=== PATIENT | female | born 1985 | race Caucasian/White ===

== ENCOUNTER 2022-09-10 18:33 | Inpatient (IN) | payer BC ==
--- OUTSIDE RECORDS SUMMARY | 2022-09-10 18:47 | XMS REPORT | Continuity of Care Document ---
:1985 Author Organization [facility] t Address [address] [place] [address] Care Team Providers Name Role Phone Art LERMA, Wayne Hartman Primary Care Physician Carmelo Velasco Attending Clinician Unavailable Vannessa LERMA, Kina Attending Clinician Marco A LERMA, Abel Gurrola Attending Clinician ABEL STRICKLAND Attending Clinician Unavailable Maximilian OWENS, Oliva Knapp Attending Clinician Unavailable Jem OWENS, Meg Attending Clinician Unavailable Ileana Armando NP, Peggy Langford Attending Clinician [phone] Marky LERMA, Yoana Hurtado Attending Clinician Deepak LERMA, Surya Richardson Attending Clinician Checo LERMA, Dov Durand Attending Clinician Abi LERMA, Delano Gibbs Attending Clinician Nicolasa LERMA, Jeffrey Cantu Attending Clinician Kristal LERMA, Nilton Montes Attending Clinician [phone] Beau LERMA, Ann Rosado Attending Clinician ANN YANEZ Attending Clinician Unavailable Zuleika LERMA, Jazzmine Attending Clinician Khanna CRNApriyanka Charley Attending Clinician Celia Hamilton MD Attending Clinician [phone] Angelina Reich CRNA Attending Clinician YOANA NEGRO Attending Clinician Unavailable Luisito LERMA, Henry Galindo Attending Clinician HENRY JORGE Attending Clinician Unavailable Guicho LERMA, Bryant Arrieta Attending Clinician [phone] Asked, No Pcp Attending Clinician Unavailable DR CARMELLA BELCHER Attending Clinician Unavailable Tae LERMA, Carmella Whitten Attending Clinician Venkat Wood MD Attending Clinician [phone] João LERMA, Leana Attending Clinician Chiqui Durbin MD Attending Clinician Kizzy Riojas MD Attending Clinician Taylor OWENS, Mark Attending Clinician Unavailable MD CHIQUI DURBIN Attending Clinician Unavailable Fidencio Abbasi MD Attending Clinician MD BRYANT GROVE Attending Clinician Unavailable Rahel Khan MA Attending Clinician Unavailable JEFFREY FRANKLIN Attending Clinician Unavailable NAVYA PIZARRO Attending Clinician Unavailable RO LUX Attending Clinician Unavailable CHIQUI CASTANEDA Attending Clinician Unavailable ABEL STRICKLAND Admitting Clinician Unavailable ANN YANEZ Admitting Clinician Unavailable DR CARMELLA BELCHER Admitting Clinician Unavailable CARMELLA BELCHER Admitting Clinician Unavailable CHIQUI DURBIN Admitting Clinician Unavailable MD LEANA MOYER Admitting Clinician Unavailable BRYANT GROVE Admitting Clinician Unavailable MD BRYANT GROVE Admitting Clinician Unavailable JEFFREY FRANKLIN Admitting Clinician Unavailable NAVYA PIZARRO Admitting Clinician Unavailable RO LUX Admitting Clinician Unavailable CHIQUI CASTANEDA Admitting Clinician Unavailable Payers Payer Name Policy Type Policy Number Effective Date Expiration Date Staci hernandez [id number] 1961 00:00:00 Problems Condition Condition Condition Status Onset Resolution Last Treating Co mments Source Name Details Category Date Date Treatment Clinician Date Delayed Delayed Disease Active [facility] postoperat postoperat 9-18 [facility] brittany wound brittany wound 00:00: Medi yoli closure closure 00 Center S/P S/P Disease Active [facility] colostomy colostomy 9-13 [facility] takedown takedown 00:00: Medica l 00 Center Abdominal Abdominal Disease Active [facility] pain pain [facility]13 [facility] 00:[facility] Medical 00 Center Obesity Obesity Disease Active [facility] (BMI (BMI 9-13 [facility] 30.0-34.9) 30.0-34.9) 00:00: Me dical 00 Center Colostomy Colostomy Disease Active [facility] status status 9-12 [facility] 00:[facility]: Medical 00 Center Abdominal Abdominal Disease Active [facility] wall wall 5-02 [facility] seroma, seroma, 00:00: Medical sequela sequela 00 Center Lactic Lactic Disease Active [facility] acidosis acidosis 4-23 [facility] 00:00: Medical 00 Center UTI UTI Disease Active [facility] (urinary (urinary 4-23 [facility] tract tract 00:00: Medical infection) infection) 00 Ce nter Septic Septic Disease Active [facility] shock shock 4-23 [facility] 00:00: Medical 00 Center Pneumatosi Pneumatosi Disease Active [facility] s 4-23 [facility] intestinal intestinal 00:00: Me dical is is 00 Center Neuropathy Neuropathy Disease Active M ethodi 9-10 st 00:00: Hospita 00 l Syncope Syncope Disease Active Methodi and and 8-29 st collapse collapse 00:00: Hospit a 00 l Paroxysmal Paroxysmal Disease Active M ethodi SVT SVT 4-21 st (supravent (supravent 00:00: Ho spita ricular ricular 00 l tachycardi tachycardi a) a) ST segment ST segment Disease Active M ethodi depression depression 4-21 st 00:00: Hospita 00 l Syncope Syncope Disease Active [facility]i 4-[facility] st 00:00: Hospita 00 l Labile Labile Disease Active Methodi blood blood 21 st pressure pressure 00:00: Hospit a 00 l Hypertensi Hypertensi Problem Active [facility] ve ve -06 [facility] disorder disorder 00:00: Memori a 00 l (LUF/LI V/SA) Paresthesi Paresthesi Problem Active 2018-[address] a a -16 [facility] 00:00: Memoria 00 l (LUF/LI V/SA) Muscle Muscle Problem Active 2018-[address] weakness weakness 11-19 [facility] 00:00: Memoria 00 l (LUF/LI V/SA) Backache Backache Problem Active 2018-11 [facility] 00:00: Memoria 00 l (LUF/LI V/SA) Benign Benign Disease Active Methodi fasciculat fasciculat st ion-cramp ion-cramp Hosp tamela syndrome syndrome l Plexopathy Plexopathy Disease Active M ethodi st Hospita l Cervical Cervical Disease Active Metho di radiculiti radiculiti [facility] Hospita l Lumbar Lumbar Disease Active Methodi radiculiti radiculiti [facility] s s Hospita l Allergies, Adverse Reactions, Alerts Allergy Allergy Status Severity Reaction(s) Onset Inactive Treating Comm ents Source Name Type Date Date Clinician NO KNOWN Allergy Active [facility] No Known DA Active [facility] l (LUF/LI V/SA) No Known DA Active [facility] Allergie [facility] Mem[facility] l (LUF/LI V/SA) Family History Family Member Diagnosis Comments Start Date Stop Date Source Natural mother Diabetes [facility] Natural mother Hyperlipidemia [facility] Natural mother Hypertension [facility] Natural father Heart disease [facility] Natural father Heart failure Method[facility] Natural father Hyperlipidemia [facility] Social History Social Habit Start Date Stop Date Quantity Comments Source History of tobacco Current smoker Me thodist use Hospital [facility] SDOH [facility] Alcohol Std Drinks Medica l Center History SDOH [facility] Alcohol Binge Medical Omar ter History SDOH [facility] Transport Non-Med Medical Center History SDOH [facility] Housing Places Medical Ce nter Lived Alcohol intake 2022-07-21 2022-07-21 Current drinker of [facility] 00:00[facility]00 00:00:00 alcohol (finding) Medical Center History [facility] 2022-07-17 2022-07-[address] [facility] Transport Med 00:00:00 00:00:[address] [facility] [address] History [facility] 2022-07-17 2022-07-[address] [facility] Housing Unable to 00:00:00 00:00:00 Medical Center Pay History [facility] 2022-07-17 2022-07-[address] [facility] Housing Homeless 00:00:00 00:00:00 Medical Center Last Year History [facility] 2022-06-18 2022-06-[address] [facility] Alcohol Comment 00:00:00 00:00:00 Medical C enter Tobacco Comment 2022-06-18 2022-06-18 1 pack per week [facility] 00:00:00 00:00:00 [facility] Cigarettes smoked 2022-02-23 2022-02-[address] [facility] current (pack per 00:00:00 00:00:00 Medical Center day) - Reported Cigarette 2022-02-23 2022-02-[address] [facility] pack-years 00:00:00 00:00:00 Medical Center Tobacco use and 2022-02-23 2022-02-[address] [facility] [facility] exposure 00:00:00 00:00:00 Medical Center History [facility] 2022-02-23 2022-02-[address] [facility] Alcohol Frequency 00:00:00 00:00:00 [facility] Sex Assigned At [address] [facility] kes 00:00:00 00:00:00 Medical Center Smoking Status Start Date Stop Date Source Current every day 2022-02-23 00:00:[address] [facility] Medical smoker Center Ex-smoker 2021-02-21 00:00:00 2021-02-21 00:00:00 [facility] Medications Ordered Filled Start Stop Current Ordering Indication Dosage Frequency Signature Comments Components Source Medication Medication Date Date Medication? Clinician (SIG) Name Name docusate 2021- No 200mg QD Take 2 [facility] sodium 07-24-30 capsules [facility] (COLACE) 00:00: 23:59 (200 mg Medic al 100 MG 00 :00 total) by Center capsule mouth daily for 10 days. pregabalin 0 Yes 300mg Q.5D Take [address] (LYRICA) 9-19 mg by [facility] 300 MG 16:37: mouth 2 Medical capsule 41 (two) Center times daily. ALPRAZolam 0 Yes 1mg Q.5D Take [address] (XANAX) 1 -19 by mouth 2 Luke s MG tablet 16:37: (two) Medical 41 times Center daily. DULoxetine 0 Yes 60mg QD Take [address] (CYMBALTA) -19 by mouth [facility] 60 MG 16:37: daily. Medical capsule 41 Center carvediloL Yes 3.125mg Take 3.[address] (COREG) 9-19 mg by [facility] 3.125 MG 16:37: mouth 2 Medica l tablet 41 (two) Center times daily with breakfast and dinner. glipiZIDE Yes 5mg Take [address] (GLUCOTROL) 07-23 by mouth 2 [facility] kes 5 MG tablet 16:37: (two) Medic al 41 times Center daily before meals. HYDROcodone 2021- No 1{tbl} Take [address] -acetaminop 07-23 tablet by Flakito nash (NORCO 00:00: 23:59 mouth Medic al 10-325) 00 :00 every 8 Center 10-325 mg (eight) per tablet hours as needed for Pain for up to 7 days. Max Daily Amount: 3 tablets DAPTOmycin 2021- No 500mg Q24H Inject [address] (CUBICIN) 03-08- mg [facility] IV 00:00: 00:00 intravenou Medica l 00 :00 sly daily. Center cefTRIAXone 2021- No 2g Q24H Inject [address] (ROCEPHIN) 03-08-08 intravenou [facility]es MBP 2 g in 00:00: 00:00 sly daily. Medical 100 mL NS 00 :00 Center TiZANidine 2021- No 8mg Q.[id number] Take [address] (ZANAFLEX) 03-07 [id number] by mouth 3 [facility] 6 MG 13:04: 00:00 3D (three) Medical capsule 05 :00 times Center daily. TiZANidine Yes 8mg Take 2 [facility] t (ZANAFLEX) 03-07 capsules [facility] 4 MG 00:00: (8 mg Medical capsule 00 total) by Center mouth 3 (three) times daily as needed for Muscle spasms. carvediloL 2021- No 3.125mg Q.5D Take [address] (COREG) 03-07 tablet [facility] 3.125 MG 00:00: 23:59 (3.125 mg Med ical tablet 00 :00 total) by Center mouth 2 (two) times daily for 30 days. glipiZIDE 2021- No 5mg Take 0.[address] (GLUCOTROL) 03-07 tablets (5 L ukes 10 MG 00:00: 23:59 mg total) Medica l tablet 00 :00 by mouth 2 Center (two) times daily before meals for 30 days. HYDROcodone 2021- No 1{tbl} Take [address] -acetaminop 03-07 tablet by Flakito yane hen (NORCO 00:00: 23:59 mouth Medic al 10-325) 00 :00 every 6 Center 10-325 mg (six) per tablet hours as needed for up to 5 days. Max Daily Amount: 4 tablets metroNIDAZO 2021- No 500mg [id number] Take [address] LE (FLAGYL) 03-07 [id number] tablet [facility] 500 MG 00:00: 23:59 3D (500 mg Medical tablet 00 :00 total) by Center mouth 3 (three) times daily for 5 days. zolpidem 2021- No 10mg Take [address] (AMBIEN) 10 -25 02-24 by mouth [facility]erto es mg tablet 17:11: 00:00 every Medica l 12 :00 night as Center needed for Insomnia. ergocalcife 2020- No [id number] Q7D Take 1 M ethodi rol 07-27-[address] (VITAMIN 00:00: 04:59 (50,000 Hospi ta D2) 50,000 00 :00 Units l unit total) by capsule mouth once a week for 30 days. vitamin A 2020- No 01215V QD Take 2 Met hodi [id number] UNIT 07-22- capsules st capsule 00:00: 04:59 (20,000 Hospit a 00 :00 Units l total) by mouth daily for 30 days. pyridoxine, 2020- No 25mg QD Take 1 Met hodi vitamin B6, 07-22 tablet (25 s t (B-6) 25 MG 00:00: 04:59 mg total) Hospita tablet 00 :00 by mouth l daily for 30 days. tiZANidine 2020- No 4mg Q.5D Take 4-8 Me thodi (Zanaflex) - 09-[address] 4 MG tablet 13:28: 00:00 mouth 2 Ho spita 15 :00 (two) l times a day as needed for muscle spasms. pregabalin 2020- No 300mg QD Take 300 M ethodi (LYRICA) 07-21 09-[address] 100 MG 13:28: 00:00 mouth Hospita capsule 15 :00 [facility]. l [facility]/20, quantity: 270, day supply: 90) aspirin Yes 81mg QD Take 81 mg Meth juan (ECOTRIN) [address] 81 MG 13:28: daily. Hospita enteric 14 l coated tablet aspirin Yes 81mg QD Take 81 mg Meth juan (ECOTRIN) [address] 81 MG 13:28: daily. Hospita enteric 14 l coated tablet folic acid 2020- No 5mg QD Take 5 Meth juan (FOLVITE) 1 07-21 10-18 tablets (5 s t MG tablet 00:00: 04:59 mg total) Ho spita 00 :00 by mouth l daily for 30 days. 2020- No 1{tbl} QD Take 1 Meth juan vit,calc76/ 07-21-[address] iron/folic 00:00: 04:59 mouth Hospi ta ( 00 :00 daily for l multivitami 30 days. n) 29 mg iron- 1 mg tablet per tablet metFORMIN 2020- No 1000mg Q.5D Take 1 Met hodi (GLUCOPHAGE 9-16 10-[address] ) 1,000 mg 00:00: 04:59 (1,000 mg H ospita tablet 00 :00 total) by l mouth 2 (two) times a day with meals for 30 days. betamethaso 2020- No Metho di ne 6-14 08-29 st dipropionat 00:00: 00:00 Hospi ta e 00 :00 l (DIPROLENE) 0.05 % cream metoprolol 2020- No 25mg Q.5D Take 25 mg Methodi tartrate 4-20 04-[address] (LOPRESSOR) 11:28: 00:00 (two) Hosp tamela 25 mg 05 :00 times a l tablet day. hydrochloro 2020- No hydrochlor Methodi thiazide 4-20 04-[address] (MICROZIDE 11:22: 00:00 Hospit a ORAL) 50 :00 l FLUoxetine Yes 40mg QD Take 40 mg M ethodi (PROzac) 40 3-[address] MG capsule 00:00: daily. Hospi ta 00 l FLUoxetine Yes 40mg QD Take 40 mg M ethodi (PROzac) 40 3-[address] MG capsule 00:00: daily. Hospi ta 00 l ALPRAZolam Yes 1mg QD Take 1 mg Me thodi (XANAX) 1 3-[address] MG tablet 00:00: nightly as Ho spita 00 needed for l anxiety or sleep. ([facility] last [facility] 05/10/21, quantity: 90, day supply: 90) ALPRAZolam Yes 1mg QD Take 1 mg Me thodi (XANAX) 1 3-[address] MG tablet 00:00: nightly as Ho spita 00 needed for l anxiety or sleep. ([facility] last [facility] 05/10/21, quantity: 90, day supply: 90) meloxicam Yes 15mg QD Take 15 mg Me thodi (MOBIC) 15 3-[address] mg tablet 00:00: daily. Hospit a 00 l meloxicam Yes 15mg QD Take 15 mg Me thodi (MOBIC) 15 3-[address] mg tablet 00:00: daily. Hospit a 00 l aspirin 81 aspirin 81 2019-[address] MG Chewable MG Chewable 2-24 L ukes Tablet Tablet 00:00: Memoria 00 l (LUF/LI V/SA) pregabalin pregabalin 2019-11 [address] 25 MG Oral 25 MG Oral 2-24 [facility] Capsule Capsule 00:00: Memoria 00 l (LUF/LI V/SA) tizanidine tizanidine 2019-[address] 2 MG Oral 2 MG Oral 2-24 [facility] Tablet Tablet 00:00: Memoria 00 l (LUF/LI V/SA) aspirin 81 aspirin 81 2019-11 Yes [address] [facility] MG Chewable MG Chewable 2-24 ONCE A DAY [facility]ukes Tablet Tablet 00:00: Memoria 00 l (LUF/LI V/SA) pregabalin pregabalin 2019-11 Yes 75 Q8.00W [address] [facility] 25 MG Oral 25 MG Oral 2-24 THREE (3) [facility]ukes Capsule Capsule 00:00: TIMES A Humberto joy DAY l (ACUDOSE (LUF/LI MED) V/SA) tizanidine tizanidine 2019-11 Yes [address] [facility] 2 MG Oral 2 MG Oral 2-24 THREE Luke s Tablet Tablet 00:00: TIMES Memoria 00 DAILY l NEEDED as (LUF/LI needed. V/SA) metoprolol metoprolol Yes [address] tartrate 25 tartrate 25 L ukes mg tablet mg tablet Memor ia l (LUF/LI V/SA) metoprolol metoprolol Yes 25 3xD BY MOUTH [facility] tartrate 25 tartrate 25 TWICE A [facility] mg tablet mg tablet DAY Memor ia l (LUF/LI V/SA) Vital Signs Vital Name Observation Time Observation Value Comments Source HEIGHT 2022-07-16 12:14:00 167.6 cm WEIGHT 2022-07-16 12:14:00 87.544 kg HEIGHT 2022-07-16 12:14:00 167.6 cm WEIGHT 2022-07-16 12:14:00 87.544 kg HEIGHT 2022-07-16 12:14:00 167.6 cm WEIGHT 2022-07-16 12:14:00 87.544 kg HEIGHT 2022-07-12 15:04:00 167.6 cm WEIGHT 2022-07-12 15:04:00 87.544 kg HEIGHT 2022-07-12 15:04:00 167.6 cm WEIGHT 2022-07-12 15:04:00 87.544 kg HEIGHT 2022-07-12 15:04:00 167.6 cm WEIGHT 2022-07-12 15:04:00 87.544 kg HEIGHT 2022-06-18 14:37:00 167.6 cm WEIGHT 2022-06-18 14:37:00 86.41 kg HEIGHT 2022-06-18 14:37:00 167.6 cm WEIGHT 2022-06-18 14:37:00 86.41 kg HEIGHT 2022-06-18 14:37:00 167.6 cm WEIGHT 2022-06-18 14:37:00 86.41 kg WEIGHT 2022-03-07 04:47:00 95.981 kg WEIGHT 2022-03-06 04:18:09 99.791 kg HEIGHT 2022-03-05 14:16:00 167.6 cm WEIGHT 2022-03-05 14:16:00 95.709 kg WEIGHT 2022-03-05 05:00:00 95.8 kg WEIGHT 2022-03-04 06:56:00 96.435 kg WEIGHT 2022-03-03 05:00:00 94.439 kg WEIGHT 2022-03-02 04:55:00 93.486 kg WEIGHT 2022-03-01 05:00:00 95.709 kg HEIGHT 2022-02-26 15:13:00 167.6 cm WEIGHT 2022-02-26 15:13:00 90.719 kg HEIGHT 2022-02-24 02:45:00 167.6 cm WEIGHT 2022-02-24 02:45:00 90.855 kg WEIGHT 2022-03-07 04:47:00 95.981 kg WEIGHT 2022-03-06 04:18:09 99.791 kg HEIGHT 2022-03-05 14:16:00 167.6 cm WEIGHT 2022-03-05 14:16:00 95.709 kg WEIGHT 2022-03-05 05:00:00 95.8 kg WEIGHT 2022-03-04 06:56:00 96.435 kg WEIGHT 2022-03-03 05:00:00 94.439 kg WEIGHT 2022-03-02 04:55:00 93.486 kg WEIGHT 2022-03-01 05:00:00 95.709 kg HEIGHT 2022-02-26 15:13:00 167.6 cm WEIGHT 2022-02-26 15:13:00 90.719 kg HEIGHT 2022-02-24 02:45:00 167.6 cm WEIGHT 2022-02-24 02:45:00 90.855 kg WEIGHT 2022-03-07 04:47:00 95.981 kg WEIGHT 2022-03-06 04:18:09 99.791 kg HEIGHT 2022-03-05 14:16:00 167.6 cm WEIGHT 2022-03-05 14:16:00 95.709 kg WEIGHT 2022-03-05 05:00:00 95.8 kg WEIGHT 2022-03-04 06:56:00 96.435 kg WEIGHT 2022-03-03 05:00:00 94.439 kg WEIGHT 2022-03-02 04:55:00 93.486 kg WEIGHT 2022-03-01 05:00:00 95.709 kg HEIGHT 2022-02-26 15:13:00 167.6 cm WEIGHT 2022-02-26 15:13:00 90.719 kg HEIGHT 2022-02-24 02:45:00 167.6 cm WEIGHT 2022-02-24 02:45:00 90.855 kg HEIGHT 2022-02-23 22:07:00 167.6 cm WEIGHT 2022-02-23 22:07:00 83.915 kg HEIGHT 2022-02-23 22:07:00 167.6 cm WEIGHT 2022-02-23 22:07:00 83.915 kg HEIGHT 2022-02-23 22:07:00 167.6 cm WEIGHT 2022-02-23 22:07:00 83.915 kg Height 2020-10-26 20:23:00 167.64 CM Weight 2020-10-26 20:23:00 86.9 KG Weight 2019-11-11 04:19:00 92.8 KG Weight 2019-11-10 09:58:00 89.7 KG Weight 2019-11-09 13:19:00 84.9 KG Systolic blood 2022-07-23 15:11:16 144 mm[Hg] [facility] Diastolic blood 2022-07-23 15:11:16 94 mm[Hg] [facility] Oxygen saturation in 2022-07-23 15:11:16 96 /min [facility] Arterial blood by Medical Ce nter Pulse oximetry Respiratory rate 2022-07-23 15:10:40 18 /min [facility] Body temperature 2022-07-23 15:10:02 36.94 Ashli [facility] Heart rate 2022-07-23 11:11:43 76 /min [facility] Body height 2022-07-16 12:14:00 167.6 cm [facility] Body weight 2022-07-16 12:14:00 87.544 kg [facility] BMI 2022-07-16 12:14:00 31.15 kg/m2 [facility] Systolic blood 2021-07-21 17:59:41 92 mm[Hg] [facility] pressure Diastolic blood 2021-07-21 17:59:41 50 mm[Hg] [facility] pressure Heart rate 2021-07-21 17:59:41 87 /min [facility] Body temperature 2021-07-21 16:06:48 35.94 Ashli [facility] Respiratory rate 2021-07-21 16:06:48 18 /min [facility] Oxygen saturation in 2021-07-21 16:06:48 97 /min [facility] Arterial blood by Pulse oximetry Body height 2021-07-15 02:25:14 167.6 cm [facility] Body weight 2021-07-15 02:25:14 96.344 kg [facility] BMI 2021-07-15 02:25:14 34.28 kg/m2 [facility] BP Systolic 2020-10-27 20:05:00 99 mm[facility] Diastolic 2020-10-27 20:05:00 67 mm[Hg] [facility] (LUF/HEIKE/SA) Heart Rate 2020-10-27 20:03:00 94 /min [facility] (LUF/HEIKE/SA) Pulse Rate 2020-10-27 20:03:00 91 /min [facility] (LUF/HEIKE/SA) Respiratory Rate 2020-10-27 20:03:00 15 /min [facility] (LUF/HEIKE/SA) O2% BldC Oximetry 2020-10-27 20:03:00 91 % [facility] (F/HEIKE/SA) Body Temperature 2020-10-27 17:01:00 98 [degF] [facility] (LUF/HEIKE/SA) Height 2020-10-26 20:23:00 66 [in_i] [facility] (F/HEIKE/SA) Weight 2020-10-26 20:23:00 86.9 kg [facility] (LUF/HEIKE/SA) BMI (Body Mass 2020-10-26 20:23:00 31.1 kg/m2 [facility]) [facility] (F/HEIKE/SA) Procedures Procedure Date / Time Performing Clinician Source Performed CT ABDOMEN/PELVIS WITH IV 2022-08-14 Kina Hurd [facility] CONTRAST 05:30:00 [facility] POCT-GLUCOSE METER 2022-07-23 Abel Strickland [facility] 15:12:00 [facility] POCT-GLUCOSE METER 2022-07-23 Abel Strickland [facility] St [facility] 11:13:00 [facility] POCT-GLUCOSE METER 2022-07-23 Abel Strickland [facility] St [facility] 06:22:00 [facility] CBC W/PLT COUNT & AUTO 2022-07-23 Nghia Baltazar [facility] L ukes DIFFERENTIAL 04:08:00 [facility] BASIC METABOLIC PANEL 2022-07-23 Nghia Baltazar [facility] Flakito kes 04:08:00 [facility] CBC W/PLT COUNT & AUTO 2022-07-23 Nghia Baltazar [facility] L ukes DIFFERENTIAL 04:08:00 [facility] POCT-GLUCOSE METER 2022-07-22 Marco A Abel Galileo [facility] 23:32:00 [facility] POCT-GLUCOSE METER 2022-07-[address] [facility] 20:22:00 [facility] POCT-GLUCOSE METER 2022-07-22 Marco A Abel Galileo [facility] 16:39:00 [facility] POCT-GLUCOSE METER 2022-07-[address] [facility] 11:32:00 [facility] POCT-GLUCOSE METER 2022-07-22 Marco A Abel Galileo [facility] 06:13:00 [facility] POCT-GLUCOSE METER 2022-07-[address] 20:03:00 [facility] POCT-GLUCOSE METER 2022-07-[address] [facility] 16:57:00 [facility] POCT-GLUCOSE METER 2022-07-[address] [facility] 15:29:00 [facility] POCT-GLUCOSE METER 2022-07-21 Marco A Abel Galileo [facility] 10:46:00 [facility] CLOSURE, WOUND 2022-07-[address] [facility] 07:53:00 [facility] POCT-GLUCOSE METER 2022-07-[address] [facility] 06:21:00 [facility] CBC W/PLT COUNT & AUTO 2022-07-[address] [facility] DIFFERENTIAL 04:06:00 [facility] BASIC METABOLIC PANEL 2022-07-[address] [facility] 04:06:00 [facility] CBC W/PLT COUNT & AUTO 2022-07-[address] [facility] DIFFERENTIAL 04:06:00 [facility] SCREEN, URINE 2022-07-21 Carroll, Mical [facility] 01:06:00 [facility] POCT-GLUCOSE METER 2022-07-[address] [facility] 20:46:00 [facility] POCT-GLUCOSE METER 2022-07-[address] [facility] 15:28:00 [facility] POCT-GLUCOSE METER 2022-07-20 Marco A Abel Galileo [facility] 11:17:00 [facility] POCT-GLUCOSE METER 2022-07-20 Marco A Abel Galileo [facility] 05:55:00 [facility] POCT-GLUCOSE METER 2022-07-19 Marco A Abel Galileo [facility] 20:22:00 [facility] POCT-GLUCOSE METER 2022-07-19 Marco A Abel Galileo [facility] 15:26:00 [facility] POCT-GLUCOSE METER 2022-07-19 Marco A Abel Galileo [facility] 11:29:00 [facility] POCT-GLUCOSE METER 2022-07-19 Macro A Abel Galileo [facility] es 05:47:00 [facility] CBC W/PLT COUNT & AUTO 2022-07-[address] [facility] DIFFERENTIAL 05:31:00 [facility] BASIC METABOLIC PANEL 2022-07-[address] Fl[facility] kes 05:31:00 [facility] CBC W/PLT COUNT & AUTO 2022-07-[address] L [facility] DIFFERENTIAL 05:31:00 [facility] POCT-GLUCOSE METER 2022-07-[address] [facility] 20:11:00 [facility] POCT-GLUCOSE METER 2022-07-18 Marco A Abel Galileo [facility] 15:51:00 [facility] US RENAL COMPLETE 2022-07-[address] [facility] 13:41:00 [facility] URINALYSIS W/ MICROSCOPIC 2022-07-18 Ngh[facility]tazar [facility] 12:29:00 [facility] POCT-GLUCOSE METER 2022-07-[address] [facility] 11:01:00 [facility] POCT-GLUCOSE METER 2022-07-[address] [facility] 06:11:00 [facility] CBC W/PLT COUNT & AUTO 2022-07-[address] [facility] DIFFERENTIAL 03:35:00 [facility] BASIC METABOLIC PANEL 2022-07-[address] [facility] 03:35:00 [facility] CBC W/PLT COUNT & AUTO 2022-07-18 Estheryanntuan Enzo Vasquezwalter [facility] DIFFERENTIAL 03:35:00 [facility] POCT-GLUCOSE METER 2022-07-[address] [facility] 20:14:00 [facility] POCT-GLUCOSE METER 2022-07-[address] [facility] 16:03:00 [facility] POCT-GLUCOSE METER 2022-07-[address] [facility] 11:15:00 [facility] POCT-GLUCOSE METER 2022-07-[address] [facility] 07:57:00 [facility] CBC W/PLT COUNT & AUTO 2022-07-[address] [facility] DIFFERENTIAL 04:47:00 [facility] BASIC METABOLIC PANEL 2022-07-[address] [facility] 04:47:00 [facility] CBC W/PLT COUNT & AUTO 2022-07-[address] [facility] DIFFERENTIAL 04:47:00 [facility] TISSUE EXAM 2022-07-[address] [facility] 14:50:00 [facility] CLOSURE, COLOSTOMY 2022-07-[address] [facility] 13:03:00 [facility] POTASSIUM 2022-07-[address] [facility] 12:01:00 [facility] GLUCOSE 2022-07-[address] [facility] 12:01:00 [facility] POCT , URINE 2022-07-[address] [facility] 12:00:00 [facility] COVID ANTIGEN 2022-07-[address] [facility] 15:49:00 [facility] BASIC METABOLIC PANEL 2022-07-[address] [facility] 15:04:00 [facility] CBC W/PLT COUNT & AUTO 2022-07-[address] [facility] DIFFERENTIAL 15:04:00 [facility] CBC W/PLT COUNT & AUTO 2022-07-[address] [facility] DIFFERENTIAL 15:04:00 [facility] COVID ANTIGEN 2022-06-18 Marco A Abel Mccaben [facility] 17:43:00 [facility] CBC W/PLT COUNT & AUTO 2022-06-18 Marco A Abel Galileo [facility] DIFFERENTIAL 14:35:00 [facility] BASIC METABOLIC PANEL 2022-06-18 Marco A Abel Mccaben [facility] 14:35:00 [facility] TYPE AND SCREEN, AUTOMATED 2022-06-[address] [facility] 14:35:00 [facility] CBC W/PLT COUNT & AUTO 2022-06-18 Marco A Abel Mccaben [facility] DIFFERENTIAL 14:35:00 [facility] POCT-GLUCOSE METER 2022-03-[address] [facility] 11:53:00 [facility] CBC W/PLT COUNT & AUTO 2022-03-07 Beau, Feroze Abid [facility] DIFFERENTIAL 11:31:00 [facility] BASIC METABOLIC PANEL 2022-03-07 Beau, Feroze Abid [facility] 11:31:00 [facility] CBC W/PLT COUNT & AUTO 2022-03-07 Beau, Feroze Abid [facility] DIFFERENTIAL 11:31:00 [facility] VANCOMYCIN LEVEL, TROUGH 2022-03-07 Marco A Abel Mccaben [facility] 08:19:00 [facility] POCT-GLUCOSE METER 2022-03-07 Beau, Feroze Abid [facility] 05:40:00 [facility] POCT-GLUCOSE METER 2022-03-06 Beau, Feroze Abid [facility] 20:36:00 [facility] POCT-GLUCOSE METER 2022-03-06 Beau, Feroze Abid [facility] 16:35:00 [facility] POCT-GLUCOSE METER 2022-03-06 Beau, Feroze Abid [facility] 11:25:00 [facility] POCT-GLUCOSE METER 2022-03-06 Baldwin, Jeffrey Alondra [facility] 05:43:00 [facility] CBC W/PLT COUNT & AUTO 2022-03-06 Baldwin, Jeffrey Alondra [facility] DIFFERENTIAL 04:56:00 [facility] BASIC METABOLIC PANEL 2022-03-06 Baldwin, Jeffrey Alondra [facility] 04:56:00 [facility] CBC W/PLT COUNT & AUTO 2022-03-06 Baldwin, Jeffrey Alondra [facility] DIFFERENTIAL 04:56:00 [facility] POCT-GLUCOSE METER 2022-03-05 Baldwin, Jeffrey Alondra [facility] 20:42:00 [facility] EVACUATION, SEROMA 2022-03-[address] [facility] 16:05:00 [facility] POCT-GLUCOSE METER 2022-03-05 Baldwin, Jeffrey Alondra [facility] 15:08:00 [facility] POCT-GLUCOSE METER 2022-03-05 Baldwin, Jeffrey Alondra [facility] 10:53:00 [facility] SCREEN, URINE 2022-03-[address] [facility] 10:21:00 [facility] SARS-COV2/RT-PCR ([facility] & REF 2022-03-[address] [facility] LABS) 09:26:00 [facility] POCT-GLUCOSE METER 2022-03-05 Baldwin, Jeffrey Alondra [facility] 07:53:00 [facility] CBC W/PLT COUNT & AUTO 2022-03-[address] [facility] DIFFERENTIAL 04:47:00 [facility] MAGNESIUM 2022-03-[address] [facility] 04:47:00 [facility] POTASSIUM 2022-03-[address] [facility] 04:47:00 [facility] CBC W/PLT COUNT & AUTO 2022-03-[address] [facility] DIFFERENTIAL 04:47:00 [facility] POCT-GLUCOSE METER 2022-03-[address] [facility] 20:50:00 [facility] POCT-GLUCOSE METER 2022-03-[address] [facility] 16:19:00 [facility] POCT-GLUCOSE METER 2022-03-[address] [facility] 11:45:00 [facility] POCT-GLUCOSE METER 2022-03-[address] [facility] 06:30:00 [facility] CBC W/PLT COUNT & AUTO 2022-03-[address] [facility] DIFFERENTIAL 03:47:00 [facility] BASIC METABOLIC PANEL 2022-03-[address] [facility] 03:47:00 [facility] CBC W/PLT COUNT & AUTO 2022-03-[address] [facility] DIFFERENTIAL 03:47:00 [facility] (MANUAL DIFFERENTIAL) 2022-03-[address] [facility] 03:47:00 [facility] POCT-GLUCOSE METER 2022-03-[address] [facility] 20:36:00 [facility] POCT-GLUCOSE METER 2022-03-[address] [facility] 16:36:00 [facility] POCT-GLUCOSE METER 2022-03-[address] [facility] 11:31:00 [facility] CBC W/PLT COUNT & AUTO 2022-03-[address] [facility] DIFFERENTIAL 09:03:00 [facility] CBC W/PLT COUNT & AUTO 2022-03-[address] [facility] DIFFERENTIAL 09:03:00 [facility] (MANUAL DIFFERENTIAL) 2022-03-[address] 09:03:00 [facility] BASIC METABOLIC PANEL 2022-03-[address] 09:02:00 [facility] POCT-GLUCOSE METER 2022-03-[address] [facility] 05:15:00 [facility] POCT-GLUCOSE METER 2022-03-[address] [facility] 21:01:00 [facility] POCT-GLUCOSE METER 2022-03-[address] [facility] 16:35:00 [facility] POCT-GLUCOSE METER 2022-03-[address] [facility] 12:10:00 [facility] POCT-GLUCOSE METER 2022-03-02 Baldwin, Jeffrey Alondra [facility] 05:56:00 [facility] CBC W/PLT COUNT & AUTO 2022-03-[address] [facility] DIFFERENTIAL 05:12:00 [facility] COMPREHENSIVE METABOLIC PANEL 2022-03-[address] [facility] 05:12:00 [facility] CBC W/PLT COUNT & AUTO 2022-03-[address] [facility] DIFFERENTIAL 05:12:00 [facility] (MANUAL DIFFERENTIAL) 2022-03-02 MendezLisandro zepeda [facility] 05:12:00 [facility] POCT-GLUCOSE METER 2022-03-01 Baldwin, Jeffrey Alondra [facility] 20:42:00 [facility] POCT-GLUCOSE METER 2022-03-01 Baldwin, Jeffrey Alondra [facility] 16:21:00 [facility] POCT-GLUCOSE METER 2022-03-01 Baldwin, Jeffrey Alondra [facility] 11:01:00 [facility] XR ABDOMEN/KUB 1 VIEW 2022-03-01 Baldwin, Jeffrey Alondra [facility] PORTABLE 08:20:00 [facility] POCT-GLUCOSE METER 2022-03-01 Baldwin, Jeffrey Alondra [facility] 06:05:00 [facility] CBC W/PLT COUNT & AUTO 2022-03-[address] [facility] DIFFERENTIAL 04:58:00 [facility] COMPREHENSIVE METABOLIC PANEL 2022-03-[address] [facility] 04:58:00 [facility] MAGNESIUM 2022-03-[address] [facility] 04:58:00 [facility] PHOSPHORUS 2022-03-[address] [facility] 04:58:00 [facility] TRIGLYCERIDES 2022-03-[address] [facility] 04:58:00 [facility] CBC W/PLT COUNT & AUTO 2022-03-[address] [facility] DIFFERENTIAL 04:58:00 [facility] (MANUAL DIFFERENTIAL) 2022-03-01 Lisandro Mendez [facility] 04:58:00 [facility] POCT-GLUCOSE METER 2022-02-28 Baldwin, Jeffrey Alondra [facility] 20:58:00 [facility] POCT-GLUCOSE METER 2022-02-28 Baldwin, Jeffrey Alondra [facility] 16:15:00 [facility] PROTEIN C ANTIGEN, TOTAL 2022-02-[address] [facility] 12:00:00 [facility] POCT-GLUCOSE METER 2022-02-28 Baldwin, Jeffrey Alondra [facility] 11:19:00 [facility] POCT-GLUCOSE METER 2022-02-28 Baldwin, Jeffrey Alondra [facility] 08:03:00 [facility] CBC W/PLT COUNT & AUTO 2022-02-[address] [facility] DIFFERENTIAL 03:27:00 [facility] COMPREHENSIVE METABOLIC PANEL 2022-02-[address] [facility] 03:27:00 [facility] MAGNESIUM 2022-02-28 Albion, Paulette [facility] 03:27:00 [facility] PHOSPHORUS 2022-02-28 Jarrod, Paulette [facility] 03:27:00 [facility] BILIRUBIN, DIRECT 2022-02-[address] [facility] 03:27:00 [facility] CBC W/PLT COUNT & AUTO 2022-02-[address] [facility] DIFFERENTIAL 03:27:00 [facility] POCT-GLUCOSE METER 2022-02-28 Checo, Dov Ladarius [facility] 00:07:00 [facility] POTASSIUM 2022-02-27 Thangudu, Yoana [facility] 21:19:00 [facility] MAGNESIUM 2022-02-27 Thangudu, Yoana [facility] 21:19:00 [facility] PHOSPHORUS 2022-02-27 Thangudu, Yoana [facility] 21:19:00 [facility] POCT-GLUCOSE METER 2022-02-27 Checo, Dov Ladarius [facility] 17:48:00 [facility] POCT-GLUCOSE METER 2022-02-27 Checo, Dov Ladarius [facility] 13:38:00 [facility] LACTIC ACID, VENOUS 2022-02-[address] [facility] 12:46:00 [facility] MAGNESIUM 2022-02-[address] [facility] 12:46:00 [facility] POTASSIUM 2022-02-[address] [facility] 12:46:00 [facility] POCT-GLUCOSE METER 2022-02-[address] [facility] 10:06:00 [facility] ANTI-NUCLEAR ANTIBODY (LUPE) 2022-02-[address] [facility] 09:24:00 [facility] CARDIOLIPIN ANTIBODIES, IGG 2022-02-[address] [facility] AND IGM 09:24:00 [facility] ANTI-NEUTROPHIL CYTOPLASMIC 2022-02-[address] [facility] AB (ANCA) 09:24:00 [facility] PROTEIN S ACTIVITY 2022-02-27 Lisandro Mendez Mckenzie [facility] 09:24:00 [facility] PROTEIN C ACTIVITY 2022-02-27 Lisandro Mendez Mckenzie [facility] 09:24:00 [facility] CBC W/PLT COUNT & AUTO 2022-02-[address] [facility] DIFFERENTIAL 04:05:00 [facility] COMPREHENSIVE METABOLIC PANEL 2022-02-[address] [facility] 04:05:00 [facility] LACTIC ACID, VENOUS 2022-02-[address] [facility] 04:05:00 [facility] CBC W/PLT COUNT & AUTO 2022-02-[address] [facility] DIFFERENTIAL 04:05:00 [facility] LACTIC ACID, VENOUS 2022-02-27 Abel Strickland Galileo [facility] 00:33:00 [facility] POTASSIUM 2022-02-[address] [facility] 00:33:00 [facility] POCT-GLUCOSE METER 2022-02-26 Checo, Dov Ladarius [facility] 23:33:00 [facility] CBC W/PLT COUNT & AUTO 2022-02-[address] [facility] DIFFERENTIAL 20:16:00 [facility] PROTHROMBIN TIME/INR 2022-02-[address] [facility] 20:16:00 [facility] FIBRINOGEN 2022-02-[address] [facility] 20:16:00 [facility] LACTIC ACID, VENOUS 2022-02-[address] [facility] 20:16:00 [facility] BASIC METABOLIC PANEL 2022-02-[address] [facility] 20:16:00 [facility] MAGNESIUM 2022-02-[address] [facility] 20:16:00 [facility] CBC W/PLT COUNT & AUTO 2022-02-[address] [facility] DIFFERENTIAL 20:16:00 [facility] (MANUAL DIFFERENTIAL) 2022-02-[address] [facility] 20:16:00 [facility] PREPARE LEUKO-REDUCED RBC 2022-02-[address] [facility] 19:05:00 [facility] HEMOGLOBIN AND HEMATOCRIT 2022-02-[address] [facility] 18:07:00 [facility] ABORH, MANUAL 2022-02-[address] [facility] 18:00:00 [facility] BLOOD GAS, ARTERIAL 2022-02-[address] [facility] 17:52:08 [facility] TISSUE EXAM 2022-02-[address] [facility] 17:40:00 [facility] COMPREHENSIVE METABOLIC PANEL 2022-02-[address] [facility] 17:12:54 [facility] MAGNESIUM 2022-02-[address] [facility] 17:12:00 [facility] TYPE AND SCREEN, AUTOMATED 2022-02-[address] [facility] 17:04:00 [facility] PROTHROMBIN TIME/INR 2022-02-[address] [facility] 16:28:12 [facility] CBC W/PLT COUNT & AUTO 2022-02-[address] [facility] DIFFERENTIAL 16:28:12 [facility] CBC W/PLT COUNT & AUTO 2022-02-[address] [facility] DIFFERENTIAL 16:28:12 [facility] COLECTOMY, RIGHT 2022-02-[address] [facility] 15:39:00 [facility] PROTEIN, 24 HOUR URINE 2022-02-26 Dov Kessler [facility] 10:29:00 [facility] CBC W/PLT COUNT & AUTO 2022-02-[address] [facility] DIFFERENTIAL 09:08:00 [facility] PERIPHERAL BLOOD SMEAR - PATH 2022-02-[address] [facility] REVIEW 09:08:00 [facility] CBC W/PLT COUNT & AUTO 2022-02-[address] [facility] DIFFERENTIAL 09:08:00 [facility] (MANUAL DIFFERENTIAL) 2022-02-[address] [facility] 09:08:00 [facility] POCT-GLUCOSE METER 2022-02-26 Heva-Paththinislime [facility] 06:00:00 [facility] [place] r BLOOD CULTURE 2022-02-25 Rufinaa-Madeleine [facility] 17:13:00 [facility] CALCIUM, IONIZED 2022-02-[address] [facility] 15:52:00 [facility] HEMOGLOBIN AND HEMATOCRIT 2022-02-25 Rufinaa-Paththinige [facility] 15:50:00 [facility] [place] r BASIC METABOLIC PANEL 2022-02-[address] [facility] 15:49:00 [facility] MAGNESIUM 2022-02-[address] [facility] 15:49:00 [facility] LACTIC ACID, VENOUS 2022-02-25 Jodi Calixto [facility] 09:51:00 [facility] HEMOGLOBIN AND HEMATOCRIT 2022-02-[address] [facility] 09:51:00 [facility] CALCIUM, IONIZED 2022-02-[address] [facility] 09:51:00 [facility] BASIC METABOLIC PANEL 2022-02-25 Dov Kessler [facility] 09:51:00 [facility] PHOSPHORUS 2022-02-[address] [facility] 09:51:[address] [facility] [address] ABDOMEN/PELVIS WITHOUT IV 2022-02-[address] [facility] CONTRAST 05:20:00 [facility] COMPREHENSIVE METABOLIC PANEL 2022-02-[address] [facility] 04:12:00 [facility] LACTIC ACID, VENOUS 2022-02-[address] [facility] 04:12:00 [facility] HEMOGLOBIN AND HEMATOCRIT 2022-02-[address] [facility] 04:12:00 [facility] CREATINE KINASE (CK) 2022-02-[address] [facility] 04:12:00 [facility] MAGNESIUM 2022-02-25 JosephChelsie parham [facility] 04:12:00 [facility] CREATINE KINASE (CK) 2022-02-25 DurgaJodi prasad [facility] 00:16:00 [facility] LACTIC ACID, VENOUS 2022-02-[address] [facility] 00:16:00 [facility] HEMOGLOBIN AND HEMATOCRIT 2022-02-[address] [facility] 00:16:00 [facility] TSH/FREE T4 IF INDICATED 2022-02-25 DurgaJodi greene [facility] 00:16:00 [facility] LACTIC ACID, VENOUS 2022-02-24 DurgaJodi prasad [facility] 20:07:00 [facility] CALCIUM, IONIZED 2022-02-24 Durga, Jodi [facility] 20:07:00 [facility] HEMOGLOBIN AND HEMATOCRIT 2022-02-[address] [facility] 20:07:00 [facility] BASIC METABOLIC PANEL 2022-02-24 Durga Jodi [facility] 20:07:00 [facility] BLOOD GAS, ARTERIAL 2022-02-24 JosephChelsie parham [facility] 19:08:00 [facility] AMMONIA 2022-02-24 JosephChelsie parham [facility] 19:06:00 [facility] CREATINE KINASE (CK) 2022-02-24 Durga, Jodi [facility] 16:58:00 [facility] LACTIC ACID, VENOUS 2022-02-24 Durga, Jodi [facility] 16:58:00 [facility] HEMOGLOBIN AND HEMATOCRIT 2022-02-24 Durga, Jodi [facility] 16:58:00 [facility] BASIC METABOLIC PANEL 2022-02-[address] [facility] 16:58:00 [facility] MAGNESIUM 2022-02-[address] [facility] 16:58:00 [facility] POCT-GLUCOSE METER 2022-02-[address] [facility] 16:40:00 [facility] RAPID DRUG SCREEN, URINE 2022-02-24 JosephChelsie parham [facility] 11:07:00 [facility] LACTIC ACID, VENOUS 2022-02-24 Durga, Jodi [facility] 11:04:00 [facility] HEMOGLOBIN AND HEMATOCRIT 2022-02-24 Durga, Jodi [facility] 11:04:00 [facility] CREATINE KINASE (CK) 2022-02-[address] [facility] 11:04:00 [facility] TSH/FREE T4 IF INDICATED 2022-02-[address] [facility] 11:04:00 [facility] VITAMIN B12 AND FOLATE 2022-02-24 Meena Anderson [facility] 11:04:00 [facility] RHEUMATOID FACTOR AB, REFLEX 2022-02-[address] [facility] TO TITER 11:04:00 [facility] VITAMIN D, 25-HYDROXY 2022-02-[address] [facility] 11:04:00 [facility] BASIC METABOLIC PANEL 2022-02-[address] [facility] 07:48:00 [facility] CREATINE KINASE (CK) 2022-02-24 Durga, Jodi [facility] 07:48:00 [facility] LACTIC ACID, VENOUS 2022-02-24 Durga, Jodi [facility] 07:48:00 [facility] HEMOGLOBIN AND HEMATOCRIT 2022-02-24 Durga, Jodi [facility] 07:48:00 [facility] MAGNESIUM 2022-02-[address] [facility] 07:48:00 [facility] LEGIONELLA ANTIGEN, URINE 2022-02-24 Durga, Jodi [facility] 05:20:00 [facility] MRSA SCREEN 2022-02-24 Durga, Jodi [facility] 05:18:00 [facility] CALCIUM, IONIZED 2022-02-24 Durga, Jodi [facility] 04:33:00 [facility] US ABDOMEN LIMITED 2022-02-24 Durga, Jodi [facility] 04:03:00 [facility] CT ABDOMEN/PELVIS WITHOUT IV 2022-02-24 Durga J[address] C [facility] CONTR[facility] 03:40:00 [facility] CBC W/PLT COUNT & AUTO 2022-02-[address] [facility] DIFFERENTIAL 03:02:00 [facility] COMPREHENSIVE METABOLIC PANEL 2022-02-24 Durga, Jodi [facility] 03:02:00 [facility] PROTHROMBIN TIME/INR 2022-02-24 Durga, Jodi [facility] 03:02:00 [facility] BLOOD GAS, VENOUS 2022-02-24 Durga, Jodi [facility] 03:02:00 [facility] FIBRINOGEN 2022-02-24 Durga, Jodi [facility] 03:02:00 [facility] CREATINE KINASE (CK) 2022-02-24 Durga, Jodi [facility] 03:02:00 [facility] LACTIC ACID, VENOUS 2022-02-24 Durga, Jodi [facility] 03:02:00 [facility] HEPATIC FUNCTION PANEL 2022-02-24 Durga, Jodi [facility] 03:02:00 [facility] MAGNESIUM 2022-02-24 Durga, Jodi [facility] 03:02:00 [facility] PHOSPHORUS 2022-02-24 Durga, Jodi [facility] 03:02:00 [facility] HEMOGLOBIN A1C 2022-02-24 Durga, Jodi [facility] 03:02:00 [facility] CBC W/PLT COUNT & AUTO 2022-02-24 Durga, Jodi [facility] DIFFER[facility] 03:02:00 [facility] POCT-GLUCOSE METER 2022-02-[address] [facility] 02:51:00 [facility] ED ECG INTERPRETATION 2022-02-[address] [facility] 23:37:14 [facility] SCREEN, URINE 2022-02-[address] [facility] 23:29:00 [facility] URINALYSIS W/ REFLEX URINE 2022-02-23 Henry [facility] CULTURE 23:29:00 [facility] URINE CULTURE 2022-02-23 Luisito, Henry Galindo [facility] 23:29:00 [facility] XR CHEST PA OR AP 1 VIEW IN 2022-02-23 Luisito Henry Galindo [facility] DEPT 23:11:00 [facility] BLOOD CULTURE 2022-02-23 Luiisto, Henry Galindo [facility] 22:59:00 [facility] ECG 12-LEAD 2022-02-[address] [facility] 22:31:31 [facility] ECG 12-LEAD 2022-02-23 Unknown, [facility] Doctor [facility] 22:31:31 [facility] LACTIC ACID, VENOUS 2022-02-23 Luisito, Henry Galindo [facility] 22:21:00 [facility] CBC W/PLT COUNT & AUTO 2022-02-23 Luisito, Henry [facility] DIFFERENTIAL 22:19:00 [facility] CREATINE KINASE (CK) 2022-02-[address] [facility] 22[facility]19:00 [facility] CBC W/PLT COUNT & AUTO 2022-02-[address] [facility] DIFFERENTIAL 22:19:00 [facility] (MANUAL DIFFERENTIAL) 2022-02-[address] [facility] 22:19:00 [facility] COMPREHENSIVE METABOLIC PANEL 2022-02-[address] [facility] 22:19:00 [facility] SARS-COV2/RT-PCR ([facility] & REF 2022-02-23 Luisito Henry Galindo [facility] LABS) 22:15:00 [facility] EKG-SCANNED 2022-02-[address] 00:00:00 Scanning [facility] POC GLUCOSE 2021-07-21 [facility] 16:07:00 POC GLUCOSE 2021-07-21 Belcher, [facility] 11:51:00 POC GLUCOSE 2021-07-21 Belcher, Carmella [facility] 01:32:00 POC GLUCOSE 2021-07-20 Belcher, Carmella [facility] 21:22:00 POC GLUCOSE 2021-07-20 Belcher, Carmella [facility] 16:13:00 POC GLUCOSE 2021-07-20 Belcher, Carmella [facility] 11:33:00 HC COMPLETE BLD COUNT W/AUTO 2021-07-20 [facility] DIFF 11:29:00 [place] BASIC METABOLIC PANEL 2021-07-20 [facility] 11:29:00 Yao ESTIMATED GFR 2021-07-20 [facility], [facility] 11:29:00 Yao POC GLUCOSE 2021-07-20 Belcher, Carmella [facility] 01:42:00 POC GLUCOSE 2021-07-19 Belcher, Carmella [facility] 21:56:00 POC GLUCOSE 2021-07-19 Belcher, Carmella [facility] 17:12:00 POC GLUCOSE 2021-07-19 Belcher, Carmella [facility] 11:30:00 POC GLUCOSE 2021-07-19 Belcher, Carmella [facility] 01:31:00 POC GLUCOSE 2021-07-18 Belcher, Carmella [facility] 21:42:00 US DUPLEX VENOUS LOWER 2021-07-18 Belcher, [facility] EXTREMITY BILATERAL 21:36:00 POC GLUCOSE 2021-07-18 Belcher, [facility] 15:59:00 POC GLUCOSE 2021-07-18 Belcher, [facility]ella [facility] 11:24:00 POC GLUCOSE 2021-07-18 Belcher, [facility] 01:30:00 POC GLUCOSE 2021-07-17 Belcher, [facility]ella [facility] 21:40:00 POC GLUCOSE 2021-07-17 Belcher, [facility]ella [facility] 15:55:00 HC COMPLETE BLD COUNT W/AUTO 2021-07-17 [facility], [facility] DIFF 15:05:00 BASIC METABOLIC PANEL 2021-07-17 [facility], [facility] 15:05:00 ESTIMATED GFR 2021-07-17 Belcher, Carmella [facility] 15:05:00 POC GLUCOSE 2021-07-17 Belcher, Carmella [facility] 11:29:00 POC GLUCOSE 2021-07-17 Belcher, Carmella [facility] 01:57:00 POC GLUCOSE 2021-07-16 Belcher, Carmella [facility] 21:53:00 POC GLUCOSE 2021-07-16 Belcher, Carmella [facility] 17:36:00 POC GLUCOSE 2021-07-16 Belcher, Carmella [facility] 11:58:00 POC GLUCOSE 2021-07-16 Belcher, Carmella [facility] 02:08:00 POC GLUCOSE 2021-07-15 Belcher, Carmella [facility] 22:04:00 POC GLUCOSE 2021-07-15 Belcher, Carmella [facility] 14:34:00 POC GLUCOSE 2021-07-15 Belcher, Carmella [facility] 11:43:00 URINE CULTURE 2021-07-15 Belcher, Carmella [facility] 05:48:00 URINALYSIS SCREEN AND 2021-07-15 [facility], [facility] MICROSCOPY, WITH REFLEX TO 05:48:00 CULTURE POC GLUCOSE 2021-07-15 [facility], Carmella [facility] 02:26:00 POC GLUCOSE 2021-07-15 [facility] 01:24:00 POC GLUCOSE 2021-07-14 [facility] 22:16:00 POC GLUCOSE 2021-07-14 [facility] 18:00:00 POC GLUCOSE 2021-07-14 [facility] 13:10:00 HC COMPLETE BLD COUNT W/AUTO 2021-07-14 Chiqui Durbin [facility] DIFF 09:23:00 BASIC METABOLIC PANEL 2021-07-14 GiftyChiqui [facility] 09:23:00 ESTIMATED GFR 2021-07-14 [facility] 09:23:00 POC GLUCOSE 2021-07-14 [facility] 06:24:00 POC GLUCOSE 2021-07-13 [facility] 22:34:00 POC GLUCOSE 2021-07-13 [facility] 17:22:00 POC GLUCOSE 2021-07-13 [facility] 13:48:00 HC COMPLETE BLD COUNT W/AUTO 2021-07-13 [facility] DIFF 07:53:00 RETICULOCYTE COUNT 2021-07-13 [facility] 07:53:00 POC GLUCOSE 2021-07-13 Gifty [facility] 02:14:00 POC GLUCOSE 2021-07-12 Gifty [facility] 22:01:00 EMG 2021-07-12 Karim, Sanaa [facility] 21:16:20 POC GLUCOSE 2021-07-12 Gifty [facility] 16:53:00 POC GLUCOSE 2021-07-12 Gifty Chiqui [facility] 12:51:00 POC GLUCOSE 2021-07-12 Gifty [facility]iqui [facility] 01:49:00 CV INSERTION SUBCUTANEOUS 2021-07-12 Provider, [facility] CARDIAC RHYTHM MONITOR INCL 00:00:00 PROGRAM (NON INVASIVE) HCG QUALITATIVE, URINE SCREEN 2021-07-11 Wilmer Mccormick [facility] 23:22:00 POC GLUCOSE 2021-07-11 Gifty [facility] 22:51:00 POC GLUCOSE 2021-07-11 Gifty [facility] 17:22:00 POC GLUCOSE 2021-07-11 Gifty [facility] 13:26:00 MAGNESIUM LEVEL 2021-07-11 Karim, Sanaa [facility] 10:16:00 AMMONIA LEVEL 2021-07-11 Mirza Rivera [facility] 10:16:00 PYRUVIC ACID LEVEL 2021-07-11 Diamond Mccormick [facility] 10:16:00 T4, FREE 2021-07-[address] [facility] ospital 10:16:00 THYROID STIMULATING HORMONE 2021-07-11 [facility] 02:53:00 [place]uy[place] POC GLUCOSE 2021-07-[address] [facility] ospital 02:08:00 POC GLUCOSE 2021-07-[address] [facility] ospital 20:39:00 POC GLUCOSE 2021-07-10 Chiqui Durbin [facility] ospital 17:25:00 METANEPHRINES, PLASMA (FREE) 2021-07-10 [facility] 17:00:00 CATECHOLAMINES FRACTIONATED, 2021-07-10 [facility], [facility] PLASMA 17:00:00 RENIN ACTIVITY 2021-07-10 [facility], [facility] ospital 17:00:00 ALDOSTERONE, SERUM 2021-07-10 [facility], [facility] 17:00:00 POC GLUCOSE 2021-07-[address] [facility] ospital 13:07:00 SALIVARY CORTISOL 2021-07-10 [facility], [facility] 12:49:00 POC GLUCOSE 2021-07-10 Chiqui Durbin [facility]ital 02:38:00 POC GLUCOSE 2021-07-09 Chiqui Durbin [facility]ital 22:17:00 LACTIC ACID LEVEL 2021-07-09 [facility] 22:01:00 CORTISOL LEVEL, RANDOM 2021-07-09 [facility], [facility] 17:56:00 MISCELLANEOUS REFERRAL TEST 2021-07-09 [facility], [facility] 17:56:00 ADRENOCORTICOTROPIC HORMONE 2021-07-09 [facility] 17:55:00 POC GLUCOSE 2021-07-09 Chiqui [facility]urbin [facility] 17:35:00 SALIVARY CORTISOL 2021-07-09 Chris Trevino [facility] 17:18:00 POC GLUCOSE 2021-07-09 [facility]iqui [facility] 12:54:00 POC GLUCOSE 2021-07-09 Chiqui Durbin [facility] 11:41:00 LACTIC ACID LEVEL 2021-07-09 [facility] spital 09:40:00 HEPATITIS B CORE ANTIBODY IGM 2021-07-09 [facility] 09:40:00 HEPATITIS B SURFACE ANTIBODY 2021-07-09 [facility] 09:40:00 HEPATITIS C ANTIBODY 2021-07-09 [facility] 09:40:00 HEPATITIS B SURFACE ANTIGEN 2021-07-09 [facility] 09:40:00 ETHYLENE GLYCOL LEVEL 2021-07-09 [facility] 09:40:00 METHANOL LEVEL 2021-07-09 [facility] ital 09:40:00 ACETAMINOPHEN LEVEL 2021-07-09 [facility] 09:40:00 SALICYLATE LEVEL 2021-07-09 [facility] pital 09:40:00 VASCULAR ENDOTHELIAL GROWTH 2021-07-09 [facility] FACTOR (VEGF) 09:40:00 KAPPA LAMBDA FREE LIGHT CHAIN 2021-07-09 [facility] WITH RATIO 09:40:00 SERUM ELECTROPHORESIS 2021-07-09 [facility] 09:40:00 POC GLUCOSE 2021-07-09 Chiqui Durb[facility] 01:58:00 POC GLUCOSE 2021-07-08 [facility]iqui Durbin [facility] 21:15:00 POC GLUCOSE 2021-07-08 [facility]iqu[facility] Durbin [facility] 16:51:00 POC GLUCOSE 2021-07-08 [facility]iqui Durbin [facility] 12:47:00 ANTI-NEUTROPHILIC CYTOPLASMIC 2021-07-08 Wilmer Mccormick [facility] ABS PANEL 09:00:00 DOUBLE-STRANDED DNA (DSDNA) 2021-07-08 [facility] ANTIBODIES, CRITHIDIA 09:00:00 SS-B ANTIBODY 2021-07-08 [facility] spital 09:00:00 C4 COMPLEMENT COMPONENT 2021-07-08 [facility] 09:00:00 RHEUMATOID FACTOR 2021-07-08 [facility] 09:00:00 CYCLIC CITRULLINATED PEPTIDE 2021-07-08 [facility] AB, IGG 09:00:00 ANGIOTENSIN CONVERTING ENZYME 2021-07-08 [facility] 09:00:00 COMPREHENSIVE METABOLIC PANEL 2021-07-08 [facility] 09:00:00 PROTHROMBIN TIME WITH INR 2021-07-[address] [facility] 09:00:00 PARTIAL THROMBOPLASTIN TIME 2021-07-08 [facility] (PTT) 09:00:00 BILIRUBIN DIRECT 2021-07-08 [facility] ospital 09:00:00 HC COMPLETE BLD COUNT W/AUTO 2021-07-08 [facility] DIFF 09:00:00 RETICULOCYTE COUNT 2021-07-08 Keenan [facility] 09:00:00 LDH 2021-07-08 Escuditina [facility] pital 09:00:00 HAPTOGLOBIN 2021-07-08 Escuditina [facility] pital 09:00:00 CELIAC DISEASE REFLEXIVE 2021-07-08 Escelonor [facility] CASCADE 09:00:00 COPPER LEVEL, SERUM 2021-07-08 [facility] 09:00:00 ZINC LEVEL, SERUM 2021-07-08 Keenan Yaz [facility] ospital 09:00:00 ESTIMATED GFR 2021-07-[address] [facility] ospital 09:00:00 SMEAR REVIEW 2021-07-[address] [facility] ospital 09:00:00 TISSUE TRANSGLUTAMINASE AB, 2021-07-08 GiftyChiqui [facility] IGA 09:00:00 URINE CULTURE 2021-07-[address] [facility] ospital 04:28:00 URINALYSIS SCREEN AND 2021-07-08 [facility] MICROSCOPY, WITH REFLEX TO 04:02:00 CULTURE URINE DRUGS OF ABUSE SCREEN 2021-07-08 [facility] 04:02:00 CT ABDOMEN PELVIS W CONTRAST 2021-07-08 [facility] 02:01:46 TYPE AND SCREEN 2021-07-07 Keenan [facility] pital 23:31:00 DIRECT ROBERTO' (JOSE) 2021-07-07 [facility] 23:31:00 XR CHEST 2 VW 2021-07-07 Diamond [facility]ick[facility] spital 21:08:39 POC GLUCOSE 2021-07-07 GiftyChiqui pompa [facility] ospital 18:11:00 IR LUMBAR PUNCTURE 2021-07-07 [facility] 13:45:00 CSF CULTURE 2021-07-07 Diamond Mccormick Ho spital 13:41:00 FUNGUS CULTURE 2021-07-07 Diamond Mccormick Ho spital 13:41:00 AFB CULTURE 2021-07-07 Diamond Mccormick Ho spital 13:41:00 GRAM STAIN 2021-07-07 RockportChiqui pompa [facility] ospital 13:41:00 MISCELLANEOUS REFERRAL TEST 2021-07-07 [facility] 13:41:00 CSF CELL COUNT WITH 2021-07-07 [facility] DIFFERENTIAL 13:41:00 GLUCOSE LEVEL, CSF 2021-07-07 [facility] 13:41:00 VDRL, CSF 2021-07-07 [facility] spital 13:41:00 LYME DISEASE REFLEXIVE PANEL, 2021-07-07 [facility] CSF 13:41:00 CYTOMEGALOVIRUS BY PCR 2021-07-07 [facility] 13:41:00 VARICELLA ZOSTER BY PCR 2021-07-07 [facility] 13:41:00 ENTEROVIRUS BY PCR 2021-07-07 [facility] 13:41:00 HERPES SIMPLEX VIRUS BY PCR 2021-07-07 [facility] 13:41:00 [place] VIRUS ANTIBODY 2021-07-07 [facility] PANEL, CSF 13:41:00 FLOW CYTOMETRY EVALUATION 2021-07-[address] [facility] 13:41:00 ANGIOTENSIN CONVERTING 2021-07-07 [facility] ENZYME, CSF 13:41:00 OLIGOCLONAL BANDING, CSF 2021-07-07 [facility] 13:41:00 CRYPTOCOCCAL ANTIGEN SCREEN 2021-07-07 Gifty [facility] 12:57:00 COPPER LEVEL, SERUM 2021-07-07 [facility] 10:17:00 ADRENOCORTICOTROPIC HORMONE 2021-07-07 [facility] 10:17:00 TOTAL IRON BINDING CAPACITY 2021-07-07 [facility] 10:17:00 MTHFR MUTATION 2021-07-07 [facility] spital 10:17:00 VITAMIN A LEVEL, PLASMA OR 2021-07-07 [facility] SERUM 10:17:00 VITAMIN K LEVEL, SERUM 2021-07-07 [facility] 10:17:00 MISCELLANEOUS REFERRAL TEST 2021-07-07 [facility] 10:17:00 SYPHILIS TREPONEMA SCREEN 2021-07-07 [facility] WITH RPR CONFIRMATION 10:17:00 (REVERSE ALGORITHM) CYTOLOGY (NON-GYNECOLOGICAL) 2021-07-06 Chiqui Durbin [facility] REQUEST 23:05:00 MRI LUMBAR SPINE W WO 2021-07-06 [facility] CONTRAST 14:20:00 MRI CERVICAL SPINE W WO 2021-07-06 [facility] CONTRAST 13:50:00 MRI THORACIC SPINE W WO 2021-07-06 [facility] CONTRAST 13:00:00 CORTISOL LEVEL, AM 2021-07-06 [facility] 09:41:00 CREATINE KINASE, TOTAL (CPK) 2021-07-06 [facility] 09:41:00 ALDOLASE, SERUM 2021-07-06 [facility]Wilmer [facility] 09:41:00 HEMOGLOBIN A1C 2021-07-06 [facility] 09:41:00 HIV AG/AB COMBINATION 2021-07-06 [facility] 09:41:00 SERUM ELECTROPHORESIS 2021-07-06 [facility] 09:41:00 HOMOCYSTINE, PLASMA 2021-07-06 [facility] 09:41:00 VITAMIN B6 LEVEL, PLASMA 2021-07-06 [facility]Texas [facility] 09:41:00 VITAMIN B12 LEVEL 2021-07-06 [facility] 09:41:00 VITAMIN D 25 HYDROXY LEVEL 2021-07-06 [facility] 09:41:00 KAPPA LAMBDA FREE LIGHT CHAIN 2021-07-06 [facility] WITH RATIO 09:41:00 VITAMIN E 2021-07-06 [facility]atanCaren carbajalThe [facility] spital 09:41:00 FOLATE LEVEL 2021-07-[address] [facility] [place] [facility] spital 09:41:00 B. BURGDORFERI ABS TOTAL, 2021-07-[address] [facility] SERUM 09:41:00 LUPE 2021-07-[address] [facility] [place] [place] [facility] 09:41:00 METHYLMALONIC ACID, SERUM 2021-07-[address] [facility] 09:41:00 GLUTAMIC ACID DECARBOXYLASE 2021-07-06 [facility] AB 09:41:00 IGG SYNTHESIS RATE STUDY 2021-07-06 [facility] 09:22:00 FERRITIN LEVEL 2021-07-05 [facility] al 20:41:00 HC COMPLETE BLD COUNT W/AUTO 2021-07-05 [facility] DIFF 08:52:00 BASIC METABOLIC PANEL 2021-07-05 [facility] 08:52:00 ESTIMATED GFR 2021-07-05 [facility] al 08:52:00 EMG 2021-07-04 [facility] 19:48:57 MRI BRAIN WO CONTRAST 2021-07-04 [facility] 16:58:00 CBC WITH PLATELET AND 2021-07-04 [facility] DIFFERENTIAL 08:37:00 BASIC METABOLIC PANEL 2021-07-04 [facility] 08:37:00 ESTIMATED GFR 2021-07-04 [facility] 08:37:00 MANUAL DIFFERENTIAL 2021-07-04 [facility] spital 08:37:00 EEG EXTENDED 41 - 60 MINS 2021-07-04 [facility] 04:18:53 CLOSTRIDIUM DIFFICILE TOXIN 2021-07-03 [facility] 20:32:00 Anita CBC WITH PLATELET AND 2021-07-03 [facility] DIFFERENTIAL 10:40:00 BASIC METABOLIC PANEL 2021-07-03 [facility] 10:40:00 ESTIMATED GFR 2021-07-[address] [facility] Hospit al 10:40:00 MANUAL DIFFERENTIAL 2021-07-03 João, [facility] Ho spital 10:40:00 US CAROTID DUPLEX BILATERAL 2021-07-02 [facility], [facility] 22:10:52 TTE COMPLETE, WO CONTRAST, W 2021-07-02 [facility], [facility] DOPPLER ([id number]) 19:53:00 CT HEAD WO CONTRAST 2021-07-02 João, [facility] spital 18:03:00 XR CERVICAL SPINE 2 OR 3 VW 2021-07-02 [facility] 17:21:09 César XR LUMBAR SPINE 2 OR 3 VW 2021-07-02 [facility] 17:20:55 César ECG ED PRELIMINARY 2021-07-02 [facility] INTERPRETATION 16:58:30 César COVID-19 QUALITATIVE RT-PCR 2021-07-02 PetershamVenkat [facility] 16:58:00 Wally COMPREHENSIVE METABOLIC PANEL 2021-07-02 VisaliaSilvio [facility] 16:58:00 César CBC WITH PLATELET AND 2021-07-02 [facility] DIFFERENTIAL 16:58:00 César ESTIMATED GFR 2021-07-02 [place] Venkat [facility] raheem 16:58:00 Wally MANUAL DIFFERENTIAL 2021-07-02 WoodVenkat [facility] 16:58:00 Wally ECG 12-LEAD 2021-07-[address] [facility] 16:54:05 César AMB REFERRAL TO SLEEP 2021-06-25 [facility] MEDICINE 22:20:00 Berny ECG 12-LEAD 2021-05-23 [facility] 15:19:10 Berny CV PACEMAKER DEFIB ILR 2021-05-23 [facility] INTERROGATION 00:00:00 Berny EP SUBCUTANEOUS CARDAIC 2021-04-26 [facility] RHYTHM MONITOR INSERT W PROG 14:13:00 Berny COVID-19 QUALITATIVE RT-PCR 2021-04-25 [facility] 14:09:00 Berny ECG 12-LEAD 2021-04-25 [place] [facility] 13:22:24 Berny TTE COMPLETE, W CONTRAST, W 2021-03-07 [facility] DOPPLER ([id number]) 16:45:45 CV TREADMILL STRESS TEST 2021-03-07 [facility] 16:03:19 ECG 12-LEAD 2021-02-21 Fidencio Abbasi [facility] 16:24:14 ISOLATION 2020-10-[address] [facility] 00:00:00 [facility] (LUF/HEIKE/SA) Plan of Care Planned Activity Planned Date Details Comments Source Future Scheduled 2022-09-04 HEPATITIS B VACCINES [facility] Test 13:28:01 (1 of 3 - 3-dose series) [code = HEPATITIS B VACCINES (1 of 3 - 3-dose series)] Future Scheduled 2022-09-04 COVID-19 VACCINE (#1) [facility] Test 13:28:01 [code = COVID-19 VACCINE (#1)] Future Scheduled 2022-09-04 Screening for [facility] Test 13:28:01 malignant neoplasm of cervix (procedure) [code = 107259567] Future Scheduled 2022-09-04 INFLUENZA VACCINE Method [facility] Test 13:28:01 [code = INFLUENZA VACCINE] Future Scheduled 2022-07-05 INFLUENZA VACCINE (#1) [facility] 00:00:00 [code = INFLUENZA Medical Ce nter VACCINE (#1)] Future Scheduled 2021-12-06 COVID-19 VACCINE (1) [facility] Test 00:53:00 [code = COVID-19 VACCINE (1)] Future Scheduled 2021-12-06 INFLUENZA VACCINE [facility] Test 00:53:00 [code = INFLUENZA VACCINE] Future Scheduled 2021-12-06 Screening for [facility] Test 00:53:00 malignant neoplasm of cervix (procedure) [code = 291651942] Future Scheduled 2021-11-[address] [facility] Test 00:00:00 (12+) [code = Medical Center DEPRESSION SCREENING (12+)] Future Scheduled 2004-02-[address] [facility] Test 00:00:00 malignant neoplasm of Medica l Center cervix (procedure) [code = 138599137] Future Scheduled [address] [facility] Test 00:[facility]:00 (procedure) [code = Medical Center 86351274] Future Scheduled 2002 DTAP/TDAP/TD VACCINES [facility] 00:00:00 (1 - Tdap) [code = Medical C enter DTAP/TDAP/TD VACCINES (1 - Tdap)] Future Scheduled 2001 HEPATITIS C [facility]CRE[facility]ING [facility] Test 00:00:00 [code = HEPATITIS C Medical Center SCREENING] Future Scheduled [address] [facility] Test 00:00:00 0-64 YRS (1 - PCV) Medical C enter [code = PNEUMOCOCCAL VACCINE 0-64 YRS (1 - PCV)] Future Scheduled 1983 COVID-19 VACCINE (#1) [facility] 00:00:00 [code = COVID-[address] VACCINE (#1)] Encounters Start End Encounter Admission Attending Care Care Encounter Source Date/Time Date/Time Type Type Clinicians Facility Department ID 2021-11-29 [facility] 13:54[facility]57 Carmelo 0929 [facility] 2021-11-29 [facility]patient [facility] Common 11:31:06 0713 [facility] 2022-08-23 2022-08-23 [facility] [id number] 00:00:00 00:00:00 Only Kina [facility] 2022-08-14 2022-08-14 Emergency [facility] [id number] 02:24:00 08:45:00 7 [facility] 2022-08-14 2022-08-14 Emergency ER [facility] Emergency [id number] [facility] 02:24:00 08:45:00 7 2022-07-16 2022-07-23 [facility] Marco [facility] [id number] 11:25:00 16:37:00 Encounter Abel Gurrola [facility] 2022-07-16 2022-07-23 Inpatient MARCO A [facility] Surgery [id number] [facility] 11:25:00 16:37:00 ABEL 2022-07-21 2022-07-21 Surgery Marco A [facility] [id number] 08:00:00 09:30:00 [facility] 2022-07-16 2022-07-16 Surgery Marco A [facility] [id number] 13:30:00 18:00:00 [facility] 2022-07-16 2022-07-16 [id number] 00:[facility] 00:00:00 [facility] 2022-07-12 2022-07-12 Outpatient ROGER MARCO A [facility] [id number] [facility] 14:54:23 23:59:00 ABEL 2022-07-12 2022-07-12 [facility] Marco [facility] [id number] 14:30:00 23:59:00 Encounter Abel [facility] 2022-07-12 2022-07-12 [facility] [id number] [facility] 00:[facility] 00:00:00 [facility] 2022-06-22 2022-06-22 Geeta Yao [facility] [id number] 00:00:00 00:00:00 Only Oliva Kn[facility] 2022-06-18 2022-06-18 Outpatient ROGER STRICKLAND [facility] [id number] [facility] 14:17:59 23:59:00 ABEL 2022-06-18 2022-06-18 [facility] Marco [facility] [id number] 14:00:00 23:59:00 Encounter Abel [facility] 2022-06-18 2022-06-18 [facility] [id number] [facility] 14:17:52 14:17:52 2022-06-18 2022-06-18 [facility] [id number] [facility] 00:[facility] 00:00:00 [facility] 2022-06-07 2022-06-07 Geeta Parish [facility] [id number] 00:00:00 00:00:00 Only [facility] 2022-05-11 2022-05-11 Documentat Ileana [id number] Methodi 00:00:00 00:00:00 desean Armando, [id number] [facility] [id number] [facility] .[id number] l .8 2022-02-24 2022-03-07 [facility] Yoana Negro Bryant [facility] [id number] [facility] 02:37:00 15:45:00 [facility] Reyes Feroze Abid 2022-02-24 2022-03-07 Inpatient BEAU, [facility] N/A [id number] [facility] 02:37:00 15:45:00 ANN 2022-03-05 2022-03-05 Surgery Marco A [facility] [id number] 16:30:00 17:50:00 [facility] 2022-03-05 2022-03-05 Anesthesia Jazzmine To [facility] [id number] [facility] 16:15:00 16:42:00 Event Sergey Siddiqui [facility] 2022-02-26 2022-02-26 Anesthesia Celia Hamilton [facility] [id number] [facility] 15:54:00 19:08:00 Event Angelina Reich [place] [facility] 2022-02-26 2022-02-26 Surgery Marco A [facility] [id number] 16:00:00 18:30:00 [facility] 2022-02-23 2022-02-24 Emergency Henry Jorge [facility] [id number] 22:15:00 02:22:00 Josie [facility] 2022-02-23 2022-02-24 Emergency ER HENRY JORGE [facility] Emergency [id number] [id number] [facility] 22:15:00 02:22:00 2022-02-23 2022-02-23 Orders [facility] [id number] 00:00:00 00:00:00 Only [facility] 2022-02-23 2022-02-23 Travel [facility] [id number] [facility] 00:[facility]00 00:00:00 [facility] 2022-02-15 2022-02-15 Travel 1.2.840.1 1.2.236.140 [id number] [id number] Methodi 00:00:00 00:00:[address] 3.430.2.7 0.2.7.3.698 Ho spita .3.327396 084.8 l .8 2022-02-05 2022-02-05 Documentat Del 1.2.840.1 [id number] Methodi 00:00:00 00:00:00 [place] Tr, 46827.1.[address] Peggy F. 3.430.2.7 Hosp tamela .3.857366 l .8 2022-02-05 2022-02-05 Telephone Guicho, 1.2.840.1 [id number] 2 [id number] Methodi 00:00:00 00:00:[address] Berny 3.430.2.7 Hospit a .3.708330 l .8 2021-11-17 2021-11-17 Telephone Asked, No 1.2.840.1 [id number] 21 [id number] Methodi 00:00:00 00:00:[address] 3.430.2.7 Hospit a .3.651807 l .8 2021-11-17 2021-11-17 Telephone Asked, No 1.2.840.1 [id number] 21 [id number] Methodi 00:00:00 00:00:[address] 3.430.2.7 Hospit a .3.627781 l .8 2021-10-04 2021-10-04 Outpatient 3 [facility] [id number] 14:07:00 14:07:00 [facility] 2021-09-05 2021-10-03 POLYNEUROP [facility] [place] [address] [id number] [facility] St 06:38:00 23:59:00 [facility] Memor ia D [address] (LUF/LI AVE, V/SA) [place] [address] 2021-09-05 2021-09-05 Inpatient [facility] 04e2 [id number] [facility] 00:[facility]:00 00:00:00 BLANCHARD [id number] [facility], [id number] Memor ia [address] [id number] l [address] (LUF/LI AVE, V/SA) [place] [address] 2021-09-05 2021-09-05 Inpatient [facility] [id number] ffc4-[id number] [facility] 00:00:00 00:00:00 BLANCHARD [id number] [facility], [id number] Memor ia [address] [id number] l [address] (LUF/LI AVE, V/SA) [place], [place] [address] 2021-08-07 2021-09-03 POLYNEUROP [facility] [id number] 13:25:00 23:59:00 [facility], Memor ia D [address] (LUF/LI AVE, V/SA) [place] [address] 2021-08-07 2021-08-07 Inpatient [facility] abc6 [id number] [facility] 00:[facility]:00 00:00:00 BLANCHARD [id number] [facility], [id number] Memor ia [address] [id number] l [address] (LUF/LI AVE, V/SA) [place] [address] 2021-08-072021-08-07 Telephone Asked, No 1.2.840.1 [id number] 21 [id number] Methodi 00:00:00 00:00:[address] 3.430.2.7 Hospit a .3.993521 l .8 2021-07-24 2021-08-03 POLYNEUROP [facility] [id number] 16:45:00 23:59:00 ATHY BLANCHARD [facility] [place], Memor ia D [address] (LUF/LI AVE, V/SA) [place] [address] 2021-08-01 2021-08-01 Documentat Delos 1.2.840.1 [id number] [id number] Methodi 00:00:00 00:00:00 desean Armando, 63713.1.[address] Peggy F. 3.430.2.7 Hosp tamela .3.642449 l .8 2021-07-24 2021-07-24 Inpatient [facility] 8df9 [id number]-[address] 00:00:00 00:00:00 BLANCHARD [id number] [facility], [phone] Memor ia [address] [id number] l [address] (LUF/LI AVE, V/SA) [place] [address] 2021-07-14 2021-07-21 [facility] Carmella Belcher 1.2.840.1 [id number] 21 [id number] Methodi 21:20:00 13:27:00 Encounter Sun-Deondre 46165.1.[address] 3.430.2.7 Hospit a .3.692715 l .8 2021-07-20 2021-07-20 Telephone Asked, No 1.2.840.1 [id number] 21 [id number] Methodi 00:00:00 00:00:[address] 3.430.2.7 Hospit a .3.959021 l .8 2021-07-17 2021-07-17 Plan of 1.2.840.1 [id number] 2826 Methodi 00:00:00 00:00:[address] Documentat 3.430.2.7 Hos guillaume ion .3.611069 l .8 2021-07-02 2021-07-14 [facility] 1.2.840.1 [id number] Methodi 11:13:00 21:12:00 Encounter Leana Moyer 63388.1.[address] [place] 3.430.2.7 Hospita .3.855212 l .8 2021-07-12 2021-07-12 Orders Provider, 1.2.840.1 [id number] [id number] Methodi 00:00:00 00:00:00 Only Historical 60683.1.1 970 s t 3.430.2.7 Hospit a .3.086444 l .8 2021-07-07 2021-07-07 Orders Taylor, 1.2.840.1 [id number] 21001 82792 Methodi 00:00:00 00:00:00 Only Mark 46351.1.[address] 3.430.2.7 Hospit a .3.267263 l .8 2021-06-19 2021-06-19 Hospital [facility], 1.2.840.1 [id number] Methodi 19:28:02 23:59:00 Encounter Bryant 89185.1.[address] Berny 3.430.2.7 Hospit a .3.772800 l .8 2021-06-19 2021-06-19 Travel 1.2.840.1 1.2.406.800 4564 [id number] Methodi 00:00:00 00:00:[address] 3.430.2.7 0.2.7.3.698 Ho spita .3.073553 084.8 l .8 2021-05-25 2021-05-25 Travel 1.2.840.1 1.2.423.664 6917 [id number] Methodi 00:00:00 00:00:[address] 3.430.2.7 0.2.7.3.698 Ho spita .3.044514 084.8 l .8 2021-05-23 2021-05-23 Office [facility], 1.2.840.1 [id number] 573 [id number] Methodi 09:27:50 09:42:50 Visit Bryant 34371.1.[address] Berny 3.430.2.7 Hospit a .3.126350 l .8 2021-05-23 2021-05-23 Travel 1.2.840.1 1.2.709.799 5573 [id number] Methodi 00:00:00 00:00:[address] 3.430.2.7 0.2.7.3.698 Ho spita .3.191387 084.8 l .8 2021-05-17 2021-05-17 Documentat Delos 1.2.840.1 [id number] Methodi 00:00:00 00:00:00 [place] Tr, 38460.1.[address] Peggy F. 3.430.2.7 Hosp tamela .3.094201 l .8 2021-05-02 2021-05-02 Office [place]roy, 1.2.840.1 [id number] 1391 Methodi 09:29:09 10:15:09 Visit Fidencio 18197.1.[address] 3.430.2.7 Hospit a .3.903637 l .8 2021-05-02 2021-05-02 Travel 1.2.840.1 1.2.915.035 8351 [id number] Methodi 00:00:00 00:00:[address] 3.430.2.7 0.2.7.3.698 Ho spita .3.635643 084.8 l .8 2021-04-26 2021-04-26 [facility], 1.2.840.1 [id number] 21 [id number] Methodi 05:16:00 09:59:00 Encounter Bryant 11822.1.[address] Berny 3.430.2.7 Hospit a .3.012983 l .8 2021-04-26 2021-04-26 [facility], 1.2.840.1 [id number] 144 [id number] Methodi 07:30:00 08:30:[address] Berny 3.430.2.7 Hospit a .3.779514 l .8 2021-04-25 2021-04-25 [facility], 1.2.840.1 [id number] 118 [id number] Methodi 09:02:37 09:07:[address] Berny 3.430.2.7 Hospit a .3.332016 l .8 2021-04-25 2021-04-25 [facility], 1.2.840.1 [id number] 553 [id number] Methodi 08:11:15 08:41:15 Visit Bryant 10268.1.[address] Berny 3.430.2.7 Hospit a .3.640296 l .8 2021-04-25 2021-04-25 Travel 1.2.840.1 1.2.273.213 5208 [id number] Methodi 00:00:00 00:00:[address] 3.430.2.7 0.2.7.3.698 spita .3.321367 084.8 l .8 2021-04-10 2021-04-10 Telephone Erin, 1.2.840.1 [id number] 2099 [id number] Methodi 00:00:00 00:00:[address] 3.430.2.7 Hospit a .3.545222 l .8 2021-03-14 2021-03-14 Office [place], 1.2.840.1 [id number] 7602 Methodi 08:57:19 09:44:52 Visit Fidencio 96839.1.[address] 3.430.2.7 Hospit a .3.043034 l .8 2021-03-14 2021-03-14 Travel 1.2.840.1 1.2.368.897 9356 980746 Methodi 00:00:00 00:00:[address] 3.430.2.7 0.2.7.3.698 Ho spita .3.646092 084.8 l .8 2021-03-07 2021-03-07 Travel 1.2.840.1 1.2.782.091 5678 845109 Methodi 00:00:00 00:00:[address] 3.430.2.7 0.2.7.3.698 Ho spita .3.388894 084.8 l .8 2021-03-07 2021-03-07 Outpatient [facility] [id number] [address] [place] [address] 00:00:00 00:00:[address] 2021-03-07 2021-03-07 Outpatient [facility] [id number] [address] [place] [address] 00:00:00 00:00:[address] 2021-02-21 2021-02-21 Office [place], 1.2.840.1 [id number] 6905 Methodi 10:48:13 12:00:38 Visit Fidencio 80125.1.[address] 3.430.2.7 Hospit a .3.471809 l .8 2021-02-21 2021-02-21 Travel 1.2.840.1 1.2.117.415 9511 363251 Methodi 00:00:00 00:00:[address] 3.430.2.7 0.2.7.3.698 Ho spita .3.603752 084.8 l .8 2021-02-08 2021-02-08 Travel 1.2.840.1 1.2.504.418 1983 703061 Methodi 00:00:00 00:00:[address] 3.430.2.7 0.2.7.3.698 Ho spita .3.810432 084.8 l .8 2021-01-20 2021-01-20 Travel 1.2.840.1 1.2.042.852 8883 247565 Methodi 00:00:00 00:00:[address] 3.430.2.7 0.2.7.3.698 Ho spita .3.481930 084.8 l .8 2020-10-27 2020-10-27 OTHER 1 [facility] [place] [address] [id number] 6[address] [facility] St 07:18:00 20:15:00 SPECIFIED [facility] ARRHYTHMIA [address] (LUF/LI AVE, V/[place]) [place] [address] 2020-10-27 2020-10-27 Inpatient [facility] 223d aebf-[address] 00:00:00 00:00:00 BLANCHARD [id number] [facility], [id number] Memor ia [address] [id number] l [address] (LUF/LI AVE, V/SA) [place] [address] 2020-10-21 2020-10-21 COVID-19 O RIGOBERTO, [facility] [address] [facility] St 15:03:00 23:59:00 JEFFREY [facility] [address] (LUF/LI AVE, V/[place]) [place] [address] 2020-10-21 2020-10-21 Inpatient [facility] 976f 4830-0 [facility] St 00:00:00 00:00:00 BLANCHARD [id number] [facility], [id number] Memor ia [address] 337df9 l [place] (LUF/LI AVE, V/[place]) [place] [address] 2020-10-21 2020-10-21 Inpatient [facility] 4028 [id number] 00:00:00 00:00:00 BLANCHARD [id number] [facility], [id number] Memor ia [address] 879cd5 l [place] (LUF/LI AVE, V/SA) [facility] [address] 2020-04-07 2020-04-07 HYPOKALEMI Irina PIZARRO, [place] [address] [id number] [facility] 07:49:00 23:59:00 A NAVYA [facility] [address] jhony GANN (LUF/LI AVE, V/SA) [facility] [address] 2020-03-21 2020-03-21 Inpatient [place] [address] [id number] [facility] 11:09:00 23:59:00 [facility] [address] jhony GANN (LUF/LI AVE, V/SA) [place] [address] 2020-03-04 2020-03-04 Inpatient [place] [address] [id number] [facility] 11:31:00 23:59:00 [facility] [address] jhony [address] (LUF/LI AVE, V/SA) [place] [address] Results Test Description Test Time Test Comments Results Result [facility] e Comments CT, ABDOMEN 2022-08-14 07:17:00 [facility] CENTERName: YAIR MORA : 1985 Sex: F FINAL REPORT EXAM: CT abdomen and pelvis COMPARISON: February 25, 2022 CLINICAL HISTORY: Vomiting TECHNIQUE: Helical images of the abdomen and pelvis were obtained after IV contrast administration DOSE REDUCTION: The exams was performed according to the departmental dose-optimization program which includes automated exposure control, adjustment of the mA and/or kV according to patient size and/or use of iterative reconstruction technique. FINDINGS: The lung bases are clear. There is no evidence of pleural effusion. The cardiac size is within normal limits. Hypoattenuation of the liver is again noted. There is cholelithiasis without evidence of acute cholecystitis. The spleen, pancreas, adrenal glands, and kidneys are unremarkable. The patient is status post right hemicolectomy with postoperative changes. Otherwise, the small and large bowels are unremarkable without evidence of obstruction. The bladder, uterus, and ovaries are unremarkable. There is no evidence of lymphadenopathy or free fluid. The aorta and IVC are normal in caliber. IMPRESSION: 1. Status post right hemicolectomy with postoperative changes. 2. Fatty infiltration of the liver. 3. Cholelithiasis without evidence of acute cholecystitis. Signed: [place] MDReport Verified Date/Time: 08/14/2022 07:17:30 -Glucose meter 2022-07-23 15:23:35 Test Item Value Reference Range Interpretation Comme [facility] POC-Glucose Meter (test code = 103 mg/dL 70-110 : TESTED AT [facility] [address] [facility] 153) [facility] [address]: Stitcher Hand/Techni tomas ID = [id number] for Kira Quiroz Lab Interpretation (test code = Normal 94152-8) [facility] [id number] 15:23:35 Test Item Value Reference Range Interpretation Comments POC-GLUCOSE METER 103 mg/dL 70-110 : TESTED A T [facility] [address] (BEAKER) (test code [facility], = 1538) [place] [address] 384: Stitcher Hand/Techni tomas ID = [id number] for Carmelita Benson la POCT-GLUCOSE [id number] 11:24:54 Test Item Value Reference Range Interpretation Comments POC-GLUCOSE METER 112 mg/dL 70-110 H : TESTED A T [facility] [address] (BEAKER) (test code [facility], = 1538) [place] [address] 384: Stitcher Hand/Techni tomas ID = [id number] for Carmelita Benson la POCT-GLUCOSE [id number] 06:34:07 Test Item Value Reference Range Interpretation Comments POC-GLUCOSE METER 110 mg/dL 70-110 : TESTED A T [facility] [address] (BEAKER) (test code [facility], = 1538) [facility] 77 384: Stitcher Hand/Techni tomas ID = [id number] for Charley Nichole BASIC METABOLIC [id number] 04:42:11 Test Item Value Reference Range Interpretation Comments SODIUM (BEAKER) 139 meq/L 135-148 (test code = 381) POTASSIUM 3.7 meq/L 3.5-5.5 (BEAKER) (test code = 379) CHLORIDE (BEAKER) 105 meq/L 98-106 (test code = 382) CO2 (BEAKER) 24 meq/L 20-31 (test code = 355) BLOOD UREA 5 mg/dL 10-26 L NITROGEN (BEAKER) (test code = 354) CREATININE 0.62 mg/dL 0.50-1.20 (BEAKER) (test code = 358) GLUCOSE RANDOM 100 mg/dL 70-110 (BEAKER) (test code = 652) CALCIUM (BEAKER) 8.6 mg/dL 8.5-10.5 (test code = 697) EGFR (BEAKER) 116 Interpretatio n of eGFR (test code = mL/min/1.73 values Stage De scription 1092) sq m Result G1 Norm al or high >=90 G2 Mildly decreased 60-89 G3a Mildl y to moderately 45-5 9 G3b Moderately to s everely 30-44 G4 Severl y decreased 15-29 G5 Kidney failure <15Reported eGF R is based on the CKD-EPI 1 equation that d oes not use a race coefficientEsti mated GFR is not as accur ate as Creatinine Suzette nieto in predicting glom erular filtration rate . Estimated GFR is not appl icable for dialysis patien ts Stitcher Hand ID - [id number] W/PLT COUNT & AUTO [id number] 04:20:09 Test Item Value Reference Range Interpretation Comments WHITE BLOOD CELL COUNT (BEAKER) 6.6 K/ L 4.0-10.0 (test code = 775) RED BLOOD CELL COUNT (BEAKER) 3.17 M/ L 4.00-5.00 L (test code = 761) HEMOGLOBIN (BEAKER) (test code = 8.6 GM/DL 12.0-15.5 L 410) HEMATOCRIT (BEAKER) (test code = 29.1 % 36.0-46.0 L 411) MEAN CORPUSCULAR VOLUME (BEAKER) 91.8 fL 82.0-99.0 (test code = 753) MEAN CORPUSCULAR HEMOGLOBIN 27.1 pg 27.0-33.0 (BEAKER) (test code = 751) MEAN CORPUSCULAR HEMOGLOBIN CONC 29.6 GM/DL 32.0-36.0 L (BEAKER) (test code = 752) RED CELL DISTRIBUTION WIDTH 19.1 % 12.0-15.0 H (BEAKER) (test code = 412) PLATELET COUNT (BEAKER) (test 290 K/CU MM 150-430 code = 756) MEAN PLATELET VOLUME (BEAKER) 9.8 fL 6.0-11.5 (test code = 754) NUCLEATED RED BLOOD CELLS 0 /100 WBC 0-0 (BEAKER) (test code = 413) NEUTROPHILS RELATIVE PERCENT 66 % (BEAKER) (test code = 429) LYMPHOCYTES RELATIVE PERCENT 21 % (BEAKER) (test code = 430) MONOCYTES RELATIVE PERCENT 7 % (BEAKER) (test code = 431) EOSINOPHILS RELATIVE PERCENT 4 % (BEAKER) (test code = 432) BASOPHILS RELATIVE PERCENT 1 % (BEAKER) (test code = 437) NEUTROPHILS ABSOLUTE COUNT 4.39 K/ L 1.80-8.00 (BEAKER) (test code = 670) LYMPHOCYTES ABSOLUTE COUNT 1.39 K/ L 1.48-4.50 L (BEAKER) (test code = 414) MONOCYTES ABSOLUTE COUNT (BEAKER) 0.48 K/ L 0.00-1.30 (test code = 415) EOSINOPHILS ABSOLUTE COUNT 0.23 K/ L 0.00-0.50 (BEAKER) (test code = 416) BASOPHILS ABSOLUTE COUNT (BEAKER) 0.03 K/ L 0.00-0.20 (test code = 417) IMMATURE GRANULOCYTES-RELATIVE 2 % 0-0 H PERCENT (BEAKER) (test code = 2801) POCT-GLUCOSE [id number] 23:43:16 Test Item Value Reference Range Interpretation Comments POC-GLUCOSE METER 94 mg/dL 70-110 : TESTED A [facility] [address] (BEAKER) (test code = [facility], 1538) [place] [address] 384: Stitcher Hand/Techni tomas ID = [id number] for L Charley kaiser Mindy POCT-GLUCOSE [id number] 20:34:03 Test Item Value Reference Range Interpretation Comments POC-GLUCOSE METER 89 mg/dL 70-110 : TESTED A T [facility] [address] (BEAKER) (test code = [facility], 1538) [place] [address] 384: Stitcher Hand/Techni tomas ID = [id number] for L Charley kaiser [place] POCT-GLUCOSE [id number] 16:51:00 Test Item Value Reference Range Interpretation Comments POC-GLUCOSE METER 98 mg/dL 70-110 : TESTED A T [facility] [address] (BEAKER) (test code = [facility], 1538) [place] [address] 384: Stitcher Hand/Techni tomas ID = [id number] for W Jacquelyn headleyicia POCT-GLUCOSE [id number] 11:43:37 Test Item Value Reference Range Interpretation Comments POC-GLUCOSE METER 150 mg/dL 70-110 H : TESTED A T [facility] [address] (BEAKER) (test code [facility], = 1538) [place] [address] 384: Stitcher Hand/Techni tomas ID = [id number] for W fang, Delmy POCT-GLUCOSE [id number] 06:24:45 Test Item Value Reference Range Interpretation Comments POC-GLUCOSE METER 149 mg/dL 70-110 H : TESTED A T [facility] [address] (BEAKER) (test code [facility], = 1538) [place] [address] 384: Stitcher Hand/Techni tomas ID = [id number] for Ermelinda Melendez POCT-GLUCOSE [id number] 20:15:08 Test Item Value Reference Range Interpretation Comments POC-GLUCOSE METER 151 mg/dL 70-110 H : TESTED A T [facility] [address] (BEAKER) (test code [facility], = 1538) [place] [address] 384: Stitcher Hand/Techni tomas ID = [id number] for Ermelinda Melendez POCT-GLUCOSE [id number] 17:08:38 Test Item Value Reference Range Interpretation Comments POC-GLUCOSE METER 199 mg/dL 70-110 H : TESTED A T [facility] [address] (BEAKER) (test code [facility], = 1538) [place] [address] 384: Stitcher Hand/Techni tomas ID = [id number] for A Trina landon POCT-GLUCOSE [id number] 15:40:33 Test Item Value Reference Range Interpretation Comments POC-GLUCOSE METER 230 mg/dL 70-110 H : TESTED A T [facility] [address] (BEAKER) (test code [facility], = 1538) [place] [address] 384: Stitcher Hand/Techni tomas ID = [id number] for A Trina landon POCT-GLUCOSE [id number] 10:57:35 Test Item Value Reference Range Interpretation Comments POC-GLUCOSE METER 124 mg/dL 70-110 H : TESTED A T [facility] [address] (BEAKER) (test code [facility], = 1538) [place] [address] 384: Stitcher Hand/Techni tomas ID = [id number] for A Trina landon POCT-GLUCOSE [id number] 06:33:18 Test Item Value Reference Range Interpretation Comments POC-GLUCOSE METER 115 mg/dL 70-110 H : TESTED A T [facility] [address] (BEAKER) (test code [facility] [address], = 1538) [place] [address] 384: Stitcher Hand/Techni tomas ID = [id number] for Ermelinda Melendez BASIC METABOLIC [id number] 05:01:01 Test Item Value Reference Range Interpretation Comments SODIUM (BEAKER) 140 meq/L 135-148 (test code = 381) POTASSIUM 3.8 meq/L 3.5-5.5 (BEAKER) (test code = 379) CHLORIDE (BEAKER) 107 meq/L 98-106 H (test code = 382) CO2 (BEAKER) 23 meq/L 20-31 (test code = 355) BLOOD UREA 2 mg/dL 10-26 L NITROGEN (BEAKER) (test code = 354) CREATININE 0.56 mg/dL 0.50-1.20 (BEAKER) (test code = 358) GLUCOSE RANDOM 82 mg/dL 70-110 (BEAKER) (test code = 652) CALCIUM (BEAKER) 8.4 mg/dL 8.5-10.5 L (test code = 697) EGFR (BEAKER) 119 Interpretatio n of eGFR (test code = mL/min/1.73 values Stage De scription 1092) sq m Result G1 Verenice l or high >=90 G2 Mildly decreased 60-89 G3a Mildl y to moderately 45-5 9 G3b Moderately to s everely 30-44 G4 Severl y decreased 15-29 G5 Kidney failure <15Reported eGF R is based on the CKD-EPI 2020 equation that d oes not use a race coefficientEsti mated GFR is not as accur ate as Creatinine Suzette emilia in predicting glom erular filtration rate . Estimated GFR is not appl icable for dialysis patien ts [employer] ID - [id number] W/PLT COUNT & AUTO [id number] 04:30:50 Test Item Value Reference Range Interpretation Comments WHITE BLOOD CELL COUNT (BEAKER) 5.2 K/ L 4.0-10.0 (test code = 775) RED BLOOD CELL COUNT (BEAKER) 2.90 M/ L 4.00-5.00 L (test code = 761) HEMOGLOBIN (BEAKER) (test code = 8.0 GM/DL 12.0-15.5 L 410) HEMATOCRIT (BEAKER) (test code = 26.6 % 36.0-46.0 L 411) MEAN CORPUSCULAR VOLUME (BEAKER) 91.7 fL 82.0-99.0 (test code = 753) MEAN CORPUSCULAR HEMOGLOBIN 27.6 pg 27.0-33.0 (BEAKER) (test code = 751) MEAN CORPUSCULAR HEMOGLOBIN CONC 30.1 GM/DL 32.0-36.0 L (BEAKER) (test code = 752) RED CELL DISTRIBUTION WIDTH 19.4 % 12.0-15.0 H (BEAKER) (test code = 412) PLATELET COUNT (BEAKER) (test 235 K/CU MM 150-430 code = 756) MEAN PLATELET VOLUME (BEAKER) 10.4 fL 6.0-11.5 (test code = 754) NUCLEATED RED BLOOD CELLS 0 /100 WBC 0-0 (BEAKER) (test code = 413) NEUTROPHILS RELATIVE PERCENT 68 % (BEAKER) (test code = 429) LYMPHOCYTES RELATIVE PERCENT 20 % (BEAKER) (test code = 430) MONOCYTES RELATIVE PERCENT 8 % (BEAKER) (test code = 431) EOSINOPHILS RELATIVE PERCENT 3 % (BEAKER) (test code = 432) BASOPHILS RELATIVE PERCENT 0 % (BEAKER) (test code = 437) NEUTROPHILS ABSOLUTE COUNT 3.54 K/ L 1.80-8.00 (BEAKER) (test code = 670) LYMPHOCYTES ABSOLUTE COUNT 1.02 K/ L 1.48-4.50 L (BEAKER) (test code = 414) MONOCYTES ABSOLUTE COUNT (BEAKER) 0.41 K/ L 0.00-1.30 (test code = 415) EOSINOPHILS ABSOLUTE COUNT 0.15 K/ L 0.00-0.50 (BEAKER) (test code = 416) BASOPHILS ABSOLUTE COUNT (BEAKER) 0.02 K/ L 0.00-0.20 (test code = 417) IMMATURE GRANULOCYTES-RELATIVE 1 % 0-0 H PERCENT (BEAKER) (test code = 2801) Screen, [id number] 01:37:11 Test Item Value Reference Range Interpretation Comments Preg Test, Ur (test code = 2112-1) Negative Negative Lab Interpretation (test code = Normal 06404-3) [facility] [id number] 01:37:11 Test Item Value Reference Range Interpretation Comments TEST URINE (BEAKER) (test Negative Negative code = 583) POCT-GLUCOSE [id number] 20:57:48 Test Item Value Reference Range Interpretation Comments POC-GLUCOSE METER 130 mg/dL 70-110 H : TESTED A T [facility] 17459 (BEAKER) (test code [facility], = 1538) [place] [address] 384: [employer]cher Hand/Techni tomas ID = [id number] for Ermelinda Melendez POCT-GLUCOSE [id number] 15:39:55 Test Item Value Reference Range Interpretation Comments POC-GLUCOSE METER 123 mg/dL 70-110 H : TESTED A T [facility] 34421 (BEAKER) (test code [facility], = 1538) [place] [address] 384: [employer]cher Hand/Techni tomas ID = [id number] for Trina Ortiz Tissue [id number] 13:43:27 Test Item Value Reference Range Interpretation Comments Case Report (test code Surgical Pathology = 104) Report Case: [id number] Authorizing Provider: Abel Strickland MD Collected: 07/16/2022 02:50 PM Ordering Location: [facility] - Perioperative Received: 07/18/2022 08:21 AM Services Pathologist: Izzy Moffett MD Specimens: A) - Colostomy, COLOSTOMY B) - colon, COLON DIAGNOSIS (test code = [id number] 3220) uZzEwMzNcZnRuYmpcdWMxIH tccnRmMVxlcGljOTYwMlxhb mGaDWRruCOzS4SguzcnVUkn HW2hZT1vmVimzCXxdXBmJGO wOaEfu7ziu593gRRgk5chSN BNucjfmPg7nNafX92vu4Z6F hkxC88xbCEvZWV5GDPdACAa qEPcPBFcQVR9BBVanOZoX8w xPSSuDK9ygtojCRckNHoyRD JneUU8UJVtbZZrX2XwVJTnR JxpZKPccre1MrWkGi3jgKUe eTcyMFxwYXJkXHBsYWluXGJ vQcVjIRSWQnZOKQXNV9DDPS wxKTNBSN4QNXg7KVVduri5J QRuERGLCK2TZ72iXMcEH8WQ B45WTVdQANfdZHaYXZ1NH0j LU1HAWYadWqzMClpVRFHSBP jOTOKWS1SIUNIMKOsyIVRml JHgUAKaXGTCVYRWEDNtZ0vT NzbxQWAksPKuFWFhYJWBG67 RLeDjI7OqP20FR99tJIXKN8 VDVElPTjpccGFyXHRhYiAtI UmQK5WOXK1SOBGPILeBAVIL QUJMRSwgQkVOSUdOIExBUkd RKQOCM8PXPFiWLHbpXTmUJC DJBXLOS5TPXARixxi3HWXjI MXKWJPFU2WDBKQDXFEKZD9Z X2btQVCdlOBaFZ1oEz6wLRQ ZJRcVBL8YDPRNBRAMRRXvnb xuZWU1t6euqRNdSCQxeVNiD DAwMFxhbnNpXGRlZmxhbmcx DLFlLBW0tqWrOCAoOVrrGXA uBQxhTp2qlWEkmHpgItOzSU Zua1cgqvTNwferuLj3g9wuI DEbNgD0iYNaNPehZ3xaczXg nKMrDIBtCLb2mM46WEWxzT4 wdAVvJGfzplKqAnF5SHilWE GsCgK4RVIotWMxMOXiK2wlI WQwXGdyZWVuMFxibHVlMCA7 iMzum7Q5eXVrhLXcdTbvVjY sFaLsFiFXn5WhGFq0oXylQ7 DuNSNkGtV6xTWiMNOfOGfuL YStFZWlppV3dJ76PTwhsrC4 tVBxt8Ywo59fa538cU0boXA xQHY5OEKzCZDjtHZkJLEnKS C1LZKgsKZvU8gyBBGkGI8uw olrCTkySTyuFSPlrAZ6CPWh zTQnB7VtLENsBWqkCHTfamp 3XkZjTh9rlHIerLluHMlah9 kye2ztoKJwFip6LMDgCwNeE mjvNQuct1Gez0sjSJXjem3h VSU2bMZzgOuer3Z8kLOvWYT ifSUrBDHjXB4zxMAcMTPxoN 5ucmxjXHBnYnJkcmhlYWRcc OlccoAdVh1atQriCCH1BTzg M0uprE4mNnC7QZxgS1ojkH6 bVMj9RFyiBAIatKX2ueE1MQ WkbZXnO7IkhF1cDXUbAA6sn qe5h9avCTF6KRjeNLDpMdG7 lxB4UMSgyAWqHPWobFzfQCr mh671EOD5JdEgEBEji0GjF7 PobDshB12drEqbZ13eKXHmv CiihP1ijEfcjM8cJmTlKnKq VMxlmCmhTN1fQLHyR2fcnEE vAKRcWGDbV9ttVwAdjB2ahK fxAKijqdXeVRWkBbw9TKEsh JNzOMXeYtu0FKOwAHJmF25f ncnsIEY8rR8ff6gse0LmSHe kIZN9DJCtc59nQCfcisD0MR mfLw8mCiPaByJ7FNltVIS3g Q== CPT Code(s) (test code m9hpyPQtKJVtyFN7HpOrZUJ = 3357) ww5mqz3TzzONkjLYzKDozhZ VrarWizd21aRR4lD61NZ6uM OCfKhL2ILZwenE2Rvd8UIFr JBQgcZWgW761p0ztn8xgbaO ncLW3nVlyKTDkosyvSsX2YF xxTMPbbazpAGu4QQqgFVJvv LU4EGVcdGPeY4CpGMWiNX7r zwo2TRZ7KJzhZXCeWcG7NQK ctZOyXDTywRvmVDxps600JC S0YaWbACBwixArxTgpyN0iN xKePTD5CJRxZWasHVifPBcw cGFyfQ== CLINICAL HISTORY (test k6ynaZNlAUTxwZJ6UwJjRTC code = 3356) lu1fyx1QywMJjtPDiTNgasN CbneUjcz47rUG4iT74TH4jN YYtCpX4YGGuauF7Ahd7ZGQx EUTjrGUgX285d0swa5huavJ wbQL1cZnnNJZryryvLyR5SY moBOQoqpvmLKb9YRcsKMGyw EY4YFAppHLfP3UmPHRxTE5n qgl9JHM2KXqhJRAbEnV0URE gxHUwEBIjfSeiLElcf665IY B9BtXkDCGjxuYhvHenaR6mV mCaZISGNSPbv0KpvUmeu6Qq yFPgWZsbEAXcLrm8WCgbp3V fvywxy8AvlBXjuNDfqXGiyI 4ytqyvnFFzZ55ey35nncNhm LvswR5gDERjB7n2NEIzlO1q OITpu5QvzZkbkrSuevRzaAo hc7J0g383BpK6MWmtEAOdb6 7jv8UvePywz4Y7s775IYSdX GTxVWEjHMY8y91de9tcEB6e YAlsQJZoSCGeZWFhHC4exmW yy2HiX79jh42dhTLdoO== GROSS DESCRIPTION h6iwpONsSKSjeCW0RkNrEPA (test code = el7zcb5NbuQMmaNMzBVeykR [id number]) UuvnRncz00lQO6nL64NW2gF HYsIsU6EFCujkC1Hao9QEJz DKSarWKcY114q6ajx7ehqjZ jcKP7OLDvIVTwT8TqEO3yNK UadUHwP92qvPPrPZT5NUHbC HNiiCDrZYTnGRR4SLItaPJw Q0jpCHWjLH6kqmmmKNpvVTj mFSOjfHQ8NGYeqLKlN3ZaMX VkANdqJNErgqf1ZkRoFr0hl JXfdAbaAKngPCMwm3adKJGw gIEaVMT2BUbdjAJwZZGkZBA qKCq6XQUzDTdkgSEsDO4emN gxDdjexIqnz7OurVOkVIkdV FBzSVGkCNpgPKSzU6BPAVOd Wez7LKaaPXXxPDt7DKxsK2G PIVOxURRzDRs4KsKwXeV1KQ x6NNFIMa1mApFvWmt4BLT5H QK5VDT9ARpohFQxTIqtBvpm NQutZFQgxBWvFLdddoD2AIX tKXtqSCQkEfQeBS0vJ57rw1 V1i847RgcoSDBqXcCmUWNQP DHdhOJnKEWbnnQpt6BtLAen biBsYWJlbGVkIHdpdGggdGh wCJLzpYqceqDuviBhRA4iTN QuLNPgS6DwKLJdI09jSIGss F8mWHEeYD8eWHXge9bxb4Yn cAvjAUWnw1QfwYF2jA7zPeU ni6gbt9EuhNhzPGHvnlWog6 LxPH5uVEOgz3LyvDCgcFSjF vTqh9qarFNiJEUakT3gFWFy IHRvIHdoYXQgYXBwZWFycyB 8zoKtZQFvLQBcnJ4jh2MqOh CcGKT1eMHiAASiDfKgP3daK kOdaBHib5DiYOH5jjHlM0Jz PUXvAQChLBkyYG01RY2rFUW uv0JgBG4oHVL3hcWwVNKfPM NtIGFuZCBoYXMgYSAyLjggY 20gYXZlcmFnZSBkaWFtZXRl mc0cGOsmZM9gxjlpbfGzftW zdGFwbGVkLiBPdmVyYWxsIH DaLKDtvOVixI1eceRpPSQvl CMtcsMnAAC0NSXkVCK5UNAd I33uZOUcCMXbd5gzwMLzyoC bjATtVVTueE8dg3ijooZ8fG Bmvh1dxPHpUEM5N5AaNBGbm EJrHrVmNn0cI9Kwh7MwfXKv cyBpcyBzZWVuLlxwYXJccGF pQYJxGVMts0PfeAHoWKOxzS 1gMWIsj8NmjDioFzQqXGWdJ C7jNNElXYDuv4mclLR1ohIc n0gyQAP3xqQaR8C8BHO5ZSQ nWXzyZP74AY2bXCQio9PnOe unIVX9ZZLibUEaLMN7QM8uC NJxcbsdGZClVFXjFSL5UFpq wO63qLRzMPFzZMFqrTUesQf mGbwguTcpb2JsnGDjJKnbDL DxFQXlXMdqEOLcW2KLBUGuA fb3TJqdIZZeHTx6KVrbR6TY AUPwSQQbFHj4Gdx7LmS5BPh 1TGMAVt7lKfXwJft9RPhkKU Y6BQO6SNhouZEqGIwhVocaI ImpPZTjwGApUEojkjY0WBGh EeRxQo7uB30ap14vVPOramv mczIwXGNmMSBSZWNlaXZlZC PokiFef0LbWOprcxJnYVYeu GVkIHdpdGggdGhlIHBhdGll gkPszwXkWS3tSZOsNFGxE1B iMTUgG69iSJZmnM3eVZNgWO 7rSNPcx3hrtyhpMJGaO6Akr JXno363UCIfwB8nQsDwy95f cJN7hmQoSpBwukS9bv2hdVR gqWUbVVMyG99ssiKiz1AkMk 47PAgunVTzy2NoaS1aZBMnF 79dqA5zpHAwD8UwMPpaoJjg SPVaLsQcD83wLMnwzTR8UFN qOJYzvKoav4KpE2biNHtsyB OqG5xzqlTlclSbh5WwiUhzT T8sBEkmyoVgpHFgQVtsgyYq b52rAJYudSRvJZ96HECecmd qg7sobzppBPUpdKRpn7KuoG egw5AzBF9fEKC2gecjZbE2H BlvJv91WTxxQb82LIYeMhNV dQKdwX8hJZJtIFFac5qtsNV fGWAxBGwpGSUoZJPtjJ6gye T5yaKzLXEbyUnsRLTqa7q7o JIllu10td34CJ2yuWI9PKGt NHlhyHZnz1MbfL4yXBIiBLF 1HOByUTU7RGHpKTGltX9lH4 WruAryqwXxSPHtIEJ9Dw5kh LRvXCQmnrNgr6xlr3cnRpUC NYhzu21rOFK1dfqaO4SgGL0 jyvkpgbbqSvYvEO3uyG8szB MaANI9imraO8HbFT9gyffwh hpdEgYpYTWoB0Jtx00xo6Nv Hq72XJe2ABW9OUQrmQ5axcO lMCFbyoUzkbJbYdDCQv7gy4 jmQFDlS6BrL8UhjhG1x1lje Eugm7MsbUJjHW6ypBDaiO== MICROSCOPIC j1lavXYcMCDffXK7ViSiHFQ DESCRIPTION (test code ma2whh4TvzGAozHKnUGvstD = 3371) LxpcWjwr47lWN2dU91BE6iZ MQtChA7TZQsicW9Mtz2TKLl JGEhsVCpB412r7fzj9fynwY otNP9ALWxKQUaV9QbDE7oBY MskEGaZ91fmJSjVOA3FJNxE ONhzSSxDEXkXHQ9JJQjsAIc I2kkTNDbWN4lwywnFEwmUGv oFQImbLX9TAQdeDKcL0KaBW EiCSpgRRTnhzl6ZrFeLw4sz GVyeTcyMFxwYXJkXHBsYWlu FWHsWxIeT9YwGP9gD9Oqc9G lqBosLLE0PP7ddrP1nM7pSJ S4dWSunqKoTZNoIMYpuXHwp b0sdMKuGNMoyyklJIWqYADh MFxwYXJ9 Gross assessment was [facility] performed at ([facility], code = 2777) Department of Pathology, [address] [place] [address], Technical component [facility] was performed at ([facility], code = 2778) Department of Pathology, [address] [place] [address] [place] [address], [address] [facility] was performed at ([facility], code = 2779) Department of Pathology, [address] [facility] [place] [address], [facility] Hospital[facility] [id number] 13:43:27Surgical Pathology Report Case: [id number] Authorizing Provider: Abel Strickland MD Collected: 07/16/2022 02:50 PM Ordering Location: [facility] - Perioperative Received: 07/18/2022 08:21 AM Services Pathologist: Izzy Moffett MD Specimens: A) - Colostomy, COLOSTOMY B) - colon, COLON A. ILEOSTOMY, REMOVAL: - BENIGN ILEOSTOMY WITH HISTOLOGICALLY VIABLE SMALL BOWEL AND ATTACHED SKINB. 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 Colostomy.Received in formalin labeled with the patient's name, medical record number and "colostomy, description: colostomy" consists of a segment of bowel leading up towhat appears to be a skin surface with a bulging mucosal surface. The segment of bowel measures 10 cm and has a 2.8 cm average diameter. The margin is stapled. Overall the specimen measures 11 x 5.5 x 4 cm. The bowel is opened to show the normal rugal folds. No gross mass is seen.A1 distal margin at staple; A2 and A3, bowel to skin surface; A4, segment of bowel.B. colon.Received in formalin labeled with the patient's name, medical record number and "colon, description: colon" consists of an unoriented segment of bowel measuring 6 cm in length with a 3.5 cm diameter. Both surgical margins are stapled. There is also some adherent pericolonic adipose tissue measuring 6 x 3.5 x 2.5 cm. Opening the bowel reveals the lumen to be filled with brown-watson material measuring 2.5 x 1.8 x 1.5 cm. Sections are submitted as follows: B1, one surgical margin; B2, opposite surgical margin; B3, section of bowel; B4, luminal contents. ES/ewMicroscopic examination supports the diagnosis.[facility], Department of Pathology, [address] [place] [address], [facility], [facility] of [facility], [address] [place] [address], [facility], [facility] of Pathology, [address] [place] [address], VKTO-GLUCOSE [id number] 11:29:13 Test Item Value Reference Range Interpretation Comments POC-GLUCOSE METER 101 mg/dL 70-110 : TESTED A T [facility] 73974 (BEAKER) (test code [facility], = 1538) [place] [address] 384: Stitcher Hand/Techni tomas ID = [id number] for A Trina landon POCT-GLUCOSE [id number] 06:07:10 Test Item Value Reference Range Interpretation Comments POC-GLUCOSE METER 110 mg/dL 70-110 : TESTED A T [facility] 55028 (BEAKER) (test code [facility], = 1538) [place] [address] 384: Stitcher Hand/Techni tomas ID = [id number] for L alosis, Charley Preston POCT-GLUCOSE [id number] 20:34:01 Test Item Value Reference Range Interpretation Comments POC-GLUCOSE METER 118 mg/dL 70-110 H : TESTED A T [facility] [address]98 (BEAKER) (test code [facility], = 1538) [place] [address] 384: Stitcher Hand/Techni tomas ID = [id number] for L alosis, Charley Preston POCT-GLUCOSE [id number] 15:37:49 Test Item Value Reference Range Interpretation Comments POC-GLUCOSE METER 92 mg/dL 70-110 : TESTED A T [facility] [address]40 (BEAKER) (test code = [facility], 153) [place] [address] 384: Stitcher Hand/Techni tomas ID = [id number] for M Mello raymonda POCT-GLUCOSE [id number] 11:40:27 Test Item Value Reference Range Interpretation Comments POC-GLUCOSE METER 128 mg/dL 70-110 H : TESTED A T [facility] [address]22 (BEAKER) (test code [facility], = 1538) [place] [address] 384: Stitcher Hand/Techni tomas ID = [id number] for Ava Reyes BASIC METABOLIC [id number] 06:12:03 Test Item Value Reference Range Interpretation Comments SODIUM (BEAKER) 135 meq/L 135-148 (test code = 381) POTASSIUM 4.7 meq/L 3.5-5.5 Specimen modera tely (BEAKER) (test hemolyzed code = 379) CHLORIDE (BEAKER) 104 meq/L 98-106 (test code = 382) CO2 (BEAKER) 20 meq/L 20-31 (test code = 355) BLOOD UREA 5 mg/dL 10-26 L NITROGEN (BEAKER) (test code = 354) CREATININE 0.59 mg/dL 0.50-1.20 Specimen modera tely (BEAKER) (test hemolyzed code = 358) GLUCOSE RANDOM 105 mg/dL 70-110 (BEAKER) (test code = 652) CALCIUM (BEAKER) 7.8 mg/dL 8.5-10.5 L (test code = 697) EGFR (BEAKER) 117 Interpretatio n of eGFR (test code = mL/min/1.73 values Stage De scription 1092) sq m Result G1 Verenice l or high >=90 G2 Mildly decreased 60-89 G3a Mild ly to moderately 45-5 9 G3b Moderately to s everely 30-44 G4 Severl y decreased 15-29 G5 Kidney failure <15Reported eGF R is based on the CKD-EPI 2020 equation that d oes not use a race coefficientEsti mated GFR is not as accur ate as Creatinine Suzette emilia in predicting glom erular filtration rate . Estimated GFR is not appl icable for dialysis patien ts Stitcher Hand ID - [id number] 05:58:48 Test Item Value Reference Range Interpretation Comments POC-GLUCOSE METER 97 mg/dL 70-110 : TESTED A T [facility] 92584 (BEAKER) (test code = [facility], 1538) [place] [address] 384: Stitcher Hand/Techni tomas ID = [id number] for Sunitha Waters CBC W/PLT COUNT & AUTO [id number] 05:44:48 Test Item Value Reference Range Interpretation Comments WHITE BLOOD CELL COUNT (BEAKER) 7.7 K/ L 4.0-10.0 (test code = 775) RED BLOOD CELL COUNT (BEAKER) 3.10 M/ L 4.00-5.00 L (test code = 761) HEMOGLOBIN (BEAKER) (test code = 8.4 GM/DL 12.0-15.5 L 410) HEMATOCRIT (BEAKER) (test code = 28.0 % 36.0-46.0 L 411) MEAN CORPUSCULAR VOLUME (BEAKER) 90.3 fL 82.0-99.0 (test code = 753) MEAN CORPUSCULAR HEMOGLOBIN 27.1 pg 27.0-33.0 (BEAKER) (test code = 751) MEAN CORPUSCULAR HEMOGLOBIN CONC 30.0 GM/DL 32.0-36.0 L (BEAKER) (test code = 752) RED CELL DISTRIBUTION WIDTH 19.1 % 12.0-15.0 H (BEAKER) (test code = 412) PLATELET COUNT (BEAKER) (test 159 K/CU MM 150-430 code = 756) MEAN PLATELET VOLUME (BEAKER) 10.8 fL 6.0-11.5 (test code = 754) NUCLEATED RED BLOOD CELLS 0 /100 WBC 0-0 (BEAKER) (test code = 413) NEUTROPHILS RELATIVE PERCENT 79 % (BEAKER) (test code = 429) LYMPHOCYTES RELATIVE PERCENT 14 % (BEAKER) (test code = 430) MONOCYTES RELATIVE PERCENT 5 % (BEAKER) (test code = 431) EOSINOPHILS RELATIVE PERCENT 2 % (BEAKER) (test code = 432) BASOPHILS RELATIVE PERCENT 0 % (BEAKER) (test code = 437) NEUTROPHILS ABSOLUTE COUNT 6.02 K/ L 1.80-8.00 (BEAKER) (test code = 670) LYMPHOCYTES ABSOLUTE COUNT 1.05 K/ L 1.48-4.50 L (BEAKER) (test code = 414) MONOCYTES ABSOLUTE COUNT (BEAKER) 0.40 K/ L 0.00-1.30 (test code = 415) EOSINOPHILS ABSOLUTE COUNT 0.14 K/ L 0.00-0.50 (BEAKER) (test code = 416) BASOPHILS ABSOLUTE COUNT (BEAKER) 0.01 K/ L 0.00-0.20 (test code = 417) IMMATURE GRANULOCYTES-RELATIVE 1 % 0-0 H PERCENT (BEAKER) (test code = 2801) POCT-GLUCOSE [id number] 20:23:16 Test Item Value Reference Range Interpretation Comments POC-GLUCOSE METER 85 mg/dL 70-110 : TESTED A T [facility] 52743 (BEAKER) (test code = [facility], 1538) [place] [address] 384: Stitcher Hand/Techni tomas ID = [id number] for T kary, Sunitha POCT-GLUCOSE [id number] 16:06:11 Test Item Value Reference Range Interpretation Comments POC-GLUCOSE METER 103 mg/dL 70-110 : TESTED A T [facility] 59782 (BEAKER) (test code [facility], = 1538) [place] [address] 384: Stitcher Hand/Techni tomas ID = [id number] for A Trina landon U/S, RENAL, [id number] 14:08:00Reason for exam:->oliguria [facility] CENTER[facility]: YAIR MORA : 1985 Sex: FFINAL REPORT Renal ultrasound Clinical History: Oliguria Discussion: Sonographicevaluation of the kidneys is performed. The kidneys have normal size and cortical echogenicity. The right kidney measures 10.7 cm in length. The left kidney measures 10.8 cm in length. There is no focal renal mass, hydronephrosis, or shadowing renal calculus. No perinephric fluid collection is seen. The bladder is contracted and not well seen. Impression: Normal sonographic evaluation of the kidneys.Signed: [place] MDReport Verified Date/Time: 07/18/2022 14:08:28 Reading Location: [facility] Radiology Reading Room Urinalysis w/Microscopic 2022-07-18 12:57:54 Test Item Value Reference Range Interpretation Comments Color, UA (test code Yellow = 5778-6) Clarity, UA (test Slightly Cloudy code = 5767-9) Specific [place], UA 1.013 1.001-1.035 (test code = 5811-5) pH, UA (test code = 6.0 5.0-8.0 5803-2) Protein, UA (test 100 mg/dL Negative A code = 18289-0) Glucose, UA (test Negative Negative code = 365) Ketones, UA (test Negative Negative code = 2514-8) Bilirubin, UA (test Negative Negative code = 86373-0) Blood, UA (test code Moderate Negative A = 71072-6) Nitrite, UA (test Negative Negative code = 5802-4) Leukocytes, UA (test Moderate Negative A code = 5799-2) Urobilinogen, UA <1.0 0.2-1.0 (test code = 19167-2) RBC, UA (test code = 17 See_Comment [Autom ated 72703-9) message] The system which generated this result transmit thais reference range : /HPF. The reference range was not used to interpret this result as normal/abnormal . WBC, UA (test code = 34 See_Comment [Autom ated 5821-4) message] The system which generated this result transmit thais reference range : /HPF. The reference range was not used to interpret this result as normal/abnormal . Bacteria, UA (test Rare code = 86749-9) Mucus (test code = Many 8247-9) Squam Epithel, UA 1 See_Comment [Automate d (test code = 32721-8) messag e] The system which generated this result transmit thais reference range : /HPF. The reference range was not used to interpret this result as normal/abnormal . Specimen Source (test code = 2795) DEJA (test code = DEJA) Stitcher Hand ID - [auto]Stitcher Hand ID - tech Lab Interpretation Abnormal (test code = 25510-7) [facility] [id number] 12:57:54 Test Item Value Reference Range Interpretation Comments COLOR (BEAKER) (test code = Yellow 470) CLARITY (BEAKER) (test code = Slightly Cloudy 469) SPECIFIC GRAVITY UA (BEAKER) 1.013 1.001-1.035 (test code = 468) PH UA (BEAKER) (test code = 6.0 5.0-8.0 467) PROTEIN UA (BEAKER) (test 100 mg/dL Negative A code = 464) GLUCOSE UA (BEAKER) (test Negative Negative code = 365) KETONES UA (BEAKER) (test Negative Negative code = 371) BILIRUBIN UA (BEAKER) (test Negative Negative code = 462) BLOOD UA (BEAKER) (test code Moderate Negative A = 461) NITRITE UA (BEAKER) (test Negative Negative code = 465) LEUKOCYTE ESTERASE UA Moderate Negative A (BEAKER) (test code = 466) UROBILINOGEN UA (BEAKER) < mg/dL 0.2-1.0 (test code = 463) RBC UA (BEAKER) (test code = 17 /HPF 519) WBC UA (BEAKER) (test code = 34 /HPF 520) BACTERIA (BEAKER) (test code Rare = 517) MUCUS (BEAKER) (test code = Many 1574) SQUAMOUS EPITHELIAL (BEAKER) 1 /HPF (test code = 516) SOURCE(BEAKER) (test code = 2795) Stitcher Hand ID - [auto]Stitcher Hand ID - techPOCT-GLUCOSE [id number] 11:12:20 Test Item Value Reference Range Interpretation Comments POC-GLUCOSE METER 119 mg/dL 70-110 H : TESTED A T [facility] 61057 (BEAKER) (test code [facility], = 1538) [place] [address] 384: Stitcher Hand/Techni tomas ID = [id number] for A Trina landon POCT-GLUCOSE [id number] 06:23:12 Test Item Value Reference Range Interpretation Comments POC-GLUCOSE METER 133 mg/dL 70-110 H : TESTED A T [facility] 929[address] (BEAKER) (test code [facility], = 1538) [place] [address] 384: Stitcher Hand/Techni tomas ID = [id number] for Ankita Ibrahim BASIC METABOLIC [id number] 04:22:16 Test Item Value Reference Range Interpretation Comments SODIUM (BEAKER) 132 meq/L 135-148 L (test code = 381) POTASSIUM 4.0 meq/L 3.5-5.5 (BEAKER) (test code = 379) CHLORIDE (BEAKER) 101 meq/L 98-106 (test code = 382) CO2 (BEAKER) 20 meq/L 20-31 (test code = 355) BLOOD UREA 9 mg/dL 10-26 L NITROGEN (BEAKER) (test code = 354) CREATININE 0.69 mg/dL 0.50-1.20 (BEAKER) (test code = 358) GLUCOSE RANDOM 143 mg/dL 70-110 H (BEAKER) (test code = 652) CALCIUM (BEAKER) 8.1 mg/dL 8.5-10.5 L (test code = 697) EGFR (BEAKER) 113 Interpretatio n of eGFR (test code = mL/min/1.73 values Stage De scription 1092) sq m Result G1 Verenice l or high >=90 G2 Mildly decreased 60-89 G3a Mildl y to moderately 45-5 9 G3b Moderately to s everely 30-44 G4 Severl y decreased 15-29 G5 Kidney failure <15Reported eGF R is based on the CKD-EPI 2020 equation that d oes not use a race coefficientEsti mated GFR is not as accur ate as Creatinine Suzette emilia in predicting glom erular filtration rate . Estimated GFR is not appl icable for dialysis patien ts Stitcher Hand ID - [id number] W/PLT COUNT & AUTO [id number] 03:51:14 Test Item Value Reference Range Interpretation Comments WHITE BLOOD CELL COUNT (BEAKER) 9.7 K/ L 4.0-10.0 (test code = 775) RED BLOOD CELL COUNT (BEAKER) 3.14 M/ L 4.00-5.00 L (test code = 761) HEMOGLOBIN (BEAKER) (test code = 8.6 GM/DL 12.0-15.5 L 410) HEMATOCRIT (BEAKER) (test code = 28.6 % 36.0-46.0 L 411) MEAN CORPUSCULAR VOLUME (BEAKER) 91.1 fL 82.0-99.0 (test code = 753) MEAN CORPUSCULAR HEMOGLOBIN 27.4 pg 27.0-33.0 (BEAKER) (test code = 751) MEAN CORPUSCULAR HEMOGLOBIN CONC 30.1 GM/DL 32.0-36.0 L (BEAKER) (test code = 752) RED CELL DISTRIBUTION WIDTH 19.1 % 12.0-15.0 H (BEAKER) (test code = 412) PLATELET COUNT (BEAKER) (test 156 K/CU MM 150-430 code = 756) MEAN PLATELET VOLUME (BEAKER) 10.5 fL 6.0-11.5 (test code = 754) NUCLEATED RED BLOOD CELLS 0 /100 WBC 0-0 (BEAKER) (test code = 413) NEUTROPHILS RELATIVE PERCENT 82 % (BEAKER) (test code = 429) LYMPHOCYTES RELATIVE PERCENT 12 % (BEAKER) (test code = 430) MONOCYTES RELATIVE PERCENT 4 % (BEAKER) (test code = 431) EOSINOPHILS RELATIVE PERCENT 1 % (BEAKER) (test code = 432) BASOPHILS RELATIVE PERCENT 0 % (BEAKER) (test code = 437) NEUTROPHILS ABSOLUTE COUNT 7.92 K/ L 1.80-8.00 (BEAKER) (test code = 670) LYMPHOCYTES ABSOLUTE COUNT 1.15 K/ L 1.48-4.50 L (BEAKER) (test code = 414) MONOCYTES ABSOLUTE COUNT (BEAKER) 0.42 K/ L 0.00-1.30 (test code = 415) EOSINOPHILS ABSOLUTE COUNT 0.09 K/ L 0.00-0.50 (BEAKER) (test code = 416) BASOPHILS ABSOLUTE COUNT (BEAKER) 0.04 K/ L 0.00-0.20 (test code = 417) IMMATURE GRANULOCYTES-RELATIVE 0 % 0-0 PERCENT (BEAKER) (test code = 2801) POCT-GLUCOSE [id number] 20:25:39 Test Item Value Reference Range Interpretation Comments POC-GLUCOSE METER 115 mg/dL 70-110 H : TESTED A T [facility] [address] (BEAKER) (test code [facility], = 1538) [place] [address] 384: Stitcher Hand/Techni tomas ID = [id number] for Ankita Ibrahim POCT-GLUCOSE [id number] 16:15:44 Test Item Value Reference Range Interpretation Comments POC-GLUCOSE METER 137 mg/dL 70-110 H : TESTED A T [facility] [id number] (BEAKER) (test code [facility], = 1538) [place] [address] 384: Stitcher Hand/Techni tomas ID = [id number] for A Trina landon POCT-GLUCOSE [id number] 11:26:39 Test Item Value Reference Range Interpretation Comments POC-GLUCOSE METER 145 mg/dL 70-110 H : TESTED A T [facility] [address] (BEAKER) (test code [facility], = 1538) [place] [address] 384: Stitcher Hand/Techni tomas ID = [id number] for A Trina landon POCT-GLUCOSE [id number] 08:08:57 Test Item Value Reference Range Interpretation Comments POC-GLUCOSE METER 167 mg/dL 70-110 H : TESTED A T [facility] [address] (BEAKER) (test code [facility], = 1538) [place] [address] 384: Stitcher Hand/Techni tomas ID = [id number] for W Mc carranza BASIC METABOLIC [id number] 05:25:15 Test Item Value Reference Range Interpretation Comments SODIUM (BEAKER) 137 meq/L 135-148 (test code = 381) POTASSIUM 4.4 meq/L 3.5-5.5 (BEAKER) (test code = 379) CHLORIDE (BEAKER) 104 meq/L 98-106 (test code = 382) CO2 (BEAKER) 22 meq/L 20-31 (test code = 355) BLOOD UREA 8 mg/dL 10-26 L NITROGEN (BEAKER) (test code = 354) CREATININE 0.75 mg/dL 0.50-1.20 (BEAKER) (test code = 358) GLUCOSE RANDOM 152 mg/dL 70-110 H (BEAKER) (test code = 652) CALCIUM (BEAKER) 8.2 mg/dL 8.5-10.5 L (test code = 697) EGFR (BEAKER) 104 Interpretatio n of eGFR (test code = mL/min/1.73 values Stage De scription 1092) sq m Result G1 Verenice l or high >=90 G2 Mildly decreased 60-89 G3a Mildl y to moderately 45-5 9 G3b Moderately to s everely 30-44 G4 Severl y decreased 15-29 G5 Kidney failure <15Reported eGF R is based on the CKD-EPI 202 equation that d oes not use a race coefficientEsti mated GFR is not as accur ate as Creatinine Suzette nieto in predicting glom erular filtration rate . Estimated GFR is not appl icable for dialysis patien ts Stitcher Hand ID - [id number] W/PLT COUNT & AUTO [id number] 05:08:57 Test Item Value Reference Range Interpretation Comments WHITE BLOOD CELL COUNT (BEAKER) 10.3 K/ L 4.0-10.0 H (test code = 775) RED BLOOD CELL COUNT (BEAKER) 3.65 M/ L 4.00-5.00 L (test code = 761) HEMOGLOBIN (BEAKER) (test code = 9.9 GM/DL 12.0-15.5 L 410) HEMATOCRIT (BEAKER) (test code = 33.4 % 36.0-46.0 L 411) MEAN CORPUSCULAR VOLUME (BEAKER) 91.5 fL 82.0-99.0 (test code = 753) MEAN CORPUSCULAR HEMOGLOBIN 27.1 pg 27.0-33.0 (BEAKER) (test code = 751) MEAN CORPUSCULAR HEMOGLOBIN CONC 29.6 GM/DL 32.0-36.0 L (BEAKER) (test code = 752) RED CELL DISTRIBUTION WIDTH 19.6 % 12.0-15.0 H (BEAKER) (test code = 412) PLATELET COUNT (BEAKER) (test 184 K/CU MM 150-430 code = 756) MEAN PLATELET VOLUME (BEAKER) 10.3 fL 6.0-11.5 (test code = 754) NUCLEATED RED BLOOD CELLS 0 /100 WBC 0-0 (BEAKER) (test code = 413) NEUTROPHILS RELATIVE PERCENT 83 % (BEAKER) (test code = 429) LYMPHOCYTES RELATIVE PERCENT 12 % (BEAKER) (test code = 430) MONOCYTES RELATIVE PERCENT 4 % (BEAKER) (test code = 431) EOSINOPHILS RELATIVE PERCENT 1 % (BEAKER) (test code = 432) BASOPHILS RELATIVE PERCENT 0 % (BEAKER) (test code = 437) NEUTROPHILS ABSOLUTE COUNT 8.56 K/ L 1.80-8.00 H (BEAKER) (test code = 670) LYMPHOCYTES ABSOLUTE COUNT 1.18 K/ L 1.48-4.50 L (BEAKER) (test code = 414) MONOCYTES ABSOLUTE COUNT (BEAKER) 0.39 K/ L 0.00-1.30 (test code = 415) EOSINOPHILS ABSOLUTE COUNT 0.07 K/ L 0.00-0.50 (BEAKER) (test code = 416) BASOPHILS ABSOLUTE COUNT (BEAKER) 0.03 K/ L 0.00-0.20 (test code = 417) IMMATURE GRANULOCYTES-RELATIVE 1 % 0-0 H PERCENT (BEAKER) (test code = 2801) [id number] 12:23:44 Test Item Value Reference Range Interpretation Comments GLUCOSE RANDOM (BEAKER) (test code 149 mg/dL 70-110 H = 652) Stitcher Hand ID - [id number] 12:23:43 Test Item Value Reference Range Interpretation Comments POTASSIUM (BEAKER) (test code = 4.0 meq/L 3.5-5.5 379) Stitcher Hand ID - [id number] , [id number] 12:05:00 Test Item Value Reference Range Interpretation Comments Test Urine, POC (test Negative code = 1731761) Control line present?, POC (test Yes code = 4970091) Background clear?, POC (test code Yes = 6719226) UPT Cassette Lot #, POC (test code 565361 = [id number]) UPT Cassette Expiration Date, POC 09/04/2022 (test code = 4635293) Lab Interpretation (test code = Normal 29289-5) [facility] [id number] 16:32:04 Test Item Value Reference Range Interpretation Comments SODIUM (BEAKER) 138 meq/L 135-148 (test code = 381) POTASSIUM 3.3 meq/L 3.5-5.5 L (BEAKER) (test code = 379) CHLORIDE (BEAKER) 102 meq/L 98-106 (test code = 382) CO2 (BEAKER) 19 meq/L 20-31 L (test code = 355) BLOOD UREA 6 mg/dL 10-26 L NITROGEN (BEAKER) (test code = 354) CREATININE 0.86 mg/dL 0.50-1.20 (BEAKER) (test code = 358) GLUCOSE RANDOM 174 mg/dL 70-110 H (BEAKER) (test code = 652) CALCIUM (BEAKER) 9.3 mg/dL 8.5-10.5 (test code = 697) EGFR (BEAKER) 88 Interpretatio n of eGFR (test code = mL/min/1.73 values Stage De scription 1092) sq m Result G1 Verenice l or high >=90 G2 Mildly decreased 60-89 G3a Mildl y to moderately 45-5 9 G3b Moderately to s everely 30-44 G4 Severl y decreased 15-29 G5 Kidney failure <15Reported eGF R is based on the CKD-EPI 2020 equation that d oes not use a race coefficientEsti mated GFR is not as accur ate as Creatinine Suzette emilia in predicting glom erular filtration rate . Estimated GFR is not appl icable for dialysis patien ts Stitcher Hand ID - ZMINECOVID [id number] 16:24:33 Test Item Value Reference Range Interpretation Comments SARS COVID ANTIGEN Negative Negative (test code = 24004-7) DEJA (test code = DEJA) The QuickVue SARS Antigen test does not differentiate between SARS-CoV and SARS-CoV-2. The test has been authorized by the FDA under an EUA for use by authorized laboratories. Lab Interpretation Normal (test code = 62811-6) [facility] [id number] 16:24:33 Test Item Value Reference Range Interpretation Comments SARS COVID ANTIGEN (test code = Negative Negative 36587441) The QuickVue SARS Antigen test does not differentiate between SARS-CoV and SARS-CoV-2.The test has been authorized by the FDA under an EUA for use by authorized laboratories.CBC W/PLT COUNT & AUTO [id number] 16:03:43 Test Item Value Reference Range Interpretation Comments WHITE BLOOD CELL COUNT (BEAKER) 9.4 K/ L 4.0-10.0 (test code = 775) RED BLOOD CELL COUNT (BEAKER) 4.05 M/ L 4.00-5.00 (test code = 761) HEMOGLOBIN (BEAKER) (test code = 11.0 GM/DL 12.0-15.5 L 410) HEMATOCRIT (BEAKER) (test code = 36.0 % 36.0-46.0 411) MEAN CORPUSCULAR VOLUME (BEAKER) 88.9 fL 82.0-99.0 (test code = 753) MEAN CORPUSCULAR HEMOGLOBIN 27.2 pg 27.0-33.0 (BEAKER) (test code = 751) MEAN CORPUSCULAR HEMOGLOBIN CONC 30.6 GM/DL 32.0-36.0 L (BEAKER) (test code = 752) RED CELL DISTRIBUTION WIDTH 20.1 % 12.0-15.0 H (BEAKER) (test code = 412) PLATELET COUNT (BEAKER) (test 237 K/CU MM 150-430 code = 756) MEAN PLATELET VOLUME (BEAKER) 9.9 fL 6.0-11.5 (test code = 754) NUCLEATED RED BLOOD CELLS 0 /100 WBC 0-0 (BEAKER) (test code = 413) NEUTROPHILS RELATIVE PERCENT 70 % (BEAKER) (test code = 429) LYMPHOCYTES RELATIVE PERCENT 23 % (BEAKER) (test code = 430) MONOCYTES RELATIVE PERCENT 6 % (BEAKER) (test code = 431) EOSINOPHILS RELATIVE PERCENT 1 % (BEAKER) (test code = 432) BASOPHILS RELATIVE PERCENT 1 % (BEAKER) (test code = 437) NEUTROPHILS ABSOLUTE COUNT 6.51 K/ L 1.80-8.00 (BEAKER) (test code = 670) LYMPHOCYTES ABSOLUTE COUNT 2.11 K/ L 1.48-4.50 (BEAKER) (test code = 414) MONOCYTES ABSOLUTE COUNT (BEAKER) 0.51 K/ L 0.00-1.30 (test code = 415) EOSINOPHILS ABSOLUTE COUNT 0.12 K/ L 0.00-0.50 (BEAKER) (test code = 416) BASOPHILS ABSOLUTE COUNT (BEAKER) 0.05 K/ L 0.00-0.20 (test code = 417) IMMATURE GRANULOCYTES-RELATIVE 1 % 0-0 H PERCENT (BEAKER) (test code = 2801) COVID [id number] 18:22:50 Test Item Value Reference Range Interpretation Comments SARS COVID ANTIGEN (test code = Negative Negative 68702031) The QuickVue SARS Antigen test does not differentiate between SARS-CoV and SARS-CoV-2.The test has been authorized by the FDA under an EUA for use by authorized laboratories.BASIC METABOLIC [id number] 15:31:53 Test Item Value Reference Range Interpretation Comments SODIUM (BEAKER) 134 meq/L 135-148 L (test code = 381) POTASSIUM 2.7 meq/L 3.5-5.5 LL (BEAKER) (test code = 379) CHLORIDE (BEAKER) 92 meq/L 98-106 L (test code = 382) CO2 (BEAKER) 23 meq/L 20-31 (test code = 355) BLOOD UREA 10 mg/dL 10-26 NITROGEN (BEAKER) (test code = 354) CREATININE 0.79 mg/dL 0.50-1.20 (BEAKER) (test code = 358) GLUCOSE RANDOM 216 mg/dL 70-110 H (BEAKER) (test code = 652) CALCIUM (BEAKER) 9.6 mg/dL 8.5-10.5 (test code = 697) EGFR (BEAKER) 98 Interpretatio n of eGFR (test code = mL/min/1.73 values Stage De scription 1092) sq m Result G1 Verenice l or high >=90 G2 Mildly decreased 60-89 G3a Mildl y to moderately 45-5 9 G3b Moderately to s everely 30-44 G4 Severl y decreased 15-29 G5 Kidney failure <15Reported eGF R is based on the CKD-EPI 2020 equation that d oes not use a race coefficientEsti mated GFR is not as accur ate as Creatinine Suzette nieto in predicting glom erular filtration rate . Estimated GFR is not appl icable for dialysis patien ts Stitcher Hand ID - [id number] W/PLT COUNT & AUTO [id number] 14:58:59 Test Item Value Reference Range Interpretation Comments WHITE BLOOD CELL COUNT (BEAKER) 11.8 K/ L 4.0-10.0 H (test code = 775) RED BLOOD CELL COUNT (BEAKER) 4.40 M/ L 4.00-5.00 (test code = 761) HEMOGLOBIN (BEAKER) (test code = 11.9 GM/DL 12.0-15.5 L 410) HEMATOCRIT (BEAKER) (test code = 37.9 % 36.0-46.0 411) MEAN CORPUSCULAR VOLUME (BEAKER) 86.1 fL 82.0-99.0 (test code = 753) MEAN CORPUSCULAR HEMOGLOBIN 27.0 pg 27.0-33.0 (BEAKER) (test code = 751) MEAN CORPUSCULAR HEMOGLOBIN CONC 31.4 GM/DL 32.0-36.0 L (BEAKER) (test code = 752) RED CELL DISTRIBUTION WIDTH 18.1 % 12.0-15.0 H (BEAKER) (test code = 412) PLATELET COUNT (BEAKER) (test 283 K/CU MM 150-430 code = 756) MEAN PLATELET VOLUME (BEAKER) 9.8 fL 6.0-11.5 (test code = 754) NUCLEATED RED BLOOD CELLS 0 /100 WBC 0-0 (BEAKER) (test code = 413) NEUTROPHILS RELATIVE PERCENT 81 % (BEAKER) (test code = 429) LYMPHOCYTES RELATIVE PERCENT 13 % (BEAKER) (test code = 430) MONOCYTES RELATIVE PERCENT 5 % (BEAKER) (test code = 431) EOSINOPHILS RELATIVE PERCENT 1 % (BEAKER) (test code = 432) BASOPHILS RELATIVE PERCENT 1 % (BEAKER) (test code = 437) NEUTROPHILS ABSOLUTE COUNT 9.49 K/ L 1.80-8.00 H (BEAKER) (test code = 670) LYMPHOCYTES ABSOLUTE COUNT 1.58 K/ L 1.48-4.50 (BEAKER) (test code = 414) MONOCYTES ABSOLUTE COUNT (BEAKER) 0.53 K/ L 0.00-1.30 (test code = 415) EOSINOPHILS ABSOLUTE COUNT 0.09 K/ L 0.00-0.50 (BEAKER) (test code = 416) BASOPHILS ABSOLUTE COUNT (BEAKER) 0.06 K/ L 0.00-0.20 (test code = 417) IMMATURE GRANULOCYTES-RELATIVE 0 % 0-0 PERCENT (BEAKER) (test code = 2801) POCT-GLUCOSE [id number] 12:05:35 Test Item Value Reference Range Interpretation Comments POC-GLUCOSE METER 197 mg/dL 70-110 H : TESTED A T [facility] [address] (BEAKER) (test code [facility], = 1538) [place] [address] 384: Stitcher Hand/Techni tomas ID = [id number] for Pari Cervantesyungjessee BASIC METABOLIC [id number] 12:04:04 Test Item Value Reference Range Interpretation Comments SODIUM (BEAKER) 138 meq/L 135-148 (test code = 381) POTASSIUM (BEAKER) 4.4 meq/L 3.5-5.5 (test code = 379) CHLORIDE (BEAKER) 97 meq/L 98-106 L (test code = 382) CO2 (BEAKER) (test 28 meq/L 20-31 code = 355) BLOOD UREA NITROGEN 6 mg/dL 10-26 L (BEAKER) (test code = 354) CREATININE (BEAKER) 0.80 mg/dL 0.50-1.20 (test code = 358) GLUCOSE RANDOM 205 mg/dL 70-110 H (BEAKER) (test code = 652) CALCIUM (BEAKER) 8.1 mg/dL 8.5-10.5 L (test code = 697) EGFR (BEAKER) (test 80 mL/min/1.73 ESTIMA THAIS GFR IS code = 1092) sq m NOT ACCURATE CREATININE CLEARANCE IN PREDICTING GLOMERULAR FILTRATION RATE . ESTIMATED GFR I S NOT APPLICABLE FOR DIALYSIS PATIEN TS. Stitcher Hand ID - [id number] W/PLT COUNT & AUTO [id number] 11:54:32 Test Item Value Reference Range Interpretation Comments WHITE BLOOD CELL COUNT (BEAKER) 8.1 K/ L 4.0-10.0 (test code = 775) RED BLOOD CELL COUNT (BEAKER) 2.82 M/ L 4.00-5.00 L (test code = 761) HEMOGLOBIN (BEAKER) (test code = 7.8 GM/DL 12.0-15.5 L 410) HEMATOCRIT (BEAKER) (test code = 26.5 % 36.0-46.0 L 411) MEAN CORPUSCULAR VOLUME (BEAKER) 94.0 fL 82.0-99.0 (test code = 753) MEAN CORPUSCULAR HEMOGLOBIN 27.7 pg 27.0-33.0 (BEAKER) (test code = 751) MEAN CORPUSCULAR HEMOGLOBIN CONC 29.4 GM/DL 32.0-36.0 L (BEAKER) (test code = 752) RED CELL DISTRIBUTION WIDTH 20.9 % 12.0-15.0 H (BEAKER) (test code = 412) PLATELET COUNT (BEAKER) (test 126 K/CU MM 150-430 L code = 756) MEAN PLATELET VOLUME (BEAKER) 11.5 fL 6.0-11.5 (test code = 754) NUCLEATED RED BLOOD CELLS 1 /100 WBC 0-0 H (BEAKER) (test code = 413) NEUTROPHILS RELATIVE PERCENT 71 % (BEAKER) (test code = 429) LYMPHOCYTES RELATIVE PERCENT 19 % (BEAKER) (test code = 430) MONOCYTES RELATIVE PERCENT 6 % (BEAKER) (test code = 431) EOSINOPHILS RELATIVE PERCENT 0 % (BEAKER) (test code = 432) BASOPHILS RELATIVE PERCENT 1 % (BEAKER) (test code = 437) NEUTROPHILS ABSOLUTE COUNT 5.78 K/ L 1.80-8.00 (BEAKER) (test code = 670) LYMPHOCYTES ABSOLUTE COUNT 1.51 K/ L 1.48-4.50 (BEAKER) (test code = 414) MONOCYTES ABSOLUTE COUNT (BEAKER) 0.46 K/ L 0.00-1.30 (test code = 415) EOSINOPHILS ABSOLUTE COUNT 0.00 K/ L 0.00-0.50 (BEAKER) (test code = 416) BASOPHILS ABSOLUTE COUNT (BEAKER) 0.04 K/ L 0.00-0.20 (test code = 417) IMMATURE GRANULOCYTES-RELATIVE 4 % 0-0 H PERCENT (BEAKER) (test code = 2801) VANCOMYCIN LEVEL, [id number] 09:36:56 Test Item Value Reference Range Interpretation Comments VANCOMYCIN TROUGH (BEAKER) (test 24.6 ug/mL 10.0-20.0 H code = 522) Stitcher Hand ID - JBALLOALLOPOCT-GLUCOSE [id number] 05:53:06 Test Item Value Reference Range Interpretation Comments POC-GLUCOSE METER 180 mg/dL 70-110 H : TESTED A T [facility] [address] (BEAKER) (test code [facility], = 1538) [place] [address] 384: Stitcher Hand/Techni tomas ID = [id number] for F uentes, Martine POCT-GLUCOSE [id number] 20:47:50 Test Item Value Reference Range Interpretation Comments POC-GLUCOSE METER 176 mg/dL 70-110 H : TESTED A T [facility] [address] (BEAKER) (test code [facility], = 1538) [place] [address] 384: Stitcher Hand/Techni tomas ID = [id number] for F uentes, Martine POCT-GLUCOSE [id number] 16:46:35 Test Item Value Reference Range Interpretation Comments POC-GLUCOSE METER 139 mg/dL 70-110 H : TESTED A T [facility] [address] (BEAKER) (test code [facility], = 1538) [place] [address] 384: Stitcher Hand/Techni tomas ID = [id number] for Elvie Duffy POCT-GLUCOSE [id number] 11:36:33 Test Item Value Reference Range Interpretation Comments POC-GLUCOSE METER 232 mg/dL 70-110 H : TESTED A T [facility] [address] (BEAKER) (test code [facility], = 1538) [place] [address] 384: Stitcher Hand/Techni tomas ID = [id number] for Elvie Duffy POCT-GLUCOSE [id number] 05:56:06 Test Item Value Reference Range Interpretation Comments POC-GLUCOSE METER 152 mg/dL 70-110 H : TESTED A T [facility] [address] (BEAKER) (test code [facility], = 1538) [place] [address] 384: Stitcher Hand/Techni tomas ID = [id number] for Martine Wills BASIC METABOLIC [id number] 05:44:54 Test Item Value Reference Range Interpretation Comments SODIUM (BEAKER) 143 meq/L 135-148 (test code = 381) POTASSIUM (BEAKER) 4.2 meq/L 3.5-5.5 (test code = 379) CHLORIDE (BEAKER) 101 meq/L 98-106 (test code = 382) CO2 (BEAKER) (test 30 meq/L 20-31 code = 355) BLOOD UREA NITROGEN 4 mg/dL 10-26 L (BEAKER) (test code = 354) CREATININE (BEAKER) 0.72 mg/dL 0.50-1.20 (test code = 358) GLUCOSE RANDOM 169 mg/dL 70-110 H (BEAKER) (test code = 652) CALCIUM (BEAKER) 7.7 mg/dL 8.5-10.5 L (test code = 697) EGFR (BEAKER) (test 90 mL/min/1.73 ESTIMA THAIS GFR IS code = 1092) sq m NOT ACCURATE CREATININE CLEARANCE IN PREDICTING GLOMERULAR FILTRATION RATE . ESTIMATED GFR I S NOT APPLICABLE FOR DIALYSIS PATIEN TS. Stitcher Hand ID - ADMINCBC W/PLT COUNT & AUTO [id number] 05:30:33 Test Item Value Reference Range Interpretation Comments WHITE BLOOD CELL COUNT (BEAKER) 8.7 K/ L 4.0-10.0 (test code = 775) RED BLOOD CELL COUNT (BEAKER) 2.68 M/ L 4.00-5.00 L (test code = 761) HEMOGLOBIN (BEAKER) (test code = 7.3 GM/DL 12.0-15.5 L 410) HEMATOCRIT (BEAKER) (test code = 25.2 % 36.0-46.0 L 411) MEAN CORPUSCULAR VOLUME (BEAKER) 94.0 fL 82.0-99.0 (test code = 753) MEAN CORPUSCULAR HEMOGLOBIN 27.2 pg 27.0-33.0 (BEAKER) (test code = 751) MEAN CORPUSCULAR HEMOGLOBIN CONC 29.0 GM/DL 32.0-36.0 L (BEAKER) (test code = 752) RED CELL DISTRIBUTION WIDTH 21.6 % 12.0-15.0 H (BEAKER) (test code = 412) PLATELET COUNT (BEAKER) (test 147 K/CU MM 150-430 L code = 756) MEAN PLATELET VOLUME (BEAKER) 11.3 fL 6.0-11.5 (test code = 754) NUCLEATED RED BLOOD CELLS 1 /100 WBC 0-0 H (BEAKER) (test code = 413) NEUTROPHILS RELATIVE PERCENT 69 % (BEAKER) (test code = 429) LYMPHOCYTES RELATIVE PERCENT 14 % (BEAKER) (test code = 430) MONOCYTES RELATIVE PERCENT 7 % (BEAKER) (test code = 431) EOSINOPHILS RELATIVE PERCENT 0 % (BEAKER) (test code = 432) BASOPHILS RELATIVE PERCENT 0 % (BEAKER) (test code = 437) NEUTROPHILS ABSOLUTE COUNT 5.99 K/ L 1.80-8.00 (BEAKER) (test code = 670) LYMPHOCYTES ABSOLUTE COUNT 1.23 K/ L 1.48-4.50 L (BEAKER) (test code = 414) MONOCYTES ABSOLUTE COUNT (BEAKER) 0.60 K/ L 0.00-1.30 (test code = 415) EOSINOPHILS ABSOLUTE COUNT 0.00 K/ L 0.00-0.50 (BEAKER) (test code = 416) BASOPHILS ABSOLUTE COUNT (BEAKER) 0.03 K/ L 0.00-0.20 (test code = 417) IMMATURE GRANULOCYTES-RELATIVE 10 % 0-0 H PERCENT (BEAKER) (test code = 2801) POCT-GLUCOSE [id number] 20:54:20 Test Item Value Reference Range Interpretation Comments POC-GLUCOSE METER 207 mg/dL 70-110 H : TESTED A T [facility] [address] (BEAKER) (test code [facility], = 1538) [place] [address] 384: Stitcher Hand/Techni otmas ID = [id number] for Martine Wills POCT-GLUCOSE [id number] 15:19:46 Test Item Value Reference Range Interpretation Comments POC-GLUCOSE METER 137 mg/dL 70-110 H : Notified RN/MD: TESTED (BEBARBARA) ([place] [address] [facility] = 1538) [facility] [address]: Stitcher Hand/Techni tomas ID = [id number] for S Abhi vera POCT-GLUCOSE [id number] 11:05:49 Test Item Value Reference Range Interpretation Comments POC-GLUCOSE METER 150 mg/dL 70-110 H : [place] [address] [facility] (test code [facility], = 1538) [place] [address] 384: Stitcher Hand/Techni tomas ID = [id number] for T Justin Fonseca SCREEN, [id number] 10:35:58 Test Item Value Reference Range Interpretation Comments TEST URINE (BARBARA) (test Negative code = 583) SARS-CoV2/RT-PCR (Asymptomatic ONLY)2022-03-05 10:35:23 Test Item Value Reference Interpretation Comments Range SARS-COV2/RT-PCR Negative Negative The SARS-Co V-2 (test code = target nucleic 68669-4) acids are not detected in thi s specimen. Negat brittany results do not preclude SARS-C oV-2 infection and should not be u sed as the sole bas is for patient management decisions. Nega tive results must be combined with clinical observations, patient history , and epidemiolog ical information. A false negative result may occu r if a specimen is improperly collected, transported or handled. This S ARS CoV-2 test is a rapid, real-ashu e RT-PCR test intended for e qualitative detection of nucleic acid fr om SARS-CoV-2 in a nasopharyngeal swab specimen colle thais from individual s suspected of COVID-19 by the ir healthcare provider. DEJA (test code = This test has been DEJA) authorized by FDA under an EUA for use by authorized laboratories. This test is only authorized for the duration of the declaration that circumstances exist justifying the authorization of emergency use of in vitro diagnostic tests for detection and/or diagnosis of COVID-19 under Section 564(b)(1) of the Federal Food, Drug and Cosmetic Act, 21 U.S.C. 360bbb-3(b)(1), unless the authorization is terminated or revoked sooner. Fact Sheet for Healthcare Providers: https://www.[employer]/Documents/Xp ert%20Xpress%20SAR S%20CoV-2/Fact%20S heets/302-3802%20S ARS-COV-2%20HEALTH CARE%20PROVIDERS%2 0FACT%20SHEET.pdf Fact Sheet for Healthcare Patients: https://www.[employer]/Documents/Xp ert%20Xpress%20SAR S%20CoV-2/Fact%20S heets/302-3801%20S ARS-COV-2%20PATIEN T%20FACT%20SHEET.p df Lab Interpretation Normal (test code = 46658-4) [facility])2022-03-05 10:35:23 Test Item Value Reference Range Interpretation Comments SARS-COV2/RT-PCR Negative Negative The SARS-Co V-2 target (test code = nucleic acids a re not 5614206) detected in thi s specimen. Negative result s do not preclude SARS-C oV-2 infection and s hould not be used as the amaya e basis for patient managem ent decisions. Nega tive results must be combine d with clinical observ ations, patient history , and epidemiological information. A false negativ e result may occur if a spec imen is improperly claudio ected, transported or handled. This SARS CoV-2 test is a rapid, real-time RT-PC R test intended for th e qualitative detection of nu cleic acid from SARS-CoV-2 in a nasopharyngeal swab specimen collected from individuals suspected of CO VID-19 by their healthcar e provider. This test has been authorized by FDA under an EUA for use by authorized laboratories. This test is only authorized for the duration of the declaration that circumstances exist justifying the authorization of emergency use of in vitro diagnostic tests for detection and/or diagnosis of COVID-19 under Section 564(b)(1) of the Federal Food, Drug and Cosmetic Act, 21 U.S.C. 360bbb-3(b)(1), unless the authorization is terminated or revoked sooner. Fact Sheet for Healthcare Providers: https://www.[employer]/Documents/Xpert%20Xpress%20SARS%20CoV-2/Fact%20Sheets/302-3802%62IZMH-JYN-4%20 HEALTHCARE%20PROVIDERS%20FACT%20SHEET.pdf Fact Sheet for Healthcare Patients: https://www.[employer]/Documents/Xpert%20Xp ress%20SARS%20CoV-2/Fact%20Sheets/302-3801%52XUQD-GFO-8%20PATIENT%20FACT%20SHEET .pdfPOCT-GLUCOSE [id number] 08:05:06 Test Item Value Reference Range Interpretation Comments POC-GLUCOSE METER 151 mg/dL 70-110 H : TESTED A Richa [facility] [address] (BEAKER) (test code [facility], = 1538) [facility] 77 384: Stitcher Hand/Techni tomas ID = [id number] for Cathy Varela [id number] 05:30:10 Test Item Value Reference Range Interpretation Comments MAGNESIUM (BEAKER) (test code = 1.3 mg/dL 1.5-3.0 L 627) Stitcher Hand ID - [id number] 05:30:10 Test Item Value Reference Range Interpretation Comments POTASSIUM (BEAKER) (test code = 4.2 meq/L 3.5-5.5 379) Stitcher Hand ID - [id number] W/PLT COUNT & AUTO [id number] 05:16:23 Test Item Value Reference Range Interpretation Comments WHITE BLOOD CELL COUNT (BEAKER) 9.0 K/ L 4.0-10.0 (test code = 775) RED BLOOD CELL COUNT (BEAKER) 2.84 M/ L 4.00-5.00 L (test code = 761) HEMOGLOBIN (BEAKER) (test code = 7.9 GM/DL 12.0-15.5 L 410) HEMATOCRIT (BEAKER) (test code = 26.4 % 36.0-46.0 L 411) MEAN CORPUSCULAR VOLUME (BEAKER) 93.0 fL 82.0-99.0 (test code = 753) MEAN CORPUSCULAR HEMOGLOBIN 27.8 pg 27.0-33.0 (BEAKER) (test code = 751) MEAN CORPUSCULAR HEMOGLOBIN CONC 29.9 GM/DL 32.0-36.0 L (BEAKER) (test code = 752) RED CELL DISTRIBUTION WIDTH 20.3 % 12.0-15.0 H (BEAKER) (test code = 412) PLATELET COUNT (BEAKER) (test 186 K/CU MM 150-430 code = 756) MEAN PLATELET VOLUME (BEAKER) 10.7 fL 6.0-11.5 (test code = 754) NUCLEATED RED BLOOD CELLS 2 /100 WBC 0-0 H (BEAKER) (test code = 413) POCT-GLUCOSE [id number] 21:02:16 Test Item Value Reference Range Interpretation Comments POC-GLUCOSE METER 218 mg/dL 70-110 H : TESTED A T [facility] [address] (BEAKER) (test code [facility] [address] [facility], = 1538) [place] [address] 384: Stitcher Hand/Techni tomas ID = [id number] for Makeda Murray POCT-GLUCOSE [id number] 16:31:05 Test Item Value Reference Range Interpretation Comments POC-GLUCOSE METER 194 mg/dL 70-110 H : TESTED A T [facility] [address] (BEAKER) (test code [facility], = 1538) [place] [address] 384: Stitcher Hand/Techni tomas ID = [id number] for K alu, Lisette POCT-GLUCOSE [id number] 11:57:32 Test Item Value Reference Range Interpretation Comments POC-GLUCOSE METER 192 mg/dL 70-110 H : TESTED A T [facility] [address] (BEAKER) (test code [facility], = 1538) [place] [address] 384: Stitcher Hand/Techni tomas ID = [id number] for K alu, Lisette POCT-GLUCOSE [id number] 06:41:35 Test Item Value Reference Range Interpretation Comments POC-GLUCOSE METER 224 mg/dL 70-110 H : TESTED A T [facility] [address] (BEAKER) (test code [facility], = 1538) [facility] 77 384: Stitcher Hand/Techni tomas ID = [id number] for Carlos Avenadno BASIC METABOLIC [id number] 04:38:29 Test Item Value Reference Range Interpretation Comments SODIUM (BEAKER) 138 meq/L 135-148 (test code = 381) POTASSIUM (BEAKER) 3.4 meq/L 3.5-5.5 L (test code = 379) CHLORIDE (BEAKER) 97 meq/L 98-106 L (test code = 382) CO2 (BEAKER) (test 30 meq/L 20-31 code = 355) BLOOD UREA NITROGEN 5 mg/dL 10-26 L (BEAKER) (test code = 354) CREATININE (BEAKER) 0.70 mg/dL 0.50-1.20 (test code = 358) GLUCOSE RANDOM 182 mg/dL 70-110 H (BEAKER) (test code = 652) CALCIUM (BEAKER) 7.9 mg/dL 8.5-10.5 L (test code = 697) EGFR (BEAKER) (test 93 mL/min/1.73 ESTIMA THAIS GFR IS code = 1092) sq m NOT ACCURATE CREATININE CLEARANCE IN PREDICTING GLOMERULAR FILTRATION RATE . ESTIMATED GFR I S NOT APPLICABLE FOR DIALYSIS PATIEN TS. [employer] ID - [id number](MANUAL DIFFERENTIAL)2022-03-04 04:33:39 Test Item Value Reference Range Interpretation Comments NEUTROPHILS - REL (DIFF) (BEAKER) 77 % (test code = 1359) LYMPHOCYTES - REL (DIFF) (BEAKER) 7 % (test code = 1360) MONOCYTES - REL (DIFF) (BEAKER) 3 % (test code = 1361) METAMYELOCYTES-REL (DIFF) (BEAKER) 4 % 0-0 H (test code = 258) MYELOCYTES-REL (DIFF) (BEAKER) 3 % 0-0 H (test code = 1594) PROMYELOCYTES-REL (DIFF) (BEAKER) 1 % 0-0 H (test code = 259) BANDS - REL (DIFF) (BEAKER) (test 5 % 0-10 code = 1348) NEUTROPHILS - ABS (DIFF) (BEAKER) 7.47 K/ L 1.80-8.00 (test code = 1365) LYMPHOCYTES - ABS (DIFF) (BEAKER) 0.68 K/ L 1.48-4.50 L (test code = 1366) MONOCYTES - ABS (DIFF) (BEAKER) 0.29 K/ L 0.00-1.30 (test code = 1367) METAMYELOCTYES - ABS (DIFF) 0.39 K/ L 0.00-0.00 H (BEAKER) (test code = 261) PROMYELOCYTES - ABS (DIFF) 0.10 K/ L 0.00-0.00 H (BEAKER) (test code = 262) BANDS-ABS (DIFF) (BEAKER) (test 0.5 K/ L 0.0-0.8 code = 1349) MYELOCYTES-ABS (DIFF) (BEAKER) 0.29 K/ L 0.00-0.00 H (test code = 1593) TOTAL COUNTED (BEAKER) (test code 100 = 1351) BANDS + SEGMENTED NEUTROPHILS 7.95 (BEAKER) (test code = 1352) MANUAL NRBC PER 100 CELLS (BEAKER) 1 /100 WBC 0-0 H (test code = 1353) WBC MORPHOLOGY (BEAKER) (test code Normal = 487) PLT MORPHOLOGY (BEAKER) (test code Normal = 486) RBC MORPHOLOGY (BEAKER) (test code Normal = 762) CBC W/PLT COUNT & AUTO [id number] 04:33:38 Test Item Value Reference Range Interpretation Comments WHITE BLOOD CELL COUNT (BEAKER) 9.7 K/ L 4.0-10.0 (test code = 775) RED BLOOD CELL COUNT (BEAKER) 2.83 M/ L 4.00-5.00 L (test code = 761) HEMOGLOBIN (BEAKER) (test code = 7.9 GM/DL 12.0-15.5 L 410) HEMATOCRIT (BEAKER) (test code = 26.4 % 36.0-46.0 L 411) MEAN CORPUSCULAR VOLUME (BEAKER) 93.3 fL 82.0-99.0 (test code = 753) MEAN CORPUSCULAR HEMOGLOBIN 27.9 pg 27.0-33.0 (BEAKER) (test code = 751) MEAN CORPUSCULAR HEMOGLOBIN CONC 29.9 GM/DL 32.0-36.0 L (BEAKER) (test code = 752) RED CELL DISTRIBUTION WIDTH 19.8 % 12.0-15.0 H (BEAKER) (test code = 412) PLATELET COUNT (BEAKER) (test 215 K/CU MM 150-430 code = 756) MEAN PLATELET VOLUME (BEAKER) 10.2 fL 6.0-11.5 (test code = 754) NUCLEATED RED BLOOD CELLS 1 /100 WBC 0-0 H (BEAKER) (test code = 413) POCT-GLUCOSE [id number] 20:47:36 Test Item Value Reference Range Interpretation Comments POC-GLUCOSE METER 219 mg/dL 70-110 H : TESTED A T [facility] [address]14[address] (BEAKER) (test code [facility] [address] THE, = 1538) [place] [address] 384: Stitcher Hand/Techni tomas ID = [id number] for Carlos Avendano POCT-GLUCOSE [id number] 16:47:49 Test Item Value Reference Range Interpretation Comments POC-GLUCOSE METER 185 mg/dL 70-110 H : TESTED A T [facility] [address]858 (BEAKER) (test code [facility], = 1538) [place] [address] 384: Stitcher Hand/Techni tomas ID = [id number] for Charley Keyes POCT-GLUCOSE [id number] 11:43:05 Test Item Value Reference Range Interpretation Comments POC-GLUCOSE METER 171 mg/dL 70-110 H : TESTED A T [facility] [address] (BEAKER) (test code [facility], = 1538) [place] [address] 384: Stitcher Hand/Techni tomas ID = [id number] for Charley Keyes BASIC METABOLIC [id number] 09:35:27 Test Item Value Reference Range Interpretation Comments SODIUM (BEAKER) 139 meq/L 135-148 (test code = 381) POTASSIUM (BEAKER) 3.3 meq/L 3.5-5.5 L (test code = 379) CHLORIDE (BEAKER) 97 meq/L 98-106 L (test code = 382) CO2 (BEAKER) (test 31 meq/L 20-31 code = 355) BLOOD UREA NITROGEN 5 mg/dL 10-26 L (BEAKER) (test code = 354) CREATININE (BEAKER) 0.64 mg/dL 0.50-1.20 (test code = 358) GLUCOSE RANDOM 188 mg/dL 70-110 H (BEAKER) (test code = 652) CALCIUM (BEAKER) 7.7 mg/dL 8.5-10.5 L (test code = 697) EGFR (BEAKER) (test 103 mL/min/1.73 ESTIM ATED GFR IS code = 1092) sq m NOT ACCURATE CREATININE CLEARANCE IN PREDICTING GLOMERULAR FILTRATION RATE . ESTIMATED GFR I S NOT APPLICABLE FOR DIALYSIS PATIEN TS. Stitcher Hand ID - [id number](MANUAL DIFFERENTIAL)2022-03-03 09:25:38 Test Item Value Reference Range Interpretation Comments NEUTROPHILS - REL (DIFF) (BEAKER) 71 % (test code = 1359) LYMPHOCYTES - REL (DIFF) (BEAKER) 17 % (test code = 1360) MONOCYTES - REL (DIFF) (BEAKER) 6 % (test code = 1361) METAMYELOCYTES-REL (DIFF) (BEAKER) 2 % 0-0 H (test code = 258) MYELOCYTES-REL (DIFF) (BEAKER) 1 % 0-0 H (test code = 1594) BANDS - REL (DIFF) (BEAKER) (test 3 % 0-10 code = 1348) NEUTROPHILS - ABS (DIFF) (BEAKER) 4.97 K/ L 1.80-8.00 (test code = 1365) LYMPHOCYTES - ABS (DIFF) (BEAKER) 1.19 K/ L 1.48-4.50 L (test code = 1366) MONOCYTES - ABS (DIFF) (BEAKER) 0.42 K/ L 0.00-1.30 (test code = 1367) METAMYELOCTYES - ABS (DIFF) 0.14 K/ L 0.00-0.00 H (BEAKER) (test code = 261) BANDS-ABS (DIFF) (BEAKER) (test 0.2 K/ L 0.0-0.8 code = 1349) MYELOCYTES-ABS (DIFF) (BEAKER) 0.07 K/ L 0.00-0.00 H (test code = 1593) TOTAL COUNTED (BEAKER) (test code = 100 1351) BANDS + SEGMENTED NEUTROPHILS 5.18 (BEAKER) (test code = 1352) WBC MORPHOLOGY (BEAKER) (test code Normal = 487) PLT MORPHOLOGY (BEAKER) (test code Normal = 486) RBC MORPHOLOGY (BEAKER) (test code Normal = 762) CBC W/PLT COUNT & AUTO [id number] 09:12:52 Test Item Value Reference Range Interpretation Comments WHITE BLOOD CELL COUNT (BEAKER) 7.0 K/ L 4.0-10.0 (test code = 775) RED BLOOD CELL COUNT (BEAKER) 2.66 M/ L 4.00-5.00 L (test code = 761) HEMOGLOBIN (BEAKER) (test code = 7.4 GM/DL 12.0-15.5 L 410) HEMATOCRIT (BEAKER) (test code = 24.6 % 36.0-46.0 L 411) MEAN CORPUSCULAR VOLUME (BEAKER) 92.5 fL 82.0-99.0 (test code = 753) MEAN CORPUSCULAR HEMOGLOBIN 27.8 pg 27.0-33.0 (BEAKER) (test code = 751) MEAN CORPUSCULAR HEMOGLOBIN CONC 30.1 GM/DL 32.0-36.0 L (BEAKER) (test code = 752) RED CELL DISTRIBUTION WIDTH 19.6 % 12.0-15.0 H (BEAKER) (test code = 412) PLATELET COUNT (BEAKER) (test 170 K/CU MM 150-430 code = 756) MEAN PLATELET VOLUME (BEAKER) 10.7 fL 6.0-11.5 (test code = 754) NUCLEATED RED BLOOD CELLS 1 /100 WBC 0-0 H (BEAKER) (test code = 413) POCT-GLUCOSE [id number] 05:27:57 Test Item Value Reference Range Interpretation Comments POC-GLUCOSE METER 190 mg/dL 70-110 H : [place] [address] (BEAKER) (test code [facility], = 1538) [place] [address] 384: Stitcher Hand/Techni tomas ID = [id number] for Daily Blackwell BLOOD [id number] 22:01:02 Test Item Value Reference Range Interpretation Comments CULTURE (BEAKER) (test No growth in 5 days code = 1095) POCT-GLUCOSE [id number] 21:18:28 Test Item Value Reference Range Interpretation Comments POC-GLUCOSE METER 237 mg/dL 70-110 H : TESTED A T [facility] [address]42 (BEAKER) (test code [facility] [address], = 1538) [place] [address] 384: Stitcher Hand/Techni tomas ID = [id number] for Thalia Modi POCT-GLUCOSE [id number] 16:46:10 Test Item Value Reference Range Interpretation Comments POC-GLUCOSE METER 247 mg/dL 70-110 H : TESTED A T [facility] 14747 (BEAKER) (test code [facility] [address] [address] [facility], = 1538) [place] [address] 384: Stitcher Hand/Techni tomas ID = [id number] for Charley Hoover POCT-GLUCOSE [id number] 12:22:02 Test Item Value Reference Range Interpretation Comments POC-GLUCOSE METER 168 mg/dL 70-110 H : TESTED A T [facility] [address] (BEAKER) (test code [facility] [address] [address] [facility], = 1538) [place] [address] 384: Stitcher Hand/Techni tomas ID = [id number] for Charley Hoover TISSUE [id number] 07:50:48Surgical Pathology Report Case: [id number] Authorizing Provider: Abel Strickland MD Collected: 02/26/2022 05:40 PM Ordering Location: [facility] - Perioperative Received: 02/27/2022 02:15 PM Services Pathologist: Elzbieta Torres MD Specimen: Large Intestine, Colon - Right/Ascending, Right colon A. RIGHT COLON, RIGHT HEMICOLECTOMY:- SUB SEROSAL FIBROSIS AND CHRONIC INFLAMMATION- FOCAL MELANOSIS,SEE COMMENT- APPENDIX WITH FIBROUS OBLITERATION OF THE DISTAL TIP- NEGATIVE FOR ACTIVE INFLAMMATION, ISCHEMIC CHANGES, DYSPLASIA OR MALIGNANCY- ONE BENIGN REACTIVE LYMPH NODE- MARGINS HISTOLOGICALLY VIABLE Signing Pathologist Direct Phone Line: [phone] signed by Elzbieta Torres MD on 03/02/2022 at 7:50 AMFocal aggregates of pigmented histiocytes is noted in the mucosa, which may be related to a prior procedure. Clinical correlation is recommended. [id number] colectomy right.A. Large Intestine, Colon - Right/Ascending.Received in formalin labeled as "right colon" is a segmentof cecum and ascending colon, which measures 18 cm in length with a circumferences ranging from 7.0 cm up to 12.0 cm. There is an attached segment of terminal ileum measuring 3.5 cm in length with a circumference of 3.5 cm. Also present is an adherent appendix, which measures 6.5 x 0.7 x 0.7 cm. The serosal surfaces are purple-jeong. There are a few adhesions noted. No discrete purulent exudate is noted. No dimpling or induration is noted. The mucosal surface is grossly unremarkable. No masses, polyps or ulcers are noted. The wall of the bowel measures approximately 0.3 cm in thickness. The bowel appears viable grossly. Sectioning the appendix reveals no discrete mass or fecalith. Sectioning reveals no discrete mass.Code of sections: A1, proximal margin; A2, distal margin; A3, mesenteric margin; A4, appendix; A5, A6, adhesions on pericolic fat and serosa; A7, ileocecal valve; A8, mucosa from small bowel; A9, A10, random sections of large bowel.The instrument, paperwork, container, and cassettes all read [id number].Received in formalin labeled with the patient's name (Fran) and medical record number. JF/ew(MANUAL DIFFERENTIAL)2022-03-02 06:19:49 Test Item Value Reference Range Interpretation Comments NEUTROPHILS - REL (DIFF) (BEAKER) 70 % (test code = 1359) LYMPHOCYTES - REL (DIFF) (BEAKER) 17 % (test code = 1360) MONOCYTES - REL (DIFF) (BEAKER) 6 % (test code = 1361) METAMYELOCYTES-REL (DIFF) (BEAKER) 5 % 0-0 H (test code = 258) PROMYELOCYTES-REL (DIFF) (BEAKER) 2 % 0-0 H (test code = 259) NEUTROPHILS - ABS (DIFF) (BEAKER) 6.23 K/ L 1.80-8.00 (test code = 1365) LYMPHOCYTES - ABS (DIFF) (BEAKER) 1.51 K/ L 1.48-4.50 (test code = 1366) MONOCYTES - ABS (DIFF) (BEAKER) 0.53 K/ L 0.00-1.30 (test code = 1367) METAMYELOCTYES - ABS (DIFF) 0.45 K/ L 0.00-0.00 H (BEAKER) (test code = 261) PROMYELOCYTES - ABS (DIFF) (BEAKER) 0.18 K/ L 0.00-0.00 H (test code = 262) TOTAL COUNTED (BEAKER) (test code = 100 1351) WBC MORPHOLOGY (BEAKER) (test code Normal = 487) PLT MORPHOLOGY (BEAKER) (test code Normal = 486) ANISOCYTOSIS (BEAKER) (test code = 1+ few 961) POIKILOCYTES (BEAKER) (test code = 1+ few 966) CBC W/PLT COUNT & AUTO [id number] 06:15:38 Test Item Value Reference Range Interpretation Comments WHITE BLOOD CELL COUNT (BEAKER) 8.9 K/ L 4.0-10.0 (test code = 775) RED BLOOD CELL COUNT (BEAKER) 2.85 M/ L 4.00-5.00 L (test code = 761) HEMOGLOBIN (BEAKER) (test code = 7.8 GM/DL 12.0-15.5 L 410) HEMATOCRIT (BEAKER) (test code = 26.6 % 36.0-46.0 L 411) MEAN CORPUSCULAR VOLUME (BEAKER) 93.3 fL 82.0-99.0 (test code = 753) MEAN CORPUSCULAR HEMOGLOBIN 27.4 pg 27.0-33.0 (BEAKER) (test code = 751) MEAN CORPUSCULAR HEMOGLOBIN CONC 29.3 GM/DL 32.0-36.0 L (BEAKER) (test code = 752) RED CELL DISTRIBUTION WIDTH 19.9 % 12.0-15.0 H (BEAKER) (test code = 412) PLATELET COUNT (BEAKER) (test 210 K/CU MM 150-430 code = 756) MEAN PLATELET VOLUME (BEAKER) 10.2 fL 6.0-11.5 (test code = 754) NUCLEATED RED BLOOD CELLS 0 /100 WBC 0-0 (BEAKER) (test code = 413) POCT-GLUCOSE [id number] 06:08:50 Test Item Value Reference Range Interpretation Comments POC-GLUCOSE METER 146 mg/dL 70-110 H : TESTED A T [facility] [address] (BEAKER) (test code [facility], = 1538) [place] [address] 384: Stitcher Hand/Techni tomas ID = [id number] for Thalia Modi COMPREHENSIVE METABOLIC [id number] 05:58:00 Test Item Value Reference Range Interpretation Comments TOTAL PROTEIN 5.8 gm/dL 6.0-8.5 L (BEAKER) (test code = 770) ALBUMIN (BEAKER) 2.8 g/dL 3.5-5.0 L (test code = 1145) ALKALINE PHOSPHATASE 120 U/L 30-115 H (BEAKER) (test code = 346) BILIRUBIN TOTAL 1.3 mg/dL 0.1-1.3 (BEAKER) (test code = 377) SODIUM (BEAKER) (test 136 meq/L 135-148 code = 381) POTASSIUM (BEAKER) 3.0 meq/L 3.5-5.5 LL (test code = 379) CHLORIDE (BEAKER) 95 meq/L 98-106 L (test code = 382) CO2 (BEAKER) (test 29 meq/L 20-31 code = 355) BLOOD UREA NITROGEN 5 mg/dL 10-26 L (BEAKER) (test code = 354) CREATININE (BEAKER) 0.71 mg/dL 0.50-1.20 (test code = 358) GLUCOSE RANDOM 146 mg/dL 70-110 H (BEAKER) (test code = 652) CALCIUM (BEAKER) 7.7 mg/dL 8.5-10.5 L (test code = 697) AST (SGOT) (BEAKER) 56 U/L 5-40 H (test code = 353) ALT (SGPT) (BEAKER) 27 U/L 6-50 (test code = 347) EGFR (BEAKER) (test 92 mL/min/1.73 ESTIMA THAIS GFR IS code = 1092) sq m NOT ACCURATE CREATININE CLEARANCE IN PREDICTING GLOMERULAR FILTRATION RATE . ESTIMATED GFR I S NOT APPLICABLE FOR DIALYSIS PATIEN TS. Stitcher Hand ID - [id number] 20:56:31 Test Item Value Reference Range Interpretation Comments POC-GLUCOSE METER 151 mg/dL 70-110 H : TESTED A T [facility] 36413 (BEAKER) (test code [facility], = 1538) [facility] 77 384: Stitcher Hand/Techni tomas ID = [id number] for Thalia Modi POCT-GLUCOSE [id number] 16:33:57 Test Item Value Reference Range Interpretation Comments POC-GLUCOSE METER 152 mg/dL 70-110 H : TESTED A T [facility] [address] (BEAKER) (test code [facility], = 1538) [place] [address] 384: Stitcher Hand/Techni tomas ID = [id number] for Melissa Mackey [id number] 14:23:16 Test Item Value Reference Range Interpretation Comments PHOSPHORUS (BEAKER) (test code = 2.1 mg/dL 2.5-4.5 L 604) Stitcher Hand ID - [id number] 14:23:16 Test Item Value Reference Range Interpretation Comments TRIGLYCERIDES (BEAKER) (test code = 414 mg/dL 540) TRIGLYCERIDE REFERENCE RANGELow Risk <150Borderline Risk 150-199High Risk 200-499Very High Risk >=500Operator ID - [id number] 14:23:15 Test Item Value Reference Range Interpretation Comments MAGNESIUM (BEAKER) (test code = 1.7 mg/dL 1.5-3.0 627) Stitcher Hand ID - [id number] 11:12:30 Test Item Value Reference Range Interpretation Comments POC-GLUCOSE METER 150 mg/dL 70-110 H : TESTED A T [facility] [address] (BEAKER) (test code [facility], = 1538) [place] [address] 384: Stitcher Hand/Techni tomas ID = [id number] for Melissa Mackey RAD, ABDOMEN/KUB, 1 VIEW [id number] 09:37:00Reason for exam:->ileus [facility] CENTERName: YAIR MORA : 1985 Sex: FFINAL REPORT KUB History provided: Ileus Paramidline skin clips in the abdomen and pelvis from recent laparotomy. NG tip in the stomach. No dilated small or large bowel loops are evident. No obstructive signs or localizing abnormalities. Signed: Robinson Rodriguez MDReport Verified Date/Time: 03/01/2022 09:37:07 Reading Location: [facility] [address] Radiology Reading Room POCT-GLUCOSE [id number] 06:16:53 Test Item Value Reference Range Interpretation Comments POC-GLUCOSE METER 157 mg/dL 70-110 H : TESTED A T [facility] [address] (BEAKER) (test code [facility], = 1538) [place] [address] 384: Stitcher Hand/Techni tomas ID = [id number] for Elizabeth Gold (MANUAL DIFFERENTIAL)2022-03-01 05:59:31 Test Item Value Reference Range Interpretation Comments NEUTROPHILS - REL (DIFF) (BEAKER) 68 % (test code = 1359) LYMPHOCYTES - REL (DIFF) (BEAKER) 21 % (test code = 1360) MONOCYTES - REL (DIFF) (BEAKER) 6 % (test code = 1361) MYELOCYTES-REL (DIFF) (BEAKER) 1 % 0-0 H (test code = 1594) PROMYELOCYTES-REL (DIFF) (BEAKER) 2 % 0-0 H (test code = 259) BANDS - REL (DIFF) (BEAKER) (test 2 % 0-10 code = 1348) NEUTROPHILS - ABS (DIFF) (BEAKER) 6.12 K/ L 1.80-8.00 (test code = 1365) LYMPHOCYTES - ABS (DIFF) (BEAKER) 1.89 K/ L 1.48-4.50 (test code = 1366) MONOCYTES - ABS (DIFF) (BEAKER) 0.54 K/ L 0.00-1.30 (test code = 1367) PROMYELOCYTES - ABS (DIFF) (BEAKER) 0.18 K/ L 0.00-0.00 H (test code = 262) BANDS-ABS (DIFF) (BEAKER) (test 0.2 K/ L 0.0-0.8 code = 1349) MYELOCYTES-ABS (DIFF) (BEAKER) 0.09 K/ L 0.00-0.00 H (test code = 1593) TOTAL COUNTED (BEAKER) (test code = 100 1351) BANDS + SEGMENTED NEUTROPHILS 6.30 (BEAKER) (test code = 1352) WBC MORPHOLOGY (BEAKER) (test code Normal = 487) PLT MORPHOLOGY (BEAKER) (test code Normal = 486) RBC MORPHOLOGY (BEAKER) (test code Normal = 762) CBC W/PLT COUNT & AUTO [id number] 05:58:52 Test Item Value Reference Range Interpretation Comments WHITE BLOOD CELL COUNT 9.0 K/ L 4.0-10.0 (BEAKER) (test code = 775) RED BLOOD CELL COUNT 3.17 M/ L 4.00-5.00 L (BEAKER) (test code = 761) HEMOGLOBIN (BEAKER) 8.7 GM/DL 12.0-15.5 L (test code = 410) HEMATOCRIT (BEAKER) 29.1 % 36.0-46.0 L (test code = 411) MEAN CORPUSCULAR 91.8 fL 82.0-99.0 VOLUME (BEAKER) (test code = 753) MEAN CORPUSCULAR 27.4 pg 27.0-33.0 HEMOGLOBIN (BEAKER) (test code = 751) MEAN CORPUSCULAR 29.9 GM/DL 32.0-36.0 L HEMOGLOBIN CONC (BEAKER) (test code = 752) RED CELL DISTRIBUTION 20.2 % 12.0-15.0 H WIDTH (BEAKER) (test code = 412) PLATELET COUNT 222 K/CU MM 150-430 Discordant re sult (BEAKER) (test code = compar ed to previous 756) result. Clinica l correlation required. MEAN PLATELET VOLUME 10.5 fL 6.0-11.5 (BEAKER) (test code = 754) NUCLEATED RED BLOOD 0 /100 WBC 0-0 CELLS (BEAKER) (test code = 413) COMPREHENSIVE METABOLIC [id number] 05:57:53 Test Item Value Reference Range Interpretation Comments TOTAL PROTEIN 6.0 gm/dL 6.0-8.5 (BEAKER) (test code = 770) ALBUMIN (BEAKER) 3.0 g/dL 3.5-5.0 L (test code = 1145) ALKALINE PHOSPHATASE 137 U/L 30-115 H (BEAKER) (test code = 346) BILIRUBIN TOTAL 1.6 mg/dL 0.1-1.3 H (BEAKER) (test code = 377) SODIUM (BEAKER) (test 140 meq/L 135-148 code = 381) POTASSIUM (BEAKER) 3.3 meq/L 3.5-5.5 L (test code = 379) CHLORIDE (BEAKER) 96 meq/L 98-106 L (test code = 382) CO2 (BEAKER) (test 28 meq/L 20-31 code = 355) BLOOD UREA NITROGEN 6 mg/dL 10-26 L (BEAKER) (test code = 354) CREATININE (BEAKER) 0.73 mg/dL 0.50-1.20 (test code = 358) GLUCOSE RANDOM 141 mg/dL 70-110 H (BEAKER) (test code = 652) CALCIUM (BEAKER) 8.2 mg/dL 8.5-10.5 L (test code = 697) AST (SGOT) (BEAKER) 73 U/L 5-40 H (test code = 353) ALT (SGPT) (BEAKER) 33 U/L 6-50 (test code = 347) EGFR (BEAKER) (test 89 mL/min/1.73 ESTIMA THAIS GFR IS code = 1092) sq m NOT ACCURATE CREATININE CLEARANCE IN PREDICTING GLOMERULAR FILTRATION RATE . ESTIMATED GFR I S NOT APPLICABLE FOR DIALYSIS PATIEN TS. Stitcher Hand ID - ZCHRISPOCT-GLUCOSE [id number] 22:05:01 Test Item Value Reference Range Interpretation Comments POC-GLUCOSE METER 117 mg/dL 70-110 H : TESTED A T [facility] 14144 (BEAKER) (test code [facility] [address] [facility], = 1538) [place] [address] 384: Stitcher Hand/Techni tomas ID = [id number] for Elizabeth Gold POCT-GLUCOSE [id number] 16:28:52 Test Item Value Reference Range Interpretation Comments POC-GLUCOSE METER 161 mg/dL 70-110 H : TESTED A T [facility] [address]109 (BEAKER) (test code [facility] [address] [facility], = 1538) [place] [address] 384: Stitcher Hand/Techni tomas ID = [id number] for A Trina landon BILIRUBIN, [id number] 13:26:42 Test Item Value Reference Range Interpretation Comments BILIRUBIN DIRECT (BEAKER) (test 1.3 mg/dL 0.0-0.5 H code = 706) Stitcher Hand ID - [id number] ANTIBODY (LUPE)2022-02-28 12:42:57 Test Item Value Reference Range Interpretation Comments ANTI-NUCLEAR ANTIBODY (LUPE) (BEAKER) Negative Negative (test code = 418) Test performed by IFA method.Test performed by IFA method.CARDIOLIPIN ANTIBODIES, IGG AND [id number] 12:28:23 Test Item Value Reference Range Interpretation Comments ANTICARDIOLIPIN IGG ANTIBODY (BEAKER) < GPL <20.0 (test code = 712) ANTICARDIOLIPIN IGM ANTIBODY (BEAKER) 1.5 MPL <20.0 (test code = 713) Anticardiolipin IgG Result Interpretation: <20.0 GPL Normal>/= 20.0 GPL PositiveAnticardiolipin IgM Result Interpretation: <20.0 MPL Normal>/= 20.0 MPL PositivePOCT-GLUCOSE [id number] 11:31:22 Test Item Value Reference Range Interpretation Comments POC-GLUCOSE METER 147 mg/dL 70-110 H : TESTED A T [facility] 39762 (BEAKER) (test code [facility], = 1538) [place] [address] 384: Stitcher Hand/Techni tomas ID = [id number] for A Trina landon PROTEIN C [id number] 10:21:12 Test Item Value Reference Range Interpretation Comments PROTEIN C ACTIVITY (BEAKER) (test code 68.0 % 70.0-130.0 L = 582) See Protein C Antigen.POCT-GLUCOSE [id number] 08:14:26 Test Item Value Reference Range Interpretation Comments POC-GLUCOSE METER 141 mg/dL 70-110 H : TESTED A T [facility] 14316 (BEAKER) (test code [facility], = 1538) [place] [address] 384: Stitcher Hand/Techni tomas ID = [id number] for C ampa, Emily [id number] 04:17:49 Test Item Value Reference Range Interpretation Comments PHOSPHORUS (BEAKER) (test code = 2.5 mg/dL 2.5-4.5 604) Stitcher Hand ID - [id number] METABOLIC [id number] 04:17:48 Test Item Value Reference Range Interpretation Comments TOTAL PROTEIN 6.0 gm/dL 6.0-8.5 (BEAKER) (test code = 770) ALBUMIN (BEAKER) 3.0 g/dL 3.5-5.0 L (test code = 1145) ALKALINE PHOSPHATASE 118 U/L 30-115 H (BEAKER) (test code = 346) BILIRUBIN TOTAL 1.8 mg/dL 0.1-1.3 H (BEAKER) (test code = 377) SODIUM (BEAKER) (test 140 meq/L 135-148 code = 381) POTASSIUM (BEAKER) 3.5 meq/L 3.5-5.5 (test code = 379) CHLORIDE (BEAKER) 98 meq/L 98-106 (test code = 382) CO2 (BEAKER) (test 27 meq/L 20-31 code = 355) BLOOD UREA NITROGEN 10 mg/dL 10-26 (BEAKER) (test code = 354) CREATININE (BEAKER) 0.76 mg/dL 0.50-1.20 (test code = 358) GLUCOSE RANDOM 160 mg/dL 70-110 H (BEAKER) (test code = 652) CALCIUM (BEAKER) 8.1 mg/dL 8.5-10.5 L (test code = 697) AST (SGOT) (BEAKER) 56 U/L 5-40 H (test code = 353) ALT (SGPT) (BEAKER) 34 U/L 6-50 (test code = 347) EGFR (BEAKER) (test 85 mL/min/1.73 ESTIMA THAIS GFR IS code = 1092) sq m NOT ACCURATE CREATININE CLEARANCE IN PREDICTING GLOMERULAR FILTRATION RATE . ESTIMATED GFR I S NOT APPLICABLE FOR DIALYSIS PATIEN TS. Stitcher Hand ID - [id number] 04:17:48 Test Item Value Reference Range Interpretation Comments MAGNESIUM (BEAKER) (test code = 2.2 mg/dL 1.5-3.0 627) Stitcher Hand ID - [id number] W/PLT COUNT & AUTO [id number] 03:56:12 Test Item Value Reference Range Interpretation Comments WHITE BLOOD CELL COUNT (BEAKER) 6.5 K/ L 4.0-10.0 (test code = 775) RED BLOOD CELL COUNT (BEAKER) 3.13 M/ L 4.00-5.00 L (test code = 761) HEMOGLOBIN (BEAKER) (test code = 8.6 GM/DL 12.0-15.5 L 410) HEMATOCRIT (BEAKER) (test code = 28.3 % 36.0-46.0 L 411) MEAN CORPUSCULAR VOLUME (BEAKER) 90.4 fL 82.0-99.0 (test code = 753) MEAN CORPUSCULAR HEMOGLOBIN 27.5 pg 27.0-33.0 (BEAKER) (test code = 751) MEAN CORPUSCULAR HEMOGLOBIN CONC 30.4 GM/DL 32.0-36.0 L (BEAKER) (test code = 752) RED CELL DISTRIBUTION WIDTH 19.9 % 12.0-15.0 H (BEAKER) (test code = 412) PLATELET COUNT (BEAKER) (test 129 K/CU MM 150-430 L code = 756) MEAN PLATELET VOLUME (BEAKER) 11.0 fL 6.0-11.5 (test code = 754) NUCLEATED RED BLOOD CELLS 0 /100 WBC 0-0 (BEAKER) (test code = 413) NEUTROPHILS RELATIVE PERCENT 71 % (BEAKER) (test code = 429) LYMPHOCYTES RELATIVE PERCENT 12 % (BEAKER) (test code = 430) MONOCYTES RELATIVE PERCENT 10 % (BEAKER) (test code = 431) EOSINOPHILS RELATIVE PERCENT 0 % (BEAKER) (test code = 432) BASOPHILS RELATIVE PERCENT 1 % (BEAKER) (test code = 437) NEUTROPHILS ABSOLUTE COUNT 4.64 K/ L 1.80-8.00 (BEAKER) (test code = 670) LYMPHOCYTES ABSOLUTE COUNT 0.78 K/ L 1.48-4.50 L (BEAKER) (test code = 414) MONOCYTES ABSOLUTE COUNT (BEAKER) 0.67 K/ L 0.00-1.30 (test code = 415) EOSINOPHILS ABSOLUTE COUNT 0.00 K/ L 0.00-0.50 (BEAKER) (test code = 416) BASOPHILS ABSOLUTE COUNT (BEAKER) 0.04 K/ L 0.00-0.20 (test code = 417) IMMATURE GRANULOCYTES-RELATIVE 6 % 0-0 H PERCENT (BEAKER) (test code = 2801) POCT-GLUCOSE [id number] 01:26:12 Test Item Value Reference Range Interpretation Comments POC-GLUCOSE METER 164 mg/dL 70-110 H : [place] [address] (BEAKER) (test code [facility] [address] [facility], = 1538) [facility] [address]: Stitcher Hand/Techni tomas ID = [id number] for Lj Meade [id number] 22:08:19 Test Item Value Reference Range Interpretation Comments POTASSIUM (BEAKER) (test code = 3.5 meq/L 3.5-5.5 379) Stitcher Hand ID - [id number] 22:08:18 Test Item Value Reference Range Interpretation Comments MAGNESIUM (BEAKER) (test code = 2.0 mg/dL 1.5-3.0 627) Stitcher Hand ID - [id number] 22:08:18 Test Item Value Reference Range Interpretation Comments PHOSPHORUS (BEAKER) (test code = 2.1 mg/dL 2.5-4.5 L 604) Stitcher Hand ID - [id number] 18:01:43 Test Item Value Reference Range Interpretation Comments POC-GLUCOSE METER 161 mg/dL 70-110 H : Notified RN/MD: TESTED (BEAKER) (test code AT [facility] [id number] [facility] = 1538) [facility] [address]: Stitcher Hand/Techni otmas ID = [id number] for P martha, Stellamaris POCT-GLUCOSE [id number] 13:52:01 Test Item Value Reference Range Interpretation Comments POC-GLUCOSE METER 177 mg/dL 70-110 H : Notified RN/MD: TESTED (BEAKER) (test code AT [facility] [address] [facility] = 1538) [facility] [address]: Stitcher Hand/Techni tomas ID = [id number] for P martha, Stellamaris POCT-GLUCOSE [id number] 13:26:28 Test Item Value Reference Range Interpretation Comments POC-GLUCOSE METER 157 mg/dL 70-110 H : Notified RN/MD: TESTED (BEAKER) (test code AT [facility] [address] [facility] = 1538) [place] [address]: Stitcher Hand/Techni tomas ID = [id number] for Sergo Garrett [id number] 13:09:30 Test Item Value Reference Range Interpretation Comments POTASSIUM (BEAKER) (test code = 3.4 meq/L 3.5-5.5 L 379) Stitcher Hand ID - [id number] 13:08:48 Test Item Value Reference Range Interpretation Comments MAGNESIUM (BEAKER) (test code = 2.0 mg/dL 1.5-3.0 627) Stitcher Hand ID - [id number] ACID, [id number] 13:03:48 Test Item Value Reference Range Interpretation Comments LACTATE BLOOD VENOUS (2) (BEAKER) 0.65 mmol/L 0.50-2.20 (test code = 2872) Stitcher Hand ID - [id number] 09:22:52 Test Item Value Reference Range Interpretation Comments Result (test code = 6463-4) No [facility] [id number] 09:22:52 Test Item Value Reference Range Interpretation Comments CULTURE (BEAKER) (test code No MRSA isolated = 1095) LACTIC ACID, [id number] 04:46:02 Test Item Value Reference Range Interpretation Comments LACTATE BLOOD VENOUS (2) (BEAKER) 0.97 mmol/L 0.50-2.20 (test code = 2872) Stitcher Hand ID - [id number] METABOLIC [id number] 04:45:02 Test Item Value Reference Range Interpretation Comments TOTAL PROTEIN 5.7 gm/dL 6.0-8.5 L (BEAKER) (test code = 770) ALBUMIN (BEAKER) 2.9 g/dL 3.5-5.0 L (test code = 1145) ALKALINE PHOSPHATASE 100 U/L 30-115 (BEAKER) (test code = 346) BILIRUBIN TOTAL 1.8 mg/dL 0.1-1.3 H (BEAKER) (test code = 377) SODIUM (BEAKER) (test 135 meq/L 135-148 code = 381) POTASSIUM (BEAKER) 3.6 meq/L 3.5-5.5 (test code = 379) CHLORIDE (BEAKER) 99 meq/L 98-106 (test code = 382) CO2 (BEAKER) (test 20 meq/L 20-31 code = 355) BLOOD UREA NITROGEN 9 mg/dL 10-26 L (BEAKER) (test code = 354) CREATININE (BEAKER) 0.89 mg/dL 0.50-1.20 (test code = 358) GLUCOSE RANDOM 193 mg/dL 70-110 H (BEAKER) (test code = 652) CALCIUM (BEAKER) 7.9 mg/dL 8.5-10.5 L (test code = 697) AST (SGOT) (BEAKER) 41 U/L 5-40 H (test code = 353) ALT (SGPT) (BEAKER) 34 U/L 6-50 (test code = 347) EGFR (BEAKER) (test 71 mL/min/1.73 ESTIMA THAIS GFR IS code = 1092) sq m NOT ACCURATE CREATININE CLEARANCE IN PREDICTING GLOMERULAR FILTRATION RATE . ESTIMATED GFR I S NOT APPLICABLE FOR DIALYSIS PATIEN TS. Stitcher Hand ID - [id number] W/PLT COUNT & AUTO [id number] 04:20:52 Test Item Value Reference Range Interpretation Comments WHITE BLOOD CELL COUNT 4.5 K/ L 4.0-10.0 (BEAKER) (test code = 775) RED BLOOD CELL COUNT 3.02 M/ L 4.00-5.00 L (BEAKER) (test code = 761) HEMOGLOBIN (BEAKER) 8.4 GM/DL 12.0-15.5 L (test code = 410) HEMATOCRIT (BEAKER) 27.2 % 36.0-46.0 L (test code = 411) MEAN CORPUSCULAR 90.1 fL 82.0-99.0 VOLUME (BEAKER) (test code = 753) MEAN CORPUSCULAR 27.8 pg 27.0-33.0 HEMOGLOBIN (BEAKER) (test code = 751) MEAN CORPUSCULAR 30.9 GM/DL 32.0-36.0 L HEMOGLOBIN CONC (BEAKER) (test code = 752) RED CELL DISTRIBUTION 19.6 % 12.0-15.0 H WIDTH (BEAKER) (test code = 412) PLATELET COUNT 63 K/CU MM 150-430 L Discordant re sult (BEAKER) (test code = compar ed to previous 756) result; clinica l correlation req uired. MEAN PLATELET VOLUME 11.8 fL 6.0-11.5 H (BEAKER) (test code = 754) NUCLEATED RED BLOOD 0 /100 WBC 0-0 CELLS (BEAKER) (test code = 413) NEUTROPHILS RELATIVE 77 % PERCENT (BEAKER) (test code = 429) LYMPHOCYTES RELATIVE 7 % PERCENT (BEAKER) (test code = 430) MONOCYTES RELATIVE 10 % PERCENT (BEAKER) (test code = 431) EOSINOPHILS RELATIVE 0 % PERCENT (BEAKER) (test code = 432) BASOPHILS RELATIVE 0 % PERCENT (BEAKER) (test code = 437) NEUTROPHILS ABSOLUTE 3.44 K/ L 1.80-8.00 COUNT (BEAKER) (test code = 670) LYMPHOCYTES ABSOLUTE 0.31 K/ L 1.48-4.50 L COUNT (BEAKER) (test code = 414) MONOCYTES ABSOLUTE 0.46 K/ L 0.00-1.30 COUNT (BEAKER) (test code = 415) EOSINOPHILS ABSOLUTE 0.00 K/ L 0.00-0.50 COUNT (BEAKER) (test code = 416) BASOPHILS ABSOLUTE 0.01 K/ L 0.00-0.20 COUNT (BEAKER) (test code = 417) IMMATURE 6 % 0-0 H GRANULOCYTES-RELATIVE PERCENT (BEAKER) (test code = 2801) LACTIC ACID, [id number] 01:00:58 Test Item Value Reference Range Interpretation Comments LACTATE BLOOD VENOUS (2) (BEAKER) 0.79 mmol/L 0.50-2.20 (test code = 2872) Stitcher Hand ID - [id number] 00:55:54 Test Item Value Reference Range Interpretation Comments POTASSIUM (BEAKER) (test code = 3.8 meq/L 3.5-5.5 379) Stitcher Hand ID - [id number] [id number] 23:44:08 Test Item Value Reference Range Interpretation Comments POC-GLUCOSE METER 192 mg/dL 70-110 H : TESTED A T [facility] [address] (BEAKER) (test code [facility], = 1538) [facility] 77 384: Stitcher Hand/Techni tomas ID = [id number] for S angelaa, Janine (MANUAL DIFFERENTIAL)2022-02-26 21:24:01 Test Item Value Reference Range Interpretation Comments NEUTROPHILS - REL (DIFF) (BEAKER) 80 % (test code = 1359) LYMPHOCYTES - REL (DIFF) (BEAKER) 11 % (test code = 1360) MONOCYTES - REL (DIFF) (BEAKER) 9 % (test code = 1361) NEUTROPHILS - ABS (DIFF) (BEAKER) 1.92 K/ L 1.80-8.00 (test code = 1365) LYMPHOCYTES - ABS (DIFF) (BEAKER) 0.26 K/ L 1.48-4.50 L (test code = 1366) MONOCYTES - ABS (DIFF) (BEAKER) 0.22 K/ L 0.00-1.30 (test code = 1367) TOTAL COUNTED (BEAKER) (test code = 100 1351) WBC MORPHOLOGY (BEAKER) (test code Normal = 487) PLT MORPHOLOGY (BEAKER) (test code Normal = 486) ANISOCYTOSIS (BEAKER) (test code = 1+ few 961) CBC W/PLT COUNT & AUTO [id number] 21:12:32 Test Item Value Reference Range Interpretation Comments WHITE BLOOD CELL COUNT (BEAKER) 2.4 K/ L 4.0-10.0 L (test code = 775) RED BLOOD CELL COUNT (BEAKER) 2.81 M/ L 4.00-5.00 L (test code = 761) HEMOGLOBIN (BEAKER) (test code = 7.7 GM/DL 12.0-15.5 L 410) HEMATOCRIT (BEAKER) (test code = 25.3 % 36.0-46.0 L 411) MEAN CORPUSCULAR VOLUME (BEAKER) 90.0 fL 82.0-99.0 (test code = 753) MEAN CORPUSCULAR HEMOGLOBIN 27.4 pg 27.0-33.0 (BEAKER) (test code = 751) MEAN CORPUSCULAR HEMOGLOBIN CONC 30.4 GM/DL 32.0-36.0 L (BEAKER) (test code = 752) RED CELL DISTRIBUTION WIDTH 19.3 % 12.0-15.0 H (BEAKER) (test code = 412) PLATELET COUNT (BEAKER) (test code 42 K/CU MM 150-430 L = 756) MEAN PLATELET VOLUME (BEAKER) 11.7 fL 6.0-11.5 H (test code = 754) NUCLEATED RED BLOOD CELLS (BEAKER) 0 /100 WBC 0-0 (test code = 413) [id number] 21:01:21 Test Item Value Reference Range Interpretation Comments FIBRINOGEN LEVEL (BEAKER) (test 495 mg/dl 206-468 H code = 658) PROTHROMBIN [id number] 21:00:59 Test Item Value Reference Range Interpretation Comments PROTIME (BEAKER) (test code = 16.2 seconds 11.8-14.4 H 759) INR (BEAKER) (test code = 370) 1.37 1.20-1.50 RECOMMENDED COUMADIN/WARFARIN INR THERAPY RANGESSTANDARD DOSE: 2.0 - 3.0 Includes: PROPHYLAXIS for venous thrombosis, systemic embolization; TREATMENT for venous thrombosis and/or pulmonary embolus.HIGH RISK: Target INR is 2.5-3.5 for patients with mechanical heart valves.BASIC METABOLIC [id number] 20:58:56 Test Item Value Reference Range Interpretation Comments SODIUM (BEAKER) 137 meq/L 135-148 (test code = 381) POTASSIUM (BEAKER) 3.4 meq/L 3.5-5.5 L (test code = 379) CHLORIDE (BEAKER) 101 meq/L 98-106 (test code = 382) CO2 (BEAKER) (test 19 meq/L 20-31 L code = 355) BLOOD UREA NITROGEN 10 mg/dL 10-26 (BEAKER) (test code = 354) CREATININE (BEAKER) 0.90 mg/dL 0.50-1.20 (test code = 358) GLUCOSE RANDOM 178 mg/dL 70-110 H (BEAKER) (test code = 652) CALCIUM (BEAKER) 7.8 mg/dL 8.5-10.5 L (test code = 697) EGFR (BEAKER) (test 70 mL/min/1.73 ESTIMA THAIS GFR IS code = 1092) sq m NOT ACCURATE CREATININE CLEARANCE IN PREDICTING GLOMERULAR FILTRATION RATE . ESTIMATED GFR I S NOT APPLICABLE FOR DIALYSIS PATIEN TS. Stitcher Hand ID - [id number] 20:58:45 Test Item Value Reference Range Interpretation Comments MAGNESIUM (BEAKER) (test code = 1.7 mg/dL 1.5-3.0 627) Stitcher Hand ID - ZMLORRIELACTIC ACID, [id number] 20:51:42 Test Item Value Reference Range Interpretation Comments LACTATE BLOOD VENOUS (2) (BEAKER) 0.92 mmol/L 0.50-2.20 (test code = 2872) Stitcher Hand ID - [id number] 19:36:27 Test Item Value Reference Range Interpretation Comments MAGNESIUM (BEAKER) (test code = 1.7 mg/dL 1.5-3.0 627) Stitcher Hand ID - ZMLORRIEPrepare Leuko-Red [id number] 19:05:00 Test Item Value Reference Range Interpretation Comments CROSSMATCH (test code = 2264) COMPATIBLE Unit ABO (test code = A Pos 1805092) UNIT NUMBER (test code = [id number] 934-0) Status (test code = 8503041) READY Blood Bank Product (test code RED BLOOD CELLS = 2263) PRODUCT CODE (test code = P6291T93 933-2) [facility]em[facility] and [id number] 18:13:05 Test Item Value Reference Range Interpretation Comments Hemoglobin (test code = 7.3 See_Comment L [Au tomated message] 786-4) The system [employer] generated this result transmitted ref erence range: 12.0 - 1 5.5 GM/DL. The refe rence range was not u sed to interpret this result as normal/abnor mal. Hematocrit (test code = 23.5 % 36.0-46.0 L 4544-3) Lab Interpretation (test Abnormal code = 38232-9) [facility]HEMOGLOBIN AND [id number] 18:13:05 Test Item Value Reference Range Interpretation Comments HEMOGLOBIN (BEAKER) (test code = 7.3 GM/DL 12.0-15.5 L 410) HEMATOCRIT (BEAKER) (test code = 23.5 % 36.0-46.0 L 411) COMPREHENSIVE METABOLIC [id number] 18:11:36 Test Item Value Reference Range Interpretation Comments TOTAL PROTEIN 4.9 gm/dL 6.0-8.5 L (BEAKER) (test code = 770) ALBUMIN (BEAKER) 2.5 g/dL 3.5-5.0 L (test code = 1145) ALKALINE PHOSPHATASE 92 U/L 30-115 (BEAKER) (test code = 346) BILIRUBIN TOTAL 1.8 mg/dL 0.1-1.3 H (BEAKER) (test code = 377) SODIUM (BEAKER) (test 137 meq/L 135-148 code = 381) POTASSIUM (BEAKER) 2.8 meq/L 3.5-5.5 LL (test code = 379) CHLORIDE (BEAKER) 101 meq/L 98-106 (test code = 382) CO2 (BEAKER) (test 23 meq/L 20-31 code = 355) BLOOD UREA NITROGEN 10 mg/dL 10-26 (BEAKER) (test code = 354) CREATININE (BEAKER) 0.83 mg/dL 0.50-1.20 (test code = 358) GLUCOSE RANDOM 141 mg/dL 70-110 H (BEAKER) (test code = 652) CALCIUM (BEAKER) 8.0 mg/dL 8.5-10.5 L (test code = 697) AST (SGOT) (BEAKER) 45 U/L 5-40 H (test code = 353) ALT (SGPT) (BEAKER) 29 U/L 6-50 (test code = 347) EGFR (BEAKER) (test 77 mL/min/1.73 ESTIMA THAIS GFR IS code = 1092) sq m NOT ACCURATE CREATININE CLEARANCE IN PREDICTING GLOMERULAR FILTRATION RATE . ESTIMATED GFR I S NOT APPLICABLE FOR DIALYSIS PATIEN TS. Stitcher Hand ID - ZMINEBlood gas, [id number] 18:00:13 Test Item Value Reference Range Interpretation Comments pH, Arterial (test code 7.40 7.35-7.45 = 2744-1) pCO2, Arterial (test 35 See_Comment [Autom ated code = 2019-8) message] The system which generated this result transmitted reference range : 35 - 45 mm Hg. The reference range was not used to interpret this result as normal/abnormal . pO2, Arterial (test 209 See_Comment H [Automa thais code = 2703-7) message] The system which generated this result transmitted reference range : 80 - 90 mm Hg. The reference range was not used to interpret this result as normal/abnormal . O2 Sat, Arterial (test 99.4 % 96.0-97.0 H code = 2708-6) HCO3, Arterial (test 22 mmol/L 21-29 code = 1960-4) Base Excess, Arterial -2.8 mmol/L -2.0-3.0 L (test code = 1925-7) Patient Temperature 37.0 (test code = 8310-5) FIO2 (test code = 1819) 75 Lab Interpretation Abnormal (test code = 32512-3) [facility], [id number] 18:00:13 Test Item Value Reference Range Interpretation Comments PH ARTERIAL (BEAKER) (test code = 7.40 7.35-7.45 383) PCO2 ARTERIAL (BEAKER) (test code 35 mm Hg 35-45 = 384) PO2 ARTERIAL (BEAKER) (test code 209 mm Hg 80-90 H = 385) O2 SATURATION ARTERIAL (BEAKER) 99.4 % 96.0-97.0 H (test code = 386) HCO3 ARTERIAL (BEAKER) (test code 22 mmol/L 21-29 = 388) BASE EXCESS ARTERIAL (BEAKER) -2.8 mmol/L -2.0-3.0 L (test code = 387) PATIENT TEMPERATURE (BEAKER) 37.0 (test code = 1818) FIO2 (BEAKER) (test code = 1819) 75.0 CBC W/PLT COUNT & AUTO [id number] 17:39:08 Test Item Value Reference Range Interpretation Comments WHITE BLOOD CELL COUNT (BEAKER) 2.3 K/ L 4.0-10.0 L (test code = 775) RED BLOOD CELL COUNT (BEAKER) 2.73 M/ L 4.00-5.00 L (test code = 761) HEMOGLOBIN (BEAKER) (test code = 7.6 GM/DL 12.0-15.5 L 410) HEMATOCRIT (BEAKER) (test code = 24.3 % 36.0-46.0 L 411) MEAN CORPUSCULAR VOLUME (BEAKER) 89.0 fL 82.0-99.0 (test code = 753) MEAN CORPUSCULAR HEMOGLOBIN 27.8 pg 27.0-33.0 (BEAKER) (test code = 751) MEAN CORPUSCULAR HEMOGLOBIN CONC 31.3 GM/DL 32.0-36.0 L (BEAKER) (test code = 752) RED CELL DISTRIBUTION WIDTH 19.2 % 12.0-15.0 H (BEAKER) (test code = 412) PLATELET COUNT (BEAKER) (test code 43 K/CU MM 150-430 L = 756) MEAN PLATELET VOLUME (BEAKER) 12.5 fL 6.0-11.5 H (test code = 754) NUCLEATED RED BLOOD CELLS (BEAKER) 0 /100 WBC 0-0 (test code = 413) NEUTROPHILS RELATIVE PERCENT 69 % (BEAKER) (test code = 429) LYMPHOCYTES RELATIVE PERCENT 14 % (BEAKER) (test code = 430) MONOCYTES RELATIVE PERCENT 15 % (BEAKER) (test code = 431) EOSINOPHILS RELATIVE PERCENT 0 % (BEAKER) (test code = 432) BASOPHILS RELATIVE PERCENT 0 % (BEAKER) (test code = 437) NEUTROPHILS ABSOLUTE COUNT 1.57 K/ L 1.80-8.00 L (BEAKER) (test code = 670) LYMPHOCYTES ABSOLUTE COUNT 0.31 K/ L 1.48-4.50 L (BEAKER) (test code = 414) MONOCYTES ABSOLUTE COUNT (BEAKER) 0.33 K/ L 0.00-1.30 (test code = 415) EOSINOPHILS ABSOLUTE COUNT 0.01 K/ L 0.00-0.50 (BEAKER) (test code = 416) BASOPHILS ABSOLUTE COUNT (BEAKER) 0.01 K/ L 0.00-0.20 (test code = 417) IMMATURE GRANULOCYTES-RELATIVE 2 % 0-0 H PERCENT (BEAKER) (test code = 2801) Pending path review on 02/26/22.Previous manual diff within 24 hours.PROTHROMBIN TIME/[id number] 17:17:14 Test Item Value Reference Range Interpretation Comments PROTIME (BEAKER) (test code = 16.2 seconds 11.8-14.4 H 759) INR (BEAKER) (test code = 370) 1.37 1.20-1.50 RECOMMENDED COUMADIN/WARFARIN INR THERAPY RANGESSTANDARD DOSE: 2.0 - 3.0 Includes: PROPHYLAXIS for venous thrombosis, systemic embolization; TREATMENT for venous thrombosis and/or pulmonary embolus.HIGH RISK: Target INR is 2.5-3.5 for patients with mechanical heart valves.PERIPHERAL BLOOD SMEAR - PATH REVIEW LAB [id number] 15:45:12 Test Item Value Reference Range Interpretation Comments PERIPHERAL SMR REVIEW Pancytopenia confirmed (BEAKER) (test code = on smear review. WBC 2640) and platelet morphology unremarkable. No schistocytes or blast forms seen. [id number] Moshe Tomas M.D. (BEAKER) (test code = (electronic signature) 1553) (MANUAL DIFFERENTIAL)2022-02-26 15:44:31 Test Item Value Reference Range Interpretation Comments NEUTROPHILS - REL (DIFF) (BEAKER) 72 % (test code = 1359) LYMPHOCYTES - REL (DIFF) (BEAKER) 18 % (test code = 1360) MONOCYTES - REL (DIFF) (BEAKER) 6 % (test code = 1361) EOSINOPHILS - REL (DIFF) (BEAKER) 1 % (test code = 1362) BANDS - REL (DIFF) (BEAKER) (test 3 % 0-10 code = 1348) NEUTROPHILS - ABS (DIFF) (BEAKER) 1.80 K/ L 1.80-8.00 (test code = 1365) LYMPHOCYTES - ABS (DIFF) (BEAKER) 0.45 K/ L 1.48-4.50 L (test code = 1366) MONOCYTES - ABS (DIFF) (BEAKER) 0.15 K/ L 0.00-1.30 (test code = 1367) EOSINOPHILS - ABS (DIFF) (BEAKER) 0.03 K/ L 0.00-0.50 (test code = 1368) BANDS-ABS (DIFF) (BEAKER) (test 0.1 K/ L 0.0-0.8 code = 1349) TOTAL COUNTED (BEAKER) (test code = 100 1351) BANDS + SEGMENTED NEUTROPHILS 1.88 (BEAKER) (test code = 1352) WBC MORPHOLOGY (BEAKER) (test code Normal = 487) PLT MORPHOLOGY (BEAKER) (test code Normal = 486) RBC MORPHOLOGY (BEAKER) (test code Normal = 762) Platelets greatly decreased/rm.RHEUMATOID FACTOR AB, REFLEX TO [id number] 13:48:27 Test Item Value Reference Range Interpretation Comments RHEUMATOID FACTOR (BEAKER) (test Negative Negative code = 573) Protein, 24 hour [id number] 11:29:43 Test Item Value Reference Range Interpretation Comments Protein, 24hr Urine 530 See_Comment H [Automa thais (test code = 2889-4) message ] The system which generated this result transmit thais reference range : 0 - 300 mg/24hr. The reference range was not used to interpret this result as normal/abnormal . Volume, Urine (test 2525 ml code = 3167-4) Protein, Urine (test 21 mg/dL 0-14 H code = 2888-6) DEJA (test code = DEJA) Stitcher Hand ID - [id number] Lab Interpretation Abnormal (test code = 45814-6) [facility] 24 H[facility] [id number] 11:29:43 Test Item Value Reference Range Interpretation Comments PROTEIN, 24HR URINE (BEAKER) 530 mg/24hr 0-300 H (test code = 1570) VOLUME, TOTAL (BEAKER) (test code 2525 ml = 1457) PROTEIN, URINE (BEAKER) (test 21 mg/dL 0-14 H code = 1569) Stitcher Hand ID - [id number] W/PLT COUNT & AUTO [id number] 10:36:56 Test Item Value Reference Range Interpretation Comments WHITE BLOOD CELL COUNT (BEAKER) 2.5 K/ L 4.0-10.0 L (test code = 775) RED BLOOD CELL COUNT (BEAKER) 3.23 M/ L 4.00-5.00 L (test code = 761) HEMOGLOBIN (BEAKER) (test code = 9.0 GM/DL 12.0-15.5 L 410) HEMATOCRIT (BEAKER) (test code = 27.8 % 36.0-46.0 L 411) MEAN CORPUSCULAR VOLUME (BEAKER) 86.1 fL 82.0-99.0 (test code = 753) MEAN CORPUSCULAR HEMOGLOBIN 27.9 pg 27.0-33.0 (BEAKER) (test code = 751) MEAN CORPUSCULAR HEMOGLOBIN CONC 32.4 GM/DL 32.0-36.0 (BEAKER) (test code = 752) RED CELL DISTRIBUTION WIDTH 18.8 % 12.0-15.0 H (BEAKER) (test code = 412) PLATELET COUNT (BEAKER) (test code 42 K/CU MM 150-430 L = 756) MEAN PLATELET VOLUME (BEAKER) 10.9 fL 6.0-11.5 (test code = 754) NUCLEATED RED BLOOD CELLS (BEAKER) 0 /100 WBC 0-0 (test code = 413) BLOOD [id number] 09:15:28 Test Item Value Reference Range Interpretation Comments CULTURE A From Aerobic An d (BEAKER) (test Anaerobic Bot tles Same code = 1095) organism has be en isolated from cultures(s) of the same body site and collection date . Repeat identifi cation and susceptibil ity testing perform ed only after consultat ion with the [facility] microbiology laboratory.Refe r to previous cultur e ofEscherichia c vianney GRAM STAIN From anaerobic RESULT (BEAKER) bottle only: gram (test code = negative rods 1123) GRAM STAIN From aerobic RESULT (BEAKER) bottle only: gram (test code = negative rods 877140) BLOOD [id number] 09:13:51 Test Item Value Reference Range Interpretation Comments CULTURE (BEAKER) (test ESCHERICHIA COLI A F rom Aerobic And code = 1095) Anaerobic Bottles Escherichia col i Amikacin (test code = S 1) Ampicillin + Sulbactam S (test code = 6) Aztreonam (test code = S 32) Cefazolin (test code = S 9) Cefepime (test code = S 51) Cefoxitin (test code = S 68) Ceftazidime (test code S = 27) Ceftriaxone (test code S = 52) Ertapenem (test code = S 38) Gentamicin (test code S = 18) Levofloxacin (test S code = 22) Meropenem (test code = S 34) Piperacillin + S Tazobactam (test code = 29) Tobramycin (test code S = 25) Trimethoprim + S Sulfamethoxazole (test code = 47) GRAM STAIN RESULT From aerobic and (BEAKER) (test code = anaerobic 1123) bottles: gram negative rods POCT-GLUCOSE [id number] 06:11:15 Test Item Value Reference Range Interpretation Comments POC-GLUCOSE METER 115 mg/dL 70-110 H : TESTED A T [facility] [address] (BEAKER) (test code [facility], = 1538) [place] [address] 384: Stitcher Hand/Techni tomas ID = [id number] for Kimberli Huston [id number] 17:34:15 Test Item Value Reference Range Interpretation Comments MAGNESIUM (BEAKER) (test code = 2.6 mg/dL 1.5-3.0 627) Stitcher Hand ID - ZMINEBASIC METABOLIC [id number] 16:42:33 Test Item Value Reference Range Interpretation Comments SODIUM (BEAKER) 134 meq/L 135-148 L (test code = 381) POTASSIUM (BEAKER) 3.3 meq/L 3.5-5.5 L (test code = 379) CHLORIDE (BEAKER) 99 meq/L 98-106 (test code = 382) CO2 (BEAKER) (test 20 meq/L 20-31 code = 355) BLOOD UREA NITROGEN 22 mg/dL 10-26 (BEAKER) (test code = 354) CREATININE (BEAKER) 1.36 mg/dL 0.50-1.20 H (test code = 358) GLUCOSE RANDOM 140 mg/dL 70-110 H (BEAKER) (test code = 652) CALCIUM (BEAKER) 7.8 mg/dL 8.5-10.5 L (test code = 697) EGFR (BEAKER) (test 43 mL/min/1.73 ESTIMA THAIS GFR IS code = 1092) sq m NOT ACCURATE CREATININE CLEARANCE IN PREDICTING GLOMERULAR FILTRATION RATE . ESTIMATED GFR I S NOT APPLICABLE FOR DIALYSIS PATIEN TS. Stitcher Hand ID - ZMINECALCIUM, [id number] 16:10:22 Test Item Value Reference Range Interpretation Comments CALCIUM IONIZED (BEAKER) (test 1.04 mmol/L 1.12-1.27 L code = 698) PH, BLOOD (BEAKER) (test code = 7.49 1810) HEMOGLOBIN AND [id number] 15:59:46 Test Item Value Reference Range Interpretation Comments HEMOGLOBIN (BEAKER) (test code = 7.7 GM/DL 12.0-15.5 L 410) HEMATOCRIT (BEAKER) (test code = 23.5 % 36.0-46.0 L 411) LACTIC ACID, [id number] 10:25:58 Test Item Value Reference Range Interpretation Comments LACTATE BLOOD VENOUS (2) (BEAKER) 3.37 mmol/L 0.50-2.20 H (test code = 2872) Stitcher Hand ID - [id number] 10:25:42 Test Item Value Reference Range Interpretation Comments PHOSPHORUS (BEAKER) (test code = 2.2 mg/dL 2.5-4.5 L 604) Stitcher Hand ID - [id number] METABOLIC [id number] 10:25:41 Test Item Value Reference Range Interpretation Comments SODIUM (BEAKER) 133 meq/L 135-148 L (test code = 381) POTASSIUM (BEAKER) 3.5 meq/L 3.5-5.5 (test code = 379) CHLORIDE (BEAKER) 97 meq/L 98-106 L (test code = 382) CO2 (BEAKER) (test 20 meq/L 20-31 code = 355) BLOOD UREA NITROGEN 27 mg/dL 10-26 H (BEAKER) (test code = 354) CREATININE (BEAKER) 1.68 mg/dL 0.50-1.20 H (test code = 358) GLUCOSE RANDOM 169 mg/dL 70-110 H (BEAKER) (test code = 652) CALCIUM (BEAKER) 7.1 mg/dL 8.5-10.5 L (test code = 697) EGFR (BEAKER) (test 34 mL/min/1.73 ESTIMA THAIS GFR IS code = 1092) sq m NOT ACCURATE CREATININE CLEARANCE IN PREDICTING GLOMERULAR FILTRATION RATE . ESTIMATED GFR I S NOT APPLICABLE FOR DIALYSIS PATIEN TS. Stitcher Hand ID - [id number] 10:10:40 Test Item Value Reference Range Interpretation Comments HEMOGLOBIN (BEAKER) (test code = 7.6 GM/DL 12.0-15.5 L 410) HEMATOCRIT (BEAKER) (test code = 23.5 % 36.0-46.0 L 411) CALCIUM, [id number] 10:03:39 Test Item Value Reference Range Interpretation Comments CALCIUM IONIZED (BEAKER) (test 0.94 mmol/L 1.12-1.27 L code = 698) PH, BLOOD (BEAKER) (test code = 7.44 1810) CT, [id number] 08:56:00Unlisted Reason for Exam - Click Yes and Enter Reason Below->NoIs this for enterography?->NoWill this procedure require oral contrast?->Yes [facility] : 1985 Sex: FFINAL REPORT CT abdomen and pelvis without contrast History: Abdominal infectionsuspected Comparison: 02/24/2022 Technique: serial axial imaging was performed without intravenous contrast as per departmental protocol. Multiplanar images are reconstructed and reviewed when indicated. This CT examination is performed using one or more of the following dose reduction techniques: Autom ated exposure control, adjustment of the mA and /or kV according to patient size, and/or use of iterative reconstruction technique. Findings:Evaluation limited by lack of intravenous contrast. Diffuse hepatic steatosis is noted. Grossly unremarkable appearance of unenhanced gallbladder, pancreas, spleen, and adrenal glands. No urinary calculus. No hydronephrosis. Gilmore catheter is seen within the bladder. Persistent thickened appearance of the cecum. Previous pneumatosis is decreased in amount from the prior exam. No extraluminal air or organized fluid collection is seen. There is mild surrounding fat stranding extending to the level of the hepatic flexure. No findings to indicate acute appendicitis. Small amount of free fluid is seen within the pelvis. Unenhanced uterus and adnexa are otherwise grossly unremarkable. No aggressive osseous lesion. Impression: 1. Persistent thickening of the cecum, with pneumatosis which is less prominent from yesterday's examination. These findings could represent typhlitis in the appropriate clinical setting. No evidence of bowel perforation or abscess.2. Diffuse hepatic steatosis. Signed: Roscoe Valdez MDReport Verified Date/Time: 02/25/2022 08:56:27 Reading Location: [address] Consult Reading Room [id number] 07:49:15 Test Item Value Reference Range Interpretation Comments MAGNESIUM (BEAKER) (test code = 1.5 mg/dL 1.5-3.0 627) Stitcher Hand ID - [id number] METABOLIC [id number] 04:44:51 Test Item Value Reference Range Interpretation Comments TOTAL PROTEIN 5.3 gm/dL 6.0-8.5 L (BEAKER) (test code = 770) ALBUMIN (BEAKER) 2.6 g/dL 3.5-5.0 L (test code = 1145) ALKALINE PHOSPHATASE 76 U/L 30-115 (BEAKER) (test code = 346) BILIRUBIN TOTAL 1.5 mg/dL 0.1-1.3 H (BEAKER) (test code = 377) SODIUM (BEAKER) (test 131 meq/L 135-148 L code = 381) POTASSIUM (BEAKER) 3.2 meq/L 3.5-5.5 L (test code = 379) CHLORIDE (BEAKER) 95 meq/L 98-106 L (test code = 382) CO2 (BEAKER) (test 19 meq/L 20-31 L code = 355) BLOOD UREA NITROGEN 27 mg/dL 10-26 H (BEAKER) (test code = 354) CREATININE (BEAKER) 1.91 mg/dL 0.50-1.20 H (test code = 358) GLUCOSE RANDOM 175 mg/dL 70-110 H (BEAKER) (test code = 652) CALCIUM (BEAKER) 7.2 mg/dL 8.5-10.5 L (test code = 697) AST (SGOT) (BEAKER) 74 U/L 5-40 H (test code = 353) ALT (SGPT) (BEAKER) 47 U/L 6-50 (test code = 347) EGFR (BEAKER) (test 29 mL/min/1.73 ESTIMA THAIS GFR IS code = 1092) sq m NOT ACCURATE CREATININE CLEARANCE IN PREDICTING GLOMERULAR FILTRATION RATE . ESTIMATED GFR I S NOT APPLICABLE FOR DIALYSIS PATIEN TS. Stitcher Hand ID - [id number] KINASE (CK)2022-02-25 04:43:03 Test Item Value Reference Range Interpretation Comments CREATINE KINASE TOTAL (BEAKER) (test 429 U/L 29-168 H code = 380) Stitcher Hand ID - [id number] ACID, [id number] 04:41:52 Test Item Value Reference Range Interpretation Comments LACTATE BLOOD VENOUS (2) (BEAKER) 3.84 mmol/L 0.50-2.20 H (test code = 2872) Stitcher Hand ID - [id number] AND [id number] 04:30:04 Test Item Value Reference Range Interpretation Comments HEMOGLOBIN (BEAKER) (test code = 8.0 GM/DL 12.0-15.5 L 410) HEMATOCRIT (BEAKER) (test code = 24.8 % 36.0-46.0 L 411) TSH/FREE T4 IF [id number] 01:25:32 Test Item Value Reference Range Interpretation Comments THYROID STIMULATING HORMONE 1.950 uIU/mL 0.350-5.500 (BEAKER) (test code = 772) Stitcher Hand ID - [id number] ACID, [id number] 01:15:41 Test Item Value Reference Range Interpretation Comments LACTATE BLOOD VENOUS (2) (BEAKER) 5.27 mmol/L 0.50-2.20 HH (test code = 2872) Stitcher Hand ID - [id number] KINASE (CK)2022-02-25 01:14:31 Test Item Value Reference Range Interpretation Comments CREATINE KINASE TOTAL (BEAKER) (test 472 U/L 29-168 H code = 380) Stitcher Hand ID - [id number] AND [id number] 00:51:46 Test Item Value Reference Range Interpretation Comments HEMOGLOBIN (BEAKER) (test code = 8.1 GM/DL 12.0-15.5 L 410) HEMATOCRIT (BEAKER) (test code = 25.2 % 36.0-46.0 L 411) BASIC METABOLIC [id number] 22:01:57 Test Item Value Reference Range Interpretation Comments SODIUM (BEAKER) 129 meq/L 135-148 L (test code = 381) POTASSIUM (BEAKER) 3.9 meq/L 3.5-5.5 (test code = 379) CHLORIDE (BEAKER) 93 meq/L 98-106 L (test code = 382) CO2 (BEAKER) (test 17 meq/L 20-31 L code = 355) BLOOD UREA NITROGEN 29 mg/dL 10-26 H (BEAKER) (test code = 354) CREATININE (BEAKER) 2.15 mg/dL 0.50-1.20 H (test code = 358) GLUCOSE RANDOM 223 mg/dL 70-110 H (BEAKER) (test code = 652) CALCIUM (BEAKER) 7.2 mg/dL 8.5-10.5 L (test code = 697) EGFR (BEAKER) (test 26 mL/min/1.73 ESTIMA THAIS GFR IS code = 1092) sq m NOT ACCURATE CREATININE CLEARANCE IN PREDICTING GLOMERULAR FILTRATION RATE . ESTIMATED GFR I S NOT APPLICABLE FOR DIALYSIS PATIEN TS. Stitcher Hand ID - [id number] ACID, [id number] 20:42:07 Test Item Value Reference Range Interpretation Comments LACTATE BLOOD VENOUS (2) (BEAKER) 5.31 mmol/L 0.50-2.20 HH (test code = 2872) Stitcher Hand ID - ZMINEVITAMIN D, [id number] 20:37:49 Test Item Value Reference Range Interpretation Comments VITAMIN D 25-OH (BEAKER) (test code 8.6 ng/mL 6.6-49.9 = 2764) Effective 08/14/2017: Reference Range ChangeNew: 6.6-49.9 ng/mL Previous: 13.0- 47.8 ng/mLRecommendedVitamin D Target Range: 30.0-40.0 ng/mLOperator ID - DB HEMOGLOBIN AND [id number] 20:16:02 Test Item Value Reference Range Interpretation Comments HEMOGLOBIN (BEAKER) (test code = 8.8 GM/DL 12.0-15.5 L 410) HEMATOCRIT (BEAKER) (test code = 26.9 % 36.0-46.0 L 411) CALCIUM, [id number] 20:15:52 Test Item Value Reference Range Interpretation Comments CALCIUM IONIZED (BEAKER) (test 0.91 mmol/L 1.12-1.27 L code = 698) PH, BLOOD (BEAKER) (test code = 7.44 1810) [id number] 19:21:38 Test Item Value Reference Range Interpretation Comments AMMONIA (BEAKER) (test code = 348) 22 mol/L 12-72 Stitcher Hand ID - ZMINEBLOOD GAS, [id number] 19:17:04 Test Item Value Reference Range Interpretation Comments PH ARTERIAL (BEAKER) (test code = 7.50 7.35-7.45 H 383) PCO2 ARTERIAL (BEAKER) (test code 22 mm Hg 35-45 L = 384) PO2 ARTERIAL (BEAKER) (test code 84 mm Hg 80-90 = 385) O2 SATURATION ARTERIAL (BEAKER) 97.1 % 96.0-97.0 H (test code = 386) HCO3 ARTERIAL (BEAKER) (test code 17 mmol/L 21-29 L = 388) BASE EXCESS ARTERIAL (BEAKER) -4.8 mmol/L -2.0-3.0 L (test code = 387) PATIENT TEMPERATURE (BEAKER) 37.5 (test code = 1818) FIO2 (BEAKER) (test code = 1819) 21.0 [id number] 18:23:52 Test Item Value Reference Range Interpretation Comments MAGNESIUM (BEAKER) (test code = 1.8 mg/dL 1.5-3.0 627) Stitcher Hand ID - ZMINECREATINE KINASE (CK)2022-02-24 17:31:32 Test Item Value Reference Range Interpretation Comments CREATINE KINASE TOTAL (BEAKER) (test 485 U/L 29-168 H code = 380) Stitcher Hand ID - ZMINEBASIC METABOLIC [id number] 17:31:27 Test Item Value Reference Range Interpretation Comments SODIUM (BEAKER) 131 meq/L 135-148 L (test code = 381) POTASSIUM (BEAKER) 3.7 meq/L 3.5-5.5 (test code = 379) CHLORIDE (BEAKER) 94 meq/L 98-106 L (test code = 382) CO2 (BEAKER) (test 20 meq/L 20-31 code = 355) BLOOD UREA NITROGEN 27 mg/dL 10-26 H (BEAKER) (test code = 354) CREATININE (BEAKER) 2.17 mg/dL 0.50-1.20 H (test code = 358) GLUCOSE RANDOM 186 mg/dL 70-110 H (BEAKER) (test code = 652) CALCIUM (BEAKER) 6.8 mg/dL 8.5-10.5 L (test code = 697) EGFR (BEAKER) (test 25 mL/min/1.73 ESTIMA THAIS GFR IS code = 1092) sq m NOT ACCURATE CREATININE CLEARANCE IN PREDICTING GLOMERULAR FILTRATION RATE . ESTIMATED GFR I S NOT APPLICABLE FOR DIALYSIS PATIEN TS. Stitcher Hand ID - ZMINELACTIC ACID, [id number] 17:24:51 Test Item Value Reference Range Interpretation Comments LACTATE BLOOD VENOUS (2) (BEAKER) 4.38 mmol/L 0.50-2.20 HH (test code = 2872) Stitcher Hand ID - ZMINEHEMOGLOBIN AND [id number] 17:13:49 Test Item Value Reference Range Interpretation Comments HEMOGLOBIN (BEAKER) (test code = 8.5 GM/DL 12.0-15.5 L 410) HEMATOCRIT (BEAKER) (test code = 26.2 % 36.0-46.0 L 411) POCT-GLUCOSE [id number] 16:51:30 Test Item Value Reference Range Interpretation Comments POC-GLUCOSE METER 165 mg/dL 70-110 H : TESTED A T [facility] [address] (BEAKER) (test code [facility], = 1538) [place] [address] 384: Stitcher Hand/Techni tomas ID = [id number] for Emily lOson Strep pneumoniae [id number] 14:54:36 Test Item Value Reference Range Interpretation Comments Strep pneumoniae Presumptive negative Presumptive Antigen (test code = [place] [address]-8) pneumonia - see pneumococcal comment pneumonia - see comment, Presumptive negative for pneumococcal meningitis - see comment DEJA (test code = DEJA) Presumptive negative for pneumococcal pneumonia, suggesting no current or recent pneumococcal infection. Infection due to S. pneumoniae cannot be ruled out since the antigen present in the sample may be below the detection limit of the test. Lab Interpretation Normal (test code = 19496-8) [facility] [id number] 14:54:36 Test Item Value Reference Range Interpretation Comments STREP PNEUMONIAE Presumptive negative Presumptive negative ANTIGEN (BEAKER) for pneumococcal for pneumococcal (test code = 1615) pneumonia - see pneumonia - see comment commen Presumptive negative for pneumococcal pneumonia, suggesting no current or recent pneumococcal infection. Infection due to S. pneumoniae cannot be ruled out since the antigen present in the sample may be below the detection limit of the test. Legionella antigen, [id number] 14:54:13 Test Item Value Reference Range Interpretation Comments Legionella Urine Negative - see Negative for L. Antigen (test code comment pneumophi la = 53583-3) serogroup 1 ant igen, suggesting no r ecent or current infe ction with this serog roup. Legionellosis c annot be ruled out si nce other serogroup s and species may cau se disease. [facility] Center[facility]LL[facility] ANTIGEN, [id number] 14:54:13 Test Item Value Reference Range Interpretation Comments L. PNEUMOPHILA Negative - see Negative fo r L. SEROGP 1 UR AG comment pneumophila (BEAKER) (test code serogrou p 1 antigen, = 1156) suggesting no r ecent or current infe ction with this serog roup. Legionellosis c annot be ruled out si nce other serogroup s and species may cau se disease. VITAMIN B12 AND [id number] 12:43:34 Test Item Value Reference Range Interpretation Comments VITAMIN B12 (BEAKER) 385 pg/mL 211-911 (test code = 774) FOLATE (BEAKER) 5.80 ng/mL See_Comment [Automated message] (test code = 362) The system which generated this result transmitted ref erence range: >=5.40. The reference range was not used to interpr et this result as normal/abnormal . Stitcher Hand ID - [id number] ID - AJQT17MMR/FREE T4 IF [id number] 12:08:50 Test Item Value Reference Range Interpretation Comments THYROID STIMULATING HORMONE 1.060 uIU/mL 0.350-5.500 (BEAKER) (test code = 772) Stitcher Hand ID - [id number] drug screen, [id number] 11:43:08 Test Item Value Reference Range Interpretation Comments Barbiturate Screen Negative Negative (test code = 33225-6) Benzodiazepine Screen Negative Negative (test code = 70861-1) Cocaine (Metab.) Negative Negative Screen (test code = 3397-7) Methadone Screen (test Negative Negative code = 67390-2) Opiate Screen (test Negative Negative code = 64268-0) Cannabinoid Screen Negative Negative (test code = 50586-4) Amph/Methamph Screen Negative Negative (test code = 05000-4) Phencyclidine Screen Negative Negative (test code = 48593-6) pH, UA (test code = 5.0 5.0-8.0 5803-2) DEJA (test code = DEJA) DRUG CUTOFF CONC.Cocaine 300 ng/mL Cannabinoid 50 ng/mLBenzodiazepine 200 ng/mLBarbiturate 200 ng/mLPhencyclidine 25 ng/mLOpiate 300 ng/mLMethadone 300 ng/mLAmphetamine/ 1000 ng/mL Methamphetamine This assay provides an unconfirmed qualitative test result for the clinical management of patients in emergency situations. Chain of custody not maintained. Some zfqj-sze-qzirfei medications, as well as adulterants, may cause inaccurate results. Clinical correlation should be applied. A more comprehensive drug screen or confirmation of a detected drug may be performed upon request.Stitcher Hand ID - [id number] Lab Interpretation Normal (test code = 65348-0) [facility], [id number] 11:43:08 Test Item Value Reference Range Interpretation Comments BARBITURATE URINE (BEAKER) (test Negative Negative code = 725) BENZODIAZEPINE SCREEN URINE (BEAKER) Negative Negative (test code = 726) COCAINE (METAB.) SCREEN (BEAKER) Negative Negative (test code = 1164) METHADONE SCREEN (BEAKER) (test code Negative Negative = 1436) OPIATE SCREEN URINE (BEAKER) (test Negative Negative code = 734) CANNABINOID SCREEN URINE (BEAKER) Negative Negative (test code = 727) AMPH/METHAMPH SCREEN (BEAKER) (test Negative Negative code = 1438) PHENCYCLIDINE SCREEN URINE (BEAKER) Negative Negative (test code = 608) PH UA (BEAKER) (test code = 467) 5.0 5.0-8.0 DRUG CUTOFF CONC.Cocaine 300 ng/mL Cannabinoid 50 ng/mLBenzodiazepine 200 ng/mLBarbiturate 200 ng/mLPhencyclidine 25 ng/mLOpiate 300 ng/mLMethadone 300 ng/mLAmphetamine/ 1000 ng/mL MethamphetamineThisassay provides an unconfirmed qualitative test result for the clinical management of patients in emergency situations. Chain of custody not maintained. Some gziy-jex-bgsgubv medications, as well as adulterants, may cause inaccurate results. Clinical correlation should be applied. A more comprehensive drug screen or confirmation of a detected drug may be performed upon request.Stitcher Hand ID - [id number] ACID, [id number] 11:36:06 Test Item Value Reference Range Interpretation Comments LACTATE BLOOD VENOUS 4.70 mmol/L 0.50-2.20 HH Specime n slightly (2) (BEAKER) (test hemolyzed code = 2872) Stitcher Hand ID - [id number] KINASE (CK)2022-02-24 11:33:58 Test Item Value Reference Range Interpretation Comments CREATINE KINASE TOTAL (BEAKER) (test 583 U/L 29-168 H code = 380) Stitcher Hand ID - [id number] AND [id number] 11:20:57 Test Item Value Reference Range Interpretation Comments HEMOGLOBIN (BEAKER) (test code = 9.1 GM/DL 12.0-15.5 L 410) HEMATOCRIT (BEAKER) (test code = 27.7 % 36.0-46.0 L 411) [id number] 11:11:56 Test Item Value Reference Range Interpretation Comments MAGNESIUM (BEAKER) (test code = 1.2 mg/dL 1.5-3.0 L 627) Stitcher Hand ID - [id number] ACID, [id number] 08:15:59 Test Item Value Reference Range Interpretation Comments LACTATE BLOOD VENOUS (2) (BEAKER) 6.45 mmol/L 0.50-2.20 HH (test code = 2872) Stitcher Hand ID - [id number] KINASE (CK)2022-02-24 08:15:27 Test Item Value Reference Range Interpretation Comments CREATINE KINASE TOTAL (BEAKER) (test 625 U/L 29-168 H code = 380) Stitcher Hand ID - [id number] METABOLIC [id number] 08:15:21 Test Item Value Reference Range Interpretation Comments SODIUM (BEAKER) 132 meq/L 135-148 L (test code = 381) POTASSIUM (BEAKER) 3.1 meq/L 3.5-5.5 L (test code = 379) CHLORIDE (BEAKER) 92 meq/L 98-106 L (test code = 382) CO2 (BEAKER) (test 18 meq/L 20-31 L code = 355) BLOOD UREA NITROGEN 25 mg/dL 10-26 (BEAKER) (test code = 354) CREATININE (BEAKER) 2.36 mg/dL 0.50-1.20 H (test code = 358) GLUCOSE RANDOM 182 mg/dL 70-110 H (BEAKER) (test code = 652) CALCIUM (BEAKER) 6.8 mg/dL 8.5-10.5 L (test code = 697) EGFR (BEAKER) (test 23 mL/min/1.73 ESTIMA THAIS GFR IS code = 1092) sq m NOT ACCURATE CREATININE CLEARANCE IN PREDICTING GLOMERULAR FILTRATION RATE . ESTIMATED GFR I S NOT APPLICABLE FOR DIALYSIS PATIEN TS. Stitcher Hand ID - [id number] AND [id number] 08:00:55 Test Item Value Reference Range Interpretation Comments HEMOGLOBIN (BEAKER) (test code = 9.0 GM/DL 12.0-15.5 L 410) HEMATOCRIT (BEAKER) (test code = 27.2 % 36.0-46.0 L 411) CT, [id number] 06:01:00Unlisted Reason for Exam - Click Yes and Enter Reason Below->NoIs this for enterography?->NoPlease specify:->RenalWill this procedure require oral contrast?->No [facility] 1985 Sex: FFINAL REPORT EXAM/TECHNIQUE: CT of the abdomen and pelvis without contrast. Dosemodulation, iterative reconstruction, and/or weight based adjustment of the mA/kV was utilized to reduce the radiation dose to as low as reasonably achievable. INDICATION: Pyelonephritis. COMPARISON: None. FINDINGS: Lower thorax: No focal consolidation or suspicious pulmonary nodule. The visualized heart is unremarkable. Liver: Hepatic steatosis. Biliary: The gallbladder and intrahepatic and extrahepatic biliary systems are unremarkable. Spleen: Unremarkable. Pancreas: Unremarkable. Adrenals: Unremarkable. Kidneys: No hydronephrosis. No urinary calculi. Bowel: Cecal pneumatosis is present. No findings of mesenteric or portal venous gas. Appendix is normal in appearance. The small bowel and stomachare normal in appearance without findings of obstruction. Lymph nodes: No lymphadenopathy by size criteria. Mesentery: Trace ascites is present to the hepatic flexure of the colon. Pelvis: Unremarkable appearance of the pelvic organs. No abnormal adnexal masses. Gilmore catheter is present in the bladder. Small intravesicular air is present. Vessels: Unremarkable. Osseous: No acute osseous process. No suspicious osseous lesions. Impression: 1.Pneumatosis of the cecum is present with fluid adjacent to the hepatic flexure. Recommend correlation with laboratory values for bowel ischemia.2.Hepatic steatosis. Signed: Xu Hopkins MDReport Verified Date/Time: 02/24/2022 06:01:09 HEMOGLOBIN [id number] 05:31:39 Test Item Value Reference Range Interpretation Comments HEMOGLOBIN A1C (BEAKER) (test code = 7.4 % 4.3-6.1 H 368) Stitcher Hand ID - [id number] 05:02:27 Test Item Value Reference Range Interpretation Comments MAGNESIUM (BEAKER) (test code = 0.8 mg/dL 1.5-3.0 LL 627) Stitcher Hand ID - [id number], [id number] 05:01:59 Test Item Value Reference Range Interpretation Comments CALCIUM IONIZED (BEAKER) (test 0.74 mmol/L 1.12-1.27 LL code = 698) PH, BLOOD (BEAKER) (test code = 7.43 1810) [id number] 04:38:52 Test Item Value Reference Range Interpretation Comments PHOSPHORUS (BEAKER) (test code = 4.1 mg/dL 2.5-4.5 604) Stitcher Hand ID - [id number] FUNCTION [id number] 04:38:52 Test Item Value Reference Range Interpretation Comments TOTAL PROTEIN (BEAKER) (test code = 6.2 gm/dL 6.0-8.5 770) ALBUMIN (BEAKER) (test code = 1145) 3.1 g/dL 3.5-5.0 L BILIRUBIN TOTAL (BEAKER) (test code 1.2 mg/dL 0.1-1.3 = 377) BILIRUBIN DIRECT (BEAKER) (test 0.9 mg/dL 0.0-0.5 H code = 706) ALKALINE PHOSPHATASE (BEAKER) (test 97 U/L 30-115 code = 346) AST (SGOT) (BEAKER) (test code = 85 U/L 5-40 H 353) ALT (SGPT) (BEAKER) (test code = 67 U/L 6-50 H 347) Stitcher Hand ID - [id number]/S, ABDOMINAL, [id number] 04:29:00Abdomen limited area? Add comment if clarification is needed.->Right upper quadrant Reason for exam:->r/o diaz Should this be performed at the bedside?->No [facility] 1985 Sex: FFINAL REPORT TECHNIQUE: Grayscale ultrasound of the right abdomen. INDICATION: r/o diaz, RUQ pain, septic. COMPARISON: None. FINDINGS: MIDLINE VASCULATURE: The visualized inferior vena cava is patent. Portal vein is patent. The maximum visualized aortic diameter is 1.6 cm. LIVER: Smooth liver contour. Hyperechoic compatible with fatty infiltration. No focal lesions. Liver diameter is 25.0 cm The main portal vein measures 1.3 cm. BILIARY:Gallbladder: There is a shadowing gallstone within the gallbladder. Gallbladder is contracted. No abnormal gallbladder wall thickening, pericholecystic fluid, or distention. Negative sonographic Lopez sign.Common bile duct measures 0.4 cm, within normal limits. No intrahepatic biliary ductal dilatation. PANCREAS: Incompletely visualized due to overlying bowel gas. PERITONEUM: No free fluid. RIGHT KIDNEY: Normal in size. No hydronephrosis. Nosonographically evident solid mass lesion. IMPRESSION: 1. Hepatic steatosis and hepatomegaly. 2. Cholelithiasis without cholecystitis. Signed: Chiqui Bunch MDReport Verified Date/Time: 02/24/2022 04:29:26 CBC W/PLT COUNT & AUTO [id number] 03:47:10 Test Item Value Reference Range Interpretation Comments WHITE BLOOD CELL COUNT (BEAKER) 13.5 K/ L 4.0-10.0 H (test code = 775) RED BLOOD CELL COUNT (BEAKER) 3.53 M/ L 4.00-5.00 L (test code = 761) HEMOGLOBIN (BEAKER) (test code = 9.8 GM/DL 12.0-15.5 L 410) HEMATOCRIT (BEAKER) (test code = 30.4 % 36.0-46.0 L 411) MEAN CORPUSCULAR VOLUME (BEAKER) 86.1 fL 82.0-99.0 (test code = 753) MEAN CORPUSCULAR HEMOGLOBIN 27.8 pg 27.0-33.0 (BEAKER) (test code = 751) MEAN CORPUSCULAR HEMOGLOBIN CONC 32.2 GM/DL 32.0-36.0 (BEAKER) (test code = 752) RED CELL DISTRIBUTION WIDTH 17.9 % 12.0-15.0 H (BEAKER) (test code = 412) PLATELET COUNT (BEAKER) (test 126 K/CU MM 150-430 L code = 756) MEAN PLATELET VOLUME (BEAKER) 10.5 fL 6.0-11.5 (test code = 754) NUCLEATED RED BLOOD CELLS 0 /100 WBC 0-0 (BEAKER) (test code = 413) NEUTROPHILS RELATIVE PERCENT 86 % (BEAKER) (test code = 429) LYMPHOCYTES RELATIVE PERCENT 7 % (BEAKER) (test code = 430) MONOCYTES RELATIVE PERCENT 5 % (BEAKER) (test code = 431) EOSINOPHILS RELATIVE PERCENT 0 % (BEAKER) (test code = 432) BASOPHILS RELATIVE PERCENT 0 % (BEAKER) (test code = 437) NEUTROPHILS ABSOLUTE COUNT 11.53 K/ L 1.80-8.00 H (BEAKER) (test code = 670) LYMPHOCYTES ABSOLUTE COUNT 0.95 K/ L 1.48-4.50 L (BEAKER) (test code = 414) MONOCYTES ABSOLUTE COUNT (BEAKER) 0.70 K/ L 0.00-1.30 (test code = 415) EOSINOPHILS ABSOLUTE COUNT 0.01 K/ L 0.00-0.50 (BEAKER) (test code = 416) BASOPHILS ABSOLUTE COUNT (BEAKER) 0.04 K/ L 0.00-0.20 (test code = 417) IMMATURE GRANULOCYTES-RELATIVE 2 % 0-0 H PERCENT (BEAKER) (test code = 2801) CREATINE KINASE (CK)2022-02-24 03:43:19 Test Item Value Reference Range Interpretation Comments CREATINE KINASE TOTAL (BEAKER) (test 612 U/L 29-168 H code = 380) Stitcher Hand ID - [id number] METABOLIC [id number] 03:43:09 Test Item Value Reference Range Interpretation Comments TOTAL PROTEIN 6.2 gm/dL 6.0-8.5 (BEAKER) (test code = 770) ALBUMIN (BEAKER) 3.1 g/dL 3.5-5.0 L (test code = 1145) ALKALINE PHOSPHATASE 100 U/L 30-115 (BEAKER) (test code = 346) BILIRUBIN TOTAL 1.2 mg/dL 0.1-1.3 (BEAKER) (test code = 377) SODIUM (BEAKER) (test 132 meq/L 135-148 L code = 381) POTASSIUM (BEAKER) 3.0 meq/L 3.5-5.5 LL (test code = 379) CHLORIDE (BEAKER) 91 meq/L 98-106 L (test code = 382) CO2 (BEAKER) (test 16 meq/L 20-31 L code = 355) BLOOD UREA NITROGEN 22 mg/dL 10-26 (BEAKER) (test code = 354) CREATININE (BEAKER) 2.44 mg/dL 0.50-1.20 H (test code = 358) GLUCOSE RANDOM 186 mg/dL 70-110 H (BEAKER) (test code = 652) CALCIUM (BEAKER) 6.4 mg/dL 8.5-10.5 L (test code = 697) AST (SGOT) (BEAKER) 85 U/L 5-40 H (test code = 353) ALT (SGPT) (BEAKER) 67 U/L 6-50 H (test code = 347) EGFR (BEAKER) (test 22 mL/min/1.73 ESTIMA THAIS GFR IS code = 1092) sq m NOT ACCURATE CREATININE CLEARANCE IN PREDICTING GLOMERULAR FILTRATION RATE . ESTIMATED GFR I S NOT APPLICABLE FOR DIALYSIS PATIEN TS. Stitcher Hand ID - [id number] ACID, [id number] 03:42:15 Test Item Value Reference Range Interpretation Comments LACTATE BLOOD VENOUS (2) (BEAKER) 9.04 mmol/L 0.50-2.20 HH (test code = 2872) Stitcher Hand ID - [id number] 03:18:32 Test Item Value Reference Range Interpretation Comments FIBRINOGEN LEVEL (BEAKER) (test 789 mg/dl 206-468 H code = 658) PROTHROMBIN TIME/[id number] 03:18:31 Test Item Value Reference Range Interpretation Comments PROTIME (BEAKER) (test code = 17.4 seconds 11.8-14.4 H 759) INR (BEAKER) (test code = 370) 1.50 1.20-1.50 RECOMMENDED COUMADIN/WARFARIN INR THERAPY RANGESSTANDARD DOSE: 2.0 - 3.0 Includes: PROPHYLAXIS for venous thrombosis, systemic embolization; TREATMENT for venous thrombosis and/or pulmonary embolus.HIGH RISK: Target INR is 2.5-3.5 for patients with mechanical heart valves.BLOOD GAS, [id number] 03:14:14 Test Item Value Reference Range Interpretation Comments PH VENOUS (BEAKER) (test code = 7.39 7.32-7.42 701) PCO2 VENOUS (BEAKER) (test code = 34 mm Hg 41-51 L 755) PO2 VENOUS (BEAKER) (test code = 26 mm Hg 25-40 702) O2 SATURATION VENOUS (BEAKER) 47.3 % 40.0-70.0 (test code = 703) HCO3 VENOUS (BEAKER) (test code = 21 mmol/L 21-29 705) BASE EXCESS VENOUS (BEAKER) (test -3.7 mmol/L -2.0-3.0 L code = 704) PATIENT TEMPERATURE (BEAKER) 37.0 (test code = 1818) FIO2 (BEAKER) (test code = 1819) 21.0 POCT-GLUCOSE [id number] 03:02:56 Test Item Value Reference Range Interpretation Comments POC-GLUCOSE METER 197 mg/dL 70-110 H : TESTED A T [facility] [address] (BEAKER) (test code [facility], = 1538) [facility] 77 384: Stitcher Hand/Techni tomas ID = [id number] for B leonoravaldezJuana RAD, CHEST, PA OR AP, 1 [id number] 23:34:00Reason for exam:->FLANK PAIN Reason for exam:->HYPERGLYCEMIA Reason for exam:->SHORTNESS OFBREATH [facility] CENTERName: YAIR MORA : 1985 Sex: FFINAL REPORT INDICATION: FLANK PAINHYPERGLYCEMIASHORTNESS OF BREATH COMPARISON: None TECHNIQUE: Single frontal view of the chest. IMPRESSION: Lungs and pleura: Right basilar streakyopacities suggestive of subsegmental atelectasis. No focal airspace consolidation.. No effusion. Heart and mediastinum: Normal heart size. Unremarkable mediastinal contours. Osseous structures: No acute abnormality. Other: None. Signed: [facility]iqui Bunch [facility] Verified Date/Time: 02/23/2022 23:34:40 PREGNANCY SCREEN, [id number] 23:31:24 Test Item Value Reference Range Interpretation Comments TEST URINE (BEAKER) (test Negative code = 583) Urinalysis w/Microscopic + Reflex to [id number] 23:30:50 Test Item Value Reference Range Interpretation Comments Color, UA (test code = Yellow 5778-6) Clarity, UA (test code Clear = 5767-9) Specific [place], UA >=1.030 1.001-1.035 (test code = 5811-5) pH, UA (test code = 5.0 5.0-8.0 5803-2) Protein, UA (test code >=300 mg/dL Negative A = 74173-6) Glucose, UA (test code Negative Negative = 365) Ketones, UA (test code 15 mg/dL Negative A = 2514-8) Bilirubin, UA (test Positive Negative A code = 68234-8) Blood, UA (test code = Large Negative A 02719-7) Nitrite, UA (test code Negative Negative = 5802-4) Leukocytes, UA (test Moderate Negative A code = 5799-2) Urobilinogen, UA (test 2.0 mg/dL 0.2-1.0 H code = 24997-8) Bacteria, UA (test code Moderate = 08813-2) RBC, UA (test code = 10-20 See_Comment [Autom ated 799-7) message] The sy stem which generated this result transmitted reference range : /HPF. The refer ence range was not u sed to interpret th is result as normal/abnormal . WBC, UA (test code = 10-20 See_Comment [Autom ated 15155-2) message] The sy stem which generated this result transmitted reference range : /HPF. The refer ence range was not u sed to interpret th is result as normal/abnormal . SQUAMOUS EPITHELIAL 5-10 See_Comment [Automa thais (test code = 33014-5) messag e] The system which generated this result transmitted reference range : /HPF. The refer ence range was not u sed to interpret th is result as normal/abnormal . Specimen Source (test code = 2795) Lab Interpretation Abnormal (test code = 25515-4) [facility] [id number] 23:30:50 Test Item Value Reference Range Interpretation Comments COLOR (BEAKER) (test code = 470) Yellow CLARITY (BEAKER) (test code = Clear 469) SPECIFIC GRAVITY UA (BEAKER) >= 1.001-1.035 (test code = 468) PH UA (BEAKER) (test code = 467) 5.0 5.0-8.0 PROTEIN UA (BEAKER) (test code = >=300 mg/dL Negative A 464) GLUCOSE UA (BEAKER) (test code = Negative Negative 365) KETONES UA (BEAKER) (test code = 15 mg/dL Negative A 371) BILIRUBIN UA (BEAKER) (test code Positive Negative A = 462) BLOOD UA (BEAKER) (test code = Large Negative A 461) NITRITE UA (BEAKER) (test code = Negative Negative 465) LEUKOCYTE ESTERASE UA (BEAKER) Moderate Negative A (test code = 466) UROBILINOGEN UA (BEAKER) (test 2.0 mg/dL 0.2-1.0 H code = 463) BACTERIA (BEAKER) (test code = Moderate 517) RBC UA-MANUAL (BEAKER) (test code 10-20 /HPF = 1659) WBC UA-MANUAL (BEAKER) (test code 10-20 /HPF = 1661) SQUAMOUS EPITHELIAL MANUAL 5-10 /HPF (BEAKER) (test code = 1663) SOURCE(BEAKER) (test code = 4155) COMPREHENSIVE METABOLIC [id number] 23:18:36 Test Item Value Reference Range Interpretation Comments TOTAL PROTEIN 8.1 gm/dL 6.0-8.5 (BEAKER) (test code = 770) ALBUMIN (BEAKER) 3.8 g/dL 3.5-5.0 (test code = 1145) ALKALINE PHOSPHATASE 113 U/L 30-115 (BEAKER) (test code = 346) BILIRUBIN TOTAL 2.2 mg/dL 0.1-1.2 H (BEAKER) (test code = 377) SODIUM (BEAKER) 127 meq/L 135-148 L (test code = 381) POTASSIUM (BEAKER) 4.5 meq/L 3.6-5.5 (test code = 379) CHLORIDE (BEAKER) 82 meq/L 98-106 L (test code = 382) CO2 (BEAKER) (test 18 meq/L 24-32 L code = 355) BLOOD UREA NITROGEN 19 mg/dL 10-26 (BEAKER) (test code = 354) CREATININE (BEAKER) 2.09 mg/dL 0.50-1.20 H (test code = 358) GLUCOSE RANDOM 227 mg/dL 70-110 H (BEAKER) (test code = 652) CALCIUM (BEAKER) 6.7 mg/dL 8.5-10.5 L (test code = 697) AST (SGOT) (BEAKER) 132 U/L 5-40 H Specimen diluted 1:2 (test code = 353) ALT (SGPT) (BEAKER) 88 U/L 5-50 H Specimen diluted 1:4 (test code = 347) EGFR (BEAKER) (test 26 mL/min/1.73 INSUFF ICIENT code = 1092) sq m CLINICAL DATA T O CALCULATE ESTIM ATED GFR. SARS-COV2/RT-PCR ([facility])2022-02-23 23:04:03 Test Item Value Reference Range Interpretation Comments SARS-COV2/RT-PCR Negative Negative The SARS-Co V-2 target (test code = nucleic acids a re not 4938086) detected in thi s specimen. Negative result s do not preclude SARS-C oV-2 infection and s hould not be used as the amaya e basis for patient managem ent decisions. Nega tive results must be combine d with clinical observ ations, patient history , and epidemiological information. A false negativ e result may occur if a spec imen is improperly claudio ected, transported or handled. This SARS CoV-2 test is a rapid, real-time RT-PC R test intended for th e qualitative detection of nu cleic acid from SARS-CoV-2 in a nasopharyngeal swab specimen collected from individuals suspected of CO VID-19 by their healthcar e provider. This test has been authorized by FDA under an EUA for use by authorized laboratories. This test is only authorized for the duration of the declaration that circumstances exist justifying the authorization of emergency use of in vitro diagnostic tests for detection and/or diagnosis of COVID-19 under Section 564(b)(1) of the Federal Food, Drug and Cosmetic Act, 21 U.S.C. 360bbb-3(b)(1), unless the authorization is terminated or revoked sooner. Fact Sheet for Healthcare Providers: https://www.TuTanda.c om/Documents/Xpert%20Xpress%20SARS%20CoV-2/Fact%20Sheets/302-5672%32QBNM-RLZ-7%2 0HEALTHCARE%20PROVIDERS%20FACT%20SHEET.pdf Fact Sheet for Healthcare Patients: https://www.Biodel/Documents/Xpert%20X press%20SARS%20CoV-2/Fact%20Sheets/302-3801%98KOVM-OUJ-2%20PATIENT%20FACT%20SHEE T.pdfLACTIC ACID, [id number] 22:42:32 Test Item Value Reference Range Interpretation Comments LACTATE BLOOD VENOUS (2) 11.20 mmol/L 0.50-2.20 HH (BEAKER) (test code = 7312) CREATINE KINASE (CK)2022-02-23 22:40:51 Test Item Value Reference Range Interpretation Comments CREATINE KINASE TOTAL (BEAKER) (test 514 U/L 25-235 H code = 380) (MANUAL DIFFERENTIAL)2022-02-23 22:40:40 Test Item Value Reference Range Interpretation Comments NEUTROPHILS - REL (DIFF) (BEAKER) 86 % (test code = 1359) LYMPHOCYTES - REL (DIFF) (BEAKER) 5 % (test code = 1360) MONOCYTES - REL (DIFF) (BEAKER) 4 % (test code = 1361) BANDS - REL (DIFF) (BEAKER) (test 5 % 0-10 code = 1348) NEUTROPHILS - ABS (DIFF) (BEAKER) 17.11 K/ L 1.80-8.00 H (test code = 1365) LYMPHOCYTES - ABS (DIFF) (BEAKER) 1.00 K/ L 1.48-4.50 L (test code = 1366) MONOCYTES - ABS (DIFF) (BEAKER) 0.80 K/ L 0.00-1.30 (test code = 1367) BANDS-ABS (DIFF) (BEAKER) (test 1.0 K/ L 0.0-0.8 H code = 1349) TOTAL COUNTED (BEAKER) (test code 100 = 1351) BANDS + SEGMENTED NEUTROPHILS 18.11 (BEAKER) (test code = 1352) WBC MORPHOLOGY (BEAKER) (test code Normal = 487) PLT MORPHOLOGY (BEAKER) (test code Normal = 486) RBC MORPHOLOGY (BEAKER) (test code Normal = 762) CBC W/PLT COUNT & AUTO [id number] 22:40:19 Test Item Value Reference Range Interpretation Comments WHITE BLOOD CELL COUNT (BEAKER) 19.9 K/ L 4.0-10.0 H (test code = 775) RED BLOOD CELL COUNT (BEAKER) 4.00 M/ L 4.00-5.00 (test code = 761) HEMOGLOBIN (BEAKER) (test code = 11.4 GM/DL 12.0-15.5 L 410) HEMATOCRIT (BEAKER) (test code = 33.1 % 36.0-46.0 L 411) MEAN CORPUSCULAR VOLUME (BEAKER) 82.8 fL 82.0-99.0 (test code = 753) MEAN CORPUSCULAR HEMOGLOBIN 28.5 pg 27.0-33.0 (BEAKER) (test code = 751) MEAN CORPUSCULAR HEMOGLOBIN CONC 34.4 GM/DL 32.0-36.0 (BEAKER) (test code = 752) RED CELL DISTRIBUTION WIDTH 17.9 % 12.0-15.0 H (BEAKER) (test code = 412) PLATELET COUNT (BEAKER) (test 201 K/CU MM 150-430 code = 756) MEAN PLATELET VOLUME (BEAKER) 10.1 fL 6.0-11.5 (test code = 754) NUCLEATED RED BLOOD CELLS 0 /100 WBC 0-0 (BEAKER) (test code = 413) POC [id number] 16:08:58 Test Item Value Reference Range Interpretation Comments POC glucose (test code 158 mg/dL 65-99 H Opera tor Name: Linnea = [id number]) TermollyaDevice ID : [id number] able: [facility] Notified design printing machine setter Interpretation Abnormal (test code = 68971-5) [facility] [id number] 06:25:17 Test Item Value Reference Range Interpretation Comments Urine culture (test SEE COMMENT Bacteriu joy screen code = 5449799) negative. [facility]Flow cytometry [id number] 14:26:13 Test Item Value Reference Range Interpretation Comments Case number (test code = [id number]) Flow cytometry evaluation See link below for (test code = 6848021) PDF Lab Report [facility] Roberto' (JOSE)2021-07-08 08:59:00 Test Item Value Reference Range Interpretation Comments Swvv-UvW-A8m Polyspecific (test code = NEG 2585) [facility] and [id number] 02:11:00 Test Item Value Reference Range Interpretation Comments ABO grouping (test code = 883-9) A Rh type (test code = 78842-2) POS Antibody screen (gel) (test code = NEG 890-4) [facility] Hospital[facility]ytology (non-gynecological) [id number] 21:57:13 Test Item Value Reference Range Interpretation Comments Case number (test code = [id number]) Cytology See link below for (non-gynecological) PDF Lab Report report (test code = 1178) Result status (test code This is Final Report = [id number]) for [id number] [facility] HospitalECG 12 [id number] 19:54:30 Test Item Value Reference Range Interpretation Comments Ventricular rate (test code = 253) Atrial rate (test code = 255) WA interval (test code = 266) QRSD interval (test code = 260) QT interval (test code = 264) QTC interval (test code = 265) P axis 1 (test code = 267) QRS axis 1 (test code = 268) T wave axis (test code = 270) EKG impression (test Normal sinus code = 273) rhythm-Normal ECG-In automated comparison with ECG of 23-MAY-2021 10:19,-Nonspecific T wave abnormality, improved in Anterolateral leads- Rudi HopeARS-CoV-2 (COVID-19) RNA [Presence] in Respiratory specimen by JUAN with probe [id number] 16:58:05 Test Item Value Reference Range Interpretation Comments SARS-CoV-2 (COVID-19) RNA Not detected Not-Detected [Presence] in Respiratory specimen by JUAN with probe detection (test code = 19768-9) Whether patient is employed in a healthcare setting (test code = 60330-8) Whether the patient has symptoms related to condition of interest (test code = 22512-7) Patient was hospitalized because of this condition (test code = 05351-6) Whether the patient was admitted to intensive care unit (ICU) for condition of interest (test code = 43624-8) Whether patient resides in a congregate care setting (test code = 35204-7) RENATA MIRANDA-CoV-2 (COVID-19) RNA [Presence] in Respiratory specimen by JUAN with probe [id number] 17:35:11 Test Item Value Reference Range Interpretation Comments SARS-CoV-2 (COVID-19) RNA Not detected Not-Detected [Presence] in Respiratory specimen by JUAN with probe detection (test code = 99379-2) Whether patient is employed in a healthcare setting (test code = 44719-8) Whether the patient has symptoms related to condition of interest (test code = 37846-4) Patient was hospitalized because of this condition (test code = 36326-6) Whether the patient was admitted to intensive care unit (ICU) for condition of interest (test code = 61759-7) Whether patient resides in a congregate care setting (test code = 84750-7) RENATA CARL RENIN [id number] 16:06:00 Test Item Value Reference Range Interpretation Comments RENIN ACTIVITY, 0.287 ng/mL/hr 0.167-5.380 N This test was developed PLASMA (test and its perform ance code = 599202) characteristi cs determined by [facility]. It has not been cleared or approved by the Food and Drug Admini stration. determined by [facility]. It has not been cleared or approved Thi s is a corrected repor t. The previously repo rted result was: Jc in Activity, P... .491 ng/mL/hr 2019 The value 0.491 mohit ginally released by [id number] on 04/14/2020 14:5 2 was changed to 0.28 7 by IF on 01/18/2021 1 5:11 [facility]kin[facility]ULT[facility], [id number] 08:32:00Specimen: Urine SpecimensCollected: 10/26/2020 20:51 Status: Final Last Updated: 10/29/2020 08:32 CULTURE (Final) (Final) No Growth After 48 Hours[facility]-LufkinCORONAVIRUS 2019 (IN LUFKIN)(3HR)2020-10-27 19:07:00 Test Item Value Reference Range Interpretation Comments FT (test code = Negative (qualifier Negative N The r eleased value COVID) value) Negative was canceled by [id number] on 10/27/2020 19:0 7 PUI (test code = CANCELED PUI) Mejia Regalado verified this was the wrong patient swabbed, correct patient swabbed see [id number] [facility]kin[facility]OPONIN-I Quantitative 2020-10-27 12:34:00 Test Item Value Reference Range Interpretation Comments Troponin-I (test 0.016 ng/ml 0.000-0.045 The 99th Pe rcentile URL code = TROP) is 0.045 ng/mL for the Siemens Dandridge T roponin I. The Joint Europ amy Society of Cardiology/Amer ican College of Card iology (ESC/ACC) and t he [facility] of Clinical [facility] terrie Standards of La boratory Practices (NACB ) recommends that the diagnosis of AM I includes the presence of clinical history suggest brittany of Acute Coronary Syndrome (ACS) and a max imum concentration o f cardiac troponin exceed ing the 99th percentile of a normal referenc e population [upp er reference limit (URL)] on at least one oc casion during the firs t 24 hours after the clini yoli event. [facility]-[id number] 12:34:00 Test Item Value Reference Range Interpretation Comments Sodium (test code = 135 mmol/l 136-146 L NA) Potassium (test 3.0 mmol/l 3.5-5.1 L code = K) Chloride (test code 100 mmol/l 98-107 = CL) Calcium (test code 8.3 mg/dl 8.5-10.1 L = CALC) CO2 (test code = 27 mmol/l 21-32 CO2) Glucose (test code 104 mg/dl 74-106 = GLU) BUN (test code = 7.0 mg/dl 7.0-18.0 BUN) Creatinine (test 0.8 mg/dl 0.5-1.3 code = CREA) T Protein (test 8.1 gm/dl 6.4-8.2 code = TP) Albumin (test code 3.6 gm/dl 3.4-5.0 = ALB) A/G Ratio (test 0.8 % 1.1-2.2 L code = AGRAT) AST (SGOT) (test 33 U/L 15-37 code = AST) ALT (SGPT) (test 46 U/L 13-61 code = ALT) Alkaline Phos (test 181 U/L 45-117 H code = ALKP) Total Bilirubin 0.8 mg/dl 0.2-1.0 (test code = TBIL) Globulin (test code 4.5 gm/dl 2.3-3.5 H = GLOBU) Calcium, Corrected 8.6 mg/dl 8.4-10.2 Various f ormulas exist (test code = for corrected s colin CALCCORR) calcium results , each yielding differ ent values. This co rrected result was base d on the formula: Co rrected Calcium = Serum Calcium + [0.8 * ( 4 - SerumAlbumin)] EGFR if >60 Slov[place] (test code mL/min/1.73m\\ = EGFRAA) S\\2 EGFR if Non- >60 Estimate d Glomerular Slovak (test code mL/min/1.73m\\ Filtrat ion Rate (eGFR) = EGFRNA) S\\2 Reference Inter vals Decision Points for 18 years and older and average body ma ss: >= 60 Does not exc lude kidney disease. 30 - 59 Suggests mod erate chronic kidney disease and indicates t he need for further investigation including asses sment of proteinuria and cardiovascular factors. < 30 U sually indicates a nee d for referral for assessment and management of c hronic kidney failure. [facility] HospitalDmytpk-[id number] 12:34:00 Test Item Value Reference Range Interpretation Comments Magnesium (test code = MG) 1.6 mg/dl 1.6-2.6 [facility]-LufkinCORONARY [id number] 12:34:00 Test Item Value Reference Range Interpretation Comments Triglycerides (test 115 mg/dl 0-149 Trig. In terpretation code = TRIG) Guide: Normal: < 150 mg/dl Borderlin e High: 150 - 199 mg/dl High: 200 - 499 mg/dl Very High: >= 500 mg /dl Cholesterol (test code 219 mg/dl 0-200 H = CHOL) HDL (test code = HDL) 94 mg/dl 35-86 H dLDL (test code = 113 mg/dl 0-99 H Direct LDL DILDL) Intrepretations : Optimal: <100 m g/dl Suspect: 100 - 129 mg/dl Borderlin e: 130 - 159 mg/dl Hig h: 160 - 189 mg/dl Juan y High: >190 mg/dl Risk Factor (test code 2.3 0.0-4.4 Risk Factor Men Women = RFACT) Risk Factor 3.4 3.3 1/2 Average 5.0 4.4 Average 9.6 7.1 2X Average 24.0 11 .0 3X Average vLDL (test code = 23 mg/dl 20-40 VLDL) [facility]kinGLYCOSALATED [id number] 12:26:00 Test Item Value Reference Range Interpretation Comments Hemoglobin A1C (test 5.8 % 4.2-6.3 A code = GLYCO) Mean Plasma Glucose 129 mg/dl 90-180 WHEN MARIA DEL ROSARIO T RESULTS FOR (test code = MPG) A1C EXCEED 14.0, THE LINEAR LIMIT OF THE INSTRUMENT, THE CALCULATED RESU LT FOR THE MEAN GLUCOS E IS NOT RELIABLE. [facility] WITH AUTO [id number] 12:00:00 Test Item Value Reference Range Interpretation Comments WBC (test code = 10.37 4.80-10.80 WBC) 10\\S\\3/ul RBC (test code = 4.95 10\\S\\6/ul 4.20-5.40 RBC) Hemoglobin (test 13.5 gm/dl 12.0-14.0 code = HGB) Hematocrit (test 41.3 % 37.0-47.0 code = HCT) MCV (test code = 83.4 fL 81.0-99.0 MCV) MCH (test code = 27.3 pg 27.0-31.0 MCH) MCHC (test code = 32.7 gm/dl 33.0-37.0 L MCHC) RDW (test code = 16.7 % 11.5-14.5 H RDWVC) Platelet (test code 305 10\\S\\3/ul 130-400 = PLT) MPV (test code = 9.1 fL 7.4-10.4 A "NOT MEASUR ED" MPV) RESULTS ARE DIS PLAYED WHEN THE INSTRU MENT HAS A SUPPRESSE D OR UNREPORTABLE RE SULT. THIS WILL MOST OFTEN HAPPEN WITH THE MPV WHEN THERE IS A N ABNORMAL PLATEL ET DISTRIBUTION DU E TO A CRITICAL LOW VA LUE OR PLATELET CLUMPI NG. THE RDW MAY BE SUPPRESSED IF T HERE ARE MULTIPLE PE AKS PRESENT ON THE RBC HISTOGRAM. IN T HIS CASE, A MANUAL REVIEW OF THE SLIDE WI LL BE PERFORMED, AND RBC MORPHOLOGY WILL BE NOTED ON THE RE PORT. NE% (test code = 70.2 % 42.0-75.0 NE) LY% (test code = 22.8 % 13.0-42.0 LY) MO% (test code = 6.1 % 4.0-14.0 MO) EO% (test code = 0.3 % 1.0-5.0 L EO) BA% (test code = 0.3 % 0.0-3.0 BA) IG% (test code = 0.3 % 0.0-0.4 IG%) [facility]2020-10-27 04:58:00 Test Item Value Reference Range Interpretation Comments TSH (test code = TSH) 1.11 mIU/L 0.35-3.74 [facility] SummitFREE [id number] 04:51:00 Test Item Value Reference Range Interpretation Comments Free T4 (test code = FT4) 0.99 ng/dl 0.76-1.46 [facility] (IN LUFKIN)(3HR)2020-10-27 03:28:00 Test Item Value Reference Range Interpretation Comments FT (test code Positive Negative A The BioGX SARS -CoV-2 = COVID) (qualifier value) Reagents f or BD MAX System, the Bio Fire Covid-19, and t he Cepheid Covid-1 9 is for in vitro us e under FDA Emergency U se Authorization o nly. For questions regarding your test results, please contact the [facility] at [phone]. [facility] SummitDR[facility] SCREEN [id number] 03:24:00 Test Item Value Reference Range Interpretation Comments Amphetamines (test code NEG = AMPHET) BARBITUATES (test code = POS HANS) Benzodiazepines (test NEG code = BENZO) Cocaine (test code = NEG MARLIN) Methadone (test code = NEG MTD) Opiates (test code = POS OPIAT) PHENCYCLIDINE, PCP (test NEG The following table code = PCP) provides an int erpretive guide for the D rugs of Abuse ran on Siemens Dandridge analyzer listed there in: Amphe tamines < 1000 ng/ml = Ne gative Barbituates < 2 00 ng/ml = Negative Benzodiazapines < 200 ngml = Negative Cocaine < 300 ng/ml = N egative Methadone < 300 ng/ml = Negative Opiate < 300 ng/ml = Negativ e PCP < 25 ng/ml = Nega tive THC < 50 ng/ml = Ne gative Results equal t o or greater than th e above cut-off values = Presumptive Pos itive. Confirmation of Presumptive Pos itive results are janie ilable upon request. Cannabinoids, THC (test NEG code = THC) [facility]kinCT ANGIO CHEST W/ [id number] 02:15:2020 g Cathlon Above the Antecubital or higher required tachycardia sob r/o PE [facility])Name: YAIR MORA : [id number] Sex: FPROCEDURE INFORMATION:Exam: CT Angiography Chest With ContrastExam date and time: 10/27/20201:16 AMAge: 35 years oldClinical indication: Cough and dyspnea and shortness of breath and other:Tachycardia; Patient HX: Covid positive 3 days agoTECHNIQUE:Imaging protocol: Computed tomographic angiography of the chest withintravenous contrast.3D rendering (Not supervised by radiologist): MIP and/or3D reconstructedimages were created by the technologist.Radiation optimization: [facility] use at least one of thesedose optimization techniques: automated exposure control; mA and/or kVadjustment per patient size (includes targeted exams where dose is matched toclinical indication); or iterative reconstruction.Contrast material: ISOVUE 370; Contrast volume: 71 ml; Contrast route:INTRAVENOUS (IV);COMPARISON:CR XR CHEST AP/PA 1 VIEW 10/26/2020 9:49 PMFINDINGS:Pulmonary arteries: Normal. No pulmonary emboli.Aorta: Unremarkable. No aortic aneurysm. No aortic dissection.Lungs: No significant acute pulmonary infiltrate.Pleural space: Unremarkable. No pneumothorax. No pleural effusion.Heart: Unremarkable. No cardiomegaly. No pericardial effusion.Lymph nodes: Unremarkable. No enlargedlymph nodes.Liver: Hepatic steatosis.Bones/joints: Unremarkable. No acute fracture.Soft tissues: Unremarkable.IMPRESSION:No acute finding.This Final report was electronically signed by Nkechi Szymanski MD on 2:15 AM CDT.Dictated By: NKECHI SZYMANSKIDate: 10/27/2020 02:15[facility] [id number] 02:00:00 Test Item Value Reference Range Interpretation Comments B-Peptide (test code = BNP) 65 pg/ml 0-[address] [facility] LAB [id number] 01:59:00 Test Item Value Reference Range Interpretation Comments Troponin-I (test 0.01 ng/ml 0.00-0.08 The 99th Pe rcentile URL is code = TROP) 0.08 ng/mL for the [place] iStat Troponin I. The Joint Society of Cardiology/Amer ican College of Card iology (ESC/ACC) and t he National Academy of Clin ical Biochemistry [facility] of Laboratory Prac tices (NACB) recommen ds that the diagnosis of AM I includes the presence of clinical history suggest brittany of Acute Coronary Syndrome (ACS) and a max imum concentration o f cardiac troponin exceed ing the 99th percentile of a normal referenc e population [upp er reference limit (URL)] on at least one oc casion during the firs t 24 hours after the clini yoli event. [facility]ighkinURINALYSIS WITH [id number] 00:09:00 Test Item Value Reference Range Interpretation Comments Color (test code = UCOLR) Yellow Clarity (test code = Clear UCLAR) Glucose (test code = NEGATIVE NEGATIVE N UGLUC) Bilirubin (test code = NEGATIVE NEGATIVE N UBILI) Ketones (test code = NEGATIVE NEGATIVE N UKET) Specific [place] (test >=1.030 1.005-1.030 A code = USPGR) Blood (test code = UBLD) Small NEGATIVE A PH (test code = UPH) 5.5 4.5-8.0 A Protein (test code = 100 NEGATIVE A UPROT) Urobilinogen (test code = 0.2 >0.2 N U UROB) Nitrite (test code = NEGATIVE NEGATIVE N UNITR) Leukocyte Esterase (test NEGATIVE NEGATIVE N code = ULEUK) WBC (test code = WBCUR) None Seen 0-5 A RBC (test code = RBCUR) 0-1 0-5 A Epithial Cells (test code 50-60 0-10 A = U EPI) Mucous (test code = UMUC) None Seen None Seen N Bacteria (test code = 3+ None Seen,Trace A UBACT) Urine Casts (test code = Moderate Coarse None Seen A UR CAST) Granular Casts [facility]kinXR CHEST AP/PA 1 [id number] 22:07:35 [facility])Name: YAIR MORA : [id number] Sex: FPROCEDURE INFORMATION:Exam: XR Chest, 1 ViewExam date and time: 10/26/2020 8:47 PMAge: 35 years oldClinical indication: Type not specified; Patient HX: Chest pain, sobx 2 days,diagnosed with covid on 10/21/2020TECHNIQUE:Imaging protocol: XR of the chestViews: 1 view.COMPARISON:No relevant prior studies available.FINDINGS:Lungs: Unremarkable. No consolidation.Pleural space: Unremarkable. No pleural effusion. No pneumothorax.Heart/Mediastinum: Unremarkable. No cardiomegaly.Bones/joints: Unremarkable.IMPRESSION:No acute findings.This Final report was electronically signed by Nkechi Szymanski MDon 10:07 PM CDT.Dictated By: NKECHI SZYMANSKIDate: 10/26/2020 22:07[facility] TEST, Serum [id number] 21:56:00 Test Item Value Reference Range Interpretation Comments (Serum) (test code = Negative PREGS) [facility] LAB CHEM [id number] 21:45:00 Test Item Value Reference Range Interpretation Comments Sodium (test code = NA) 142 mmol/l 138-146 Potassium (test code = K) 3.7 mmol/l 3.5-4.9 Chloride (test code = CL) 104 mmol/l 98-109 IONIZED CALCIUM (test code = ICA) 1.08 1.12-1.32 A CO2 (test code = CO2) 25 mmol/l 24-29 Glucose (test code = GLU) 105 mg/dl 70-105 BUN (test code = BUN) 6 mg/dl 6-17 Creatinine (test code = CREA) 0.8 mg/dl 0.6-1.[address] [facility] LAB CBC WITH AUTO [id number] 21:43:00 Test Item Value Reference Range Interpretation Comments WBC (test code = WBC) 9.40 10\\S\\3/ul 4.80-10.80 RBC (test code = RBC) 6.08 10\\S\\6/ul 4.20-5.40 H Hemoglobin (test code = HGB) 16.3 gm/dl 12.0-14.0 H Hematocrit (test code = HCT) 51.1 % 37.0-47.0 H MCV (test code = MCV) 84.0 fL 81.0-99.0 MCH (test code = MCH) 26.8 pg 27.0-31.0 L MCHC (test code = MCHC) 31.9 gm/dl 33.0-37.0 L Platelet (test code = PLT) 328 10\\S\\3/ul 130-400 RDW (test code = RDWVC) 18.3 % 11.5-14.5 H MPV (test code = MPV) 9.6 fL 7.4-10.4 A NE% (test code = NE) 67.2 % 42.0-75.0 LY% (test code = LY) 28.9 % 13.0-42.0 MO% (test code = MO) 3.2 % 4.0-14.0 L EO% (test code = EO) 0.3 % 1.0-3.0 L BA% (test code = BA) 0.1 % 1.0-3.0 L IG% (test code = IG%) 0.3 % 0.0-0.4 [facility] ([facility])(3HR)2020-10-21 23:30:00 Test Item Value Reference Range Interpretation Comments FT (test code Positive Negative A The BioGX SARS -CoV-2 = COVID) (qualifier value) Reagents f or BD MAX System, the Bio Fire Covid-19, and t he Cepheid Covid-1 9 is for in vitro us e under FDA Emergency U se Authorization o nly. For questions regarding your test results, please contact the [facility] at [phone]. [facility] centerALDOSTERONE, LC/MS/MS, [id number] 11:46:00 Test Item Value Reference Range Interpretation Comments ALDOSTERONE (test <1.0 ng/dL 0.0-30.0 N This test was developed code = 590976) and its perfo rmance characteristics determined by Jhony Guerra. It has not been cleared or approved by the Food and Drug Administration. PERFORMED AT: [facility] [address] [id number] IT COMPLIANCE ANALYST: Deanne Izquierdo MD PHONE: [phone] [facility] In Summit METANEPHRINES, FRAC. LC/MS/MS, 24 HR [id number] 06:55:00 Test Item Value Reference Range Interpretation Comments NORMETANEPHRINE, 854 ug/L Undefined N This test w as developed UR (test code = and its perf ormance 368204) characteristics determined by Jhony Guerra. It has not been cl eared or approved by the Food and Drug Administra tion. NORMETANEPHR.,U, 598 ug/24 hr 131-612 N Please n ote reference 24H (test code = interval ch reinaldo 465223) METANEPHRINE, UR 136 ug/L Undefined N This test w as developed (test code = and its perform ance 393379) characteristics determined by Jhony Guerra. It has not been cl eared or approved by the Food and Drug Administra tion. METANEPHRINE, 95 ug/24 hr 36-209 N Please not e reference U,24HR (test interval change code = 416780) TOTAL VOLUME 0700 mL (test code = TOTVOL) PERFORMED AT: [facility] [address] [id number] IT COMPLIANCE ANALYST: Deanne Izquierdo MD PHONE: [phone] Health [facility] DEXAMETHASONE, [id number] 08:21:00 Test Item Value Reference Range Interpretation Comments DEXAMETHASONE, 405 ng/dL This test was developed and SERUM (test code its perform ance = 587116) characteristics determined by [facility]. It has not been cleared or appr stan by the Food and Drug Administration. Reference Range: Adults b aseline: <30 8:00 AM followi ng 1 mg dexamethasone p revious evenin - 295 8:00 AM following 8 mg dexamethasone ( 4 x 2 mg doses) previous day: 1600 - 2850 [facility]-LufkinVITAMIN [id number] 09:39:00 Test Item Value Reference Range Interpretation Comments Vitamin D (test code = 20.44 VITAM IN D NORMAL RANGES: TVITD) Deficient <20 I nsufficient 20-<30 Sufficie nt 30-100 Potential Toxic ity >100 [facility]-LufkinCORTISOL, [id number] 09:39:00 Test Item Value Reference Range Interpretation Comments Cortisol, Random 1.7 ug/dl No establis hed normal (test code = values for this test CORTISOL) method. [facility]-[id number] 09:29:00 Test Item Value Reference Range Interpretation Comments aPTT (test code = PTT) 26.1 seconds 23.9-30.7 [facility]-LufkinHEPATIC FUNCTION PANEL (LIVER)2020-04-07 09:16:00 Test Item Value Reference Range Interpretation Comments T Protein (test code = TP) 7.8 gm/dl 6.4-8.2 Albumin (test code = ALB) 3.3 gm/dl 3.4-5.0 L AST (SGOT) (test code = AST) 135 U/L 15-37 H ALT (SGPT) (test code = ALT) 90 U/L 13-61 H Alkaline Phos (test code = ALKP) 144 U/L 45-117 H Total Bilirubin (test code = TBIL) 0.9 mg/dl 0.2-1.0 Direct Bilirubin (test code = DBIL) 0.3 mg/dl 0.0-0.3 Indirect Bilirubin (test code = 0.6 mg/dl 0.0-1.1 IBIL) [facility]-[id number] 09:16:00 Test Item Value Reference Range Interpretation Comments Sodium (test code = 137 mmol/l 137-145 NA) Potassium (test 3.7 mmol/l 3.5-5.1 code = K) Chloride (test code 100 mmol/l 98-107 = CL) Calcium (test code 9.2 mg/dl 8.5-10.1 = CALC) CO2 (test code = 30 mmol/l 21-32 CO2) Glucose (test code 138 mg/dl 74-106 H = GLU) BUN (test code = 10.0 mg/dl 7.0-18.0 BUN) Creatinine (test 0.7 mg/dl 0.5-1.3 code = CREA) EGFR if >60 Slov[place] (test code mL/min/1.73m\\ = EGFRAA) S\\2 EGFR if Non- >60 Estimate d Glomerular Slov[place] (test code mL/min/1.73m\\ Filtrat ion Rate (eGFR) = EGFRNA) S\\2 Reference Inter vals Decision Points for 18 years and older and average body ma ss: >= 60 Does not exc lude kidney disease. 30 - 59 Suggests mod erate chronic kidney disease and indicates t he need for further investigation including asses sment of proteinuria and cardiovascular factors. < 30 U sually indicates a nee d for referral for assessment and management of c hronic kidney failure. [facility]-LufkinCBC (HEMOGRAM ONLY)2020-04-07 09:00:00 Test Item Value Reference Range Interpretation Comments WBC (test code = 6.83 10\\S\\3/ul 4.80-10.80 WBC) RBC (test code = 3.86 10\\S\\6/ul 4.20-5.40 L RBC) Hemoglobin (test 12.8 gm/dl 12.0-14.0 code = HGB) Hematocrit (test 38.0 % 37.0-47.0 code = HCT) MCV (test code = 98.4 fL 81.0-99.0 MCV) MCH (test code = 33.2 pg 27.0-31.0 H MCH) MCHC (test code = 33.7 gm/dl 33.0-37.0 MCHC) RDW (test code = 14.6 % 11.5-14.5 H RDWVC) Platelet (test code 170 10\\S\\3/ul 130-400 = PLT) MPV (test code = 9.5 fL 7.4-10.4 A "NOT MEASUR ED" MPV) RESULTS ARE DIS PLAYED WHEN THE INSTRU MENT HAS A SUPPRESSE D OR UNREPORTABLE RE SULT. THIS WILL MOST OFTEN HAPPEN WITH THE MPV WHEN THERE IS A N ABNORMAL PLATEL ET DISTRIBUTION DU E TO A CRITICAL LOW VA LUE OR PLATELET CLUMPI NG. THE RDW MAY BE SUPPRESSED IF T HERE ARE MULTIPLE PE AKS PRESENT ON THE RBC HISTOGRAM. IN T HIS CASE, A MANUAL REVIEW OF THE SLIDE WI LL BE PERFORMED, AND RBC MORPHOLOGY WILL BE NOTED ON THE RE PORT. [facility]-LufkinPLASMA RENIN [id number] 13:40:00 Test Item Value Reference Range Interpretation Comments RENIN ACTIVITY, 2.254 ng/mL/hr 0.167-5.380 N This test was developed PLASMA (test and its perform ance code = 485028) characteristi cs determined by Jhony Guerra. It has not been cleared or approved by the Food and Drug Admini stration. [facility]-LufkinCORTISOL, [id number] 06:35:00 Test Item Value Reference Range Interpretation Comments SALIVARY CORTISOL, MS 0.032 ug/dL Refere nce Range: (test code = 984414) Childre n and Adults: 8:00a.m.: 0.025 - 0.600 Noon: <0. 010 - 0.330 4:00p.m.: 0.010 - 0.200 Midnigh t: <0.010 - 0.090 [facility]-LufkinALDOSTERONE, 24 HR (U)2019-11-20 06:35:00 Test Item Value Reference Range Interpretation Comments ALDOSTERONE <2.50 ug/L Not Estab. N This test was U,RANDOM (test code develope d and its = 939931) performance characteristics determined by [facility]. It has not been cleared or appr stan by the Food and Dr ug Administration. ALDOSTERONE,U, <3.13 ug/24 0.00-19.00 N Adult Ranges Low TIMED (test code = hr Sodium In take 20.00 - 766305) 80.00 Normal S odium Intake 0.00 - 1 9.00 High Sodium Int ike 0.00 - 12.00 TOTAL VOLUME (test 1250 mL code = TOTVOL) PERFORMED AT: [address] [id number] IT COMPLIANCE ANALYST: Deanne Izquierdo MD PHONE: [phone] Medical Center In Summit METANEPHRINES, FRAC. LC/MS/MS, 24 HR [id number] 07:52:00 Test Item Value Reference Range Interpretation Comments NORMETANEPHRINE, 1594 ug/L Undefined N This test w as developed UR (test code = and its perf ormance 623628) characteristics determined by [facility]. It has not been cleared or approved by the Food and Drug Admini stration. NORMETANEPHR.,U, 1993 ug/24 hr 82-500 H (Hyperten sive) >17 24H (test code = years 11 mo [facility]: 110 - 277595) 1050 METANEPHRINE, UR 148 ug/L Undefined N This test w as developed (test code = and its perform ance 396232) characteristics determined by [facility]. It has not been cleared or approved by the Food and Drug Admini stration. METANEPHRINE, 185 ug/24 hr 45-290 N (Hypertensive ) >17 U,24HR (test years 11 months : 35 - code = 602870) 460 TOTAL VOLUME 1250 mL (test code = TOTVOL) PERFORMED AT: [address] [id number] IT COMPLIANCE ANALYST: Deanne Izquierdo MD PHONE: [phone] Medical Center In Summit CORTISOL, FREE, 24 HR [id number] 09:15:00 Test Item Value Reference Range Interpretation Comments CORTISOL,F,UG/L,U 10 ug/L Undefined N This test was developed (test code = and its perform ance 792559) characteristics determined by Jhony Guerra. It has not been cl eared or approved by the Food and Drug Administra tion. CORTISOL,F,UG/24H 13 ug/24 hr 6-42 N R,U (test code = 959163) TOTAL VOLUME 1250 mL (test code = TOTVOL) PERFORMED AT: [facility] [address] [id number] IT COMPLIANCE ANALYST: Deanne Izquierdo MD PHONE: [phone] Medical Center In [facility] MRI LSPINE WO/W [id number] 13:35:12Headaches; Lower Extremity weakness Procedure: MRI LSPINE WO/W CONTOrder Date: 11/11/2019 8:02 AMOrdering Provider: RO LYClinical Indication: [id number]: Idiopathic transverse myelitisComparison: September 19, 2019Technique: Multiplanar MRI of the lumbar spine was obtained before and afterthe administration of intravenous contrast.Findings:There is no signal abnormality to suggest a fracture or metastatic disease.Benign vertebral body hemangioma at the L2 level.There is degenerative disc disease at L2-3 level.There is multilevel facet arthropathy.No disc herniation, significant spinal stenosis, or neural foraminal narrowingin the lumbar spine.There is no abnormal contrast enhancement within the marrow spaces of the lumbaror sacral vertebral bodies or intervertebral disc spaces. There is no abnormalcontrast enhancement within the spinal canal or conus.The distal thoracic spinal cord/conus are of normal signal and contour. Theconus terminates at the L1 level. The prevertebral signal is normal.There is no paraspinal mass.Impression:1.No abnormal contrast enhancement within the lumbar spine, lumbar spinalcanal, distal thoracic spinalcord, or conus.2. No disc herniation, significant spinal stenosis, or neural foraminalnarrowing in the lumbar spine.3. Degenerative disc disease at L2-3.4. No other significant findings.This final report was electronically signed by Dr Rowdy Haskins MD :28 PMDictated By: ROWDY HASKINSDate:11/11/2019 13:28[facility] T[facility] WO/W CONT 2019-11-11 13:30:46Headaches; Lower Extremity weaknessProcedure: MRI TSPINE WO/W CONTOrder Date: 11/11/2019 8:02 AMOrdering Provider: RO LYClinical Indication: [id number]: Idiopathic transverse myelitisComparison: September 19, 2019Technique: Multiplanar MRI of the thoracic spine was obtained before and afterintravenous administration of contrast medium.Findings:There is no signal abnormality to suggest an acute fracture or metastaticdisease.There is otherwise normal signal within the marrow of the thoracic vertebralbodies.There is mild multilevel degenerative disc disease in the thoracic spine.There is a mild diffuse disc bulge at the T9-10 level.Thereis no disc herniation, significant spinal stenosis, or neural foraminalnarrowing in the thoracic spine.There is no abnormal contrast enhancement within the thoracic vertebral bodiesor intervertebral disc spaces. There is no abnormal contrast enhancement withinthe thoracic spinal canal or spinal cord.The thoracic spinal cord is of normal signal and contour. The conus is ofnormal signal and contour andterminates at the L1 level. There is no paraspinalmass. There is no prevertebral fluid collection.Impression:1. No signal abnormality in the thoracic spinal cord.2. No abnormal contrast enhancement within the thoracic spine, thoracic spinalcanal, or thoracic spinal cord.3. No disc herniation or significant spinal stenosis.4. Mild multilevel degenerative disc disease.5. No other significant findings.This final report was electronically signed by Dr Rowdy Haskins MD :24 PMDictated By: ROWDY HASKINSDate: 11/11/2019 13:24[facility] CSPINE WO/W [id number] 13:20:45Headaches; Lower Extremity weaknessProcedure: MRI CSPINE WO/W CONTOrder Date: 11/11/2019 8:01 AMOrdering Provider: RO LYClinical Indication: [id number]: Idiopathic transverse myelitisComparison: NoneTechnique: Multiplanar MRI of the cervical spine was obtained before and afterintravenous administration of contrast medium.Findings:There is normal signal within the marrow of the cervical and proximal thoracicvertebral bodies.There is no marrow signal abnormality to suggest fracture or neoplasm.The intervertebral disc spaces are of normal signal characteristics.There is no disc herniation, central canal stenosis, or neural foraminalnarrowing.There is no abnormal contrast enhancement within the cervical or proximalthoracic vertebral bodies or intervertebral disc spaces. There is no abnormalcontrast enhancement within the cervical spinal canal or spinal cord.The cervical spinal cord is of normal signal and contour. The proximal thoracicspinal cord is of normal signal and contour.There is no paraspinal mass.There is no prevertebral fluid collection.Impression:Negative MRI of the cervical spine before and after intravenous contrastadministration.This final report was electronically signed by Dr Rowdy Haskins MD 11/11/20191:14 PMDictatedBy: ROWDY HASKINS.Date: 11/11/2019 13:14[facility] BRAIN WO/W [id number] 13:15:20 Headaches; Lower Extremity weakness; GFR>60Procedure: MRI BRAIN WO/W CONTOrder Date: 11/11/2019 8:00 AMOrdering Provider: RO LYClinical Indication: [id number]: Idiopathic transverse myelitisComparison: September 19, 2019Technique: Multiplanar MRIof the brain was obtained before and after theadministration of IV contrast.Findings:Ventricular size and configuration are normal.There is no midline shift or hydrocephalus.There is normal signal within the cortical jeong matter, subcortical whitematter, and periventricular white matter.There is normal signal within the deep jeong matter nuclei. There is normalsignal within the cerebellum.There is normal signal within the brainstem.There is no evidence of an acute infarct.There is no parenchymal hemorrhage.There are no enhancing intracranial lesions.There is no abnormal intracranial enhancement.The pituitary gland is normal in size. There are no pineal masses.There are normal intracranial vascular flow voids.The foramen magnum is normal.The orbits are intact.Postoperative change consisting of leftmastoidectomy.There is normal signal within the paranasal sinuses.IMPRESSION:1. No acute intracranial infarction or hemorrhage.2. No signal abnormality in the subcortical or periventricular white matter. Nofindings typical of a central demyelinating process.3. No enhancing intracranial lesions.4. Postoperative change consisting of left mastoidectomy.5. Exam otherwise negative.This final report was vanessa ctronically signed by Dr Rowdy Haskins MD 11/11/20191:08 PMDictated By: ROWDY HASKINS.Date: 11/11/2019 13:08[facility] WITH AUTO [id number] 10:22:00 Test Item Value Reference Range Interpretation Comments WBC (test code = 5.38 10\\S\\3/ul 4.80-10.80 WBC) RBC (test code = 3.83 10\\S\\6/ul 4.20-5.40 L RBC) Hemoglobin (test 11.9 gm/dl 12.0-14.0 L code = HGB) Hematocrit (test 38.4 % 37.0-47.0 code = HCT) MCV (test code = 100.3 fL 81.0-99.0 H MCV) MCH (test code = 31.1 pg 27.0-31.0 H MCH) MCHC (test code = 31.0 gm/dl 33.0-37.0 L MCHC) RDW (test code = 13.0 % 11.5-14.5 RDWVC) Platelet (test code 191 10\\S\\3/ul 130-400 = PLT) MPV (test code = 9.8 fL 7.4-10.4 A "NOT MEASUR ED" MPV) RESULTS ARE DIS PLAYED WHEN THE INSTRU MENT HAS A SUPPRESSE D OR UNREPORTABLE RE SULT. THIS WILL MOST OFTEN HAPPEN WITH THE MPV WHEN THERE IS A N ABNORMAL PLATEL ET DISTRIBUTION DU E TO A CRITICAL LOW VA LUE OR PLATELET CLUMPI NG. THE RDW MAY BE SUPPRESSED IF T HERE ARE MULTIPLE PE AKS PRESENT ON THE RBC HISTOGRAM. IN T HIS CASE, A MANUAL REVIEW OF THE SLIDE WI LL BE PERFORMED, AND RBC MORPHOLOGY WILL BE NOTED ON THE RE PORT. NE% (test code = 71.8 % 42.0-75.0 NE) LY% (test code = 20.1 % 13.0-42.0 LY) MO% (test code = 5.2 % 4.0-14.0 MO) EO% (test code = 1.9 % 1.0-5.0 EO) BA% (test code = 0.6 % 0.0-3.0 BA) IG% (test code = 0.4 % 0.0-0.4 IG%) [facility]-[id number] 08:47:00 Test Item Value Reference Range Interpretation Comments Sodium (test code = 141 mmol/l 137-145 NA) Potassium (test 3.7 mmol/l 3.5-5.1 code = K) Chloride (test code 109 mmol/l 98-107 H = CL) Calcium (test code 8.5 mg/dl 8.5-10.1 = CALC) CO2 (test code = 24 mmol/l 21-32 CO2) Glucose (test code 117 mg/dl 74-106 H = GLU) BUN (test code = 10.0 mg/dl 7.0-18.0 BUN) Creatinine (test 0.7 mg/dl 0.5-1.3 code = CREA) EGFR if >60 [place] (test code mL/min/1.73m\\ = EGFRAA) S\\2 EGFR if Non- >60 Estimate d Glomerular [place] (test code mL/min/1.73m\\ Filtrat ion Rate (eGFR) = EGFRNA) S\\2 Reference Inter vals Decision Points for 18 years and older and average body ma ss: >= 60 Does not exc lude kidney disease. 30 - 59 Suggests mod erate chronic kidney disease and indicates t he need for further investigation including asses sment of proteinuria and cardiovascular factors. < 30 U sually indicates a nee d for referral for assessment and management of c hronic kidney failure. [facility]-Qljlzb61MH CREATININE [id number] 08:47:00 Test Item Value Reference Range Interpretation Comments Creatinine (test 0.6 mg/dl The value 9 6.6 code = CREA) originally rele ased by [id number] on 11/11/2019 00:5 8 was changed to 0.6 by [id number] on 11/11/2019 06:2 9 Total Volume (24-hr) 1250 ml 800-1900 (test code = TVOL) Creatinine, Aliquot 96.6 mg/dl (test code = QCR) Creatinine Clear, 139.809983 75.0-115.0 N The value 96.6 24hr (test code = ml/min originally released CRC24) by [id number] on 11/11/2019 06:2 9 was changed to 139.480135 by [id number] on 11/11/2019 08:4 7 [facility] HospitalWgaonk-[id number] 12:28:00 Test Item Value Reference Range Interpretation Comments CKMB (test code = CKMB) 1.50 ng/ml 0.50-3.60 [facility]-[id number] 12:23:00 Test Item Value Reference Range Interpretation Comments CPK (test code = CPK) 77 U/L 26-308 [facility]-LufkinTROPONIN-I [id number] 12:23:00 Test Item Value Reference Range Interpretation Comments Troponin-I (test <0.015 ng/ml 0.000-0.045 N The 99th Pe rcentile URL code = TROP) is 0.045 ng/mL for the Siemens Dandridge T roponin I. The Joint Europ amy Society of Cardiology/[facility] College of Card iology (ESC/ACC) and t [facility] of Clinical Bioche terrie Standards of La boratory Practices (NACB ) recommends that the diagnosis of AM I includes the presence of clinical history suggest brittany of Acute Coronary Syndrome (ACS) and a max imum concentration o f cardiac troponin exceed ing the 99th percentile of a normal referenc e population [upp er reference limit (URL)] on at least one oc casion during the firs t 24 hours after the clini yoli event. [facility]-[id number] 04:43:00 Test Item Value Reference Range Interpretation Comments Sodium (test code = 137 mmol/l 137-145 NA) Potassium (test 3.8 mmol/l 3.5-5.1 code = K) Chloride (test code 105 mmol/l 98-107 = CL) Calcium (test code 9.5 mg/dl 8.5-10.1 = CALC) CO2 (test code = 26 mmol/l 21-32 CO2) Glucose (test code 97 mg/dl 74-106 = GLU) BUN (test code = 7.0 mg/dl 7.0-18.0 BUN) Creatinine (test 0.8 mg/dl 0.5-1.3 code = CREA) EGFR if >60 [place] (test code mL/min/1.73m\\ = EGFRAA) S\\2 EGFR if Non- >60 Estimate d Glomerular [place] (test code mL/min/1.73m\\ Filtrat ion Rate (eGFR) = EGFRNA) S\\2 Reference Inter vals Decision Points for 18 years and older and average body ma ss: >= 60 Does not exc lude kidney disease. 30 - 59 Suggests mod erate chronic kidney disease and indicates the need for furthe r investigation including asses sment of proteinuria and cardiovascular factors. < 30 U sually indicates a nee d for referral for assessment and management of c hronic kidney failure. [facility] WITH AUTO [id number] 04:27:00 Test Item Value Reference Range Interpretation Comments WBC (test code = 8.64 10\\S\\3/ul 4.80-10.80 WBC) RBC (test code = 5.07 10\\S\\6/ul 4.20-5.40 RBC) Hemoglobin (test 16.1 gm/dl 12.0-14.0 H code = HGB) Hematocrit (test 50.2 % 37.0-47.0 H code = HCT) MCV (test code = 99.0 fL 81.0-99.0 MCV) MCH (test code = 31.8 pg 27.0-31.0 H MCH) MCHC (test code = 32.1 gm/dl 33.0-37.0 L MCHC) RDW (test code = 13.1 % 11.5-14.5 RDWVC) Platelet (test code 261 10\\S\\3/ul 130-400 = PLT) MPV (test code = 10.1 fL 7.4-10.4 A "NOT MEASUR ED" MPV) RESULTS ARE DIS PLAYED WHEN THE INSTRU MENT HAS A SUPPRESSE D OR UNREPORTABLE RE SULT. THIS WILL MOST OFTEN HAPPEN WITH THE MPV WHEN THERE IS A N ABNORMAL PLATEL ET DISTRIBUTION DU E TO A CRITICAL LOW VA LUE OR PLATELET CLUMPI NG. THE RDW MAY BE SUPPRESSED IF T HERE ARE MULTIPLE PE AKS PRESENT ON THE RBC HISTOGRAM. IN T HIS CASE, A MANUAL REVIEW OF THE SLIDE WI LL BE PERFORMED, AND RBC MORPHOLOGY WILL BE NOTED ON THE RE PORT. NE% (test code = 63.2 % 42.0-75.0 NE) LY% (test code = 28.1 % 13.0-42.0 LY) MO% (test code = 6.4 % 4.0-14.0 MO) EO% (test code = 1.2 % 1.0-5.0 EO) BA% (test code = 0.6 % 0.0-3.0 BA) IG% (test code = 0.5 % 0.0-0.4 H IG%) [facility] S[facility] [id number] 21:09:00 Test Item Value Reference Range Interpretation Comments Amphetamines (test code NEG = AMPHET) BARBITUATES (test code = NEG HANS) Benzodiazepines (test NEG code = BENZO) Cocaine (test code = NEG MARLIN) Methadone (test code = NEG MTD) Opiates (test code = NEG OPIAT) PHENCYCLIDINE, PCP (test NEG The following table code = PCP) provides an int erpretive guide for the D rugs of Abuse ran on Siemens Dandridge analyzer listed there in: Amphe tamines < 1000 ng/ml = Ne gative Barbituates < 2 00 ng/ml = Negative Benzodiazapines < 200 ngml = Negative Cocaine < 300 ng/ml = N egative Methadone < 300 ng/ml = Negative Opiate < 300 ng/ml = Negativ e PCP < 25 ng/ml = Nega tive THC < 50 ng/ml = Ne gative Results equal t o or greater than e above cut-off values = Presumptive Pos itive. Confirmation of Presumptive Pos itive results are janie ilable upon request. Cannabinoids, THC (test NEG code = THC) [facility] LAB , [id number] 20:27:00 Test Item Value Reference Range Interpretation Comments (Urine) (test code = Negative PREGU) [facility] URINALYSIS WITHOUT [id number] 20:26:00 Test Item Value Reference Range Interpretation Comments Color (test code = UCOLR) Light yellow Lt. Yellow A Clarity (test code = UCLAR) Clear Glucose (test code = UGLUC) Negative Negative N Bilirubin (test code = UBILI) Negative Negative N Ketones (test code = UKET) 40 Negative A Specific [place] (test code = 1.020 1.005-1.030 A USPGR) Blood (test code = UBLD) Negative Negative N PH (test code = UPH) 7.0 4.5-8.0 A Protein (test code = UPROT) Negative Negative N Urobilinogen (test code = U 0.2 >0.2 N UROB) Nitrite (test code = UNITR) Negative Negative N Leukocyte Esterase (test code = Negative Negative N ULEUK) [facility]/O [id number] 16:18:51 Procedure: TIC CT HEAD W/O CONTRASTOrder Date: 11/09/2019 3:00 PMOrdering Provider: REGAN Benjamininical Indication: [id number]: [id number]: Hypertensive disorderComparison: May 27, 2010Technique: Using a helical scanner, sequential axial imaging of the brain wasobtained without the administration of intravenous contrast. The exam wasobtained from the skull base to vertex. This exam was performed according to theour departmental dose- optimization program which includes automated exposurecontrol, adjustment of the mA and/or kV according to patient size and/or use ofiterative reconstruction te chniques.Findings:Ventricular size and configuration are normal.There is no midline shift or hydrocephalus.There is no acute intracranial hemorrhage or mass effect.There is no acute infarct.Cortical jeong matter, subcortical white matter, and periventricular white matterhave normal appearance.Postoperative change consisting of left mastoidectomy.There is no lytic or sclerotic lesion.The visualized paranasal sinuses and right mastoid air cells are clear.IMPRESSION:1. No acute intracranial hemorrhage or infarction.2. No midline shift or hydrocephalus.3. Postoperative change consisting of left mastoidectomy.4. The right mastoid air cells and visualized paranasal sinuses are clear.5. Exam otherwise negative.This final report was electronically signed by Dr Rowdy Haskins MD 11/09/20194:12 PMDictated By: ROWDY HASKINSDate: 11/09/2019 16:12 [facility] CBC WITH AUTO [id number] 16:09:00 Test Item Value Reference Range Interpretation Comments WBC (test code = 8.03 10\\S\\3/ul 4.80-10.80 WBC) RBC (test code = 4.66 10\\S\\6/ul 4.20-5.40 RBC) Hemoglobin (test 14.8 gm/dl 12.0-14.0 H code = HGB) Hematocrit (test 44.1 % 37.0-47.0 code = HCT) MCV (test code = 94.6 fL 81.0-99.0 MCV) MCH (test code = 31.8 pg 27.0-31.0 H MCH) MCHC (test code = 33.6 gm/dl 33.0-37.0 MCHC) Platelet (test code 209 10\\S\\3/ul 130-400 = PLT) RDW (test code = 13.0 % 11.5-14.5 RDWVC) MPV (test code = 10.8 fL 7.4-10.4 A MPV) NE% (test code = NE) 77.0 % 42.0-75.0 H LY% (test code = LY) 18.2 % 13.0-42.0 MO% (test code = MO) 3.5 % 4.0-14.0 L EO% (test code = EO) 0.4 % 1.0-3.0 L BA% (test code = BA) 0.5 % 1.0-3.0 L IG% (test code = 0.4 % 0.0-0.4 IG%) Platelet Morphology Platelet clumping No previous value (test code = was reported. A PLTMORPH) value of Platel et clumping was entered by [id number] on 11/09/2019 16:[address] [facility] CenterTgosev-[id number] 15:05:00 Test Item Value Reference Range Interpretation Comments Magnesium (test code = MG) 2.1 mg/dl 1.6-2.6 [facility] (Ultra Sensitive)2019-11-09 15:05:00 Test Item Value Reference Range Interpretation Comments TSH (test code = TSH) 2.29 mIU/L 0.35-3.74 [facility]PA 1 [id number] 14:48:07Procedure: XR CHEST AP/PA 1 VIEWOrder Date: 11/09/2019 2:10 PMOrdering Provider: REGAN Benjamininical Indication: [id number]: Chest painComparison: October 08, 2014Findings:Cardiac size is magnified by technique.Pulmonary vasculature is normal.Mediastinal contour is normal.Aortic contour is normal.There is no consolidation or effusion.There is no evidence of active tuberculosis.There is no mass or pneumothorax.There is no skeletal abnormality.Impression: Negative AP portable chest x-ray.This finalreport was electronically signed by Dr Rowdy Haskins MD 11/09/20192:41 PMDictated By: ROWDY HASKINS.Date: 11/09/2019 14:41 [facility] AND [id number] 14:47:00 Test Item Value Reference Range Interpretation Comments Protime (test code 10.3 seconds 9.5-12.1 = PT) INR (test code = 1.0 0.9-1.1 INR results are INR) intended ONLY t o monitor Oral Anticoagulant t herapy in stablized pa tients. The INR Therape utic Range is 2.0 - 3.0 Patients with a mechanical hear t, the INR Range is 2. 5 - 3.5 [facility] [id number] 14:46:00 Test Item Value Reference Range Interpretation Comments Troponin-I (test 0.00 ng/ml 0.00-0.08 The 99th Pe rcentile URL is code = TROP) 0.08 ng/mL for the [place] iStat Troponin I. The Joint Society of Cardiology/Amer ican College of Card iology (ESC/ACC) and t he National Academy of Clin ical Biochemistry St andards of Laboratory Prac tices (NACB) recommen ds that the diagnosis of AM I includes the presence of clinical history suggest brittany of Acute Coronary Syndrome (ACS) and a max imum concentration o f cardiac troponin exceed ing the 99th percentile of a normal referenc e population [upp er reference limit (URL)] on at least one oc casion during the firs t 24 hours after the clini yoli event. [facility] LAB CHEM [id number] 14:42:00 Test Item Value Reference Range Interpretation Comments Sodium (test code = NA) 139 mmol/l 138-146 Potassium (test code = K) 3.4 mmol/l 3.5-4.9 L Chloride (test code = CL) 98 mmol/l 98-109 IONIZED CALCIUM (test code = ICA) 1.16 1.12-1.32 A CO2 (test code = CO2) 30 mmol/l 24-29 H Glucose (test code = GLU) 111 mg/dl 70-105 H BUN (test code = BUN) 5 mg/dl 6-17 L Creatinine (test code = CREA) 0.6 mg/dl 0.6-1.3 [facility]-LufkinOLIGOCLONAL BANDS, [id number] 11:19:00 Test Item Value Reference Range Interpretation Comments OLIGOCLONAL BANDS Comment Zero (0) o ligoclonal (test code = 262527) bands w ere observed in the CSF. Interp retation: Criteria for Po sitivity: Four (4) or mor e oligoclonal ban ds observed only i n the CSF have been shown to be most consistent with MS using our metho d. [Ang , Sa giovanni EL, Zhane ORTEGA, and Lisandro JA: Cerebrospinal F luid Oligoclonal Ban ds in the Diagnosis of Mu ltiple Sclerosis. Am J Clin Pathol 120(5):6 72-675, 2003]. Oligoclo nal bands that are presen t only in the CSF have be en associated with a variety of infl ammatory brain diseases such as multiple sclero sis (MS), subacute enceph alitis, neurosyphilis, etc. Increased IgG i n the CSF is not specific for MS, but is an indic ation of chronic neural inflammation. C linical correlation ind icated. Approximately 2 -3% of clinically conf irmed MS patients show l ittle or no evidence of oligoclonal ban ds in the CSF; however ol igoclonal bands may devel op as the disease progres ses. Oligoclonal Ban ding testing perform ed using Isoelectric Foc using (IEF) and immun oblotting methodology. PERFORMED AT: [facility] [address] [id number] IT COMPLIANCE ANALYST: Deanne Izquierdo MD PHONE: [phone] Health [facility] Hospital-Cache IMMUNOGLOBIN PROFILE [id number] 19:48:00 Test Item Value Reference Range Interpretation Comments IGG, QUANT, CSF (test code = 1.2 mg/dL 0.0-8.6 N 999466) IMMUNOGLOBULIN A, QUANT, CSF (test 0.21 mg/dL 0.00-0.64 N code = 821249) IMMUNOGLOBULIN M, QUANT, CSF (test 0.05 mg/dL 0.00-0.26 N code = 697761) PERFORMED AT: [facility] [id number] IT COMPLIANCE ANALYST: Deanne Izquierdo MD PHONE: [phone] [facility] In Summit DRUG SCREEN 10, URINE, [id number] 12:25:00 Test Item Value Reference Range Interpretation Comments CREATININE, URINE 37.6 mg/dL 20.0-300.0 N (test code = 633075) pH, URINE (test code 7.7 4.5-8.9 N = 699986) PLEASE NOTE (test Comment This assay provides a code = 430174) preliminary unconfirmed analytical test result that may be suitable for cl inical management of patients in cer tain situations. Jai g-test results should be interpreted in the context of clin ical information. Pa parmjit metabolic varia bles, specific drug chemistry, and specimen characteristics can affect test out come. Technical consultation is available if a test result is inconsistent wi th an expected outcom e. (email-[email or web address] [email or web address] or call toll-free [phone]) AMPHETAMINE (test Negative ng/mL Hflhuk=3074 N code = 110818) BARBITURATE (test Negative ng/mL Urumqk=859 N code = 481308) BENZODIAZEPINE (test Negative ng/mL Avpxkp=149 N code = 420367) CANNABINOID (test Negative ng/mL Cutoff=20 N code = 205049) COCAINE (test code = Negative ng/mL Odxisa=073 N 907218) OPIATE (test code = Positive ng/mL Diedbv=224 A Opiate test includes 753690) Codeine, Morphi ne, Hydromorphone, Hydrocodone. PHENCYCLIDINE (test Negative ng/mL Cutoff=25 N code = 436410) METHADONE (test code Negative ng/mL Bpvrst=173 N = 887459) PROPOXYPHENE (test Negative ng/mL Ipdnej=649 N code = 861536) [facility]-LufkinGLUCOSE, [id number] 11:32:00 Test Item Value Reference Range Interpretation Comments Glucose, CSF (test code = GLUCSF) 80 mg/dl 40-70 H [facility]-fkinPROTEIN, TOTAL (CSF)2019-09-22 11:31:00 Test Item Value Reference Range Interpretation Comments T Protein (CSF) (test code = TPCSF) 24 mg/dl 12-60 [facility]-LufkinSP SPINAL TAP [id number] 11:21:18 Procedure: SP SPINAL TAP DIAGNOSTICOrder Date: 09/22/2019 9:36 AMOrdering Provider: DR FLORIAN [facility] - Havertownical Indication: [id number]: ParesthesiaFluoroscopy time: 1.0 minutesTechnique: The procedure was discussed with the patient and informed consentobtained. The patient was transferred to the fluoroscopysuite and placed onthe table in the prone position. The lower back was prepped and draped in theusual sterile fashion. Lidocaine 1% was administered to the skin andsubcutaneous tissues overlying the puncture site. A 22-gauge spinal needle wasthen advanced into the thecal sac at the L3-4 level. Openingpressure of 30 cmH2O was obtained. Approximately 14 cc of clear CSF was obtained for laboratorypurposes. The needle was removed without incident. The puncture site wasdressed with a sterile bandage. The patient tolerated the procedure well.Impression:1. Successful fluoroscopic guided lumbar puncture.2. Opening pressure of 30 cm H2O.3. 14 cc of clear CSF was removed for laboratory purposes.This final report was electronically signed by Dr Rowdy Haskins MD 09/22/201911:14 AMDictated By: ROWDY HASKINSDate: 09/22/2019 11:14[facility]ECE[facility] COUNT/DIFF (BF/CSF)2019-09-22 10:59:00 Test Item Value Reference Range Interpretation Comments Color (test code = COLFL) Colorless Clarity (test code = CLARFL) Clear RBC (test code = RBCFL) 0 /CUMM 0-1 WBC (test code = WBCFL) 0 /CUMM 0-5 must select CSF fluidas specimen sourceUnitypoint Health Mer[facility] Hospital-[facility] 2019-09-22 06:35:00 Test Item Value Reference Range Interpretation Comments Sodium (test code = 137 mmol/l 137-145 NA) Potassium (test 4.3 mmol/l 3.5-5.1 code = K) Chloride (test code 105 mmol/l 98-107 = CL) Calcium (test code 8.0 mg/dl 8.5-10.1 L = CALC) CO2 (test code = 25 mmol/l 21-32 CO2) Glucose (test code 141 mg/dl 74-106 H = GLU) BUN (test code = 5.0 mg/dl 7.0-18.0 L BUN) Creatinine (test 0.5 mg/dl 0.5-1.3 code = CREA) EGFR if >60 [place] (test code mL/min/1.73m\\ = EGFRAA) S\\2 EGFR if Non- >60 Estimate d Glomerular [place] (test code mL/min/1.73m\\ Filtrat ion Rate (eGFR) = EGFRNA) S\\2 Reference Inter vals Decision Points for 18 years and older and average body ma ss: >= 60 Does not exc lude kidney disease. 30 - 59 Suggests mod erate chronic kidney disease and indicates the need for furthe r investigation including asses sment of proteinuria and cardiovascular factors. < 30 U sually indicates a nee d for referral for assessment and management of c hronic kidney failure. [facility] HospitalUzarke-[id number] 16:48:00 Test Item Value Reference Range Interpretation Comments Potassium (test code = K) 4.1 mmol/l 3.5-5.[address] [facility] CenterkinCB WITH AUTO [id number] 08:05:00 Test Item Value Reference Range Interpretation Comments WBC (test code = 4.06 10\\S\\3/ul 4.80-10.80 L WBC) RBC (test code = 2.55 10\\S\\6/ul 4.20-5.40 L RBC) Hemoglobin (test 9.2 gm/dl 12.0-14.0 L code = HGB) Hematocrit (test 27.2 % 37.0-47.0 L code = HCT) MCV (test code = 106.7 fL 81.0-99.0 H MCV) MCH (test code = 36.1 pg 27.0-31.0 H MCH) MCHC (test code = 33.8 gm/dl 33.0-37.0 MCHC) RDW (test code = 15.5 % 11.5-14.5 H RDWVC) Platelet (test code 150 10\\S\\3/ul 130-400 = PLT) MPV (test code = 9.7 fL 7.4-10.4 A "NOT MEASUR ED" MPV) RESULTS ARE DISPLAYED WHEN THE INSTRUMENT HAS A SUPPRESSED OR UNREPORTABLE RE SULT. THIS WILL MOST OFTEN HAPPEN WITH THE MPV WHEN THERE IS A N ABNORMAL PLATEL ET DISTRIBUTION DU E TO A CRITICAL LOW VALUE OR PLATELET CLUMPING. THE R DW MAY BE SUPPRESS ED IF THERE ARE MULTI PLE PEAKS PRESENT O N THE RBC HISTOGRAM. IN THIS CASE, A MA MIQUEL REVIEW OF THE S LIDE WILL BE PERFORM ED, AND RBC MORPHOL OGY WILL BE NOTED O N THE REPORT. NE% (test code = 60.5 % 42.0-75.0 NE) LY% (test code = 29.6 % 13.0-42.0 LY) MO% (test code = 6.9 % 4.0-14.0 MO) EO% (test code = 0.5 % 1.0-5.0 L EO) BA% (test code = 0.5 % 0.0-3.0 BA) IG% (test code = 2.0 % 0.0-0.4 H IG%) RBC Morphology Macrocytic No previous v alue (test code = was reported. A RBCMOR) value of Macroc ytic was entered by [id number] on 09/21 08:05 CBC AUTO [facility]-[id number] 07:34:00 Test Item Value Reference Range Interpretation Comments Sodium (test code = 137 mmol/l 137-145 NA) Potassium (test 3.4 mmol/l 3.5-5.1 L code = K) Chloride (test code 101 mmol/l 98-107 = CL) Calcium (test code 7.8 mg/dl 8.5-10.1 L = CALC) CO2 (test code = 29 mmol/l 21-32 CO2) Glucose (test code 151 mg/dl 74-106 H = GLU) BUN (test code = 6.0 mg/dl 7.0-18.0 L BUN) Creatinine (test 0.6 mg/dl 0.5-1.3 code = CREA) T Protein (test 5.8 gm/dl 6.4-8.2 L code = TP) Albumin (test code 2.5 gm/dl 3.4-5.0 L = ALB) A/G Ratio (test 0.8 % 1.1-2.2 L code = AGRAT) AST (SGOT) (test 206 U/L 15-37 H code = AST) ALT (SGPT) (test 79 U/L 13-61 H code = ALT) Alkaline Phos (test 180 U/L 45-117 H code = ALKP) Total Bilirubin 0.7 mg/dl 0.2-1.0 (test code = TBIL) Globulin (test code 3.3 gm/dl 2.3-3.5 = GLOBU) Calcium, Corrected 9.0 mg/dl 8.4-10.2 Various f ormulas exist (test code = for corrected s colin CALCCORR) calcium results , each yielding differ ent values. This co rrected result was base d on the formula: Co rrected Calcium = Serum Calcium + [0.8 * ( 4 - SerumAlbumin)] EGFR if >60 [place] (test code mL/min/1.73m\\ = EGFRAA) S\\2 EGFR if Non- >60 Estimate d Glomerular [place] (test code mL/min/1.73m\\ Filtrat ion Rate (eGFR) = EGFRNA) S\\2 Reference Inter vals Decision Points for 18 years and older and average body ma ss: >= 60 Does not exc lude kidney disease. 30 - 59 Suggests mod erate chronic kidney disease and indicates t he need for further investigation including asses sment of proteinuria and cardiovascular factors. < 30 U sually indicates a nee d for referral for assessment and management of c hronic kidney failure. [facility] HospitalNftmti-[id number] 07:34:00 Test Item Value Reference Range Interpretation Comments Magnesium (test code = MG) 2.0 mg/dl 1.6-2.6 [facility] HospitalPpxuof-[id number] 00:04:00 Test Item Value Reference Range Interpretation Comments Potassium (test code = K) 3.4 mmol/l 3.5-5.1 L [facility] HospitalLvsiqr-[id number] 18:45:00 Test Item Value Reference Range Interpretation Comments Potassium (test code = K) 3.3 mmol/l 3.5-5.1 L [facility]-LufkinCORTISOL, [id number] 12:35:00 Test Item Value Reference Range Interpretation Comments Cortisol, Random 12.8 ug/dl No establis hed normal (test code = values for this test CORTISOL) method. [facility]-[id number] 05:50:00 Test Item Value Reference Range Interpretation Comments Sodium (test code = 133 mmol/l 137-145 L NA) Potassium (test 2.4 mmol/l 3.5-5.1 LL code = K) Chloride (test code 89 mmol/l 98-107 L = CL) Calcium (test code 7.4 mg/dl 8.5-10.1 L = CALC) CO2 (test code = 35 mmol/l 21-32 H CO2) Glucose (test code 150 mg/dl 74-106 H = GLU) BUN (test code = 8.0 mg/dl 7.0-18.0 BUN) Creatinine (test 0.7 mg/dl 0.5-1.3 code = CREA) EGFR if >60 [place] (test code mL/min/1.73m\\ = EGFRAA) S\\2 EGFR if Non- >60 Estimate d Glomerular [place] (test code mL/min/1.73m\\ Filtrat ion Rate (eGFR) = EGFRNA) S\\2 Reference Inter vals Decision Points for 18 years and older and average body ma ss: >= 60 Does not exc lude kidney disease. 30 - 59 Suggests mod erate chronic kidney disease and indicates t he need for further investigation including asses sment of proteinuria and cardiovascular factors. < 30 U sually indicates a nee d for referral for assessment and management of c hronic kidney failure. Critical values were called to Tiffany by [id number] on 09/20/19 05:50 [employer]PER[employer] HELPER. Results were not read back.[facility] HospitalFndpmu-[id number] 05:50:00 Test Item Value Reference Range Interpretation Comments Magnesium (test code = MG) 1.8 mg/dl 1.6-2.6 [facility] WITH AUTO [id number] 05:44:00 Test Item Value Reference Range Interpretation Comments WBC (test code = 4.00 10\\S\\3/ul 4.80-10.80 L WBC) RBC (test code = 2.59 10\\S\\6/ul 4.20-5.40 L RBC) Hemoglobin (test 9.2 gm/dl 12.0-14.0 L code = HGB) Hematocrit (test 27.6 % 37.0-47.0 L code = HCT) MCV (test code = 106.6 fL 81.0-99.0 H MCV) MCH (test code = 35.5 pg 27.0-31.0 H MCH) MCHC (test code = 33.3 gm/dl 33.0-37.0 MCHC) RDW (test code = 15.4 % 11.5-14.5 H RDWVC) Platelet (test 166 10\\S\\3/ul 130-400 code = PLT) MPV (test code = 9.6 fL 7.4-10.4 A "NOT MEASUR ED" MPV) RESULTS ARE DISPLAYED WHEN THE INSTRUMENT HAS A SUPPRESSED OR UNREPORTABLE RESULT. THIS WI LL MOST OFTEN HAPP EN WITH THE MPV WH EN THERE IS AN ABNORMAL PLATEL ET DISTRIBUTION DU E TO A CRITICAL L OW VALUE OR PLATEL ET CLUMPING. THE R DW MAY BE SUPPRESS ED IF THERE ARE MULTIPLE PEAKS PRESENT ON THE RBC HISTOGRAM. IN T HIS CASE, A MANUAL REVIEW OF THE SLIDE WILL BE PERFORMED, AND RBC MORPHOLOGY WILL BE NOTED ON THE REPORT. NE% (test code = 61.7 % 42.0-75.0 NE) LY% (test code = 30.3 % 13.0-42.0 LY) MO% (test code = 6.5 % 4.0-14.0 MO) EO% (test code = 0.5 % 1.0-5.0 L EO) BA% (test code = 0.5 % 0.0-3.0 BA) IG% (test code = 0.5 % 0.0-0.4 H IG%) RBC Morphology Anisocytosis No previous v alue (test code = Macrocytic was reported. A RBCMOR) Stomatocytes value of Anisocytosis Macrocytic Stomatocytes wa s entered by [id number] on 09/20/2019 05:44 [facility]-fkinURINALYSIS WITH [id number] 05:07:00 Test Item Value Reference Range Interpretation Comments Color (test code = UCOLR) YELLOW Clarity (test code = UCLAR) CLEAR Glucose (test code = UGLUC) NEGATIVE NEGATIVE N Bilirubin (test code = UBILI) NEGATIVE NEGATIVE N Ketones (test code = UKET) NEGATIVE NEGATIVE N Specific [place] (test code = <=1.005 1.005-1.030 A USPGR) Blood (test code = UBLD) NEGATIVE NEGATIVE N PH (test code = UPH) 7.5 4.5-8.0 A Protein (test code = UPROT) NEGATIVE NEGATIVE N Urobilinogen (test code = U UROB) 2.0 >0.2 A Nitrite (test code = UNITR) NEGATIVE NEGATIVE N Leukocyte Esterase (test code = NEGATIVE NEGATIVE N ULEUK) WBC (test code = WBCUR) None Seen 0-5 A RBC (test code = RBCUR) 0-1 0-5 A Epithial Cells (test code = U EPI) 20-30 0-10 A Mucous (test code = UMUC) None Seen None Seen N Bacteria (test code = UBACT) 3+ None Seen,Trace A [facility]-LufkinMRI CSPINE WO/W [id number] 00:03:30If patient is claustrophobic, contact ordering physician for additional instructions. Procedures: MRI TSPINE WO/W CONT, MRI LSPINE WO/W CONT, MRI CSPINE WO/W CONTExam Date: 09/19/2019 2:13 PMOrdering Physician: DR FLORIAN MOPURClinical Indication: [id number]: ParesthesiaComparison: CT of the cervical, thoracic, and lumbar spine, 09/19/19.Technique: Axial and sagittal multisequence imaging of the cervical spine wasperformed without intravenous contrast.FINDINGS:Vertebral body heights and intervertebral disc spaces are preserved.No significant marrow signal abnormalities.Multilevel disc desiccation.Normal alignment without listhesis.No significant abnormality of the brainstem.Cervical spine: Minimal degenerative change of the cervical spine. Vertebralbody heights and intervertebral disc s paces are preserved. No significant spinalcanal stenosis. Spinal cord is of normal course and signalintensity. Nosuspicious enhancement following initiation of intravenous contrast.Thoracic spine: Minimal degenerative change of the thoracic spine. Vertebralbody heights and intervertebral disc spaces are preserved. No significant spinalcanal stenosis. Spinal cord is of normal course and signal intensity. Nosuspicious enhancement following initiation of intravenous contrast.Lumbar spine: Minimal degenerative change of the lumbar spine. Probablehemangioma of the L2 vertebral body. Vertebral body heights and intervertebraldisc spaces are preserved. No significant spinal canal stenosis. Spinal cord isof normal course and signal intensity. No suspicious enhancement followinginitiation of intravenous contrast.No significant abnormality of the remaining visualized soft tissues orretroperitoneum.IMPRESSION:1. No acute MR abnormalities are demonstrated to clearly explain the etiology ofthe patient's symptoms. Specifically, no evident spinal canal stenosis,suspicious mass, or cord signal intensity abnormalities prior to or followingadministration of intravenous contrast.2. Mild chronic findings, as above.NOTIFICATION: Dr. Wheeler notified the patient's nurse, Di, of the MRfindings at 2355 hours on the day of the exam.This final report was electronically signed by Dr Chiqui Wheeler MD09/19/2019 11:57 PMDictated By: CHIQUI FAITHDate: 09/19/2019 23:57[facility] LSPINE WO/W [id number] 00:03:27Pt has a cochlear implant w no info on it. Waiting on Radiologists call.Procedures: MRI TSPINE WO/W CONT, MRI LSPINE WO/W CONT, MRI CSPINE WO/W CONTExam Date: 09/19/2019 2:13 PMOrdering Physician: DR FLORIAN [facility] - Havertownical Indication: [id number]: ParesthesiaComparison: CT of the cervical, thoracic, and lumbar spine, 09/19/19.Technique: Axial and sagittal multisequence imaging of the cervical spine wasperformed without intravenous contrast.FINDINGS:Vertebral body heights and intervertebral disc spaces are preserved.No significant marrow signal abnormalities.Multilevel disc desiccation.Normal alignment without listhesis.No significant abnormality of the brainstem.Cervical spine: Minimal degenerative change of the cervical spine. Vertebralbody heights and intervertebral disc s paces are preserved. No significant spinalcanal stenosis. Spinal cord is of normal course and signalintensity. Nosuspicious enhancement following initiation of intravenous contrast.Thoracic spine: Minimal degenerative change of the thoracic spine. Vertebralbody heights and intervertebral disc spaces are preserved. No significant spinalcanal stenosis. Spinal cord is of normal course and signal intensity. Nosuspicious enhancement following initiation of intravenous contrast.Lumbar spine: Minimal degenerative change of the lumbar spine. Probablehemangioma of the L2 vertebral body. Vertebral body heights and intervertebraldisc spaces are preserved. No significant spinal canal stenosis. Spinal cord isof normal course and signal intensity. No suspicious enhancement followinginitiation of intravenous contrast.No significant abnormality of the remaining visualized soft tissues orretroperitoneum.IMPRESSION:1. No acute MR abnormalities are demonstrated to clearly explain the etiology ofthe patient's symptoms. Specifically, no evident spinal canal stenosis,suspicious mass, or cord signal intensity abnormalities prior to or followingadministration of intravenous contrast.2. Mild chronic findings, as above.NOTIFICATION: Dr. Wheeler notified the patient's nurse, Di, of the MRfindings at 2355 hours on the day of the exam.This final report was electronically signed by Dr Chiqui Wheeler MD09/19/2019 11:57 PMDictated By: CHIQUI FAITHDate: 09/19/2019 23:57[facility] TSPINE WO/W [id number] 00:03:20If patient is claustrophobic, contact ordering physician for additional instructions.Procedures: MRI TSPINE WO/W CONT, MRI LSPINE WO/W CONT, MRI CSPINE WO/W CONTExam Date: 09/19/2019 2:13 PMOrdering Physician: DR FLORIAN [facility] [place]URANTlinical Indication: [id number]: ParesthesiaComparison: CT of the cervical, thoracic, and lumbar spine, 09/19/19.Technique: Axial and sagittal multisequence imaging of the cervical spine wasperformed without intravenous contrast.FINDINGS:Vertebral body heights and intervertebral disc spaces are preserved.No significant marrow signal abnormalities.Multilevel disc desiccation.Normal alignment without listhesis.No significant abnormality of the brainstem.Cervical spine: Minimal degenerative change of the cervical spine. Vertebralbody heights and intervertebral disc spaces are preserved. No significant spinalcanal stenosis. Spinal cord is of normal course and signalintensity. Nosuspicious enhancement following initiation of intravenous contrast.Thoracic spine: Minimal degenerative change of the thoracic spine. Vertebralbody heights and intervertebral disc spaces are preserved. No significant spinalcanal stenosis. Spinal cord is of normal course and signal intensity. Nosuspicious enhancement following initiation of intravenous contrast.Lumbar spine: Minimal degenerative change of the lumbar spine. Probablehemangioma of the L2 vertebral body. Vertebral body heights and intervertebraldisc spaces are preserved. No significant spinal canal stenosis. Spinal cord isof normal course and signal intensity. No suspicious enhancement followinginitiation of intravenous co ntrast.No significant abnormality of the remaining visualized soft tissues orretroperitoneum.IMPRESSION:1. No acute MR abnormalities are demonstrated to clearly explain the etiology ofthe patient's symptoms. Specifically, no evident spinal canal stenosis,suspicious mass, or cord signal intensity abnormalities prior to or followingadministration of intravenous contrast.2. Mild chronic findings, as above.NOTIFICATION: Dr. Wheeler notified the patient's nurse, Di, of the MRfindings at 2355 hours on the day of the exam.This final report was electronically signed by Dr Chiqui Wheeler MD09/19/2019 11:57 PMDictated By: CHIQUI FAITHDate: 09/19/2019 23:57[facility] BRAIN WO/W [id number] 23:34:42If patient is claustrophobic, contact ordering physician for additional instructions.Procedures: MRI BRAIN WO/W CONTExam Date: 09/19/2019 2:25 PMOrdering Physician: DR FLORIAN [facility] [place]linical Indication: [id number]: ParesthesiaComparison: Brain MRI, 09/19/07Technique: Multiplanar multisequence imaging of the brain was performed withoutintravenous contrast. Diffusion weighted and ADC maps are also examined.Findings: No evidence of acute ischemia/infarction on the diffusion weightedsequencesor ADC maps.No intraparenchymal or extra-axial hemorrhage. No mass effect or sulcaleffacement. No midline shift. The brain parenchyma demonstrates normal signalintensity. Jeong-white matter differentiation is within normal limits. Theventricles are within normal limits. No significant abnormality the CSF spaceson the FLAIR sequences. Flow voids are within normal limits. No abnormalenhancement was demon strated following the intravenous administration ofcontrast.The midline anatomy to include the [place], brainstem, visualized spinalcord are within normal limits. No cerebellar tonsillar herniation.No significant abnormality of the paranasal sinuses, mastoid air cells, orbits,or osseous structures.IMPRESSION:1. No MR evidence of acute ischemia/infarction.2. No significant MR abnormalities of the brain.This final report was electronically signed by Dr Chiqui Wheeler MD09/19/2019 11:28 PMDictated By: CHIQUI FAITHDate: 09/19/2019 23:28[facility] (Ultra Sensitive)2019-09-19 16:49:00 Test Item Value Reference Range Interpretation Comments TSH (test code = TSH) 1.41 mIU/L 0.35-3.74 [facility]-[id number] 16:49:00 Test Item Value Reference Range Interpretation Comments Folic Acid (test code = FOLIC) 1.20 ng/ml 3.10-17.50 L [facility]td[facility]-[id number] 16:10:00 Test Item Value Reference Range Interpretation Comments Magnesium (test code = MG) 1.8 mg/dl 1.6-2.6 [facility]O [id number] 12:52:58 PROCEDURES: TIC CT L SPINE W/O CONTRAST, TIC CT T SPINE W/O CONTRAST, TIC CTC- SPINE W/O CONTRASTEXAMDATE: 09/19/2019 10:29 AMORDERING PHYSICIAN: LISANDRO HOPPERCLINICAL INDICATION: [id number]: ParesthesiaCOMPARISON: MRI thoracic and lumbar spine, 07/25/09TECHNIQUE: Axial, coronal, and sagittal CTimages of the lumbar spine areexamined without intravenous contrast.FINDINGS:OSSEOUS: Degenerative changes of the spine are most notable at T12-L1 andL2-L3. No acute osseous abnormalities are demonstrated. No significantabnormalities of visualized portions of the sacrum or posterior iliac bones.SOFT TISSUES: Diffuse hepatic hypoattenuation consistent with hepaticsteatosis; otherwise, the soft tissue of the visualized retroperitoneum andabdomen are without significant abnormality. No abnormal mass lesion.VASCULAR: Evaluation of the vasculature is limited without intravenouscontrast. No obvious vascular abnormalities are demonstrated on this exam.LUNG: No significant CT abnormalities of the lungs.OTH ER: No significant abnormalities of the remaining soft tissues.IMPRESSION: No significant CT abnormalities to suggest acute traumatic injuryof the cervical, thoracic, or lumbar spine. No significant spinal canal stenosisor obvious significant neural foraminal narrowing.This final report was electronically signed by Dr Chiqui Wheeler MD09/19/2019 12:46 PMDictated By: CHIQUI FAITHDate: 09/19/2019 12:46[facility] T SPINE W/O CONTRAST 2019-09-19 12:52:46PROCEDURES: TIC CT L SPINE W/O CONTRAST, TIC CT T SPINE W/O CONTRAST, TIC CTC-SPINE W/O CONTRASTEXAMDATE: 09/19/2019 10:29 AMORDERING PHYSICIAN: LISANDRO HOPPERCLINICAL INDICATION: [id number]: Par esthesiaCOMPARISON: MRI thoracic and lumbar spine, 07/25/09TECHNIQUE: Axial, coronal, and sagittal CTimages of the lumbar spine areexamined without intravenous contrast.FINDINGS:OSSEOUS: Degenerative changes of the spine are most notable at T12-L1 andL2-L3. No acute osseous abnormalities are demonstrat ed. No significantabnormalities of visualized portions of the sacrum or posterior iliac bones.SOFT TISSUES: Diffuse hepatic hypoattenuation consistent with hepaticsteatosis; otherwise, the soft tissue of the visualized retroperitoneum andabdomen are without significant abnormality. No abnormal mass lesion.VASCULAR: Evaluation of the vasculature is limited without intravenouscontrast. No obvious vascular abnormalities are demonstrated on this exam.LUNG: No significant CT abnormalities of the lungs.OTHER: No significant abnormalities of the remaining soft tissues.IMPRESSION: No significant CT abnormalities to suggest acute traumatic injuryof the cervical, thoracic, or lumbar spine. No significant spinal canal stenosisor obvious significant neural foraminal narrowing.This final report was electronically signed by Dr Chiqui Wheeler MD09/19/2019 12:46 PMDictated By: CHIQUI FAITHDate: 12:46[facility] L SPINE W/O [id number] 12:52:39 PROCEDURES: TIC CT L SPINE W/O CONTRAST, TIC CT T SPINE W/O CONTRAST, TIC CTC- SPINE W/O CONTRASTEXAMDATE: 09/19/2019 10:29 AMORDERING PHYSICIAN: LISANDRO HOPPERCLINICAL INDICATION: [id number]: ParesthesiaCOMPARISON: MRI thoracic and lumbar spine, 07/25/09TECHNIQUE: Axial, coronal, and sagittal CTimages of the lumbar spine areexamined without intravenous contrast.FINDINGS:OSSEOUS: Degenerative changes of the spine are most notable at T12-L1 andL2-L3. No acute osseous abnormalities are demonstrated. No significantabnormalities of visualized portions of the sacrum or posterior iliac bones.SOFT TISSUES: Diffuse hepatic hypoattenuation consistent with hepaticsteatosis; otherwise, the soft tissue of the visualized retroperitoneum andabdomen are without significant abnormality. No abnormal mass lesion.VASCULAR: Evaluation of the vasculature is limited without intravenouscontrast. No obvious vascular abnormalities are demonstrated on this exam.LUNG: No significant CT abnormalities of the lungs.OT HER: No significant abnormalities of the remaining soft tissues.IMPRESSION: No significant CT abnormalities to suggest acute traumatic injuryof the cervical, thoracic, or lumbar spine. No significant spinal canal stenosisor obvious significant neural foraminal narrowing.This final report was electronically signed by Dr Chiqui Wheeler MD09/19/2019 12:46 PMDictated By: CHIQUI FAITHDate: 09/19/2019 12:46MMASC[facility] AUSTINB12, [id number] 11:48:00 Test Item Value Reference Range Interpretation Comments B12 (test code = B12) 705 pg/ml [id number] [facility] LAB CHEM [id number] 11:06:00 Test Item Value Reference Range Interpretation Comments Sodium (test code = 131 mmol/l 138-146 L NA) Potassium (test code = 2.3 mmol/l 3.5-4.9 LL R&RB lisandro hopper K) rehabilitation specialist @1104 Chloride (test code = 83 mmol/l 98-109 L CL) IONIZED CALCIUM (test 0.86 1.12-1.32 A code = ICA) CO2 (test code = CO2) 39 mmol/l 24-29 H Glucose (test code = 135 mg/dl 70-105 H GLU) BUN (test code = BUN) 5 mg/dl 6-17 L Creatinine (test code 0.5 mg/dl 0.6-1.3 L = CREA) [facility] LAB CBC WITH AUTO [id number] 11:02:00 Test Item Value Reference Range Interpretation Comments WBC (test code = WBC) 8.75 10\\S\\3/ul 4.80-10.80 RBC (test code = RBC) 3.50 10\\S\\6/ul 4.20-5.40 L Hemoglobin (test code = HGB) 12.5 gm/dl 12.0-14.0 Hematocrit (test code = HCT) 36.0 % 37.0-47.0 L MCV (test code = MCV) 102.9 fL 81.0-99.0 H MCH (test code = MCH) 35.7 pg 27.0-31.0 H MCHC (test code = MCHC) 34.7 gm/dl 33.0-37.0 Platelet (test code = PLT) 288 10\\S\\3/ul 130-400 RDW (test code = RDWVC) 14.8 % 11.5-14.5 H MPV (test code = MPV) 9.0 fL 7.4-10.4 A NE% (test code = NE) 85.1 % 42.0-75.0 H LY% (test code = LY) 11.1 % 13.0-42.0 L MO% (test code = MO) 3.2 % 4.0-14.0 L EO% (test code = EO) 0.0 % 1.0-3.0 L BA% (test code = BA) 0.3 % 1.0-3.0 L IG% (test code = IG%) 0.3 % 0.0-0.4 [facility]
--- NOTE | 2022-09-10 19:29 | RAD REPORT ---
EXAM DESCRIPTION: RAD - Chest Single View - 09/10/2022 7:15 pm CLINICAL HISTORY: CHEST PAIN COMPARISON: None TECHNIQUE: AP portable chest image was obtained 09/10/2022 7:15 pm . FINDINGS: No acute lung parenchymal process. Lung markings are not outside of normal range. Radiopaq ue density overlying the medial left base may be a loop recorder. Cardiac leads overlie the chest. Heart and vasculature are normal. No measurable pleural effusion and no pneumothorax. No acute bony abnormality seen. No acute aortic findings suspected. IMPRESSION: No acute cardiopulmonary process.
[2022-09-10] MEDS ORDERED: MORPHINE 2 MG/ML SYR ONE (19:32)
[2022-09-10] MEDS ORDERED: ONDANSETRON 4 MG/2 ML VIAL ONE ×2 (19:32→22:45)
[2022-09-10] MEDS ORDERED: FAMOTIDINE 20 MG/2 ML VIAL IV ONE (19:32)
[2022-09-10] MEDS ORDERED: NA CHLORIDE 0.9% 1,000 ML ONE ×2 (19:33→22:45)
[2022-09-10 20:02] LABS: Absolute Lymphocytes (CBC) 0.8 K/uL (0.7-4.9); Lymphocytes % 7.8 % (15.3-44.8); MCV 82.3 fL (80-100); MPV 7.4 fL (7.6-11.3); RBC Red Blood Cell Count 4.38 M/uL (3.86-4.86)
[2022-09-10 20:14] LABS: Protime INR 1.35
[2022-09-10 20:24] LABS: Albumin 3.4 g/dL (3.4-5.0); Bilirubin Direct 0.5 mg/dL (0-0.2); Bilirubin Total 1.3 mg/dL (0.2-1.0); Magnesium 1.3 mg/dL (1.8-2.4); Troponin High Sensitivity 10.2 pg/mL (<58.9)
[2022-09-10 20:28] LABS: Potassium 2.5 mmol/L (3.5-5.1)
[2022-09-10] MEDS ORDERED: METHYLPREDNISOLONE 125 MG INJ ONE (20:50)
[2022-09-10] MEDS ORDERED: DIPHENHYDRAMINE 50 MG/ML VIAL ONE ×2 (20:51→22:00)
[2022-09-10] MEDS ORDERED: MORPHINE 4 MG/ML SYR ONE (20:51)
[2022-09-10] MEDS ORDERED: NA CHLORIDE 0.9% 250 ML ONE (20:51)
[2022-09-10] MEDS ORDERED: PROMETHAZINE INJ 25 MG/ML AMP ONE (20:51)
[2022-09-10] MEDS ORDERED: Magnesium Sulfate 2gm IVPB 2 G/50 ML BAG IV ONE (20:52)
[2022-09-10] MEDS ORDERED: KCL 20 MEQ/100 mL IVPB 100 ML IV ONE (20:52)
--- NOTE | 2022-09-10 22:11 | RAD REPORT ---
EXAM DESCRIPTION: US - Abdomen Exam Limited - 09/10/2022 9:37 pm CLINICAL HISTORY: ABD PAIN COMPARISON: No comparisons FINDINGS: A single moderate-sized mobile gallstone is seen. No other stones or sludge identified. Th ere is no wall thickening or pericholecystic fluid. No common duct stone or biliary tree dilatation identified. IMPRESSION: Single mobile stone seen in a normal size gallbladder. No acute gallbladder finding. No biliary tree abnormality.
--- NOTE | 2022-09-10 22:27 | RAD REPORT ---
EXAM DESCRIPTION: CT - Abdomen Pelvis W Contrast - 09/10/2022 9:52 pm CLINICAL HISTORY: abdominal pain COMPARISON: No comparisons TECHNIQUE: Biphasic, helical CT imaging of the abdomen and pelvis was performed following 100 ml non -ionic IV contrast. Oral contrast: No. All CT scans are performed using dose optimization technique as appropriate and may include automated exposure control or mA/KV adjustment according to patient size. FINDINGS: No suspicious findings in the lung bases. Liver shows a pronounced fatty infiltration pattern with no focal liver lesion. No portal vein abnorm ality. No splenomegaly or focal splenic finding. No focal mass of the pancreatic parenchyma. There is subtle congestion or edema the pancreatic tissues. Correlation is needed with any possible pancreati tis findings. Gallbladder and biliary tree are also without suspicious finding. Symmetric renal function is seen with no hydronephrosis or suspicious renal mass. No pyelonephritis o r acute parenchymal process. No bladder abnormalities. No adrenal abnormalities. No gastric dilatation or gastric wall thickening. No small bowel abnormality seen. Right hemicolectom y surgical changes are present. Small bowel to colon anastomosis in the upper midline abdomen shows n o suspicious findings. Left miracle colon shows no suspicious finding. No uterine or right ovarian abnormality. Clip is present in the expected location of the right fallop vikki tube. No left clip is present. Left ovary contains a 4.2 centimeter benign appearing cyst. No free air, free fluid or inflammatory stranding. No mass or bulky lymphadenopathy. Postsurgical ch anges are noted in the right mid abdominal wall presumed to be prior ostomy site. No suspicious bony findings. IMPRESSION: Subtle edema in the pancreatic parenchyma. Correlation is needed with any clinical or la boratory findings of mild pancreatitis. No bowel obstruction or surgically emergent finding. Right hemicolectomy and right mid abdomen ostom y reduction surgical changes are evident. Approximately 4 centimeter left ovarian cyst with benign characteristics.
[2022-09-10 22:52] LABS: Anisocytosis 1+; Blood Morphology Comment NOTED (NOT SEEN); Platelet Estimate ADEQ; White Blood Cell Scan OK (OK)
--- NOTE | 2022-09-10 23:24 | EDPHYS ---
Physician Documentation [facility] Name: Estevan Peters Age: 37 yrs Sex: Female : 1985 Arrival Date: 09/10/2022 Time: 18:36 Bed 15 Private MD: ED Physician Ani Higgins HPI: 09/10 19:00 This 37 yrs old Female presents to ER via Ambulatory with complaints of Chest Pain, cp Vomiting. 19:00 The patient presents to the emergency department with nausea, with "dry heaves", cp vomiting, that is continuous. 19:00 Onset: The symptoms/episode began/occurred this morning, about 0100. Possible causes: cp unknown. Associated signs and symptoms: Pertinent positives: abdominal pain, anorexia, chest pain, Pertinent negatives: constipation, diarrhea, fever, GI bleeding. Severity of symptoms: in the emergency department the symptoms are unchanged despite home interventions. 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 - Social history:: Smoking status: Patient denies any tobacco usage or history of. Patient/guardian denies using alcohol. ROS: 19:05 Constitutional: Positive for poor PO intake, Negative for body aches, chills, fever. cp 19:05 Eyes: Negative for injury, pain, redness, and discharge. cp 19:05 ENT: Negative for drainage from ear(s), ear pain, sore throat, difficulty swallowing, difficulty handling secretions. 19:05 Cardiovascular: Positive for chest pain. 19:05 Respiratory: Negative for shortness of breath, wheezing. 19:05 Abdomen/GI: Positive for abdominal pain, nausea and vomiting, anorexia, Negative for diarrhea, constipation. 19:05 Neuro: Negative for altered mental status, dizziness, headache, syncope, weakness. 19:05 All other systems are negative. Exam: 18:55 ECG was reviewed by the Attending Physician. cp 19:10 Constitutional: The patient appears in no acute distress, alert, awake, cp non-diaphoretic, non-toxic, well developed, well nourished, uncomfortable. 19:10 Head/Face: Normocephalic, atraumatic. cp 19:10 Eyes: Periorbital structures: appear normal, Conjunctiva: normal, no exudate, no injection, Sclera: no appreciated abnormality, Lids and lashes: appear normal, bilaterally. 19:10 ENT: External ear(s): are unremarkable, Nose: is normal, Mouth: Lips: moist, Oral mucosa: pink and intact, moist, Posterior pharynx: Airway: no evidence of obstruction, patent. 19:10 Chest/axilla: Inspection: normal. 19:10 Cardiovascular: Rate: tachycardic, Rhythm: regular. 19:10 Respiratory: the patient does not display signs of respiratory distress, Respirations: normal, no use of accessory muscles, no retractions, labored breathing, is not present, Breath sounds: are clear throughout, no decreased breath sounds, no stridor, no wheezing. 19:10 Abdomen/GI: Inspection: abdomen appears normal, Bowel sounds: active, all quadrants, Palpation: soft, in all quadrants, moderate abdominal tenderness, in the epigastric area, rebound tenderness, is not appreciated, involuntary guarding, is not appreciated. 19:10 Back: CVA tenderness, is absent. 19:10 Neuro: Orientation: to person, place \\T\\ time. Mentation: is normal, Motor: moves all fours, strength is normal, Sensation: is normal. Vital Signs: 18:45 BP 157 / 112; Pulse 113; Resp 18; Temp 98.1(O); Pulse Ox 98% on R/A; Weight 83.91 kg; ld1 Height 5 ft. 3 in. (160.02 cm); Pain 0/10; 18:51 BP 156 / 93; Pulse 100; ll1 19:30 BP 146 / 97; Pulse 97; Resp 13; Pulse Ox 98% on R/A; jb4 20:30 BP 162 / 106; Pulse 102; Resp 19; Pulse Ox 100% on R/A; jb4 22:15 BP 170 / 118; Pulse 88 LC; Resp 24; Pulse Ox 100% on R/A; jb4 23:15 BP 150 / 103; Pulse 80; Resp 12; Pulse Ox 98% on R/A; jb4 11 00:00 BP 149 / 103; Pulse 88; Resp 15; Pulse Ox 97% on R/A; jb4 01:21 BP 157 / 100; Pulse 100; Resp 20; Pulse Ox 96% on R/A; jb4 09/10 18:45 Body Mass Index 32.77 (83.91 kg, 160.02 cm) ld1 MDM: 09/10 18:48 Patient medically screened. cp 20:00 Differential diagnosis: gastritis, cholecystitis, pancreatitis, appendicitis, viral cp gastroenteritis, gastroenteritis. 23:20 Data reviewed: vital signs, nurses notes, lab test result(s), EKG, radiologic studies, cp CT scan, plain films, ultrasound. 23:20 Test interpretation: by ED physician or midlevel provider: ECG, plain radiologic cp studies. Counseling: I had a detailed discussion with the patient and/or guardian regarding: the historical points, exam findings, and any diagnostic results supporting the discharge/admit diagnosis, lab results, radiology results, the need for further work-up and treatment in the hospital. Response to treatment: the patient's symptoms have mildly improved after treatment, and as a result, I will admit patient. Physician consultation: Luisito BULL regarding admission, to the telemetry unit. patient's condition, and will see patient in ED, shortly. 09/10 18:54 Order name: Basic Metabolic Panel; Complete Time: 00:33 cp 09/10 22:39 Interpretation: Normal except: NA 135; K 2.5; CL 89; CO2 34; GLUC 217; GFR 85. 09/10 18:54 Order name: CBC with Diff; Complete Time: 23:17 cp 09/10 20:33 Interpretation: Normal except: HGB 11.7; MCH 26.7; RDW 22.0; MPV 7.4; ULISES% 87.3; LYM% cp 7.8; NEUT A 9.0. 09/10 18:54 Order name: LFT's; Complete Time: 00:33 cp 09/10 20:33 Interpretation: Normal except: AST 77; ALK 191; BILIT 1.3; BILID 0.5; GLOB 4.6; A/G 0.7. 09/10 18:54 Order name: Magnesium; Complete Time: 00:33 cp 09/10 22:43 Interpretation: Abnormal: MG 1.3. 09/10 18:54 Order name: PT-INR; Complete Time: 20:32 cp 09/10 18:54 Order name: Troponin HS; Complete Time: 00:33 cp 09/10 18:54 Order name: XRAY Chest (1 view); Complete Time: 20:32 cp 09/10 18:54 Order name: Lipase; Complete Time: 00:33 cp 09/10 20:34 Interpretation: Abnormal: LIP 622. 09/10 22:22 Order name: CBC Smear Scan; Complete Time: 23:17 EDMS 09/10 23:23 Order name: SARS-COV-2 Antigen Rapid; Complete Time: 00:33 wm 09/10 23:54 Order name: CPK la 09/10 23:54 Order name: Lipid Profile la 09/10 23:56 Order name: Creatine Phosphokinase; Complete Time: 00:33 EDMS 09/10 23:56 Order name: Lipid Profile; Complete Time: 00:33 EDMS 09/10 20:35 Order name: US Abdomen Limited; Complete Time: 22:38 cp 09/10 22:39 Interpretation: Report reviewed. 09/10 20:44 Order name: CT Abd/Pelvis - IV Contrast Only; Complete Time: 22:38 09/10 18:50 Order name: EKG; Complete Time: 18:51 ll1 09/10 18:50 Order name: EKG - Nurse/Tech; Complete Time: 18:50 1 09/10 18:54 Order name: Cardiac monitoring; Complete Time: 18:55 09/10 18:54 Order name: IV Saline Lock; Complete Time: 19:55 09/10 18:54 Order name: Labs collected and sent; Complete Time: 19:55 09/10 18:54 Order name: O2 Per Protocol; Complete Time: 18:55 09/10 18:54 Order name: O2 Sat Monitoring; Complete Time: 18:55 09/10 23:54 Order name: NPO; Complete Time: 00:24 la1 EC:55 Rate is 100 beats/min. Rhythm is regular. DE interval is normal. QRS interval is cp normal. QT interval is normal. T waves are Flattened in leads III, aVL. Interpreted by me. Reviewed by me. Administered Medications: 20:03 Drug: Zofran (Ondansetron) 4 mg Route: IVP; Site: right antecubital; 4 20:30 Follow up: Response: No adverse reaction; Marked relief of symptoms jb4 20:03 Drug: Pepcid (famotidine) 20 mg Route: IVP; Site: right antecubital; jb4 20:30 Follow up: Response: No adverse reaction jb4 20:03 Drug: morphine 2 mg Route: IVP; Infused Over: 4 mins; Site: right antecubital; jb4 20:30 Follow up: Response: No adverse reaction; Marked relief of symptoms jb4 20:03 Drug: NS 0.9% 1000 ml Route: IV; Rate: 1 bolus; Site: right antecubital; jb4 21:00 Follow up: Response: No adverse reaction; IV Status: Completed infusion; IV Intake: jb4 1000ml 21:16 Drug: Potassium Chloride 20 mEq {Note: Administered with 250ml on NS.} Route: IV; Rate: jb4 calculated rate; Site: right antecubital; 22:16 Follow up: Response: No adverse reaction; IV Status: Completed infusion; IV Intake: jb4 350ml 21:16 Drug: SOLU-Medrol (methylPrednisoLONE) 125 mg Route: IVP; Site: right antecubital; jb4 21:40 Follow up: Response: No adverse reaction jb4 21:16 Drug: Benadryl (diphenhydrAMINE) 25 mg Route: IVP; Site: right antecubital; jb4 21:40 Follow up: Response: No adverse reaction jb4 21:16 Drug: Phenergan (promethazine) 25 mg Route: IM; Site: right gluteus; jb4 21:45 Follow up: Response: No adverse reaction; Marked relief of symptoms jb4 21:16 Drug: morphine 4 mg Route: IVP; Infused Over: 4 mins; Site: right antecubital; jb4 21:45 Follow up: Response: No adverse reaction; Marked relief of symptoms; Pain is decreased jb4 22:06 Drug: Benadryl (diphenhydrAMINE) 25 mg Route: IVP; Site: right antecubital; kd3 22:30 Follow up: Response: No adverse reaction; Marked relief of symptoms jb4 22:42 Not Given (Physician Discretion): Potassium Effervescent Tablet 50 mEq PO once; cp dissolve in 4 ounces of water or juice 23:02 Drug: Magnesium Sulfate 2 grams Route: IVPB; Infused Over: 2 hrs; Site: right jb4 antecubital; 09/11 01:02 Follow up: Response: No adverse reaction; IV Status: Completed infusion; IV Intake: [id number] 09/10 23:02 Drug: NS 0.9% 1000 ml Route: IV; Rate: 1 bolus; Site: right antecubital; jb4 09/11 01:02 Follow up: Response: No adverse reaction; IV Status: Completed infusion; IV Intake: jb4 1000ml 09/10 23:02 Drug: Zofran (Ondansetron) 4 mg Route: IVP; Site: right antecubital; jb4 23:30 Follow up: Response: No adverse reaction; Marked relief of symptoms jb4 09/11 00:51 Drug: Lactated Ringers Solution 1000 ml Route: IV; Rate: 150 ml/hr; Site: right jb4 antecubital; 01:39 Follow up: Response: No adverse reaction; IV Status: Infusion continued upon admission jb4 01:13 Drug: Dilaudid (HYDROmorphone) 0.5 mg Route: IVP; Site: right antecubital; jb4 01:39 Follow up: Response: No adverse reaction; Marked relief of symptoms jb4 01:13 Drug: Phenergan (promethazine) 12.5 mg Route: IVP; Site: right antecubital; jb4 01:39 Follow up: Response: No adverse reaction; Marked relief of symptoms jb4 Disposition Summary: 09/10/22 23:23 Hospitalization [facility]dered [facility] cp Condition: Stable cp Problem: new cp Symptoms: have improved cp Bed/Room Type: Standard cp Provider: Gerard Steen(09/10/22 23:25) laVika Hospitalization Status: Inpatient Admission(09/10/22 23:31) Room Assignment: 224(09/11/22 00:39) Diagnosis - Biliary acute pancreatitis cp - Hypokalemia cp - Hypomagnesemia cp - Nausea with vomiting, unspecified - intractable(09/10/22 23:29) cp Forms: - Medication Reconciliation Form cp - SBAR form cp Signatures: Dispatcher [employer] EDMS Aby Mckeon RN RN mw Janine Rojas RN RN bb Luisito Remy, VETERINARY SURGERY TECHNICIAN-C VETERINARY SURGERY TECHNICIAN-Cla1 Sd Walter PA PA cp Brando Hilario RN RN jb4 Cyn Valdes RN RN ll1 Anna Marie Mcknight RN RN ld1 Eliana Kat RN RN kd3 Corrections: (The following items were deleted from the chart) 09/10 18:47 18:46 Allergies: No Known Allergies; ld1 ld1 22:39 20:33 Reviewed. cp cp 23:25 23:23 Kaveh Glover cp la1 23:28 23:23 Nausea with vomiting, unspecified - intractable cp cp 23:31 23:23 Observation cp bb 09/11 00:39 09/10 23:23 cp mw
--- NOTE | 2022-09-10 23:24 | ER ---
Nurse's Notes [facility] Name: Estevan Peters Age: 37 yrs Sex: Female : 1985 Arrival Date: 09/10/2022 Time: 18:36 Bed 15 Private MD: Diagnosis: Biliary acute pancreatitis;Hypokalemia;Hypomagnesemia;Nausea with vomiting, unspecified-intractable Presentation: 09/10 18:45 Chief complaint: Patient states: Reporting vomiting since 0100 this AM. Coronavirus ld1 screen: At this time, the client does not indicate any symptoms associated with coronavirus-19. Ebola Screen: No symptoms or risks identified at this time. Initial Sepsis Screen: Does the patient meet any 2 criteria? No. Patient's initial sepsis screen is negative. Does the patient have a suspected source of infection? No. Patient's initial sepsis screen is negative. Risk Assessment: Do you want to hurt yourself or someone else? Patient reports no desire to harm self or others. Onset of symptoms was September 10, 2022. 18:45 Method Of Arrival: Ambulatory ld1 18:45 Acuity: MARYAN 3 ld1 Triage Assessment: 18:46 General: Appears in no apparent distress. uncomfortable, Behavior is calm, cooperative, ld1 appropriate for age. Pain: Denies pain. EENT: No signs and/or symptoms were reported regarding the EENT system. Neuro: Level of Consciousness is awake, alert, obeys commands, Oriented to person, place, time, situation, Appropriate for age. Cardiovascular: Capillary refill < 3 seconds Patient's skin is warm and dry. Rhythm is sinus tachycardia. Respiratory: Airway is patent Respiratory effort is even, unlabored. GI: Abdomen is round non-distended, Pt is actively vomiting clear fluid. : No signs and/or symptoms were reported regarding the genitourinary system. Derm: No signs and/or symptoms reported regarding the dermatologic system. Musculoskeletal: No signs and/or symptoms reported regarding the musculoskeletal system. 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 - Social history:: Smoking status: Patient denies any tobacco usage or history of. Patient/guardian denies using alcohol. Screenin:51 Abuse screen: Denies threats or abuse. Nutritional screening: No deficits noted. ll1 Tuberculosis screening: No symptoms or risk factors identified. Fall Risk IV access (20 points). Total Gotti Fall Scale indicates No Risk (0-24 pts). Assessment: 18:50 Reassessment: No changes from previously documented assessment. Patient and/or family ll1 updated on plan of care and expected duration. Pain level reassessed. Patient is alert, oriented x 3, equal unlabored respirations, skin warm/dry/pink. C. Page at bedside. 18:52 Pain: Pain does not radiate. Pain began 1 day ago. ll1 19:08 Reassessment: No changes from previously documented assessment. Patient and/or family ll1 updated on plan of care and expected duration. Pain level reassessed. 20:28 Reassessment: Patient appears in no apparent distress at this time. Patient and/or jb4 family updated on plan of care and expected duration. Pain level reassessed. Patient is alert, oriented x 3, equal unlabored respirations, skin warm/dry/pink. Patient states feeling better. 21:30 Reassessment: Patient appears in no apparent distress at this time. Patient and/or jb4 family updated on plan of care and expected duration. Pain level reassessed. Patient is alert, oriented x 3, equal unlabored respirations, skin warm/dry/pink. 22:30 Reassessment: Patient appears in no apparent distress at this time. Patient and/or jb4 family updated on plan of care and expected duration. Pain level reassessed. Patient is alert, oriented x 3, equal unlabored respirations, skin warm/dry/pink. 23:30 Reassessment: Patient appears in no apparent distress at this time. Patient and/or jb4 family updated on plan of care and expected duration. Pain level reassessed. Patient is alert, oriented x 3, equal unlabored respirations, skin warm/dry/pink. 09/11 00:30 Reassessment: Admitting provider notified pt is still itching and starting to develop jb4 hives. See MAR for orders. 01:15 Reassessment: Patient appears in no apparent distress at this time. Patient and/or jb4 family updated on plan of care and expected duration. Pain level reassessed. Patient is alert, oriented x 3, equal unlabored respirations, skin warm/dry/pink. Admiting provider informed pt reports having not urinated since yesterday and having received 2 1L bolus of NS and has approximately 267 Ml of urine in the bladder. Instructed to continue IV fluids and monitor. Vital Signs: 09/10 18:45 BP 157 / 112; Pulse 113; Resp 18; Temp 98.1(O); Pulse Ox 98% on R/A; Weight 83.91 kg; ld1 Height 5 ft. 3 in. (160.02 cm); Pain 0/10; 18:51 BP 156 / 93; Pulse 100; ll1 19:30 BP 146 / 97; Pulse 97; Resp 13; Pulse Ox 98% on R/A; jb4 20:30 BP 162 / 106; Pulse 102; Resp 19; Pulse Ox 100% on R/A; jb4 22:15 BP 170 / 118; Pulse 88 LC; Resp 24; Pulse Ox 100% on R/A; jb4 23:15 BP 150 / 103; Pulse 80; Resp 12; Pulse Ox 98% on R/A; jb4 09/11 00:00 BP 149 / 103; Pulse 88; Resp 15; Pulse Ox 97% on R/A; jb4 01:21 BP 157 / 100; Pulse 100; Resp 20; Pulse Ox 96% on R/A; jb4 09/10 18:45 Body Mass Index 32.77 (83.91 kg, 160.02 cm) ld1 ED Course: 09/10 18:36 Patient arrived in ED. mr 18:38 Sd Walter PA is PHCP. cp 18:38 Dae Steen MD is Attending Physician. cp 18:39 Cyn Valdes, GRACIELA is Primary Nurse. ll1 18:39 Arm band placed on Patient placed in an exam room, on a stretcher. ll1 18:46 Triage completed. ld1 18:51 Patient has correct armband on for positive identification. Bed in low position. Call ll1 light in reach. Side rails up X 1. Client placed on continuous cardiac and pulse oximetry monitoring. NIBP monitoring applied. security monitor on. 18:51 EKG done, by ED staff, reviewed by Sd ROQUE. Patient maintains SpO2 saturation ll1 greater than 95% on room air. 19:00 Missed attempt(s): 22 gauge in right forearm. Bleeding controlled, band aid applied, ll1 catheter tip intact. 19:02 Missed attempt(s): 22 gauge in right hand. Bleeding controlled, band aid applied, ll1 catheter tip intact. 19:13 Ani Higgins MD is Attending Physician. cp 19:17 XRAY Chest (1 view) In Process Unspecified. EDMS 19:41 Primary Nurse role handed off by Cyn Valdes, GRACIELA wm 19:45 Initial lab(s) drawn, by ct, sent to lab. Inserted saline lock: 20 gauge in right bb antecubital area, using aseptic technique. Blood collected. 20:03 Brando Hilario, GRACIELA is Primary Nurse. jb4 21:39 US Abdomen Limited In Process Unspecified. EDMS 21:54 CT Abd/Pelvis - IV Contrast Only In Process Unspecified. EDMS 23:23 Kaveh Glover MD is Hospitalizing Provider. cp 23:25 Gerard Steen MD is Hospitalizing Provider. la1 09/11 02:02 No provider procedures requiring assistance completed. Patient admitted, IV remains in jb4 place. Administered Medications: 09/10 20:03 Drug: Zofran (Ondansetron) 4 mg Route: IVP; Site: right antecubital; jb4 20:30 Follow up: Response: No adverse reaction; Marked relief of symptoms jb4 20:03 Drug: Pepcid (famotidine) 20 mg Route: IVP; Site: right antecubital; jb4 20:30 Follow up: Response: No adverse reaction jb4 20:03 Drug: morphine 2 mg Route: IVP; Infused Over: 4 mins; Site: right antecubital; jb4 20:30 Follow up: Response: No adverse reaction; Marked relief of symptoms jb4 20:03 Drug: NS 0.9% 1000 ml Route: IV; Rate: 1 bolus; Site: right antecubital; jb4 21:00 Follow up: Response: No adverse reaction; IV Status: Completed infusion; IV Intake: jb4 1000ml 21:16 Drug: Potassium Chloride 20 mEq {Note: Administered with 250ml on NS.} Route: IV; Rate: jb4 calculated rate; Site: right antecubital; 22:16 Follow up: Response: No adverse reaction; IV Status: Completed infusion; IV Intake: jb4 350ml 21:16 Drug: SOLU-Medrol (methylPrednisoLONE) 125 mg Route: IVP; Site: right antecubital; jb4 21:40 Follow up: Response: No adverse reaction jb4 21:16 Drug: Benadryl (diphenhydrAMINE) 25 mg Route: IVP; Site: right antecubital; jb4 21:40 Follow up: Response: No adverse reaction jb4 21:16 Drug: Phenergan (promethazine) 25 mg Route: IM; Site: right gluteus; jb4 21:45 Follow up: Response: No adverse reaction; Marked relief of symptoms jb4 21:16 Drug: morphine 4 mg Route: IVP; Infused Over: 4 mins; Site: right antecubital; jb4 21:45 Follow up: Response: No adverse reaction; Marked relief of symptoms; Pain is decreased jb4 22:06 Drug: Benadryl (diphenhydrAMINE) 25 mg Route: IVP; Site: right antecubital; kd3 22:30 Follow up: Response: No adverse reaction; Marked relief of symptoms jb4 22:42 Not Given (Physician Discretion): Potassium Effervescent Tablet 50 mEq PO once; cp dissolve in 4 ounces of water or juice 23:02 Drug: Magnesium Sulfate 2 grams Route: IVPB; Infused Over: 2 hrs; Site: right [facility] antecubital; 09/11 01:02 Follow up: Response: No adverse reaction; IV Status: Completed infusion; IV Intake: [id number] 09/10 23:02 Drug: NS 0.9% 1000 ml Route: IV; Rate: 1 bolus; Site: right antecubital; jb4 09/11 01:02 Follow up: Response: No adverse reaction; IV Status: Completed infusion; IV Intake: jb4 1000ml 09/10 23:02 Drug: Zofran (Ondansetron) 4 mg Route: IVP; Site: right antecubital; jb4 23:30 Follow up: Response: No adverse reaction; Marked relief of symptoms 4 09/11 00:51 Drug: Lactated Ringers Solution 1000 ml Route: IV; Rate: 150 ml/hr; Site: right jb4 antecubital; 01:39 Follow up: Response: No adverse reaction; IV Status: Infusion continued upon admission jb4 01:13 Drug: Dilaudid (HYDROmorphone) 0.5 mg Route: IVP; Site: right antecubital; jb4 01:39 Follow up: Response: No adverse reaction; Marked relief of symptoms jb4 01:13 Drug: Phenergan (promethazine) 12.5 mg Route: IVP; Site: right antecubital; jb4 01:39 Follow up: Response: No adverse reaction; Marked relief of symptoms jb4 Medication: 09/10 18:51 VIS not applicable for this client. ll1 Intake: 21:00 IV: 1000ml; Total: 1000ml. jb4 22:16 IV: 350ml; Total: 1350ml. jb4 09/11 01:02 IV: 50ml; Total: 1400ml. jb4 01:02 IV: 1000ml; Total: 2400ml. jb4 Outcome: 09/10 23:23 Decision to Hospitalize by Provider. cp 09/11 02:02 Admitted to Med/surg accompanied by tech, via wheelchair, room 224, with chart. jb4 Condition: stable Discharge instructions given to patient, Instructed on the need for admit, Demonstrated understanding of instructions. 02:03 Patient left the ED. jb4 Signatures: Dispatcher [employer] EDMA HarshadErmelinda mr RojasJanine RN RN bb Luisito Remy, ELECTRICAL LOGGING ENGINEER-C ELECTRICAL LOGGING ENGINEER-Cla1 Sd Walter PA PA cp Bryson, James, RN RN jb4 Cyn Valdes RN RN ll1 Anna Marie Mcknight RN RN ld1 Piedad Ware Kyli, RN RN kd3 Corrections: (The following items were deleted from the chart) 09/10 18:47 18:46 Allergies: No Known Allergies; ld1 ld1 09/11 01:35 09/10 21:16 Potassium Chloride 20 mEq IV at calculated rate in right antecubital jb4 jb4
[2022-09-11 00:13] LABS: SARS-CoV-2 Antigen Rapid Res Negative (Negative)
[2022-09-11] MEDS ORDERED: Ringers Lactate 1,000 ML IV ONE (00:35)
[2022-09-11] MEDS ORDERED: PROMETHAZINE INJ 25 MG/ML AMP ONE (01:00)
[2022-09-11] MEDS ORDERED: HYDROMORPHONE HCL 0.5 MG/0.5 ML INJ ONE (01:01)
--- NOTE | 2022-09-11 01:07 | P.HP ---
Certification for Inpatient Patient admitted to: Inpatient With expected LOS: >2 Midnights Patient will require the following post-hospital care: None Practitioner: I am a practitioner with admitting privileges, knowledge of patient current condition, hospital course, and medical plan of care. Services: Services provided to patient in accordance with Admission requirements found in Title 42 Section 412.3 of the Code of Federal Regulations <Luisito Remy Minnie Jones - Last Filed: 09/11/22 01:02> Patient History Date of Service: 09/11/22 Reason for admission: Acute pancreatitis History of Present Illness: 37-year-old female with history of wpt-nqrnvps-cokeqgkym diabetes, hypertension, SVT presents to the emergency department for epigastric pain, vomiting. She reports that her symptoms started around 1 AM on 09/10/2022 and persisted all day, she reports greater than 10 episodes of vomiting throughout the day today. She is evaluated here in the emergency department her labs were significant for hypokalemia, hypomagnesemia, elevated lipase, mild elevated alk phos, T bili, D bili. CT of the abdomen pelvis was performed with IV contrast which showed subtle edema in the pancreatic parenchyma. Correlation is needed with any clinical or laboratory findings of mild pancreatitis. No bowel obstruction or surgically emergent findings. Right hemicolectomy and right mid abdomen ostomy reduction surgical changes are evident. 4 cm left ovarian cyst with benign characteristics. Ultrasound was performed of the gallbladder which revealed single mobile stone seen and normal size gallbladder. No acute gallbladder findings, no biliary tree abnormality. Patient has epigastric pain/tenderness, CT findings for early pancreatitis as well as mildly elevated lipase. Suspect early acute pancreatitis with intractable vomiting. Will admit for further evaluation and management. - Past Medical/Surgical History -: Diabetes mellitus type [id number]-ghggzoyhb -: Hypertension -: SVT -: Right hemicolectomy with ostomy/reversal -: Tubal ligation -: Left ear surgery -: Left humerus repair Psychosocial/ Personal History: Patient lives at home with family - Family History Mother -: Heart disease, Diabetes, Stroke Father -: Heart disease, Hypertension - Social History Smoking Status: Never smoker Alcohol use: No CD- Drugs: No Caffeine use: Yes Place of Residence: Home <Luisito Remy - Last Filed: 09/11/22 01:02> Date of Service: 09/11/22 <Gerard Steen - Last Filed: 09/11/22 20:04> Review of Systems 10-point ROS is otherwise unremarkable Gastrointestinal: Nausea, Vomiting, Abdominal Pain <Luisito Remy - Last Filed: 09/11/22 01:02> Physical Examination - Physical Exam General: Alert, In no apparent distress, Oriented x3 HEENT: Atraumatic, PERRLA, Mucous membr. moist/pink, EOMI, Sclerae nonicteric Neck: Supple, 2+ carotid pulse no bruit, No LAD, Without JVD or thyroid abnormality Respiratory: Clear to auscultation bilaterally, Normal air movement Cardiovascular: Regular rate/rhythm, Normal S1 S2 Capillary refill: <2 Seconds Gastrointestinal: Normal bowel sounds, No rebound, No guarding, Tenderness (Mild epigastric tenderness) Musculoskeletal: No tenderness Integumentary: No rashes Neurological: Normal speech, Normal strength at 5/5 x4 extr, Normal tone, Normal affect - Studies Laboratory Data (last 24 hrs) 09/10/22 23:54: Triglycerides Cancelled, Cholesterol Cancelled, HDL Cholesterol Cancelled, Cholesterol/HDL Ratio Cancelled 09/10/22 19:45: PT 14.9 H, INR 1.35 09/10/22 19:45: WBC 10.30, Hgb 11.7 L, Hct 36.0, Plt Count 287 09/10/22 19:45: Sodium 135 L, Potassium 2.5 L*, BUN 8, Creatinine 0.89, Glucose 217 H, Magnesium 1.3 L*, Total Bilirubin 1.3 H, AST 77 H, ALT 38, Alkaline Phosphatase 191 H, Triglycerides 151 H, Cholesterol 157, HDL Cholesterol 42, Cholesterol/HDL Ratio 3.74, Lipase 622 H <Luisito Remy - Last Filed: 09/11/22 01:02> - Studies Laboratory Data (last 24 hrs) 09/10/22 23:54: Triglycerides Cancelled, Cholesterol Cancelled, HDL Cholesterol Cancelled, Cholesterol/HDL Ratio Cancelled 09/10/22 19:45: PT 14.9 H, INR 1.35 09/10/22 19:45: WBC 10.30, Hgb 11.7 L, Hct 36.0, Plt Count 287 09/10/22 19:45: Sodium 135 L, Potassium 2.5 L*, BUN 8, Creatinine 0.89, Glucose 217 H, Magnesium 1.3 L*, Total Bilirubin 1.3 H, AST 77 H, ALT 38, Alkaline Phosphatase 191 H, Triglycerides 151 H, Cholesterol 157, HDL Cholesterol 42, Cholesterol/HDL Ratio 3.74, Lipase 622 H <Gerard Steen - Last Filed: 09/11/22 20:04> Assessment and Plan - Plan Assessment: Acute pancreatitis, intractable vomiting Diabetes mellitus type [id number]-oxrkcanei Hypertension Hypomagnesemia, hypokalemia SVT Plan: Acute pancreatitis, intractable vomiting: N.p.o., aggressive IVF, as needed pain medications and antiemetics. GI consult in place. Unclear etiology patient is not a drinker, triglycerides only mildly elevated, ultrasound gallbladder shows 1 mobile stone with no signs of acute biliary or gallbladder process. Patient does take glipizide which could possibly contribute. Monitor lipase daily, replace electrolytes. Diabetes mellitus type 1cga-nazsuyp-iqwubsmvz: Every 6 hours Accu-Chek, mild sliding scale insulin. Hypertension: Hold oral medications at this time, restart appropriate Hypomagnesemia, hypokalemia: Replaced in ED, protocol in place. SVT: Monitor on telemetry, patient reports episodes of SVT on a monthly basis states she can typically vagal out of them on her own. DVT PPX: Lovenox Code status: Full Discharge Plan: Home Plan to discharge in: 72 Hours - Advance Directives Does patient have a Living Will: No Does patient have a Durable POA for Healthcare: No - Code Status/Comfort Care Code Status Assessed: Yes (Full code) Critical Care: No Time Spent Managing Pts Care (In Minutes): 70 <Luisito Remy - Last Filed: 09/11/22 01:02> - Plan Pt seen and examined on rounds this AM slight improvement, only nauseated when tries to eat/drink lipase improved stone noted in gallbladder GI consulted, recommended MRCP <Gerard Steen - Last Filed: 09/11/22 20:04>
[2022-09-11] MEDS ORDERED: SODIUM CHLORIDE 0.9% 10ML INJ IV PRN (02:15)
[2022-09-11 02:27] VITALS: BMI 29.0
[2022-09-11] MEDS: Ringers Lactate 1,000 ML IV SCH ×3 (03:05→15:14)
[2022-09-11] MEDS: MORPHINE 2 MG/ML SYR IV PRN ×4 (03:05→20:25)
[2022-09-11] MEDS: ONDANSETRON 4 MG/2 ML VIAL IV PRN (03:34)
[2022-09-11] MEDS: LORazepam 2 MG/ML VIAL IV PRN ×2 (05:15→19:16)
[2022-09-11 06:17] LABS: Absolute Lymphocytes (CBC) 0.5 K/uL (0.7-4.9); Hematocrit 32.5 % (36.0-45.0); Lymphocytes % 6.8 % (15.3-44.8); MCV 83.8 fL (80-100); MPV 7.6 fL (7.6-11.3); RBC Red Blood Cell Count 3.88 M/uL (3.86-4.86)
[2022-09-11 06:39] LABS: Albumin 3.1 g/dL (3.4-5.0); Bilirubin Total 1.1 mg/dL (0.2-1.0); Phosphorus 2.7 mg/dL (2.5-4.9); Protein, Total 7.1 g/dL (6.4-8.2)
[2022-09-11] MEDS: INSULIN -REGULAR HUMAN 50 UNIT/0.5 ML ML SQ SCH ×3 (06:55→18:00)
[2022-09-11 07:07] LABS: Blood Morphology Comment NOTED (NOT SEEN); Platelet Estimate ADEQ; White Blood Cell Scan OK (OK)
[2022-09-11 07:08] LABS: Anisocytosis 1+
[2022-09-11] MEDS ORDERED: INSULIN -REGULAR HUMAN 50 UNIT/0.5 ML ML SQ SCH (07:30)
[2022-09-11] MEDS ORDERED: PNEUMOCOCCAL VACCINE 0.5 ML IMVAC ONE (08:00)
[2022-09-11] MEDS: PANTOPRAZOLE 40 MG INJ IVP SCH ×2 (08:30→20:33)
[2022-09-11] MEDS: carvediloL 3.125 MG TAB PO SCH ×2 (08:30→20:24)
[2022-09-11] MEDS: ENOXAPARIN 40 MG/0.4 ML SQ SCH (08:31)
[2022-09-11] MEDS: PROMETHAZINE INJ 25 MG/ML AMP IV PRN ×2 (08:32→20:25)
[2022-09-11] MEDS ORDERED: KCL 20 MEQ/100 mL IVPB 20 MEQ/100 ML BAG IV SCH (09:00)
[2022-09-11] MEDS ORDERED: POTASSIUM 25 MEQ EFFERV TAB PO ONE (09:00)
--- NOTE | 2022-09-11 13:56 | EKG ---
Test Date: 2022-09-10 Test Time: 18:48:57 Plant Floor Automation Manager: STACI MEASUREMENT RESULTS: Intervals: Rate: 100 CO: 184 QRSD: 82 QT: 312 QTc: 402 [place]: P: -26 CO: 184 QRS: 68 T: 262 INTERPRETIVE STATEMENTS: Normal sinus rhythm T wave abnormality, consider inferior ischemia Abnormal ECG No previous ECG available for comparison Electronically Signed On 09-11-22 13:55:14 LAB PACK CHEMIST by Jeff Julio
[2022-09-11] MEDS: DIPHENHYDRAMINE 50 MG/ML VIAL IV PRN (15:14)
[2022-09-11] MEDS: HYDRALAZINE HCL 20 MG/ML VIAL IV PRN (18:23)
--- NOTE | 2022-09-11 20:04 | RAD REPORT ---
EXAM DESCRIPTION: MRI - Cholangiogram - 09/11/2022 7:51 pm CLINICAL HISTORY: gallstone Abdominal pain COMPARISON: No comparisons FINDINGS: Three-dimensional MRCP was performed using maximum intensity projection reconstruction on the same work station. Diffuse fatty liver is present. No intrahepatic biliary tree dilatation is seen. The common bile duct is normal caliber without evidence of retained stone, stricture or mass. The pancreatic duct is not pathologically dilated. Cholelithiasis. Limited T2 sequences through the abdomen demonstrates no bulky adenopathy, significant free fluid or abscess. IMPRESSION: Cholelithiasis. No significant biliary dilatation.
[2022-09-11] MEDS: PREGABALIN 150 MG CAP PO SCH (20:24)
[2022-09-11] MEDS: KCL 20 MEQ/100 mL IVPB 20 MEQ/100 ML BAG IV SCH (22:14)
[2022-09-12] MEDS: Ringers Lactate 1,000 ML IV SCH ×4 (00:48→20:56)
[2022-09-12] MEDS: PROMETHAZINE INJ 25 MG/ML AMP IV PRN ×4 (00:48→17:58)
[2022-09-12] MEDS: MORPHINE 2 MG/ML SYR IV PRN ×5 (00:48→20:54)
[2022-09-12] MEDS: KCL 20 MEQ/100 mL IVPB 20 MEQ/100 ML BAG IV SCH ×4 (00:49→22:12)
[2022-09-12 06:32] LABS: Absolute Lymphocytes (CBC) 1.2 K/uL (0.7-4.9); Lymphocytes % 25.8 % (15.3-44.8); MCV 84.5 fL (80-100); MPV 7.7 fL (7.6-11.3); RBC Red Blood Cell Count 3.79 M/uL (3.86-4.86)
[2022-09-12 06:43] LABS: Albumin 2.7 g/dL (3.4-5.0); Magnesium 1.9 mg/dL (1.8-2.4); Phosphorus 2.2 mg/dL (2.5-4.9); Potassium 3.2 mmol/L (3.5-5.1); Protein, Total 6.5 g/dL (6.4-8.2)
[2022-09-12] MEDS: INSULIN -REGULAR HUMAN 50 UNIT/0.5 ML ML SQ SCH ×4 (07:30→20:56)
[2022-09-12] MEDS: PANTOPRAZOLE 40 MG INJ IVP SCH ×2 (08:27→20:55)
[2022-09-12] MEDS: PREGABALIN 150 MG CAP PO SCH ×2 (08:27→20:55)
[2022-09-12] MEDS: ENOXAPARIN 40 MG/0.4 ML SQ SCH (08:27)
[2022-09-12] MEDS: ONDANSETRON 4 MG/2 ML VIAL IV PRN (08:28)
[2022-09-12] MEDS: carvediloL 3.125 MG TAB PO SCH ×2 (08:28→20:54)
[2022-09-12 15:39] LABS: Specific Gravity 1.012 (1.005-1.030); Urine Bilirubin NEGATIVE (Negative); Urine Blood Negative (Negative); Urine Clarity Clear (Clear); Urine Color Yellow (Yellow); Urine Glucose NEGATIVE (Negative); Urine Mucus Slight /HPF (None Seen); Urine Protein NEGATIVE (Negative); Urine RBC <5 /HPF (None Seen); Urine Urobilinogen 1+ (Normal)
--- NOTE | 2022-09-12 15:39 | CON ---
Date of Consultation: 09/12/2022 Reason For Consultation: Pancreatitis, midepigastric and left upper quadrant pain associated with na usea and vomiting. History Of Present Illness: The patient is a 37-year-old white female with history of diabetes, hype rtension, and SVT, who presented to the hospital with acute midepigastric and left upper quadrant elza n maximum 10/10 and now down to 4/10 associated with nausea, vomiting, fevers, and chills. The patie nt denies history of hypertriglyceridemia, even though she does not recall ever having a lipid panel done, she thinks. Does not think it has been elevated in the past by her recollection. The patient is a nurse. Ultrasound of the abdomen did reveal a single gallstone within gallbladder; however, MRC P which was done after discussing with GI service revealed no stones in the common bile duct. Of not e, the patient states that in June 2021, she was diagnosed with multiple vitamin deficiencies inclu ding vitamin B12, folate, vitamin D, B6, also potassium, magnesium, iron, and other vitamins and mine rals as well. This was done at [facility] in [place]. She states that she never had a fox p for these multiple deficiencies including she has never had an upper endoscopy with small bowel bio psies to assess this. 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 In February 2022, the patient had 3 feet of her bowel resected, i t appears to be right hemicolectomy by chart and an ostomy reversal due to bowel adhesed into 1 kidne y with urosepsis and positive blood cultures have been requiring and couple of weeks of IV antibiotic s after discharge from the hospital. She also had tubal ligation, left ear surgery, left humerus rep air, and SVT. Family History: , but going to separation currently due to 's anger issues, she states ; 4 children, ages 19, 16, 13, and 9. She is a nurse in [employer]; however, jonatan watson lives in [place], [place]. She has rare tobacco or rare alcohol. Father is alive with hypertension, hyperlipidemia, coronary artery disease, status post MIs and 2-vessel CABG. Mother with diabetes, hy pertension, alive with hyperlipidemia, and 2 strokes. She is 62 years of age. Allergies: TO IV CONTRAST DYE. Medications: Currently she is on carvedilol, Phenergan, Lovenox, hydralazine, insulin, potassium, At pricila, morphine, normal saline, IV fluid, Zofran, Protonix q.12, Hemovac, Lyrica, promethazine, and Be nadryl 12.5. Physical Examination: Vital Signs: The patient is 5 feet 6 inches, 180 pounds, BMI 29.1 kg/m2. Temperature 97.6 degrees F ahrenheit, pulse 83, respirations 18, blood pressure 163/100, O2 saturation 99%. General: She is a mildly obese female, lying in bed, no acute distress except for HEENT: Normocephalic, atraumatic. Anicteric. Pupils equal, round, and reactive. Oropharynx is gisela ar. Lips were chapped with bleeding. Neck: Supple. No masses. Respirations: Clear to auscultation bilaterally. Cardiac: Regular rate and rhythm. Gastrointestinal: Positive bowel sounds. Soft. Mild tenderness in the left upper quadrant area. N o peritoneal or Lopez sign. No rebound. No hepatosplenomegaly. Extremities: No clubbing, cyanosis, or edema. 2+ pulses. Neuro: Alert and oriented x3. Grossly nonfocal. 5/5 motor. Sensation intact light to touch. Laboratory Data: The patient's white count is 4.6 down from 10.3 on admission on the 7th, hemoglobin of 10.3, hematocrit of 32, MCV of 85, platelet count of 158, polys of 70 down from 92% yesterday, ly mphocytes of 22%, monocytes 4%, eosinophils 0.1%. PT of 14.9, INR of 1.4. Sodium 137, potassium 3.2 , chloride 98, bicarb 33, BUN of 6, creatinine of 0.68, glucose of 151, calcium 7.9, phosphorus 2.2, magnesium 1.9, total bilirubin 1.0, AST of 135, ALT of 38, alkaline phosphatase 144, total protein 6. 5, albumin 2.7, triglycerides 151, cholesterol 157, , lipase of 622. Repeat lipase down to 22, normal. Serologies: COVID-[address] of the abdomen and pelvis revealed subtle e dick of parenchyma suggestive of mild pancreatitis, right hemicolectomy, right abdominostomy reductio n, surgical changes evident, 4 cm left ovarian cyst that appeared benign. Ultrasound of the abdomen revealed single mobile gallstone and normal gallbladder. No acute gallbladder findings. Biliary kristofer e was clear. No stones in the common bile duct. MRCP revealed cholelithiasis with diffuse fatty buddy er is present. No bile duct dilatation. Common bile duct normal in caliber without evidence of jeni ined stone, stricture, mass. Pancreatic duct is normal. The patient did have stones within the gall bladder and there was no adenopathy or free fluid or abscess noted in the abdomen. Impression: 1.Acute pancreatitis, etiology unclear. This could be from gallstone pancreatitis versus celiac dis ease induced pancreatitis or other. The patient has midepigastric and left lower quadrant pain 10/10 , now down to 4/10 with p.r.n. pain medications and antiemetics. The patient continued to have some nausea with some vomiting. No fevers or chills now, which she had prior to admission. Ultrasound of the abdomen revealed a single gallstone in the gallbladder and MRCP revealed no stones or dilatation of the biliary tree; however, there were multiple stones in the gallbladder and fatty liver disease. The patient probably has gallstone pancreatitis versus celiac disease, pancreatitis or other. Of n ote, the patient has had multiple vitamin deficiencies noted in June 2020 at [facility]. Th ere has been no investigation of small bowel biopsies or other further workup for these multiple herve min deficiencies, but it leads suspicion to possible malabsorption state. 2.The patient has history of diabetes, hypertension, degenerative joint disease involving the thorac ic spine with T10 bulge, severe diabetic neuropathy with ataxia and fall in the recent past. She has multiple vitamin deficiencies including folate, vitamin B12, D3, B6, iron, magnesium, potassium, and other minerals and vitamins in June of 2020 at [facility] in [place] without further multi ple deficiency workups such as small bowel workup. 3.Repeat of right hemicolectomy performed in February 2022 at [facility] due to uros epsis with attachment of bowel to kidney, she reports. Recommendations: 1.Check celiac panel. 2.Check lipid panel, which has been done, which was unremarkable with triglycerides 151. Continue I V fluids 150 cc an hour of normal saline or could use lactated Ringer's as well. 3.Continue p.r.n. pain medicines and antiemetics. 4.Check vitamin B12, folate, magnesium, phosphorus, vitamin D, and iron numbers. 5.EGD as outpatient after pancreatitis has resolved, inflammation of small bowel resolved to get sma ll bowel biopsies for assessment of these multiple vitamin and mineral deficiencies. Of note that du e to multiple vitamin deficiencies could be leading not only to her pancreatitis, but to her ataxia a nd maybe social dynamic problems with her family leading to her ongoing separation and pending divorc e. ARTHUR/FAUSTINO Voice ID: [id number] Report ID: [id number]
--- NOTE | 2022-09-12 15:54 | P.PN ---
Date of Service: 09/12/22 Subjective: slight improvement in pain, but minimal tolerated sips of wter, apple juice made her throw up no new/worsening symptoms ROS: 10 point ROS as noted above, otherwise negative Physical exam GEN: Alert, oriented, NAD HEENT: Normal conjunctiva, sclera anicteric CV: Regular rate and rhythm, no edema Pulm: Nonlabored respirations on room air ABD: Soft, mild-mod epigastric tenderness, no distention Neuro: Normal speech, normal affect Problem List Acute pancreatitis, intractable vomiting Diabetes mellitus type 6buh-llipzur-bqsfiypul Hypertension Hypomagnesemia, hypokalemia h/o vitamin deficiencies SVT acute pancreatitis lipase normalized pain persists edema noted on CT gallstone noted on U/S MRCP noted multiple stones in gallbladder GI consulted continue CLD, IVF, anti-emetics and pain medication possible celiac disease; panel sent, check vitamin levels, h/o multiple vitamin deficiency 2020 reports h/o intermittent emesis of undigested food several hours after eating gastric emptying study ordered NIDDM2 - accucheks HTN - restart home meds electrolyte abnormalities - secondary to dehydration, replete as needed h/o SVT - monitor on telemetry VTE: lovenox Code: full Dispo: home, ~2-3 days Time Spent Managing Pts Care (In Minutes): 35
[2022-09-13] MEDS: KCL 20 MEQ/100 mL IVPB 20 MEQ/100 ML BAG IV SCH (00:12)
[2022-09-13] MEDS: Ringers Lactate 1,000 ML IV SCH ×4 (00:12→22:57)
[2022-09-13] MEDS: PROMETHAZINE INJ 25 MG/ML AMP IV PRN ×5 (00:14→20:12)
[2022-09-13] MEDS: MORPHINE 2 MG/ML SYR IV PRN ×5 (00:32→20:11)
[2022-09-13 06:17] LABS: Absolute Lymphocytes (CBC) 1.3 K/uL (0.7-4.9); Hematocrit 30.3 % (36.0-45.0); Lymphocytes % 30.6 % (15.3-44.8); MCV 83.9 fL (80-100); MPV 8.1 fL (7.6-11.3); RBC Red Blood Cell Count 3.61 M/uL (3.86-4.86)
[2022-09-13 06:56] LABS: ALT/SGPT 43 U/L (12-78); AST/SGOT 123 U/L (15-37); Albumin 2.9 g/dL (3.4-5.0); Alkaline Phosphatase 135 U/L (45-117); Bicarbonate 32 mmol/L (21-32); Bilirubin Total 0.9 mg/dL (0.2-1.0); Ferritin 150.8 ng/mL (8-388); Folic Acid, (Folate) 2.6 ng/mL (3.1-17.5); Glomerular Filtration Rate 115 ml/min (=/>90); Glucose Level 116 mg/dL (74-106); Lipase 93 U/L (73-393); Magnesium 1.8 mg/dL (1.8-2.4); Phosphorus 2.8 mg/dL (2.5-4.9); Potassium 3.7 mmol/L (3.5-5.1); Protein, Total 6.6 g/dL (6.4-8.2); Sodium Level 137 mmol/L (136-145); Transferrin 251 mg/dL (200-360)
[2022-09-13 07:04] LABS: BUN Blood Urea Nitrogen < 3 mg/dL (7-18)
[2022-09-13] MEDS ORDERED: POTASSIUM CL SA 10 MEQ TAB PO ONE (07:18)
[2022-09-13] MEDS: INSULIN -REGULAR HUMAN 50 UNIT/0.5 ML ML SQ SCH ×4 (07:30→20:24)
[2022-09-13] MEDS ORDERED: KCL 20 MEQ/100 mL IVPB 20 MEQ/100 ML BAG IV SCH (08:00)
[2022-09-13] MEDS: PREGABALIN 150 MG CAP PO SCH ×2 (09:00→20:11)
[2022-09-13] MEDS: carvediloL 3.125 MG TAB PO SCH ×2 (09:00→20:11)
[2022-09-13] MEDS: ENOXAPARIN 40 MG/0.4 ML SQ SCH (09:40)
[2022-09-13] MEDS: PANTOPRAZOLE 40 MG INJ IVP SCH ×2 (09:41→20:11)
[2022-09-13] MEDS: LORazepam 2 MG/ML VIAL IV PRN (11:36)
--- NOTE | 2022-09-13 13:40 | RAD REPORT ---
EXAM DESCRIPTION: NM - Gastric Emptying Study - 09/13/2022 1:25 pm CLINICAL HISTORY: eval gastric emptying, nausea, fullness COMPARISON: Cholangiogram dated 09/11/2022 TECHNIQUE: The patient was administered approximately 1 mCi Tc 99m sulfur colloid in solid egg meal. Imaging of the left upper quadrant was performed with time/activity curve generated. FINDINGS: Cine-loop images show normal progression of the radiopharmaceutical from the stomach into the small bowel. Time to one-half activity is 107.9 minutes, normal. Two hour retention is 43%. No ot her significant findings. IMPRESSION: Gastric emptying study is within normal limits.
--- NOTE | 2022-09-13 17:53 | P.PN ---
Subjective Date of Service: 09/13/22 Chief Complaint: Acute pancreatitis, MYRIAM/LUQ pain, N/V/F/C Subjective: Improving (Lipase normal at 93 with less abdominal pain. She still notes nausea with dysphagia and an air bubble in her throat / chest area.) Review of Systems 10-point ROS is otherwise unremarkable Gastrointestinal: Nausea (Improved.), Abdominal Pain (Improved.), Other (dysphagia) Physical Examination - Vital Signs Temperature: 97.4 F Blood Pressure: 149/94 Pulse: 91 Respirations: 16 Pulse Ox (%): 97 Assessment And Plan - Current Problems (Diagnosis) (1) Pancreatitis Current Visit: Yes Status: Acute (2) Epigastric abdominal pain Current Visit: Yes Status: Acute (3) LUQ abdominal pain Current Visit: Yes Status: Acute (4) Nausea & vomiting Current Visit: Yes Status: Acute (5) Fever and chills Current Visit: Yes Status: Acute (6) Dysphagia Current Visit: Yes Status: Acute - Plan REC: 1) continue IVFs, and prn anti-emetics / pain medications 2) EGD tomorrow 3) continue PPI therapy
--- NOTE | 2022-09-13 20:38 | P.PN ---
Date of Service: 09/13/22 Subjective: slight improvement in pain still with nausea with liquids feels air bubble sensation in throat/chest, difficulty swallowing liquids/food at times ROS: 10 point ROS as noted above, otherwise negative Physical exam GEN: Alert, oriented, NAD HEENT: Normal conjunctiva, sclera anicteric CV: Regular rate and rhythm, no edema Pulm: Nonlabored respirations on room air ABD: Soft, mild-mod epigastric tenderness, no distention Neuro: Normal speech, normal affect Problem List Acute pancreatitis, intractable vomiting Diabetes mellitus type 9dhj-llzggah-xpenxssvz Hypertension Hypomagnesemia, hypokalemia h/o vitamin deficiencies SVT acute pancreatitis lipase normalized pain persists, slight improvement edema around pancrease noted on CT gallstone noted on U/S MRCP noted multiple stones in gallbladder GI consulted continue CLD, IVF, anti-emetics and pain medication possible celiac disease; panel sent, check vitamin levels, h/o multiple vitamin deficiency 2020 general surgery consulted for evaluate of cholecystectomy, suspect outpatient procedure once pancreatitis resolved/recovered reports h/o intermittent emesis of undigested food several hours after eating gastric emptying study 09/13 - normal sensation of air bubble and difficulty swallowing liquids at times EGD tomorrow NIDDM2 - accucheks HTN - restarted home meds electrolyte abnormalities - secondary to dehydration, replete as needed h/o SVT - monitor on telemetry VTE: lovenox Code: full Dispo: home, ~2 days Time Spent Managing Pts Care (In Minutes): 35
[2022-09-14] MEDS: PROMETHAZINE INJ 25 MG/ML AMP IV PRN ×5 (02:57→22:32)
[2022-09-14] MEDS: MORPHINE 2 MG/ML SYR IV PRN ×5 (02:58→22:31)
[2022-09-14] MEDS: Ringers Lactate 1,000 ML IV SCH ×4 (05:10→21:33)
[2022-09-14 05:30] LABS: Absolute Lymphocytes (CBC) 0.9 K/uL (0.7-4.9); Hematocrit 29.7 % (36.0-45.0); Lymphocytes % 23.8 % (15.3-44.8); MCV 84.1 fL (80-100); MPV 8.2 fL (7.6-11.3); RBC Red Blood Cell Count 3.53 M/uL (3.86-4.86)
[2022-09-14 05:48] LABS: Albumin 2.8 g/dL (3.4-5.0); Bilirubin Total 0.7 mg/dL (0.2-1.0); Magnesium 1.7 mg/dL (1.8-2.4); Phosphorus 3.5 mg/dL (2.5-4.9); Potassium 3.8 mmol/L (3.5-5.1); Protein, Total 6.3 g/dL (6.4-8.2)
[2022-09-14] MEDS ORDERED: MAGNESIUM SULFATE 1 gm IVPB 1 GM/100 ML BAG IV ONE (07:00)
[2022-09-14] MEDS: INSULIN -REGULAR HUMAN 50 UNIT/0.5 ML ML SQ SCH ×4 (07:30→21:00)
[2022-09-14] MEDS ORDERED: KCL 20 MEQ/100 mL IVPB 20 MEQ/100 ML BAG IV SCH (08:00)
[2022-09-14] MEDS: PANTOPRAZOLE 40 MG INJ IVP SCH ×2 (08:13→21:35)
[2022-09-14] MEDS: PREGABALIN 150 MG CAP PO SCH ×2 (08:14→21:34)
[2022-09-14] MEDS: carvediloL 3.125 MG TAB PO SCH ×2 (08:14→21:35)
[2022-09-14] MEDS: DIPHENHYDRAMINE 50 MG/ML VIAL IV PRN (11:02)
[2022-09-14] MEDS ORDERED: Ringers Lactate 1,000 ML IV ONE (14:33)
[2022-09-14] MEDS ORDERED: propofoL 200 MG/20 ML VIAL IV ONE ×2 (14:37→14:44)
[2022-09-14] MEDS ORDERED: LIDOCAINE 1% MPF 5 ML VIAL ONE (14:37)
[2022-09-14] MEDS ORDERED: MIDAZOLAM HCL 2 MG/2 ML INJ ONE (14:37)
--- NOTE | 2022-09-14 15:14 | ENDO RPT ---
[address], [address] EGD PROCEDURE REPORT EXAM DATE: 09/14/2022 PATIENT NAME: Estevan Peters MR#: [id number] BIRTHDATE: 1985 ATTENDING: Jace [address] Dr STATUS: inpatient - [facility] FIRESTOP/CONTAINMENT WORKER: Susan Coleman RN and Tiera Corona INDICATIONS: The patient is a 37 yr old Female here for an EGD due to dysphagia, regurgitation of partially digested food (sometimes almost immediately after swallowing food), right upper quadrant abdominal pain, mid epigastric abdominal pain, and nausea and vomiting PROCEDURE PERFORMED: EGD with biopsy MEDICATIONS: Per Anesthesia. TOPICAL ANESTHETIC: none CONSENT: The patient understands the risks and benefits of the procedure and understands that these risks include, but are not limited to: sedation, allergic reaction, infection, perforation and/or bleeding. Alternative means of evaluation and treatment include, among others: physical exam, x-rays, and/or surgical intervention. The patient elects to proceed with this endoscopic procedure. DESCRIPTION OF PROCEDURE: During intra-op preparation period all mechanical medical equipment was checked for proper function. Hand hygiene and appropriate measures for infection prevention was taken. Procedure, possible complications, and alternatives including but not limited to the possibility of bleeding, perforation, tear, infection, sepsis, need for surgery, need for blood transfusion, and anesthesia related complications were explained to the patient. After the risks, benefits and alternatives of the procedure were thoroughly explained, Informed consent was verified, confirmed and timeout was successfully executed by the treatment team. The patient was placed in the left lateral position. The patient was anesthetized with topical anesthesia. Through the anesthetized oropharyngeal area, the scope was passed without any difficulty. The [id number] ([id number]) endoscope was introduced through the mouth and advanced to the third portion of the duodenum. Retroflexed views revealed a small hiatal hernia. The gastroscope was then slowly withdrawn and removed. Numerous white-yellow plaques were found in the total esophagus. Multiple biopsies were obtained and sent to pathology. Marked spasm of the lower esophageal sphincter / esophagus was found in the lower esophagus - moderate pressure applied to intubate past with slight tear of mucosa. A small hiatal hernia was found. Mild gastritis was found in the antrum. Multiple biopsies were obtained and sent to pathology. Multiple (2) erosions were found in the pre-pyloric antrum. ADVERSE EVENTS: There were no complications. IMPRESSIONS: 1. 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 Marked spasm of the lower esophageal sphincter / esophagus in the lower esophagus - moderate pressure applied to intubate past with slight tear of mucosa -> suspicion of Achalasia 3. Small hiatal hernia 4. Mild gastritis in the antrum, s/p biopsies 5. Multiple (2) erosions in the pre-pyloric antrum RECOMMENDATIONS: 1. await biopsy results 2. acid suppression therapy 4. Diflucan therapy REPEAT EXAM: Jace Nicholas Dr eSigned: Jace Nicholas Dr 09/14/2022 3:14 PM cc: CPT CODES: ICD9 CODES: PATIENT NAME: Estevan Peters MR#: [id number]
[2022-09-14] MEDS ORDERED: FLUCONAZOLE 200mg IVPB 200 MG/100 ML BAG IV ONE (16:00)
[2022-09-14] MEDS: LORazepam 2 MG/ML VIAL IV PRN (17:55)
--- NOTE | 2022-09-14 19:18 | CON ---
Date of Consultation: 09/14/2022 Diagnosis: Pancreatitis. History Of Present Illness: This is a case of a 37-year-old patient who came to us several days ago with epigastric pain and vomiting. The patient was diagnosed with pancreatitis. During the entire p rocess of the admission, she was also finding what she described as unable to swallow properly so she has been having extensive workup. She is not new to Surgery. She had a right hemicolectomy in the past. She is trying to describe the process of it, she stated that the surgeons were there to inspec t the area and noticed the right side of the large bowel where inflamed and decided to do a right hem icolectomy and also had to give her a colostomy and then went back several months later and reversed the colostomy. The details of the surgery, I do not have them. It is unusual to just have a right h emicolectomy and even a colostomy unless something catastrophic happened. She has been doing well. She has a midline incision from that surgery, but now never been okay with her swallowing and her bel ly ache. She was diagnosed with pancreatitis, but also found to have gallstones, although at this ti me, it does not seem to be the reason for this. Surgical consult was obtained for surgical options. Past Medical History: Diabetes, hypertension, and heart disease. Past Surgical History: Include right hemicolectomy with midline laparotomy incision and also another surgery with reversal of colostomy, tubal ligation, left ear surgery, left humerus bone surgery. Family History: Heart disease, diabetes, and stroke. Social History: She does not smoke. She does not drink alcohol. Review of Systems: See above. Once again, nausea and abdominal pain. Physical Examination: General: The patient is awake and alert. Eyes: Pupils are equal and reactive. Anicteric. Neck: Supple. Chest: Clear. Heart: S1, S2. Abdomen: Soft and depressible. No guarding. No rebound. No peritoneal signs. No Lopez signs. T he pain that she had before has improved. A midline incision is present. Extremities: Good capillary refill. Data Reviewed: We reviewed her CT scan of the abdomen and pelvis. We reviewed the MRI and also revi ewed the abdominal ultrasound that shows cholelithiasis, but no inflammation. No stones causing any blockage on the common bile duct. Plan: From the surgical standpoint, she is going to continue with the GI workup. We will not perfor m the cholecystectomy at this moment, although in the future she might need it. She understands the risks of that judging by the amount of scar tissue she has and previous midline incisions, so obvious ly she wants to make sure that it is the problem before she commits and at this moment, I believe she has some other issues that have to be addressed. It might change in the next few days, but at least this is our impression at this moment and she was advised when she gets discharged to follow in our office. MONISHA/FAUSTINO Voice ID: [id number] Report ID: [id number]
--- NOTE | 2022-09-14 20:07 | P.PN ---
Date of Service: 09/14/22 Subjective: no significant improvement continues with throat pain, difficulty swallowing liquids nausea continues intermittent ROS: 10 point ROS as noted above, otherwise negative Physical exam GEN: Alert, oriented, NAD HEENT: Normal conjunctiva, sclera anicteric CV: Regular rate and rhythm, no edema Pulm: Nonlabored respirations on room air ABD: Soft, mild-mod epigastric tenderness, no distention Neuro: Normal speech, normal affect Problem List Acute pancreatitis, intractable vomiting Diabetes mellitus type [id number] Hypertension Hypomagnesemia, hypokalemia h/o vitamin deficiencies SVT acute pancreatitis lipase normalized pain slightly improved edema around pancreas noted on CT gallstone noted on U/S MRCP noted multiple stones in gallbladder GI consulted continue FLD, IVF, anti-emetics and pain medication possible celiac disease; panel sent, check vitamin levels, h/o multiple vitamin deficiency 2020 general surgery consulted for evaluation of cholecystectomy, suspect outpatient procedure once pancreatitis resolved/recovered reports h/o intermittent emesis of undigested food several hours after eating gastric emptying study 09/13 - normal sensation of air bubble and difficulty swallowing liquids at times EGD today achalasia vs dysmotility vs esophageal candidiasis vs gastritis/esophagitis NIDDM2 - accucheks HTN - restarted home meds electrolyte abnormalities - secondary to dehydration, replete as needed h/o SVT - monitor on telemetry VTE: lovenox Code: full Dispo: home, ~2 days once tolerating PO and pending EGD results Time Spent Managing Pts Care (In Minutes): 35
[2022-09-14] MEDS: ENSURE CLEAR 200 ML CAN PO SCH (21:34)
[2022-09-15] MEDS: MORPHINE 2 MG/ML SYR IV PRN ×5 (03:52→22:33)
[2022-09-15] MEDS: PROMETHAZINE INJ 25 MG/ML AMP IV PRN ×5 (03:52→22:33)
[2022-09-15] MEDS: Ringers Lactate 1,000 ML IV SCH ×3 (05:16→17:30)
[2022-09-15] MEDS: LORazepam 2 MG/ML VIAL IV PRN ×2 (05:16→15:57)
[2022-09-15 05:26] LABS: Absolute Lymphocytes (CBC) 0.9 K/uL (0.7-4.9); Lymphocytes % 19.9 % (15.3-44.8); MCV 85.2 fL (80-100); MPV 7.9 fL (7.6-11.3); RBC Red Blood Cell Count 3.29 M/uL (3.86-4.86)
[2022-09-15 05:56] LABS: Albumin 2.6 g/dL (3.4-5.0); Bilirubin Total 0.6 mg/dL (0.2-1.0); Potassium 3.8 mmol/L (3.5-5.1)
[2022-09-15] MEDS ORDERED: KCL 20 MEQ/100 mL IVPB 20 MEQ/100 ML BAG IV SCH (07:20)
[2022-09-15] MEDS: INSULIN -REGULAR HUMAN 50 UNIT/0.5 ML ML SQ SCH ×4 (07:30→21:00)
[2022-09-15] MEDS: PANTOPRAZOLE 40 MG INJ IVP SCH ×2 (08:17→21:23)
[2022-09-15] MEDS: ENSURE CLEAR 200 ML CAN PO SCH ×2 (08:20→21:00)
[2022-09-15] MEDS: carvediloL 3.125 MG TAB PO SCH ×2 (08:20→21:23)
[2022-09-15] MEDS: PREGABALIN 150 MG CAP PO SCH ×2 (08:20→21:23)
[2022-09-15] MEDS: ONDANSETRON 4 MG/2 ML VIAL IV PRN (10:45)
[2022-09-15] MEDS ORDERED: Ringers Lactate 1,000 ML IV SCH (14:13)
--- NOTE | 2022-09-15 15:42 | P.DS ---
Admission Date: 09/11/22 Discharge Date: 09/15/22 Reason for Admission: Acute pancreatitis, MYRIAM/LUQ pain, N/V/F/C Vital Signs/Physical Exam: Temp Pulse Resp BP Pulse Ox 97.6 F 97 H 18 171/101 H 100 09/15/22 12:00 09/15/22 12:00 09/15/22 12:00 09/15/22 12:00 09/15/22 12:00 Laboratory Data at Discharge: WBC 4.40 K/uL (4.3-10.9) 09/15/22 05:00 Hgb 9.1 g/dL (12.0-15.0) L 09/15/22 05:00 Hct 28.0 % (36.0-45.0) L 09/15/22 05:00 Plt Count 152 K/uL (152-406) 09/15/22 05:00 PT 14.9 SECONDS (9.5-12.5) H 09/10/22 19:45 INR 1.35 09/10/22 19:45 Sodium 135 mmol/L (136-145) L 09/15/22 05:00 Potassium 3.8 mmol/L (3.5-5.1) 09/15/22 05:00 BUN 3 mg/dL (7-18) L 09/15/22 05:00 Creatinine 0.65 mg/dL (0.55-1.3) 09/15/22 05:00 Glucose 179 mg/dL (74-106) H 09/15/22 05:00 Phosphorus 3.5 mg/dL (2.5-4.9) 09/14/22 05:12 Magnesium 2.0 mg/dL (1.8-2.4) 09/15/22 05:00 Total Bilirubin 0.6 mg/dL (0.2-1.0) 09/15/22 05:00 AST 55 U/L (15-37) H 09/15/22 05:00 ALT 35 U/L (12-78) 09/15/22 05:00 Alkaline Phosphatase 135 U/L (45-117) H 09/15/22 05:00 Triglycerides Cancelled 09/10/22 23:54 Cholesterol Cancelled 09/10/22 23:54 HDL Cholesterol Cancelled 09/10/22 23:54 Cholesterol/HDL Ratio Cancelled 09/10/22 23:54 Lipase 53 U/L (73-393) L 09/15/22 05:00 Home Medications: ALPRAZolam [Xanax*] 1 mg PO BIDP PRN 09/11/22 Duloxetine HCl [Cymbalta] 60 mg PO DAILY 09/11/22 Glipizide [Glucotrol Xl] 10 mg PO BID 09/11/22 Pregabalin [Lyrica] 300 mg PO BID 09/11/22 Tizanidine [Zanaflex*] 4 mg PO TID 09/11/22 Zolpidem Tartrate [Ambien*] 10 mg PO BEDTIME 09/11/22 carvediloL [Coreg*] 1 tab PO BID 09/11/22 Followup: LAMBERTO ORANTES [Primary Care Provider] -
--- NOTE | 2022-09-15 15:47 | P.PN ---
Date of Service: 09/15/22 Subjective: s/p EGD yesterday, noted gastritis, erosions, esophageal candidiasis, and narrow distal esophagus / esophageal sphincter pt tolerating some liquids, still with pain/getting stuck at times ROS: 10 point ROS as noted above, otherwise negative Physical exam GEN: Alert, oriented, NAD HEENT: Normal conjunctiva, sclera anicteric CV: Regular rate and rhythm, no edema Pulm: Nonlabored respirations on room air ABD: Soft, mild-mod epigastric tenderness, no distention Neuro: Normal speech, normal affect Problem List Acute pancreatitis, intractable vomiting Diabetes mellitus type [id number] Hypertension Hypomagnesemia, hypokalemia h/o vitamin deficiencies SVT acute pancreatitis lipase normalized edema around pancreas noted on CT gallstone noted on U/S MRCP noted multiple stones in gallbladder GI consulted continue pureed/FLD as tolerated, decrease IVF possible celiac disease; panel sent, check vitamin levels, h/o multiple vitamin deficiency 2020 general surgery consulted for evaluation of cholecystectomy, suspect outpatient procedure once pancreatitis resolved/recovered gastritis, esophageal candidiasis diflucan IV ordered pain meds as needed contributing to swallowing difficulty esophagram ordered, to eval for achalasia transfer initiated, declined at this time, OSH GI recommended confirmatory testing for achalasia, depending on testing, possible transfer vs dc home if pt tolerating liquids, can be done as outpatiennt reports h/o intermittent emesis of undigested food several hours after eating gastric emptying study 09/13 - normal NIDDM2 - accucheks HTN - continue home meds electrolyte abnormalities - secondary to dehydration, replete as needed h/o SVT - monitor on telemetry VTE: lovenox Code: full Dispo: home, ~2 days once tolerating PO and pending esophgram vs possible transfer Time Spent Managing Pts Care (In Minutes): 35
[2022-09-15] MEDS: FLUCONAZOLE 100mg IVPB 100 MG/50 ML BAG IV SCH (16:10)
[2022-09-15] MEDS: HYDRALAZINE HCL 20 MG/ML VIAL IV PRN (16:10)
[2022-09-15] MEDS ORDERED: MORPHINE 2 MG/ML SYR IV ONE (17:30)
[2022-09-15] MEDS ORDERED: PROMETHAZINE INJ 25 MG/ML AMP IV ONE (17:31)
[2022-09-15] MEDS: DIPHENHYDRAMINE 50 MG/ML VIAL IV PRN (21:24)
[2022-09-16] MEDS: LORazepam 2 MG/ML VIAL IV PRN ×3 (02:20→21:11)
[2022-09-16] MEDS: PROMETHAZINE INJ 25 MG/ML AMP IV PRN ×4 (05:33→18:33)
[2022-09-16] MEDS: MORPHINE 2 MG/ML SYR IV PRN ×4 (05:34→18:33)
[2022-09-16] MEDS: INSULIN -REGULAR HUMAN 50 UNIT/0.5 ML ML SQ SCH ×4 (07:30→21:00)
[2022-09-16] MEDS: ENSURE CLEAR 200 ML CAN PO SCH ×2 (09:00→21:12)
[2022-09-16] MEDS: carvediloL 3.125 MG TAB PO SCH ×2 (09:23→21:11)
[2022-09-16] MEDS: PREGABALIN 150 MG CAP PO SCH ×2 (09:23→21:10)
[2022-09-16] MEDS: PANTOPRAZOLE 40 MG INJ IVP SCH ×2 (09:23→21:11)
[2022-09-16 10:15] LABS: Potassium 3.8 mmol/L (3.5-5.1)
[2022-09-16] MEDS ORDERED: KCL 20 MEQ/100 mL IVPB 20 MEQ/100 ML BAG IV SCH (14:00)
[2022-09-16] MEDS: Ringers Lactate 1,000 ML IV SCH ×2 (14:39→16:33)
[2022-09-16] MEDS: FLUCONAZOLE 100mg IVPB 100 MG/50 ML BAG IV SCH (16:28)
--- NOTE | 2022-09-16 17:58 | P.PN ---
Date of Service: 09/16/22 Subjective: large emesis last night down to sips overnight, tolerating slight improvement in pain no change in difficulty swallowing / food stuck had issues with jello yesterday, pudding ok ROS: 10 point ROS as noted above, otherwise negative Physical exam GEN: Alert, oriented, NAD HEENT: Normal conjunctiva, sclera anicteric CV: Regular rate and rhythm, no edema Pulm: Nonlabored respirations on room air ABD: Soft, mild-mod epigastric tenderness, no distention Neuro: Normal speech, normal affect Problem List Acute pancreatitis, intractable vomiting esophageal candidiasis distal esophageal narrowing, possible achalasia Diabetes mellitus type [id number] Hypertension Hypomagnesemia, hypokalemia h/o vitamin deficiencies SVT acute pancreatitis lipase normalized edema around pancreas noted on CT gallstone noted on U/S MRCP noted multiple stones in gallbladder GI consulted, continue pureed/FLD as tolerated, supplement with IVF possible celiac disease; panel sent, check vitamin levels, h/o multiple vitamin deficiency 2020 general surgery consulted -recommend elective cholecystectomy in near future once pancreatitis resolved/recovered gastritis, esophageal candidiasis diflucan IV ordered pain meds as needed contributing to swallowing difficulty esophagram ordered, to eval for achalasia transfer initiated, declined at this time, OSH GI recommended confirmatory testing for achalasia, depending on testing, possible transfer vs dc home if pt tolerating liquids, can be done as outpatiennt reports h/o intermittent emesis of undigested food several hours after eating gastric emptying study 09/13 - normal NIDDM2 - accucheks HTN - continue home meds electrolyte abnormalities - secondary to dehydration, replete as needed h/o SVT - monitor on telemetry VTE: lovenox Code: full Dispo: home vs possible transfer once tolerating PO and pending esophagram Time Spent Managing Pts Care (In Minutes): 25
[2022-09-17] MEDS: PROMETHAZINE INJ 25 MG/ML AMP IV PRN ×4 (00:26→13:45)
[2022-09-17] MEDS: MORPHINE 2 MG/ML SYR IV PRN ×3 (00:26→08:44)
[2022-09-17 04:52] LABS: VITAMIN B1-THIAMINE (S/P) <6 nmol/L (8-30)
[2022-09-17] MEDS: LORazepam 2 MG/ML VIAL IV PRN ×2 (05:34→11:32)
[2022-09-17 05:38] LABS: Hematocrit 29.6 % (36.0-45.0); MCV 86.2 fL (80-100); MPV 8.1 fL (7.6-11.3); RBC Red Blood Cell Count 3.43 M/uL (3.86-4.86)
[2022-09-17 05:54] LABS: Albumin 2.9 g/dL (3.4-5.0); Bilirubin Total 0.5 mg/dL (0.2-1.0); Magnesium 2.1 mg/dL (1.8-2.4); Potassium 4.5 mmol/L (3.5-5.1); Protein, Total 6.4 g/dL (6.4-8.2)
[2022-09-17] MEDS: INSULIN -REGULAR HUMAN 50 UNIT/0.5 ML ML SQ SCH ×4 (07:30→21:10)
[2022-09-17 07:33] LABS: Anisocytosis 1+; Blood Morphology Comment NOTED (NOT SEEN); Hypochromasia 1+; Platelet Estimate ADEQ; Platelets, Giant 1+; White Blood Cell Scan OK (OK)
[2022-09-17 07:34] LABS: Stomatocytes 1+
[2022-09-17] MEDS: PANTOPRAZOLE 40 MG INJ IVP SCH ×2 (08:44→21:09)
[2022-09-17] MEDS: carvediloL 3.125 MG TAB PO SCH ×2 (08:46→21:00)
[2022-09-17] MEDS: PREGABALIN 150 MG CAP PO SCH ×2 (08:46→21:10)
[2022-09-17] MEDS: ENSURE CLEAR 200 ML CAN PO SCH ×2 (08:46→21:00)
[2022-09-17] MEDS: Ringers Lactate 1,000 ML IV SCH (10:23)
[2022-09-17] MEDS: ONDANSETRON 4 MG/2 ML VIAL IV PRN (11:27)
--- NOTE | 2022-09-17 12:53 | RAD REPORT ---
EXAM DESCRIPTION: RAD - Esophagram Only - 09/17/2022 10:24 am CLINICAL HISTORY: Chest pain/achalasia COMPARISON: None FINDINGS: The esophageal mucosal folds appear normal. No constricting or obstructing lesions seen. No permanent filling defects. A stricture within the distal esophagus not visualized. Gastroesophageal reflux is not seen. Fluoroscopy time 44 seconds. Ten fluoroscopic spot images obtained IMPRESSION: Unremarkable esophagram
[2022-09-17] MEDS: TIZANIDINE 4 MG TABLET PO SCH ×2 (13:45→21:10)
[2022-09-17] MEDS: FLUCONAZOLE 200mg IVPB 200 MG/100 ML BAG IV SCH (15:33)
[2022-09-17] MEDS ORDERED: FLUCONAZOLE 100mg IVPB 100 MG/50 ML BAG IV SCH (16:00)
--- NOTE | 2022-09-17 16:38 | P.PN ---
Date of Service: 09/17/22 Subjective: esophagram today, no narrowing noted, no obstruction patient continues with emesis after liquids, drank grapefruit juice throat pain improving, but difficulty swallowing is mostly unchanged ROS: 10 point ROS as noted above, otherwise negative Physical exam GEN: Alert, oriented, NAD HEENT: Normal conjunctiva, sclera anicteric CV: Regular rate and rhythm, no edema Pulm: Nonlabored respirations on room air ABD: Soft, mild-mod RUQ and epigastric tenderness, no distention Neuro: Normal speech, normal affect Problem List Acute pancreatitis, intractable vomiting esophageal candidiasis distal esophageal narrowing, possible achalasia Diabetes mellitus type [id number] Hypertension Hypomagnesemia, hypokalemia h/o vitamin deficiencies SVT acute pancreatitis lipase normalized edema around pancreas noted on CT gallstone noted on U/S MRCP noted multiple stones in gallbladder GI consulted, patient continues to have emesis, NPO with sips/ice chips possible celiac disease; panel sent, check vitamin levels, h/o multiple vitamin deficiency 2020 general surgery consulted -recommend elective cholecystectomy in near future once pancreatitis resolved/recovered will have general surgery re-eval, now with RUQ tenderness, if no surgery, obtain HIDA per GI recs gastritis, esophageal candidiasis diflucan IV ordered pain meds as needed contributing to swallowing difficulty transfer initiated, declined at this time, OSH GI recommended confirmatory testing for achalasia, depending on testing, possible transfer vs dc home if pt tolerating liquids, can be done as outpatiennt repeat esophagram tomorrow, but to be timed and evaluate at 1min, 2min, and 5 min, how much remains in esophagus at those times reports h/o intermittent emesis of undigested food several hours after eating gastric emptying study 09/13 - normal NIDDM2 - accucheks HTN - continue home meds electrolyte abnormalities - secondary to dehydration, replete as needed h/o SVT - monitor on telemetry VTE: lovenox Code: full Dispo: home vs possible transfer once tolerating PO and pending esophagram Time Spent Managing Pts Care (In Minutes): 25
[2022-09-17] MEDS ORDERED: AA 4.25 %/D5W/ELECTROLYTES 2,000 ML, Lipids 20% 250 ML with MULTIVITAMINS INJ 10 ML IV SCH ×3 (17:00)
[2022-09-17 23:08] VITALS: O2SAT 96
[2022-09-17 23:24] LABS: Vitamin D 1,25-Dihydroxy Total 83 pg/mL (18-72); Vitamin D,1,25-OH2, D2 12 pg/mL
[2022-09-18] MEDS: MORPHINE 2 MG/ML SYR IV PRN ×4 (01:25→19:59)
[2022-09-18 04:16] LABS: Hematocrit 27.4 % (36.0-45.0); MCV 85.6 fL (80-100); MPV 8.1 fL (7.6-11.3); RBC Red Blood Cell Count 3.21 M/uL (3.86-4.86)
[2022-09-18 04:37] LABS: Albumin 2.7 g/dL (3.4-5.0); Bilirubin Total 0.5 mg/dL (0.2-1.0); Magnesium 2.3 mg/dL (1.8-2.4); Protein, Total 6.3 g/dL (6.4-8.2)
[2022-09-18] MEDS: INSULIN -REGULAR HUMAN 50 UNIT/0.5 ML ML SQ SCH ×3 (05:34→17:52)
[2022-09-18] MEDS: ENSURE CLEAR 200 ML CAN PO SCH ×2 (09:00→21:00)
[2022-09-18] MEDS: PREGABALIN 150 MG CAP PO SCH ×2 (09:49→20:00)
[2022-09-18] MEDS: carvediloL 3.125 MG TAB PO SCH (09:49)
[2022-09-18] MEDS: TIZANIDINE 4 MG TABLET PO SCH ×3 (09:49→20:01)
[2022-09-18] MEDS: PANTOPRAZOLE 40 MG INJ IVP SCH ×2 (09:49→20:00)
[2022-09-18] MEDS: PROMETHAZINE INJ 25 MG/ML AMP IV PRN ×2 (09:56→20:00)
[2022-09-18] MEDS: ALPRAZOLAM 1 MG TABLET PO PRN (09:56)
--- NOTE | 2022-09-18 09:57 | P.PN ---
Subjective Date of Service: 09/17/22 Chief Complaint: Acute pancreatitis, MYRIAM/LUQ pain, N/V/F/C, dysphagia Subjective: New changes (Esophagram negative though on EGD appeared to have spasm at distal esophagus / GEJ. Still with N/V & RUQ pain. Lipase normal at 53.) Physical Examination - Vital Signs Temperature: 97.5 F Blood Pressure: 118/81 Pulse: 75 Respirations: 16 Pulse Ox (%): 100 Assessment And Plan - Current Problems (Diagnosis) (1) Pancreatitis Current Visit: Yes Status: Acute (2) Epigastric abdominal pain Current Visit: Yes Status: Acute (3) LUQ abdominal pain Current Visit: Yes Status: Acute (4) Nausea & vomiting Current Visit: Yes Status: Acute (5) Fever and chills Current Visit: Yes Status: Acute (6) Dysphagia Current Visit: Yes Status: Acute - Plan REC: 1) continue IVFs, and prn anti-emetics / pain medications 2) ensure esophagram was a timed esophagram with Xrays at 1,2,5 minutes (if more than 50% barium still in esophagus, highly suggestive of achalasia) 3) esophageal motility whether or not esophagram positive or negative -> to be done at tertiary center 4) continue PPI therapy 5) surgery input on possible GB disorder with persistent RUQ pain, N/V with normal lipase now, minimal findings on EGD, on PPI therapy 6) consider HIDA scan
[2022-09-18] MEDS: ONDANSETRON 4 MG/2 ML VIAL IV PRN (11:49)
--- NOTE | 2022-09-18 12:21 | RAD REPORT ---
EXAM DESCRIPTION: RAD - Esophagram Only - 09/18/2022 11:47 am CLINICAL HISTORY: dynamic / timed esophagram Dysphagia COMPARISON: Esophagram Only dated 09/17/2022 FINDINGS: An esophagram was performed and shows normal bolus formation and normal initiation of swal lowing. Primary peristalsis is normal with no intrinsic or extrinsic esophageal abnormalities. 1, 3 a nd 5 minutes images were obtained which do not demonstrate significant retention of barium in the eso phagus at the does time frames. Total fluoroscopy time: 42 sec Number of images acquired: 9 IMPRESSION: Unremarkable barium esophagram.
--- NOTE | 2022-09-18 15:55 | PN ---
Date of Progress Note: 09/18/2022 Reason For Service: Gallstones. History Of Present Illness: This is the case of a 37-year-old patient admitted to the hospital with nausea and inability to take fluids. She had an extensive workup that included EGDs, barium swallow, include CT scans, ultrasounds and blood work. Initially, the blood work shows some lipase elevation suspicious for a pancreatitis, also shows some gallstones, but not pericholecystic fluid or gallblad earlene edema. The complaint that she mainly has is that she can take the fluid, but she feels like she cannot swallow it properly and when it goes down it gets stuck in the esophagus. There was no postpr andial. She has abdominal surgery in the past. She cannot explain what it was, but she had what she described as an emergent surgery that removed the right side of the colon through a midline incision and then she had another surgery to have a reversal of colostomy because apparently after that right hemicolectomy she did require a colostomy, which is not unusual case, but we have no details about t he surgery. She has been having this issue of swallowing for a long time. She was told recently brian t the distal esophagus have some spasms and may have some stenosis. A biopsy of that and the EGD jonnathan ws gastritis and also some Willa esophagitis. Physical Examination: Chest: Clear. Abdomen: Soft and depressible. No Lopez signs. Midline incisions are intact. No guarding or rebo und. Plan: I reviewed once again the CAT scan and the imaging with her and the GI studies. Even though devi anand has gallstones, there is no appearance of gallbladder disease at this moment. There is no Lopez sign. There is no inflammation of the gallbladder and even MRCP did not show a stone in the common b ile duct. She might have some other issues that needs to be investigated that part of the fluid stay under esophagus. Dr. Nicholas is nice enough to take care of that part. To remove the gallbladder, devi anand may even have to have open cholecystectomy. She has a large midline incision, also another right lower quadrant, right mid abdominal incision from reversal colostomy and when we go in that area we w ould encounter some scar tissue. May need bowel resection. May need another colostomy. So I cannot tell her for sure that it is not going to be that complicated, in that case knowing that the gallbla dder at this moment may be giving her some symptoms, but not the one that she has at this moment, obv iously, it is more beneficial in her case to have it done and evaluated electively and continue with the GI workup trying to find the real reason of her GI symptoms at this moment. Right now, she has n o peritonitis. MONISHA/FAUSTINO Voice ID: [id number] Report ID: [id number]
[2022-09-18] MEDS: FLUCONAZOLE 200mg IVPB 200 MG/100 ML BAG IV SCH (16:43)
[2022-09-18] MEDS ORDERED: AA 4.25 %/D5W/ELECTROLYTES 2,000 ML IV SCH (17:00)
--- NOTE | 2022-09-18 17:53 | P.PN ---
Subjective Date of Service: 09/18/22 Chief Complaint: Acute pancreatitis, MYRIAM/LUQ pain, N/V/F/C, dysphagia Patient tolerated full liquid diet today. Her blood pressure has been running borderline low. She denies any abdominal pain. Physical Examination - Vital Signs Temperature: 97.6 F Blood Pressure: 91/52 Pulse: 84 Respirations: 16 Pulse Ox (%): 98 Assessment And Plan - Plan Physical exam GEN: Alert, oriented, NAD, morbidly obese CV: Regular rate and rhythm, no edema Pulm: Nonlabored respirations on room air, clear to auscultation bilaterally ABD: Soft, no distention, nontender Neuro: No focal motor deficit. Problem List Acute pancreatitis, intractable vomiting esophageal candidiasis distal esophageal narrowing, possible achalasia Diabetes mellitus type [id number] Hypertension Hypomagnesemia, hypokalemia h/o vitamin deficiencies SVT acute pancreatitis lipase normalized edema around pancreas noted on CT gallstone noted on U/S MRCP noted multiple stones in gallbladder GI consulted, status post EGD. GI report possible esophageal candidiasis and esophageal spasm. GI was concerned of achalasia but esophagram x2 and negative possible celiac disease; panel sent. general surgery consulted -recommend elective cholecystectomy as outpatient. Gastritis/esophageal candidiasis/dysphagia Continue Diflucan. Patient is tolerating full liquid diet. Will transition to oral meds. pain meds as needed Normal gastric emptying study Esophageal motility studies as outpatient NIDDM2 - accucheks HTN -hold home antihypertensives given borderline hypotension. h/o SVT - monitor on telemetry VTE: lovenox Code: full Dispo: Anticipating discharge to home if patient continues to tolerate liquid diet. Time Spent Managing Pts Care (In Minutes): 36
[2022-09-19] MEDS: INSULIN -REGULAR HUMAN 50 UNIT/0.5 ML ML SQ SCH
[2022-09-19 04:40] LABS: Absolute Lymphocytes (CBC) 0.8 K/uL (0.7-4.9); Hematocrit 28.4 % (36.0-45.0); MCV 85.4 fL (80-100); MPV 8.3 fL (7.6-11.3); RBC Red Blood Cell Count 3.33 M/uL (3.86-4.86)
[2022-09-19] MEDS: MORPHINE 2 MG/ML SYR IV PRN ×2 (04:53→09:06)
[2022-09-19] MEDS: PROMETHAZINE INJ 25 MG/ML AMP IV PRN ×2 (04:54→09:06)
[2022-09-19 04:56] LABS: Potassium 5.5 mmol/L (3.5-5.1)
[2022-09-19] MEDS ORDERED: INSULIN -REGULAR HUMAN 50 UNIT/0.5 ML ML SQ SCH (07:30)
--- NOTE | 2022-09-19 08:33 | P.DS ---
Admission Date: 09/11/22 Discharge Date: 09/19/22 Disposition: ROUTINE DISCHARGE Discharge Condition: FAIR Reason for Admission: Acute pancreatitis, MYRIAM/LUQ pain, N/V/F/C, dysphagia Brief History of Present Illness: 37-year-old female with history of [id number] diabetes, hypertension, SVT presents to the emergency department for epigastric pain, vomiting. She reports that her symptoms started around 1 AM on 09/10/2022 and persisted all day, She was evaluated here in the emergency department and her labs were significant for hypokalemia, hypomagnesemia, elevated lipase, mild elevated alk phos, T bili, D bili. CT of the abdomen pelvis was performed with IV contrast which showed subtle edema in the pancreatic parenchyma. Correlation is needed with any clinical or laboratory findings of mild pancreatitis. No bowel obstruction or surgically emergent findings. History of right hemicolectomy and right mid abdomen ostomy reduction surgical changes are evident. 4 cm left ovarian cyst with benign characteristics. Ultrasound was performed of the gallbladder which revealed single mobile stone seen and normal size gallbladder. No acute gallbladder findings, no biliary tree abnormality. Patient with epigastric pain/tenderness, CT findings for early pancreatitis as well as mildly elevated lipase. Patient admitted for further management. Hospital Course: Problem List Acute pancreatitis, intractable vomiting esophageal candidiasis distal esophageal narrowing, possible achalasia Diabetes mellitus type [id number] Hypertension Hypomagnesemia, hypokalemia h/o vitamin deficiencies SVT Patient admitted to the medical floor with a diagnosis of acute pancreatitis. acute pancreatitis lipase normalized with supportive measures included IV hydration Nausea and vomiting was protracted gallstone noted on U/S MRCP noted multiple stones in gallbladder, no definite evidence of acute cholecystitis. GI consulted, status post EGD. GI report possible esophageal candidiasis and esophageal spasm. GI was also concerned of achalasia but esophagram x2 where negative possible celiac disease; panel sent and results is pending general surgery documented in consulted -recommended elective cholecystectomy as outpatient. She was on PPN briefly. Later patient tolerated full liquid diet. GI recommended esophageal dysmotility study in a tertiary center. Patient informed to follow-up with her PCP for referral. Gastritis/esophageal candidiasis/dysphagia Possible candidiasis noted in the esophagus during EGD Patient treated with IV Diflucan. She tolerated full liquid diet. She had a normal gastric emptying study Esophageal motility studies as outpatient. NIDDM2 - accucheks HTN -held home antihypertensives given borderline hypotension. Chronic anemia Hemoglobin decreased slowly during the hospital stay. No evidence of GI bleed. Anemia likely nutritional related. Vital Signs/Physical Exam: Temp Pulse Resp BP Pulse Ox 97.8 F 80 18 103/62 98 09/19/22 04:00 09/19/22 04:00 09/19/22 05:23 09/19/22 04:00 09/19/22 05:23 General: Alert, In no apparent distress, Oriented x3 HEENT: Mucous membr. moist/pink Neck: Supple, JVD not distended Respiratory: Clear to auscultation bilaterally, Normal air movement Cardiovascular: No edema, Regular rate/rhythm, Normal S1 S2 Gastrointestinal: Normal bowel sounds, Soft and benign, Non-distended, No tenderness Musculoskeletal: No swelling Integumentary: No rashes Neurological: Normal strength at 5/5 x4 extr Laboratory Data at Discharge: WBC 5.30 K/uL (4.3-10.9) 09/19/22 04:15 Hgb 9.0 g/dL (12.0-15.0) L 09/19/22 04:15 Hct 28.4 % (36.0-45.0) L 09/19/22 04:15 Plt Count 225 K/uL (152-406) 09/19/22 04:15 PT 14.9 SECONDS (9.5-12.5) H 09/10/22 19:45 INR 1.35 09/10/22 19:45 Sodium 134 mmol/L (136-145) L 09/19/22 04:15 Potassium 5.5 mmol/L (3.5-5.1) H 09/19/22 04:15 BUN 11 mg/dL (7-18) 09/19/22 04:15 Creatinine 0.63 mg/dL (0.55-1.3) 09/19/22 04:15 Glucose 213 mg/dL (74-106) H 09/19/22 04:15 Phosphorus 3.5 mg/dL (2.5-4.9) 09/14/22 05:12 Magnesium 2.3 mg/dL (1.8-2.4) 09/18/22 04:00 Total Bilirubin 0.5 mg/dL (0.2-1.0) 09/18/22 04:00 AST 44 U/L (15-37) H 09/18/22 04:00 ALT 31 U/L (12-78) 09/18/22 04:00 Alkaline Phosphatase 114 U/L (45-117) 09/18/22 04:00 Triglycerides Cancelled 09/10/22 23:54 Cholesterol Cancelled 09/10/22 23:54 HDL Cholesterol Cancelled 09/10/22 23:54 Cholesterol/HDL Ratio Cancelled 09/10/22 23:54 Lipase 29 U/L (73-393) L 09/18/22 04:00 Home Medications: ALPRAZolam [Xanax*] 1 mg PO BIDP PRN 09/11/22 Duloxetine HCl [Cymbalta] 60 mg PO DAILY 09/11/22 Pregabalin [Lyrica] 300 mg PO BID 09/11/22 Tizanidine [Zanaflex*] 4 mg PO TID 09/11/22 Zolpidem Tartrate [Ambien*] 10 mg PO BEDTIME 09/11/22 carvediloL [Coreg*] 1 tab PO BID 09/11/22 Ensure Clear 237 ml PO BID #60 can 09/19/22 Fluconazole 200 mg PO DAILY #12 tab 09/19/22 Pantoprazole [Protonix Tab] 40 mg PO BID #60 tab 09/19/22 New Medications: Ensure Clear 237 ml PO BID #60 can Fluconazole 200 mg PO DAILY #12 tab Pantoprazole [Protonix Tab] 40 mg PO BID #60 tab Diet: ADA Activity: Ad alexandrea Followup: OOTOOT [Primary Care Provider] - 1 Week (You need to follow up with your PCP to give you referral to GI at [facility] for esophageal dysmotility studies.) Time spent managing pt's care (in minutes): 38
[2022-09-19] MEDS: ENSURE CLEAR 200 ML CAN PO SCH (09:00)
[2022-09-19] MEDS: PANTOPRAZOLE 40 MG INJ IVP SCH (09:05)
[2022-09-19] MEDS: PREGABALIN 150 MG CAP PO SCH (09:05)
[2022-09-19] MEDS: TIZANIDINE 4 MG TABLET PO SCH (09:06)
[2022-09-19 10:24] VITALS: BP 104/66; TEMP 97.3
[2022-09-19] MEDS: ALPRAZOLAM 1 MG TABLET PO PRN (10:44)
[2022-09-19 18:45] LABS: Immunoglobulin A 302 mg/dL (47-310); Tissue Transglutaminase IgA Ab <1.0 U/mL (<15.0)
--- NOTE | 2022-09-20 17:46 | P.PN ---
Subjective Date of Service: 09/19/22 Chief Complaint: Acute pancreatitis, MYRIAM/LUQ pain, N/V/F/C, dysphagia Subjective: Improving (Minimal pain now. Tolerating more of po diet. Surgery to follow-up as outpatient. Esophageal motility study for possible Achalasia to be done at tertiary center.) Review of Systems 10-point ROS is otherwise unremarkable General: Weakness Gastrointestinal: Nausea, Abdominal Pain Physical Examination - Vital Signs Temperature: 97.3 F Blood Pressure: 104/66 Pulse: 66 Respirations: 66 Pulse Ox (%): 100 - Physical Exam General: Alert, In no apparent distress, Oriented x3, Cooperative HEENT: Atraumatic, Normocephalic, PERRLA, EOMI Neck: Supple Respiratory: Normal air movement Cardiovascular: Normal pulses Gastrointestinal: Soft and benign, No tenderness, No rebound, No guarding Neurological: Normal speech, Normal strength at 5/5 x4 extr Assessment And Plan - Current Problems (Diagnosis) (1) Pancreatitis Status: Acute Comment: Normal lipase now. (2) Epigastric abdominal pain Status: Acute Comment: Improved. (3) LUQ abdominal pain Status: Acute (4) Nausea & vomiting Status: Acute (5) Fever and chills Status: Acute (6) Dysphagia Status: Acute - Plan REC: 1) continue IVFs, and prn anti-emetics / pain medications 2) esophageal motility whether or not esophagram positive or negative -> to be done at tertiary center 3) continue PPI therapy 4) surgery follow-up as outpatient 5) consider HIDA scan
== END 2022-09-19 11:49 | disposition home or self-care (01) | DRG 439 ==
LOC: ER 18:33 → ERHOLD 09-11 00:19 → 2ND 09-11 01:37
PROVIDERS: ADMIT Hospitalist; ATTEND Internal Medicine
PROC: 0DB68ZX Excision of Stomach, Via Natural or Artificial Opening Endoscopic, Diagnostic (ICD-10-PCS; 2022-09-14)
PROC: 0DB58ZX Excision of Esophagus, Via Natural or Artificial Opening Endoscopic, Diagnostic (ICD-10-PCS; principal; 2022-09-14 13:00)
DX: K85.10 Biliary acute pancreatitis without necrosis or infection (principal); B37.81 Candidal esophagitis; I47.1 Supraventricular tachycardia; K29.70 Gastritis, unspecified, without bleeding; E87.6 Hypokalemia; E83.42 Hypomagnesemia; I10 Essential (primary) hypertension; K44.9 Diaphragmatic hernia without obstruction or gangrene; K25.9 Gastric ulcer, unspecified as acute or chronic, without hemorrhage or perforation; D64.9 Anemia, unspecified; E86.0 Dehydration; E11.40 Type 2 diabetes mellitus with diabetic neuropathy, unspecified; K22.2 Esophageal obstruction; N83.202 Unspecified ovarian cyst, left side; R13.10 Dysphagia, unspecified; Z79.4 Long term (current) use of insulin; Z98.51 Tubal ligation status; Z90.49 Acquired absence of other specified parts of digestive tract; Z91.048 Other nonmedicinal substance allergy status; Z20.822 Contact with and (suspected) exposure to COVID-19
CPT/HCPCS: 36415; 71045; 74177; 74181; 74220; 76705; 78264; 80048; 80053; 80061; 80076; 81001; 82306; 82550; 82607; 82652; 82728; 82746; 82784; 82947; 83540; 83690; 83735; 84100; 84132; 84207; 84425; 84466; 84484; 84590; 85025; 85027; 85610; 86364; 87811; 88305; 88312; 93005; 96361; 96365; 96366; 96367; 96372; 96375; 99285; A9541; C9113; J0360; J1170; J1200; J1450; J1650; J1815; J2001; J2250; J2270; J2405; J2550; J2704; J2930; J3475; J3480; J7030; J7050; J7120; Q9967

== ENCOUNTER 2022-09-28 06:30 | Emergency (ER) | payer BC ==
--- OUTSIDE RECORDS SUMMARY | 2022-09-28 06:44 | XMS REPORT | Continuity of Care Document ---
:[address] [facility] t Address [address] [place] [address] Care Team Providers Name Role Phone Art LERMA, Wayne Hartman Primary Care Physician Carmelo Velasco Attending Clinician Unavailable Vannessa LERMA, Kina Attending Clinician Marco A LERMA, Abel Gurrola Attending Clinician ABEL STRICKLAND Attending Clinician Unavailable Oliva Yao RN Attending Clinician Unavailable Jem OWENS, Meg Attending Clinician Unavailable Ileana Armando NP, Peggy Langford Attending Clinician [phone] Marky LERMA, Alvin Hurtado Attending Clinician Deepak LERMA, Surya Richardson Attending Clinician Checo LERMA, Dvo Durand Attending Clinician Abi LERMA, Delano Gibbs Attending Clinician Nicolasa LERMA, Jeffrey Cantu Attending Clinician Kristal LERMA, Nilton Montes Attending Clinician [phone] Ann Yanez MD Attending Clinician ANN YANEZ Attending Clinician Unavailable Zuleika LERMA, Jazzmine Attending Clinician Artur CANAS Sergey Charley Attending Clinician Alfonso LERMA, Celia Willard Attending Clinician [phone] Angelina Reich CRNA Attending Clinician Luisito LERMA, Henry Galindo Attending Clinician HENRY JORGE Attending Clinician Unavailable [place] MD Attending Clinician [phone] Asked, No Pcp Attending Clinician Unavailable DR CARMELLA BELCHER Attending Clinician Unavailable Tae LERMA, Carmella Whitten Attending Clinician Venkat Wood MD Attending Clinician [phone] João LERMA, Leana Attending Clinician Chiqui [...] Clinician Unavailable RO LUX Admitting Clinician Unavailable MOPUR, CHIQUI D Admitting Clinician Unavailable Payers Payer Name Policy Type Policy Number Effective Date Expiration Date Devi hernandez [id number] 1961 00:00:00 Problems Condition Condition Condition Status [...] Labile Labile Disease Active [facility] blood blood [address] [facility] pressure pressure 00:00: Hospit a 00 l Hypertensi Hypertensi Problem Active [facility] disorder disorder 00:00: [facility] l (LUF/LI V/SA) Paresthesi Paresthesi Problem Active 2018-[address] [facility] 00:00: [facility] 00 l (LUF/LI V/SA) [...] Date Stop Date Source Natural mother Diabetes [facility] Natural mother Hyperlipidemia Method [facility] Natural mother Hypertension [facility] Natural father Heart disease [facility] Natural father Heart failure [facility] Natural father Hyperlipidemia Method is Hospital Social History Social Habit Start Date Stop Date Quantity Comments Source History SDOH [facility] Alcohol Std Drinks Medica l Center History SDOH [facility] Alcohol Binge Medical [facility] History SDOH [facility] Transport Non-Med Medical Center History SDOH [facility] Housing Places Medical Ce nter Lived History of tobacco Current smoker [facility] Alcohol intake 2022-07-21 2022-07-21 Current drink[facility]:00 alcohol (finding) Medical Center History [facility] 2022-07-17 2022-07-[address] [facility] Transport Med 00:00:00 00:00:[address] History [facility] 2022-07-17 2022-07-[address] [facility] Housing Unable to 00:00:00 00:00:00 Medical Center Pay History [facility] 2022-07-17 2022-07-[address] [facility] Housing Homeless 00:00:00 00:00:00 Medical Center Last Year History [facility] 2022-06-18 2022-06-[address] [facility] Alcohol Comment 00:00:00 00:00:00 Medical C enter Tobacco Comment 2022-06-18 2022-06-18 1 pack per week [facility] 00:00:00 00:00:00 Medical Center Cigarettes smoked 2022-02-23 2022-02-[address] [facility] current (pack per 00:00:00 00:00:00 Medical Center day) - Reported Cigarette 2022-02-23 2022-02-[address] [facility] pack-years 00:00:00 00:00:00 Medical Center Tobacco use and 2022-02-23 2022-02-[address] [facility] exposure 00:00:00 00:00:00 Medical Center History [facility] 2022-02-23 2022-02-[address] [facility] Alcohol Frequency 00:00:00 00:00:00 [facility] Center Sex Assigned At [address] [facility] 00:00:00 00:00:00 Medical Center Smoking Status Start Date Stop Date Source Current every day 2022-02-23 00:00:[address] [facility] smoker Center Ex-smoker 2021-02-21 00:00:00 2021-02-21 00:00:00 [facility] Medications Ordered Filled Start Stop Current Ordering Indication Dosage Frequency Signature Comments Components Source Medication Medication Date Date Medication? Clinician (SIG) Name Name docusate 2021- No 200mg QD Take 2 [facility]30 [facility] (COLACE) 00:00: 23:59 (200 mg Medic al 100 MG 00 :00 total) by Center capsule mouth daily for 10 days. docusate 2021-0 2021- No 200mg QD Take 2 [facility] sodium 07-24-30 [facility] (COLACE) 00:00: 23:59 (200 mg Medic al 100 MG 00 :00 total) by Center capsule mouth daily for 10 days. pregabalin 2-0 Yes 300mg Q.5D Take [address] (LYRICA) 9-19 mg by [facility] 300 MG 16:37: mouth 2 Medical capsule 41 (two) Center times daily. ALPRAZolam 2021-0 Yes 1mg Q.5D Take [address] (XANAX) 1 9-19 by mouth 2 Luke s MG tablet 16:37: (two) Medical 41 times Center daily. DULoxetine 2021-0 Yes 60mg QD Take [address] (CYMBALTA) 9-19 by mouth [facility] 60 MG 16:37: daily. Medical capsule [address] carvediloL 2021-0 Yes 3.125mg Take 3.[address] (COREG) 9-19 mg by [facility] 3.125 MG 16:37: mouth 2 Medica l tablet 41 (two) Center times daily with breakfast and dinner. glipiZIDE 2021-0 Yes 5mg Take [address] (GLUCOTROL) 9-19 by mouth 2 [facility] 5 MG tablet 16:37: (two) Medic al 41 times Center daily before meals. pregabalin 2-0 Yes 300mg Q.5D Take [address] (LYRICA) 9-19 mg by [facility] 300 MG 16:37: mouth 2 Medical capsule 41 (two) Center times daily. ALPRAZolam 2021-0 Yes 1mg Q.5D Take [address] (XANAX) 1 9-19 by mouth 2 Luke s MG tablet 16:37: (two) Medical 41 times Center daily. DULoxetine 2-0 Yes 60mg QD Take [address] (CYMBALTA) 9-19 by mouth [facility] 60 MG 16:37: daily. Medical capsule [address] carvediloL 2021-0 Yes 3.125mg Take 3.[address] (COREG) 9-19 mg by [facility] 3.125 MG 16:37: mouth 2 Medica l tablet 41 (two) Center times daily with breakfast and dinner. glipiZIDE 2021- Yes 5mg Take [address] (GLUCOTROL) 9-19 by mouth 2 [facility] 5 MG tablet 16:37: (two) Medic al 41 times Center daily before meals. HYDROcodone 2021-2021- No 1{tbl} Take [address] -acetaminop -23 07- tablet by [facility] (NORCO 00:00: 23:59 mouth Medic al 10-325) 00 :00 every 8 Center 10-325 mg (eight) per tablet hours as needed for Pain for up to 7 days. Max Daily Amount: 3 tablets HYDROcodone 2021-2021- No 1{tbl} Take [address] -acetaminop -23 07- tablet by [facility] (NORCO 00:00: 23:59 mouth Medic al 10-325) 00 :00 every 8 Center 10-325 mg (eight) per tablet hours as needed for Pain for up to 7 days. Max Daily Amount: 3 tablets DAPTOmycin 2021-2021- No 500mg Q24H Inject [address] (CUBICIN) 03-08-08 mg [facility] IV 00:00: 00:00 intravenou Medica l 00 :00 sly daily. Center cefTRIAXone 2021-0 2021- No 2g Q24H Inject [address] (ROCEPHIN) 03-08-08 intravenou [facility] MBP 2 g in 00:00: 00:00 sly daily. Medical 100 mL NS 00 :00 Center DAPTOmycin 2021-0 2021- No 500mg Q24H Inject [address] (CUBICIN) - 09-08 mg [facility] IV 00:00: 00:00 intravenou Medica l 00 :00 sly daily. Center cefTRIAXone 2021-0 2- No 2g Q24H Inject [address] (ROCEPHIN) 03-08-08 intravenou [facility] MBP 2 g in 00:00: 00:00 sly daily. Medical 100 mL NS 00 :00 Center TiZANidine 2021-2021- No 8mg Q.[id number] Take [address] (ZANAFLEX) 03-07 [id number] by mouth 3 [facility] 6 MG 13:04: 00:00 3D (three) Medical capsule 05 :00 times Center daily. TiZANidine 2021- No 8mg Q.[id number] Take [address] (ZANAFLEX) 5-04 05-04 [id number] by mouth 3 [facility] 6 MG 13:04: 00:00 3D (three) Medical capsule 05 :00 times Center daily. TiZANidine 2021-0 Yes 8mg Take 2 [facility] (ZANAFLEX) 5-04 capsules [facility] 4 MG 00:00: (8 mg Medical capsule 00 total) by Center mouth 3 (three) times daily as needed for Muscle spasms. TiZANidine 2021-0 Yes 8mg Take 2 [facility] (ZANAFLEX) 5-04 capsules [facility] 4 MG 00:00: (8 mg Medical capsule 00 total) by Center mouth 3 (three) times daily as needed for Muscle spasms. carvediloL 2021- No 3.125mg Q.5D Take [address] (COREG) -02 07-03 tablet [facility] 3.125 MG 00:00: 23:59 (3.125 mg Med ical tablet 00 :00 total) by Center mouth 2 (two) times daily for 30 days. glipiZIDE 2021-2021- No 5mg Take 0.[address] (GLUCOTROL) - 06-03 tablets (5 L ukes 10 MG 00:00: 23:59 mg total) Medica l tablet 00 :00 by mouth 2 Center (two) times daily before meals for 30 days. carvediloL 2021-2021- No 3.125mg Q.5D Take [address] (COREG) 5-04 06-03 tablet [facility] 3.125 MG 00:00: 23:59 (3.125 mg Med ical tablet 00 :00 total) by Center mouth 2 (two) times daily for 30 days. glipiZIDE 2021-2021- No 5mg Take 0.[address] (GLUCOTROL) 5-04 06-03 tablets (5 L ukes 10 MG 00:00: 23:59 mg total) Medica l tablet 00 :00 by mouth 2 Center (two) times daily before meals for 30 days. HYDROcodone 2021-2021- No 1{tbl} Take [address] -acetaminop 5- 05-09 tablet by [facility] (NORCO 00:00: 23:59 mouth Medic al 10-325) 00 :00 every 6 Center 10-325 mg (six) per tablet hours as needed for up to 5 days. Max Daily Amount: 4 tablets metroNIDAZO 2021-2021- No 500mg Q.[id number] Take [address] [facility] (FLAGYL) - 05-09 [id number] tablet [facility] 500 MG 00:00: 23:59 3D (500 mg Medical tablet 00 :00 total) by Center mouth 3 (three) times daily for 5 days. HYDROcodone 2021-2021- No 1{tbl} Take [address] -acetaminop 5- 05-09 tablet by [facility] (NORCO 00:00: 23:59 mouth Medic al 10-325) 00 :00 every 6 Center 10-325 mg (six) per tablet hours as needed for up to 5 days. Max Daily Amount: 4 tablets metroNIDAZO 2021-2021- No 500mg Q.[id number] Take [address] [facility] (FLAGYL) 5- 05-09 [id number] tablet [facility] 500 MG 00:00: 23:59 3D (500 mg Medical tablet 00 :00 total) by Center mouth 3 (three) times daily for 5 days. zolpidem 2021-2021- No 10mg Take [address] (AMBIEN) 10 4-24 04-24 by mouth [facility] mg tablet 17:11: 00:00 every Medica l 12 :00 night as Center needed for Insomnia. zolpidem 2021-2021- No 10mg Take [address] (AMBIEN) 10 4-24 04-24 by mouth [facility] mg tablet 17:11: 00:00 every Medica l 12 :00 night as Center needed for Insomnia. ergocalcife 2020- No [id number] Q7D Take 1 M ethodi rol 07-27 10-[address] (VITAMIN 00:00: 04:59 (50,000 Hospi ta D2) 50,000 00 :00 Units l unit total) by capsule mouth once a week for 30 days. vitamin A 2020- No [id number] QD Take 2 Met hodi 26813 UNIT 07-22- capsules st capsule 00:00: 04:59 [...] 4mg Q.5D Take 4-8 [facility] (Zanaflex) 07-21 09-[address] 4 MG tablet 13:28: 00:00 mouth 2 Ho spita 15 :00 (two) l times a day as needed for muscle spasms. pregabalin No 300mg QD Take 300 M ethodi (LYRICA) 07-21 09-[address] 100 MG 13:28: 00:00 mouth Hospita capsule 15 :00 daily. l (per [facility] on Drug Monitoring Program, last filled 08/20/20, quantity: 270, day supply: 90) aspirin Yes 81mg QD Take 81 mg Meth juan (ECOTRIN) -[address] 81 MG 13:28: daily. Hospita enteric 14 l coated tablet aspirin Yes 81mg QD Take 81 mg [facility] (ECOTRIN) 9-[address] 81 MG 13:28: daily. Hospita enteric 14 l coated tablet aspirin 0 Yes 81mg QD Take 81 mg [facility] (ECOTRIN) 9-[address] 81 MG 13:28: daily. Hospita enteric 14 l coated tablet folic acid 2020- No 5mg QD Take 5 [facility] (FOLVITE) 1 07-21-18 tablets (5 s t MG tablet 00:00: 04:59 mg total) Ho spita 00 :00 by mouth l daily for 30 days. 2020- No 1{tbl} QD Take 1 [facility] vit,calc76/ 9-17 10-[address] iron/folic 00:00: 04:59 mouth [...] 00:00: daily. Hospi ta 00 l ALPRAZolam 2020-0 Yes 1mg QD Take 1 mg [facility] (XANAX) 1 3-[address] MG tablet 00:00: nightly as Ho spita 00 needed for l anxiety or sleep. [facility] last [facility] 05/10/21, quantity: 90, day supply: 90) ALPRAZolam Yes 1mg QD Take 1 mg Me [facility] (XANAX) 1 3-[address] MG tablet 00:00: nightly as Ho spita 00 needed for l anxiety or sleep. (per [place] [facility], last filled 05/10/21, quantity: 90, day supply: 90) ALPRAZolam 0 Yes 1mg QD Take 1 mg Me thodi (XANAX) 1 3-[address] MG tablet 00:00: nightly as Ho spita 00 needed for l anxiety or sleep. (per [place] [facility], last filled 05/10/21, quantity: 90, day supply: 90) meloxicam 2020-0 Yes 15mg QD Take 15 mg Me [facility] (MOBIC) 15 3-[address] mg tablet 00:00: daily. Hospit a 00 l meloxicam 2020-0 Yes 15mg QD Take 15 mg Me [facility] (MOBIC) 15 3-[address] mg tablet 00:00: daily. Hospit a 00 l meloxicam 2020-0 Yes 15mg QD Take 15 mg Me thodi (MOBIC) 15 3-[address] mg tablet 00:00: daily. Hospit a 00 l aspirin 81 aspirin 81 2019- Yes [address] MG Chewable [...] l (LUF/LI V/SA) aspirin 81 aspirin 81 2019- Yes [address] [facility] [address] MG Chewable MG Chewable 2-24 ONCE A DAY [facility] Tablet Tablet 00:00: Memoria 00 l (LUF/LI V/SA) pregabalin pregabalin 2019-11 Yes 75 Q8.00W BY MOUTH [facility] 25 MG Oral 25 MG Oral 2-24 THREE (3) [facility] Capsule Capsule 00:00: TIMES A Humberto joy 00 DAY l (ACUDOSE (LUF/LI MED) V/SA) tizanidine [...] KG Systolic blood 2022-07-23 15:11:16 144 mm[Hg] [facility] Diastolic blood 2022-07-23 15:11:16 94 mm[Hg] [facility] Oxygen saturation in 2022-07-23 15:11:16 96 /min [facility] Arterial blood by Medical Ce nter Pulse oximetry Respiratory rate 2022-07-23 15:10:40 18 /min [facility] Body temperature 2022-07-23 15:10:02 36.94 Ashli [facility] Heart rate 2022-07-23 11:11:43 76 /min [facility] Body height 2022-07-16 12:14:00 167.6 cm [facility] Body weight 2022-07-16 12:14:00 87.544 kg [facility] BMI 2022-07-16 12:14:00 31.15 kg/m2 [facility] Systolic blood 2021-07-21 17:59:41 92 mm[Hg] [facility] pressure Diastolic blood 2021-07-21 17:59:41 50 mm[Hg] [facility] pressure Heart rate 2021-07-21 17:59:41 87 /min [facility] Body temperature 2021-07-21 16:06:48 35.94 Ashli [facility] Respiratory rate 2021-07-21 16:06:48 18 /min [facility] Oxygen saturation in 2021-07-21 16:06:48 97 /min [facility] Arterial blood by Pulse oximetry Body height 2021-07-15 02:25:14 167.6 cm [facility] Body weight 2021-07-15 02:25:14 96.344 kg [facility] BMI 2021-07-15 02:25:14 34.28 kg/m2 [facility] BP Systolic 2020-10-27 20:05:00 99 mm[Hg] [facility] (LUF/HEIKE/SA) BP Diastolic 2020-10-27 20:05:00 67 mm[Hg] [facility] (LUF/HEIKE/SA) Heart Rate 2020-10-27 20:03:00 94 /min [facility] (F/HEIKE/SA) Pulse Rate 2020-10-27 20:03:00 91 /min [facility] (F/HEIKE/SA) Respiratory Rate 2020-10-27 20:03:00 15 /min [facility] (F/HEIKE/SA) O2% BldC Oximetry 2020-10-27 20:03:00 91 % [facility] (F/HEIKE/SA) Body Temperature 2020-10-27 17:01:00 98 [degF] [facility] (F/HEIKE/SA) Height 2020-10-26 20:23:00 66 [in_i] [facility] (F/HEIKE/SA) Weight 2020-10-26 20:23:00 86.9 kg [facility] (LUF/HEIKE/SA) BMI (Body Mass 2020-10-26 20:23:00 31.1 kg/m2 [facility] (LUF/HEIKE/SA) Procedures Procedure Date / Time Performing Clinician Source Performed CT ABDOMEN/PELVIS WITH IV 2022-08-[address] [facility] CONTRAST 05:30:00 [facility] Center CT ABDOMEN/PELVIS WITH IV 2022-08-[address] [facility] CONTRAST 05:30:00 [facility] Center BASIC METABOLIC PANEL 2022-08-[address] [facility] 04:46:00 [facility] Center LIPASE 2022-08-[address] [facility] 04:46:00 [facility] HEPATIC FUNCTION PANEL 2022-08-[address] [facility] 04:46:00 [facility] Center CBC W/PLT COUNT & AUTO 2022-08-[address] [facility] DIFFERENTIAL 04:46:00 [facility] Center CBC W/PLT COUNT & AUTO 2022-08-[address] [facility] DIFFERENTIAL 04:46:00 [facility] URINALYSIS W/ MICROSCOPIC 2022-08-[address] [facility] 04:40:00 [facility] Center SCREEN, URINE 2022-08-[address] [facility] 04:40:00 [facility] PERMANENT LAB REPORT - SCAN 2022-08-14 Provider, Default [facility] 00:00:00 Scanning [facility] Center POCT-GLUCOSE METER 2022-07-23 Abel Strickland [facility]o [facility] 15:12:00 [facility] Center POCT-GLUCOSE METER 2022-07-23 Abel Strickland [facility] 11:13:00 [facility] Center POCT-GLUCOSE METER 2022-07-23 Abel Strickland Galileo [facility] 06:22:00 [facility] Center CBC W/PLT COUNT & AUTO 2022-07-[address] [facility] [facility] DIFFERENTIAL 04:08:00 [facility] BASIC METABOLIC PANEL 2022-07-[address] [facility] 04:08:00 [facility] CBC W/PLT COUNT & AUTO 2022-07-[address] [facility] DIFFERENTIAL 04:08:00 [facility] POCT-GLUCOSE METER 2022-07-[address] [facility] 23:32:00 [facility] Center POCT-GLUCOSE METER 2022-07-22 Abel Strickland [facility]o [facility] 20:22:00 Medical Center POCT-GLUCOSE METER 2022-07-[address] [facility] 16:39:00 Medical Center POCT-GLUCOSE METER 2022-07-[address] [facility] 11:32:00 Medical Center POCT-GLUCOSE METER 2022-07-[address] [facility] 06:13:00 Medical Center POCT-GLUCOSE METER 2022-07-[address] [facility] 20:03:00 Medical Center POCT-GLUCOSE METER 2022-07-[address] [facility] 16:57:00 Medical Center POCT-GLUCOSE METER 2022-07-[address] [facility] 15:29:00 [facility] Center POCT-GLUCOSE METER 2022-07-[address] [facility] 10:46:00 [facility] Center CLOSURE, WOUND 2022-07-[address] [facility] 07:53:00 [facility] Center POCT-GLUCOSE METER 2022-07-[address] [facility] 06:21:00 [facility] Center CBC W/PLT COUNT & AUTO 2022-07-[address] [facility] DIFFERENTIAL 04:06:00 [facility] BASIC METABOLIC PANEL 2022-07-[address] 04:06:00 [facility] CBC W/PLT COUNT & AUTO 2022-07-[address] DIFFERENTIAL 04:06:00 [facility] SCREEN, URINE 2022-07-21 Carroll, Mical [facility] 01:06:00 [facility] POCT-GLUCOSE METER 2022-07-[address] [facility] 20:46:00 [facility] Center POCT-GLUCOSE METER 2022-07-[address] [facility] 15:28:00 [facility] Center POCT-GLUCOSE METER 2022-07-[address] [facility] 11:17:00 [facility] Center POCT-GLUCOSE METER 2022-07-[address] [facility] 05:55:00 [facility] Center POCT-GLUCOSE METER 2022-07-[address] [facility] 20:22:00 [facility] Center POCT-GLUCOSE METER 2022-07-[address] [facility] 15:26:00 [facility] Center POCT-GLUCOSE METER 2022-07-[address] [facility] 11:29:00 [facility] Center POCT-GLUCOSE METER 2022-07-[address] [facility] 05:47:00 [facility] Center CBC W/PLT COUNT & AUTO 2022-07-[address] [facility] DIFFERENTIAL 05:31:00 [facility] BASIC METABOLIC PANEL 2022-07-[address] [facility] 05:31:00 [facility] CBC W/PLT COUNT & AUTO 2022-07-[address] [facility] DIFFERENTIAL 05:31:00 [facility] POCT-GLUCOSE METER 2022-07-[address] [facility] 20:11:00 [facility] Center POCT-GLUCOSE METER 2022-07-[address] [facility] 15:51:00 [facility] US RENAL COMPLETE 2022-07-[address] [facility] 13:41:00 [facility] URINALYSIS W/ MICROSCOPIC 2022-07-18 [facility]gh[facility]zar [facility] 12:29:00 [facility] POCT-GLUCOSE METER 2022-07-[address] [facility] 11:01:00 [facility] Center POCT-GLUCOSE METER 2022-07-[address] [facility] 06:11:00 [facility] Center CBC W/PLT COUNT & AUTO 2022-07-[address] [facility] DIFFERENTIAL 03:35:00 [facility] BASIC METABOLIC PANEL 2022-07-[address] [facility] 03:35:00 [facility] CBC W/PLT COUNT & AUTO 2022-07-[address] [facility] DIFFERENTIAL 03:35:00 [facility] POCT-GLUCOSE METER 2022-07-[address] [facility] 20:14:00 [facility] Center POCT-GLUCOSE METER 2022-07-[address] [facility] 16:03:00 [facility] POCT-GLUCOSE METER 2022-07-[address] [facility] 11:15:00 [facility] POCT-GLUCOSE METER 2022-07-[address] [facility] 07:57:00 [facility] CBC W/PLT COUNT & AUTO 2022-07-[address] [facility] DIFFERENTIAL 04:47:00 [facility] BASIC METABOLIC PANEL 2022-07-[address] [facility] 04:47:00 [facility] CBC W/PLT COUNT & AUTO 2022-07-[address] [facility] DIFFERENTIAL 04:47:00 [facility] TISSUE EXAM 2022-07-[address] [facility] 14:50:00 [facility] CLOSURE, COLOSTOMY 2022-07-[address] [facility] 13:03:00 [facility] POTASSIUM 2022-07-16 Abel Strickland [facility] 12:01:00 [facility] GLUCOSE 2022-07-16 Abel Strickland [facility] 12:01:00 [facility] POCT , URINE 2022-07-[address] [facility] 12:00:00 [facility] COVID ANTIGEN 2022-07-[address] [facility] 15:49:00 [facility] BASIC METABOLIC PANEL 2022-07-12 Abel Strickland [facility] 15:04:00 [facility] Center CBC W/PLT COUNT & AUTO 2022-07-12 Abel Strickland Galile[facility] DIFFERENTIAL 15:04:00 [facility] Center CBC W/PLT COUNT & AUTO 2022-07-[address] [facility] DIFFERENTIAL 15:04:00 [facility] COVID ANTIGEN 2022-06-18 Abel Strickland [facility] 17:43:00 [facility] Center CBC W/PLT COUNT & AUTO 2022-06-18 Abel Strickland Galileo [facility] DIFFERENTIAL 14:35:00 Medical Center BASIC METABOLIC PANEL 2022-06-[address] [facility] 14:35:00 Medical Center TYPE AND SCREEN, AUTOMATED 2022-06-[address] [facility] 14:35:00 [facility] Center CBC W/PLT COUNT & AUTO 2022-06-[address] [facility] DIFFERENTIAL 14:35:00 [facility] Center POCT-GLUCOSE METER 2022-03-[address] [facility] 11:53:00 [facility] Center CBC W/PLT COUNT & AUTO 2022-03-07 Barrie, Feroze Abid [facility] DIFFERENTIAL 11:31:00 [facility] BASIC METABOLIC PANEL 2022-03-07 Barrie, Feroze Abid [facility] [facility]00 [facility] CBC W/PLT COUNT & AUTO 2022-03-07 Barrie, Feroze Abid [facility] DIFFERENTIAL 11:31:00 [facility] VANCOMYCIN LEVEL, TROUGH 2022-03-07 Abel Strickland Alan [facility] 08:19:00 [facility] POCT-GLUCOSE METER 2022-03-07 Barrie, Feroze Abid [facility] 05:40:00 [facility] POCT-GLUCOSE METER 2022-03-06 Barrie, Feroze Abid [facility] 20:36:00 [facility] POCT-GLUCOSE METER 2022-03-06 Barrie, Feroze Abid [facility] 16:35:00 [facility] POCT-GLUCOSE METER 2022-03-06 Barrie, Feroze Abid [facility] 11:25:00 [facility] POCT-GLUCOSE METER 2022-03-06 Baldwin, Jeffrey Alondra [facility] 05:43:00 [facility] CBC W/PLT COUNT & AUTO 2022-03-06 Baldwin, Jeffrey Alondra [facility] DIFFERENTIAL 04:56:00 [facility] BASIC METABOLIC PANEL 2022-03-06 Baldwin, Jeffrey [facility]ondra [facility] 04:56:00 [facility] CBC W/PLT COUNT & AUTO 2022-03-06 Baldwin, Jeffrey [facility]ondra [facility] DIFFERENTIAL 04:56:00 [facility] POCT-GLUCOSE METER 2022-03-05 Baldwin, Jeffrey Alondra [facility] 20:42:00 Medical Center EVACUATION, SEROMA 2022-03-[address] [facility] 16:05:00 [facility] POCT-GLUCOSE METER 2022-03-05 Baldwin, Jeffrey Alondra [facility] 15:08:00 [facility] POCT-GLUCOSE METER 2022-03-05 Baldwin, Jeffrey Alondra [facility] 10:53:00 [facility] SCREEN, URINE 2022-03-[address] [facility] 10:21:00 [facility] SARS-COV2/RT-PCR ([facility] & REF 2022-03-[address] [facility]) 09:26:00 [facility] POCT-GLUCOSE METER 2022-03-05 Baldwin, Jeffrey Alondra [facility] 07:53:00 [facility] CBC W/PLT COUNT & AUTO 2022-03-[address] [facility] DIFFERENTIAL 04:47:00 [facility] MAGNESIUM 2022-03-[address] [facility] 04:47:00 [facility] POTASSIUM 2022-03-[address] [facility] 04:47:00 [facility] CBC W/PLT COUNT & AUTO 2022-03-[address] [facility] DIFFERENTIAL 04:47:00 [facility] POCT-GLUCOSE METER 2022-03-[address] [facility] 20:50:00 [facility] POCT-GLUCOSE METER 2022-03-[address] [facility] 16:19:00 [facility] POCT-GLUCOSE METER 2022-03-[address] [facility] 11:45:00 [facility] POCT-GLUCOSE METER 2022-03-[address] [facility] 06:30:00 [facility] CBC W/PLT COUNT & AUTO 2022-03-[address] [facility] DIFFERENTIAL 03:47:00 [facility] BASIC METABOLIC PANEL 2022-03-04 Bajoyo, Nilton [facility] 03:47:00 [facility] CBC W/PLT COUNT & AUTO 2022-03-[address] [facility] DIFFERENTIAL 03:47:00 [facility] (MANUAL DIFFERENTIAL) 2022-03-[address] [facility] 03:47:00 [facility] POCT-GLUCOSE METER 2022-03-[address] [facility] 20:36:00 [facility] POCT-GLUCOSE METER 2022-03-[address] [facility] 16:36:00 [facility] POCT-GLUCOSE METER 2022-03-[address] [facility] 11:31:00 [facility] CBC W/PLT COUNT & AUTO 2022-03-[address] [facility] DIFFERENTIAL 09:03:00 [facility] CBC W/PLT COUNT & AUTO 2022-03-[address] DIFFERENTIAL 09:03:00 [facility] (MANUAL DIFFERENTIAL) 2022-03-[address] [facility] 09:03:00 [facility] BASIC METABOLIC PANEL 2022-03-[address] [facility] 09:02:00 [facility] POCT-GLUCOSE METER 2022-03-[address] [facility] 05:15:00 [facility] POCT-GLUCOSE METER 2022-03-[address] [facility] 21:01:00 [facility] POCT-GLUCOSE METER 2022-03-[address] [facility] 16:35:00 [facility] POCT-GLUCOSE METER 2022-03-[address] [facility] 12:10:00 [facility] POCT-GLUCOSE METER 2022-03-[address] [facility] 05:56:00 [facility] CBC W/PLT COUNT & AUTO 2022-03-[address] [facility] DIFFERENTIAL 05:12:00 [facility] COMPREHENSIVE METABOLIC PANEL 2022-03-02 Andrea Lisandro Laird tatianna [facility] 05:12:00 [facility] CBC W/PLT COUNT & AUTO 2022-03-02 Andrea Lisandro Lairdan [facility] DIFFERENTIAL 05:12:00 [facility] (MANUAL DIFFERENTIAL) 2022-03-02 Andrea Lisandro Rincon [facility] 05:12:00 [facility] POCT-GLUCOSE METER 2022-03-01 Baldwin, Jeffrey Alondra [facility] 20:42:00 [facility] POCT-GLUCOSE METER 2022-03-01 Baldwin, Jeffrey Alondra [facility] 16:21:00 [facility] POCT-GLUCOSE METER 2022-03-01 Baldwin, Jeffrey Alondra [facility] 11:01:00 [facility] XR ABDOMEN/KUB 1 VIEW 2022-03-01 Baldwin, Jeffrey Alondra [facility] PORTABLE 08:20:00 [facility] POCT-GLUCOSE METER 2022-03-01 Baldwin, Jeffrey Alondra [facility] 06:05:00 [facility] CBC W/PLT COUNT & AUTO 2022-03-01 Keaton Mendezn Mckenzie [facility] DIFFERENTIAL 04:58:00 [facility] COMPREHENSIVE METABOLIC PANEL 2022-03-01 MendezLisandro zpeeda tatianna [facility] 04:58:00 [facility] MAGNESIUM 2022-03-[address] [facility] 04:58:00 [facility] PHOSPHORUS 2022-03-[address] [facility] 04:58:00 [facility] TRIGLYCERIDES 2022-03-[address] [facility] 04:58:00 [facility] CBC W/PLT COUNT & AUTO 2022-03-01 Keaton Mendezyogesh Lairdan [facility] DIFFERENTIAL 04:58:00 [facility] (MANUAL DIFFERENTIAL) 2022-03-01 MendezLisandro zepeda [facility] 04:58:00 [facility] POCT-GLUCOSE METER 2022-02-28 Baldwin, Jeffrey Alondra [facility] 20:58:00 [facility] POCT-GLUCOSE METER 2022-02-28 Baldwin, Jeffrey Alondra [facility] 16:15:00 [facility] PROTEIN C ANTIGEN, TOTAL 2022-02-[address] [facility] 12:00:00 [facility] POCT-GLUCOSE METER 2022-02-28 Baldwin, Jeffrey Alondra [facility] 11:19:00 [facility] Center POCT-GLUCOSE METER 2022-02-28 Baldwin, Jeffrey Alondra [facility] 08:03:00 [facility] Center CBC W/PLT COUNT & AUTO 2022-02-[address] [facility] DIFFERENTIAL 03:27:00 [facility] COMPREHENSIVE METABOLIC PANEL 2022-02-[address] [facility] 03:27:00 [facility] MAGNESIUM 2022-02-28 Jarrod, Paulette [facility] 03:27:00 [facility] PHOSPHORUS 2022-02-28 Jarrod, Paulette [facility] 03:27:00 [facility] BILIRUBIN, DIRECT 2022-02-28 Jose E Wonghu [facility] 03:27:00 [facility] Center CBC W/PLT COUNT & AUTO 2022-02-[address] [facility] DIFFERENTIAL 03:27:00 [facility] POCT-GLUCOSE METER 2022-02-28 Checo, Dov Ladarius [facility] 00:07:00 [facility] POTASSIUM 2022-02-27 Thangudu, Alvin [facility] 21:19:00 [facility] MAGNESIUM 2022-02-27 Thangudu, Alvin [facility] 21:19:00 [facility] PHOSPHORUS 2022-02-27 Thangudu, Alvin [facility] 21:19:00 [facility] POCT-GLUCOSE METER 2022-02-27 Checo, Dov Ladarius [facility] 17:48:00 [facility] POCT-GLUCOSE METER 2022-02-27 Checo, Dov Ladarius [facility] 13:38:00 [facility] LACTIC ACID, VENOUS 2022-02-27 Abel Strickland Galileo [facility] 12:46:00 [facility] MAGNESIUM 2022-02-27 Abel Strickland Galileo [facility] 12:46:00 [facility] [place] POTASSIUM 2022-02-27 Abel Strickland Galileo [facility] 12:46:00 [facility] POCT-GLUCOSE METER 2022-02-27 Checo Dov [address]arius [facility] 10:06:00 [facility] ANTI-NUCLEAR ANTIBODY (LUPE) 2022-02-[address] [facility] 09:24:00 [facility] CARDIOLIPIN ANTIBODIES, IGG 2022-02-[address] [facility] AND IGM 09:24:00 [facility] ANTI-NEUTROPHIL CYTOPLASMIC 2022-02-[address] [facility] AB (ANCA) 09:24:00 [facility] PROTEIN S ACTIVITY 2022-02-27 Andrea Lisandro Mckenzie [facility] 09:24:00 [facility] PROTEIN C ACTIVITY 2022-02-27 Mendez, Lisandro Rincon [facility] 09:24:00 [facility] CBC W/PLT COUNT & AUTO 2022-02-[address] [facility] DIFFERENTIAL 04:05:00 [facility] COMPREHENSIVE METABOLIC PANEL 2022-02-[address] [facility] 04:05:00 [facility] LACTIC ACID, VENOUS 2022-02-[address] [facility] 04:05:00 [facility] CBC W/PLT COUNT & AUTO 2022-02-[address] [facility] DIFFERENTIAL 04:05:00 [facility] LACTIC ACID, VENOUS 2022-02-[address] [facility] 00:33:00 [facility] POTASSIUM 2022-02-[address] [facility] 00:33:00 [facility] POCT-GLUCOSE METER 2022-02-[address] [facility] 23:33:00 [facility] CBC W/PLT COUNT & AUTO 2022-02-[address] [facility] DIFFERENTIAL 20:16:00 [facility] PROTHROMBIN TIME/INR 2022-02-[address] [facility] 20:16:00 [facility] FIBRINOGEN 2022-02-[address] [facility] 20:16:00 [facility] LACTIC ACID, VENOUS 2022-02-[address] [facility] 20:16:00 [facility] BASIC METABOLIC PANEL 2022-02-[address] [facility] 20:16:00 [facility] MAGNESIUM 2022-02-[address] [facility] 20:16:00 [facility] CBC W/PLT COUNT & AUTO 2022-02-[address] [facility] DIFFERENTIAL 20:16:00 [facility] (MANUAL DIFFERENTIAL) 2022-02-[address] [facility] 20:16:00 [facility] PREPARE LEUKO-REDUCED RBC 2022-02-[address] [facility] 19:05:00 [facility] HEMOGLOBIN AND HEMATOCRIT 2022-02-[address] [facility] 18:07:00 [facility] ABORH, MANUAL 2022-02-[address] [facility] 18:00:00 [facility] BLOOD GAS, ARTERIAL 2022-02-[address] [facility] 17:52:08 [facility] TISSUE EXAM 2022-02-[address] [facility] 17:40:00 [facility] COMPREHENSIVE METABOLIC PANEL 2022-02-[address] [facility] 17:12:54 [facility] MAGNESIUM 2022-02-[address] [facility] 17:12:00 [facility] TYPE AND SCREEN, AUTOMATED 2022-02-[address] [facility] 17:04:00 [facility] PROTHROMBIN TIME/INR 2022-02-[address] [facility] 16:28:12 [facility] CBC W/PLT COUNT & AUTO 2022-02-[address] [facility] DIFFERENTIAL 16:28:12 [facility] CBC W/PLT COUNT & AUTO 2022-02-[address] [facility] DIFFERENTIAL 16:28:12 [facility] COLECTOMY, RIGHT 2022-02-[address] [facility] 15:39:00 [facility] PROTEIN, 24 HOUR URINE 2022-02-[address] [facility] 10:29:00 [facility] CBC W/PLT COUNT & AUTO 2022-02-[address] [facility] DIFFERENTIAL 09:08:00 [facility] PERIPHERAL BLOOD SMEAR - PATH 2022-02-[address] [facility] REVIEW 09:08:00 [facility] CBC W/PLT COUNT & AUTO 2022-02-[address] [facility] DIFFERENTIAL 09:08:00 [facility] (MANUAL DIFFERENTIAL) 2022-02-[address] [facility] 09:08:00 [facility] POCT-GLUCOSE METER 2022-02-26 Rufinaa-Madeleine [facility] 06:00:00 [facility] r BLOOD CULTURE 2022-02-25 Heva-Paththinislime [facility] 17:13:00 [facility] r CALCIUM, IONIZED 2022-02-[address] [facility] 15:52:00 [facility] HEMOGLOBIN AND HEMATOCRIT 2022-02-25 Rufinaa-Paththiyaima [facility] 15:50:00 [facility] r BASIC METABOLIC PANEL 2022-02-[address] [facility] 15:49:00 [facility] MAGNESIUM 2022-02-[address] [facility] 15:49:00 [facility] LACTIC ACID, VENOUS 2022-02-[address] [facility] 09:51:00 [facility] HEMOGLOBIN AND HEMATOCRIT 2022-02-[address] [facility] 09:51:00 [facility] CALCIUM, IONIZED 2022-02-[address] [facility] 09:51:00 [facility] BASIC METABOLIC PANEL 2022-02-[address] [facility] 09:51:00 [facility] PHOSPHORUS 2022-02-[address] [facility] 09:51:[address] [facility] CT ABDOMEN/PELVIS WITHOUT IV 2022-02-[address] [facility] 05:20:00 [facility] COMPREHENSIVE METABOLIC PANEL 2022-02-[address] [facility] 04:12:00 [facility] LACTIC ACID, VENOUS 2022-02-[address] [facility] 04:12:00 [facility] HEMOGLOBIN AND HEMATOCRIT 2022-02-[address] [facility] 04:12:00 [facility] CREATINE KINASE (CK) 2022-02-[address] [facility] 04:12:00 [facility] MAGNESIUM 2022-02-[address] [facility] 04:12:00 [facility] CREATINE KINASE (CK) 2022-02-[address] [facility] 00:16:00 [facility] LACTIC ACID, VENOUS 2022-02-[address] [facility] 00:16:00 [facility] HEMOGLOBIN AND HEMATOCRIT 2022-02-[address] [facility] 00:16:00 [facility] TSH/FREE T4 IF INDICATED 2022-02-25 Jodi [facility]xto [facility] 00:16:00 [facility] LACTIC ACID, VENOUS 2022-02-[address] [facility] 20:07:00 [facility] CALCIUM, IONIZED 2022-02-[address] [facility] 20:07:00 [facility] HEMOGLOBIN AND HEMATOCRIT 2022-02-[address] [facility] 20:07:00 [facility] BASIC METABOLIC PANEL 2022-02-[address] [facility] 20:07:00 [facility] BLOOD GAS, ARTERIAL 2022-02-[address] [facility] 19:08:00 [facility] AMMONIA 2022-02-[address] [facility] 19:06:00 [facility] CREATINE KINASE (CK) 2022-02-[address] [facility] 16:58:00 [facility] LACTIC ACID, VENOUS 2022-02-24 Durga, Jodi [facility] 16:58:00 [facility] HEMOGLOBIN AND HEMATOCRIT 2022-02-24 Durga, Jodi [facility] 16:58:00 [facility] BASIC METABOLIC PANEL 2022-02-[address] [facility] 16:58:00 [facility] MAGNESIUM 2022-02-24 Comiskey, Chelsie [facility] 16:58:00 [facility] POCT-GLUCOSE METER 2022-02-[address] [facility] 16:40:00 [facility] RAPID DRUG SCREEN, URINE 2022-02-24 JosephChelsie parham [facility] 11:07:00 [facility] LACTIC ACID, VENOUS 2022-02-24 Durga, Jodi [facility] 11:04:00 [facility] HEMOGLOBIN AND HEMATOCRIT 2022-02-24 Durga, Jodi [facility] 11:04:00 [facility] CREATINE KINASE (CK) 2022-02-[address] [facility] 11:04:00 [facility] TSH/FREE T4 IF INDICATED 2022-02-[address] [facility] 11:04:00 [facility] VITAMIN B12 AND FOLATE 2022-02-24 Meena Anderson [facility] 11:04:00 [facility] RHEUMATOID FACTOR AB, REFLEX 2022-02-[address] [facility] TO TITER 11:04:00 [facility] VITAMIN D, 25-HYDROXY 2022-02-24 Meena Anderson TBrenda [facility] 11:04:00 [facility] BASIC METABOLIC PANEL 2022-02-[address] [facility] 07:48:00 [facility] CREATINE KINASE (CK) 2022-02-24 Durga, Jodi [facility] 07:48:00 [facility] LACTIC ACID, VENOUS 2022-02-24 Durga, Jodi [facility] 07:48:00 [facility] HEMOGLOBIN AND HEMATOCRIT 2022-02-24 Durga, Jodi [facility] 07:48:00 [facility] MAGNESIUM 2022-02-[address] [facility] 07:48:00 [facility] LEGIONELLA ANTIGEN, URINE 2022-02-[address] [facility] 05:20:00 [facility] MRSA SCREEN 2022-02-[address] [facility] 05:18:00 [facility] CALCIUM, IONIZED 2022-02-[address] [facility] 04:33:00 [facility] US ABDOMEN LIMITED 2022-02-[address] [facility] 04:03:00 [facility] CT ABDOMEN/PELVIS WITHOUT IV 2022-02-[address] [facility] 03:40:00 [facility] CBC W/PLT COUNT & AUTO 2022-02-[address] [facility] DIFFERENTIAL 03:02:00 [facility] COMPREHENSIVE METABOLIC PANEL 2022-02-[address] [facility] 03:02:00 [facility] PROTHROMBIN TIME/INR 2022-02-[address] [facility] 03:02:00 [facility] BLOOD GAS, VENOUS 2022-02-[address] [facility] 03:02:00 [facility] FIBRINOGEN 2022-02-[address] [facility] 03:02:00 [facility] CREATINE KINASE (CK) 2022-02-[address] [facility] 03:02:00 [facility] LACTIC ACID, VENOUS 2022-02-24 Durga, Jodi [facility] 03:02:00 [facility] HEPATIC FUNCTION PANEL 2022-02-[address] [facility] 03:02:00 [facility] MAGNESIUM 2022-02-[address] [facility] 03:02:00 [facility] PHOSPHORUS 2022-02-[address] [facility] 03:02:00 [facility] HEMOGLOBIN A1C 2022-02-[address] [facility] 03:02:00 [facility] CBC W/PLT COUNT & AUTO 2022-02-[address] [facility] DIFFERENTIAL 03:02:00 [facility] POCT-GLUCOSE METER 2022-02-[address] [facility] 02:51:00 [facility] ED ECG INTERPRETATION 2022-02-[address] [facility] 23:37:14 [facility] URINE CULTURE 2022-02-[address] [facility] 23:29:00 Medical Center SCREEN, URINE 2022-02-[address] [facility] 23:29:00 [facility] URINALYSIS W/ REFLEX URINE 2022-02-23 Henry [facility] CULTURE 23:29:00 [facility] XR CHEST PA OR AP 1 VIEW IN 2022-02-[address] [facility] DEPT 23:11:00 [facility] BLOOD CULTURE 2022-02-[address] [facility] 22:59:00 [facility] ECG 12-LEAD 2022-02-[address] [facility] 22:31:31 [facility] ECG 12-LEAD 2022-02-23 Unknown, Hl7 Doctor [facility] 22:31:31 [facility] ECG 12-LEAD 2022-02-23 Unknown, Hl7 Doctor [facility] 22:31:31 [facility] LACTIC ACID, VENOUS 2022-02-[address] [facility] 22:21:00 [facility] COMPREHENSIVE METABOLIC PANEL 2022-02-[address] [facility] 22:19:00 [facility] CBC W/PLT COUNT & AUTO 2022-02-[address] [facility] DIFFERENTIAL 22:19:00 [facility] CREATINE KINASE (CK) 2022-02-[address] [facility] 22:19:00 [facility] CBC W/PLT COUNT & AUTO 2022-02-[address] [facility] DIFFERENTIAL 22:19:00 [facility] (MANUAL DIFFERENTIAL) 2022-02-[address] [facility] 22:19:00 [facility] SARS-COV2/RT-PCR ([facility] & REF 2022-02-[address] [facility]) 22:15:00 [facility] EKG-SCANNED 2022-02-[address] [facility] 00:00:00 Scanning [facility] POC GLUCOSE 2021-07-21 [facility] 16:07:00 POC GLUCOSE 2021-07-21 [facility]ella [facility] 11:51:00 POC GLUCOSE 2021-07-21 Carmella [facility] 01:32:00 POC GLUCOSE 2021-07-20 Belcher, Carmella [facility] 21:22:00 POC GLUCOSE 2021-07-20 Belcher, Carmella [facility] 16:13:00 POC GLUCOSE 2021-07-20 Belcher, Carmella [facility] 11:33:00 HC COMPLETE BLD COUNT W/AUTO 2021-07-20 [facility], [facility] DIFF 11:29:00 [place] BASIC METABOLIC PANEL 2021-07-20 [facility], [facility] 11:29:00 Yao ESTIMATED GFR 2021-07-20 [facility], [facility] 11:29:00 [place] POC GLUCOSE 2021-07-20 Belcher, Carmella [facility] 01:42:00 POC GLUCOSE 2021-07-19 Belcher, Carmella [facility] 21:56:00 POC GLUCOSE 2021-07-19 Belcher, Carmella [facility] 17:12:00 POC GLUCOSE 2021-07-19 Belcher, Carmella [facility] 11:30:00 POC GLUCOSE 2021-07-19 Belcher, Carmella [facility] 01:31:00 POC GLUCOSE 2021-07-18 Belcher, Carmella [facility] 21:42:00 US DUPLEX VENOUS LOWER 2021-07-18 Belcher, Carmellaminerva [facility] EXTREMITY BILATERAL 21:36:00 POC GLUCOSE 2021-07-18 Belcher, Carmella [facility] 15:59:00 POC GLUCOSE 2021-07-18 Belcher, Carmella [facility] 11:24:00 POC GLUCOSE 2021-07-18 Belcher, Carmella [facility] 01:30:00 POC GLUCOSE 2021-07-17 Belcher, Carmella [facility] 21:40:00 POC GLUCOSE 2021-07-17 Belcher, Carmella [facility] 15:55:00 HC COMPLETE BLD COUNT W/AUTO 2021-07-17 Belcher, [facility] DIFF 15:05:00 BASIC METABOLIC PANEL 2021-07-17 Belcher, Carmella [facility] 15:05:00 ESTIMATED GFR 2021-07-17 Belcher, Carmella [facility] 15:05:00 POC GLUCOSE 2021-07-17 Belcher, Carmella [facility] 11:29:00 POC GLUCOSE 2021-07-17 Belcher, Carmella [facility] 01:57:00 POC GLUCOSE 2021-07-16 Belcher, Carmella [facility] 21:53:00 POC GLUCOSE 2021-07-16 Belcher, Carmella [facility] 17:36:00 POC GLUCOSE 2021-07-16 Belcher, Carmella [facility] 11:58:00 POC GLUCOSE 2021-07-16 Belcher, Carmella [facility] 02:08:00 POC GLUCOSE 2021-07-15 Belcher, Carmella [facility] 22:04:00 POC GLUCOSE 2021-07-15 Belcher, Carmella [facility] 14:34:00 POC GLUCOSE 2021-07-15 [facility], Carmella [facility] 11:43:00 URINE CULTURE 2021-07-15 [facility], [facility] 05:48:00 URINALYSIS SCREEN AND 2021-07-15 [facility], [facility] MICROSCOPY, WITH REFLEX TO 05:48:00 CULTURE POC GLUCOSE 2021-07-15 [facility], Carmella [facility] 02:26:00 POC GLUCOSE 2021-07-15 [facility] 01:24:00 POC GLUCOSE 2021-07-14 [facility] 22:16:00 POC GLUCOSE 2021-07-14 [facility] 18:00:00 POC GLUCOSE 2021-07-14 [facility] 13:10:00 HC COMPLETE BLD COUNT W/AUTO 2021-07-14 Chiqui Durbin [facility] DIFF 09:23:00 BASIC METABOLIC PANEL 2021-07-14 Chiqui Durbin [facility] 09:23:00 ESTIMATED GFR 2021-07-14 [facility] 09:23:00 POC GLUCOSE 2021-07-14 [facility] 06:24:00 POC GLUCOSE 2021-07-13 [facility] 22:34:00 POC GLUCOSE 2021-07-13 [facility] 17:22:00 POC GLUCOSE 2021-07-13 Chiqui Durbin [facility] 13:48:00 HC COMPLETE BLD COUNT W/[facility]O 2021[facility]07[facility] 07:53:00 RETICULOCYTE COUNT 2021-07-13 [facility] 07:53:00 POC GLUCOSE 2021-07-13 [facility] 02:14:00 POC GLUCOSE 2021-07-12 [facility] 22:01:00 EMG 2021-07-12 Karim, Sanaa [facility] 21:16:20 POC GLUCOSE 2021-07-12 [facility] 16:53:00 POC GLUCOSE 2021-07-12 [facility] 12:51:00 POC GLUCOSE 2021-07-12 [facility] 01:49:00 CV INSERTION SUBCUTANEOUS 2021-07-12 [facility] CARDIAC RHYTHM MONITOR INCL 00:00:00 PROGRAM (NON INVASIVE) HCG QUALITATIVE, URINE SCREEN 2021-07-[address] [facility] 23:22:00 POC GLUCOSE 2021-07-11 [facility] 22:51:00 POC GLUCOSE 2021-07-11 [facility] 17:22:00 POC GLUCOSE 2021-07-11 [facility]iqu[facility] 13:26:00 MAGNESIUM LEVEL 2021-07-11 Karim, Sanaa [facility] 10:16:00 AMMONIA LEVEL 2021-07-11 Karim, Sanaa [facility] 10:16:00 PYRUVIC ACID LEVEL 2021-07-11 [facility] 10:16:00 T4, FREE 2021-07-11 Gifty, Chiqui [facility] ospital 10:16:00 THYROID STIMULATING HORMONE 2021-07-11 [facility] 02:53:00 [place] POC GLUCOSE 2021-07-11 Lipan, Chiqui [facility] 02:08:00 POC GLUCOSE 2021-07-10 Gifty, Chiqui [facility] 20:39:00 POC GLUCOSE 2021-07-10 Gifty, Chiqui [facility]spital 17:25:00 METANEPHRINES, PLASMA (FREE) 2021-07-10 [facility], [facility] 17:00:00 CATECHOLAMINES FRACTIONATED, 2021-07-10 [facility], [facility] PLASMA 17:00:00 RENIN ACTIVITY 2021-07-10 [facility], [facility]ital 17:00:00 ALDOSTERONE, SERUM 2021-07-10 [facility], [facility] 17:00:00 POC GLUCOSE 2021-07-10 Chiqui Durbin [facility] ospital 13:07:00 SALIVARY CORTISOL 2021-07-10 [facility], [facility] 12:49:00 POC GLUCOSE 2021-07-10 Gifty Chiqui [facility] ospital 02:38:00 POC GLUCOSE 2021-07-09 Lipan, Chiqui [facility]spital 22:17:00 LACTIC ACID LEVEL 2021-07-09 Li Clark [facility] 22:01:00 CORTISOL LEVEL, RANDOM 2021-07-09 [facility], [facility] 17:56:00 MISCELLANEOUS REFERRAL TEST 2021-07-09 [facility], [facility] 17:56:00 ADRENOCORTICOTROPIC HORMONE 2021-07-09 [facility], [facility] 17:55:00 POC GLUCOSE 2021-07-09 Lipan, Chiqui [facility]ital 17:35:00 SALIVARY CORTISOL 2021-07-09 [facility], [facility] 17:18:00 POC GLUCOSE 2021-07-09 [facility] 12:54:00 POC GLUCOSE 2021-07-09 [facility] 11:41:00 LACTIC ACID LEVEL 2021-07-09 [facility] spital 09:40:00 HEPATITIS B CORE ANTIBODY IGM 2021-07-[address] [facility] 09:40:00 HEPATITIS B SURFACE ANTIBODY 2021-07-09 [facility], [facility] 09:40:00 HEPATITIS C ANTIBODY 2021-07-09 [facility], [facility] 09:40:00 HEPATITIS B SURFACE ANTIGEN 2021-07-09 [facility], [facility] 09:40:00 ETHYLENE GLYCOL LEVEL 2021-07-09 [facility] 09:40:00 METHANOL LEVEL 2021-07-09 [facility] 09:40:00 ACETAMINOPHEN LEVEL 2021-07-[address] [facility] 09:40:00 SALICYLATE LEVEL 2021-07-09 [facility] 09:40:00 VASCULAR ENDOTHELIAL GROWTH 2021-07-09 [facility] FACTOR (VEGF) 09:40:00 KAPPA LAMBDA FREE LIGHT CHAIN 2021-07-[address] [facility] WITH RATIO 09:40:00 SERUM ELECTROPHORESIS 2021-07-09 [facility] 09:40:00 POC GLUCOSE 2021-07-09 Chiqui Durbin [facility] 01:58:00 POC GLUCOSE 2021-07-08 Chiqu[facility] 21:15:00 POC GLUCOSE 2021-07-08 Chiqu[facility] Durb[facility] 16:51:00 POC GLUCOSE 2021-07-08 Chiqu[facility] Durb[facility] 12:47:00 ANTI-NEUTROPHILIC CYTOPLASMIC 2021-07-08 [facility] ABS PANEL 09:00:00 DOUBLE-STRANDED DNA (DSDNA) 2021-07-08 [facility] ANTIBODIES, CRITHIDIA 09:00:00 SS-B ANTIBODY 2021-07-08 [facility] spital 09:00:00 C4 COMPLEMENT COMPONENT 2021-07-08 [facility] 09:00:00 RHEUMATOID FACTOR 2021-07-08 [facility] 09:00:00 CYCLIC CITRULLINATED PEPTIDE 2021-07-08 [facility] AB, IGG 09:00:00 ANGIOTENSIN CONVERTING ENZYME 2021-07-08 [facility] 09:00:00 COMPREHENSIVE METABOLIC PANEL 2021-07-08 [facility] 09:00:00 PROTHROMBIN TIME WITH INR 2021-07-08 [facility] 09:00:00 PARTIAL THROMBOPLASTIN TIME 2021-07-08 [facility] (PTT) 09:00:00 BILIRUBIN DIRECT 2021-07-08 [facility] ospital 09:00:00 HC COMPLETE BLD COUNT W/AUTO 2021-07-08 [facility] DIFF 09:00:00 RETICULOCYTE COUNT 2021-07-08 [facility] 09:00:00 LDH 2021-07-08 Escleonor [facility] pital 09:00:00 HAPTOGLOBIN 2021-07-08 [facility] 09:00:00 CELIAC DISEASE REFLEXIVE 2021-07-08 Escstephie [facility] 09:00:00 COPPER LEVEL, SERUM 2021-07-08 [facility] 09:00:00 ZINC LEVEL, SERUM 2021-07-08 [facility] ospital 09:00:00 ESTIMATED GFR 2021-07-08 [facility]iqui [facility] 09:00:00 SMEAR REVIEW 2021-07-08 [facility] 09:00:00 TISSUE TRANSGLUTAMINASE AB, 2021-07-08 Gifty Chiqui [facility] IGA 09:00:00 URINE CULTURE 2021-07-[address] [facility] ospital 04:28:00 URINALYSIS SCREEN AND 2021-07-08 [facility] MICROSCOPY, WITH REFLEX TO 04:02:00 CULTURE URINE DRUGS OF ABUSE SCREEN 2021-07-08 [facility] 04:02:00 CT ABDOMEN PELVIS W CONTRAST [facility] 02:01:46 TYPE AND SCREEN 2021-07-07 [facility] pital 23:31:00 DIRECT ROBERTO' (JOSE) 2021-07-07 [facility] 23:31:00 XR CHEST 2 VW 2021-07-07 Diamond Mccormick [facility] spital 21:08:39 POC GLUCOSE 2021-07-07 Chiqui Durbin [facility] ospital 18:11:00 IR LUMBAR PUNCTURE 2021-07-07 [facility] 13:45:00 CSF CULTURE 2021-07-07 Diamond Mccormick [facility] spital 13:41:00 FUNGUS CULTURE 2021-07-07 Diamond Mccormick [facility] 13:41:00 AFB CULTURE 2021-07-07 Diamond Mccormick [facility] sp[facility] 13:41:00 GRAM STAIN 2021-07-07 Chiqui Durbin [facility] ospital 13:41:00 MISCELLANEOUS REFERRAL TEST 2021-07-07 [facility] 13:41:00 CSF CELL COUNT WITH 2021-07-07 [facility] DIFFERENTIAL 13:41:00 GLUCOSE LEVEL, CSF 2021-07-07 [facility] 13:41:00 VDRL, CSF 2021-07-07 Diamond Mccormick [facility]ital 13:41:00 LYME DISEASE REFLEXIVE PANEL, 2021-07-07 [facility] CSF 13:41:00 CYTOMEGALOVIRUS BY PCR 2021-07-07 [facility] 13:41:00 VARICELLA ZOSTER BY PCR 2021-07-07 [facility] 13:41:00 ENTEROVIRUS BY PCR 2021-07-[address] [place] [address] 13:41:00 HERPES SIMPLEX VIRUS BY PCR 2021-07-07 [facility] 13:41:00 [place] VIRUS ANTIBODY 2021-07-07 [facility] PANEL, CSF 13:41:00 FLOW CYTOMETRY EVALUATION 2021-07-07 [facility] 13:41:00 ANGIOTENSIN CONVERTING 2021-07-07 [facility] ENZYME, CSF 13:41:00 OLIGOCLONAL BANDING, CSF 2021-07-07 [facility] 13:41:00 CRYPTOCOCCAL ANTIGEN SCREEN 2021-07-07 [facility] 12:57:00 COPPER LEVEL, SERUM 2021-07-07 [facility] 10:17:00 ADRENOCORTICOTROPIC HORMONE 2021-07-07 [facility] 10:17:00 TOTAL IRON BINDING CAPACITY 2021-07-07 [facility] 10:17:00 MTHFR MUTATION 2021-07-07 [facility] spital 10:17:00 VITAMIN A LEVEL, PLASMA OR 2021-07-07 [facility] SERUM 10:17:00 VITAMIN K LEVEL, SERUM 2021-07-07 [facility] 10:17:00 MISCELLANEOUS REFERRAL TEST 2021-07-07 [facility] 10:17:00 SYPHILIS TREPONEMA SCREEN 2021-07-07 [facility] WITH RPR CONFIRMATION 10:17:00 (REVERSE ALGORITHM) CYTOLOGY (NON-GYNECOLOGICAL) 2021-07-06 Chiqui Durbin [facility] REQUEST 23:05:00 MRI LUMBAR SPINE W WO 2021-07-06 [facility] CONTRAST 14:20:00 MRI CERVICAL SPINE W WO 2021-07-06 [facility] CONTRAST 13:50:00 MRI THORACIC SPINE W WO 2021-07-06 [facility] CONTRAST 13:00:00 CORTISOL LEVEL, AM 2021-07-06 [facility] 09:41:00 CREATINE KINASE, TOTAL (CPK) 2021-07-06 [facility] 09:41:00 ALDOLASE, SERUM 2021-07-06 [facility] 09:41:00 HEMOGLOBIN A1C 2021-07-06 [facility] 09:41:00 HIV AG/AB COMBINATION 2021-07-06 [facility] 09:41:00 SERUM ELECTROPHORESIS 2021-07-06 [facility] 09:41:00 HOMOCYSTINE, PLASMA 2021-07-06 [facility] 09:41:00 VITAMIN B6 LEVEL, PLASMA 2021-07-06 [facility] 09:41:00 VITAMIN B12 LEVEL 2021-07-06 [facility] 09:41:00 VITAMIN D 25 HYDROXY LEVEL 2021-07-06 [facility] 09:41:00 KAPPA LAMBDA FREE LIGHT CHAIN 2021-07-06 [facility] WITH RATIO 09:41:00 VITAMIN E 2021-07-06 [facility] 09:41:00 FOLATE LEVEL 2021-07-06 [facility] Ho spital 09:41:00 B. BURGDORFERI ABS TOTAL, 2021-07-06 [facility] 09:41:00 LUPE 2021-07-06 [facility] Ho spital 09:41:00 METHYLMALONIC ACID, SERUM 2021-07-06 [facility] 09:41:00 GLUTAMIC ACID DECARBOXYLASE 2021-07-06 [facility] AB 09:41:00 IGG SYNTHESIS RATE STUDY 2021-07-06 [facility] 09:22:00 FERRITIN LEVEL 2021-07-[address] [facility], [facility] al 20:41:00 HC COMPLETE BLD COUNT W/AUTO 2021-07-[address] [facility], [facility] DIFF 08:52:00 BASIC METABOLIC PANEL 2021-07-[address] [facility], [facility] 08:52:00 ESTIMATED GFR 2021-07-[address] [facility], [facility] al 08:52:00 EMG 2021-07-[address] [facility], [facility] 19:48:57 MRI BRAIN WO CONTRAST 2021-07-04 [facility] 16:58:00 CBC WITH PLATELET AND 2021-07-04 [facility] DIFFERENTIAL 08:37:00 BASIC METABOLIC PANEL 2021-07-04 [facility] 08:37:00 ESTIMATED GFR 2021-07-[address] [facility], [facility] al 08:37:00 MANUAL DIFFERENTIAL 2021-07-04 João, [facility] spital 08:37:00 EEG EXTENDED 41 - 60 MINS 2021-07-04 João, [facility] 04:18:53 CLOSTRIDIUM DIFFICILE TOXIN 2021-07-03 Maya [facility] 20:32:00 Anita CBC WITH PLATELET AND 2021-07-[address] [facility], [facility] DIFFERENTIAL 10:40:00 BASIC METABOLIC PANEL 2021-07-03 [facility] 10:40:00 ESTIMATED GFR 2021-07-03 João, [facility] al 10:40:00 MANUAL DIFFERENTIAL 2021-07-03 João [facility] spital 10:40:00 US CAROTID DUPLEX BILATERAL 2021-07-02 João [facility] 22:10:52 TTE COMPLETE, WO CONTRAST, W 2021-07-02 João, Leana [facility] DOPPLER ([id number]) 19:53:00 CT HEAD WO CONTRAST 2021-07-02 João Leana [facility] 18:03:00 XR CERVICAL SPINE 2 OR 3 VW 2021-07-02 Artur [facility] 17:21:09 César XR LUMBAR SPINE 2 OR 3 VW 2021-07-02 Silvio Siddiqui [facility] 17:20:55 César ECG ED PRELIMINARY 2021-07-02 Silvio Siddiqui [facility] pital INTERPRETATION 16:58:30 César ELIZABETHIDKath QUALITATIVE RT-PCR 2021-07-02 WoodVenkat [facility] 16:58:00 Wally COMPREHENSIVE METABOLIC PANEL 2021-07-02 Silvio Siddiqui [facility] 16:58:00 César CBC WITH PLATELET AND 2021-07-02 Artur [facility] DIFFERENTIAL 16:58:00 César ESTIMATED GFR 2021-07-02 WoodVenkat [facility] 16:58:00 Wally MANUAL DIFFERENTIAL 2021-07-02 Venkat [facility] ospital 16:58:00 Wally ECG 12-LEAD 2021-07-02 [facility] 16:54:05 César AMB REFERRAL TO SLEEP 2021-06-[address] [facility] MEDICINE 22:20:00 Berny ECG 12-LEAD 2021[facility]23 [facility]10 Berny CV PACEMAKER DEFIB ILR 2021-05-[address] [facility] INTERROGATION 00:00:00 Berny EP SUBCUTANEOUS CARDAIC 2021-04-26 [facility] RHYTHM MONITOR INSERT W PROG 14:13:00 Berny COVID-19 QUALITATIVE RT-PCR 2021-04-25 [facility] 14:09:00 Berny ECG 12-LEAD 2021-04-25 [facility] 13:22:24 Berny TTE COMPLETE, W CONTRAST, W 2021-03-07 [facility] DOPPLER ([id number]) 16:45:45 CV TREADMILL STRESS TEST 2021-03-07 [facility] 16:03:19 ECG 12-LEAD 2021-02-21 Fidencio bAbasi [facility] 16:24:14 ISOLATION 2020-10-[address] [facility] 00:[facility]00 [facility] (LUF[facility]HEIKE/SA) Plan of Care Planned Activity Planned Date Details Comments Source Future Scheduled 2022-09-12 HEPATITIS B VACCINES Met [facility] Test 10:42:58 (1 of 3 - 3-dose series) [code = HEPATITIS B VACCINES (1 of 3 - 3-dose series)] Future Scheduled 2022-09-12 COVID-19 VACCINE (#1) [facility] Test 10:42:58 [code = COVID-19 VACCINE (#1)] Future Scheduled 2022-09-12 Screening for [facility] Test 10:42:58 malignant neoplasm of cervix (procedure) [code = 639935646] Future Scheduled 2022-09-12 INFLUENZA VACCINE Method [facility] Test 10:42:58 [code = INFLUENZA VACCINE] Future Scheduled 2022-09-04 HEPATITIS B VACCINES Met [facility] Test 13:28:01 (1 of 3 - 3-dose series) [code = HEPATITIS B VACCINES (1 of 3 - 3-dose series)] Future Scheduled 2022-09-04 COVID-19 VACCINE (#1) [facility] Test 13:28:01 [code = COVID-19 VACCINE (#1)] Future Scheduled 2022-09-04 Screening for [facility] Test 13:28:01 malignant neoplasm of cervix (procedure) [code = 239231435] Future Scheduled 2022-09-04 INFLUENZA VACCINE Method [facility] Test 13:28:01 [code = INFLUENZA VACCINE] Future Scheduled 2022-07-05 INFLUENZA VACCINE (#1) [facility] 00:00[facility]00 [code = INFLUENZA Medical Ce nter VACCINE (#1)] Future Scheduled 2022-07-05 INFLUENZA VACCINE (#1) [facility] 00:00:00 [code = INFLUENZA Medical Ce nter VACCINE (#1)] Future Scheduled 2021-12-06 COVID-19 [facility]ACCINE (1[facility] 00:53:00 [code = COVID-19 VACCINE (1)] Future Scheduled 2021-12-06 INFLUENZA VACCINE [facility] Test 00:53:00 [code = INFLUENZA VACCINE] Future Scheduled 2021-12-06 [facility] Test 00:53:00 malignant neoplasm of cervix (procedure) [code = 250215639] Future Scheduled 2021-11-[address] [facility] Test 00:00:00 (12+) [code = Medical Center DEPRESSION SCREENING (12+)] Future Scheduled 2021-11-[address] [facility] Test 00:00:00 (12+) [code = Medical Center DEPRESSION SCREENING (12+)] Future Scheduled 2004-02-[address] [facility] Test 00:00:00 malignant neoplasm of [facility] cervix (procedure) [code = 983979129] Future Scheduled 2004-02-[address] [facility] Test 00:00:00 malignant neoplasm of [facility] cervix (procedure) [code = 880916710] Future Scheduled [address] [facility] Test 00:00:00 (procedure) [code = [facility] [id number]] Future Scheduled [address] [facility] Test 00:00:00 (procedure) [code = [facility] [id number]] Future Scheduled 2002 DTAP/TDAP/TD VACCINES [facility] 00:00:00 (1 - Tdap) [code = Medical C enter DTAP/TDAP/TD VACCINES (1 - Tdap)] Future Scheduled 2002 DTAP/TDAP/TD VACCINES [facility] 00:00:00 (1 - Tdap) [code = Medical C enter DTAP/TDAP/TD VACCINES (1 - Tdap)] Future Scheduled 2001 HEPATITIS C [facility]CRE[facility]ING [facility] 00:00:00 [code = HEPATITIS C Medical Center SCREENING] Future Scheduled 2001 HEPATITIS C [facility]CRE[facility]ING [facility] 00:00:00 [code = HEPATITIS C Medical Center SCREENING] Future Scheduled [address] [facility] Test 00:00:00 Counseling and Medical Cente r Screening (12+) [code = Tobacco Cessation Counseling and Screening (12+)] Future Scheduled [address] [facility] Test 00:00:00 0-64 YRS (1 - PCV) Medical C enter [code = PNEUMOCOCCAL VACCINE 0-64 YRS (1 - PCV)] Future Scheduled [address] [facility] Test 00:00:00 0-64 YRS (1 - PCV) Medical C enter [code = PNEUMOCOCCAL VACCINE 0-64 YRS (1 - PCV)] Future Scheduled 1983 COVID-19 VACCINE (#1) [facility] 00:00:00 [code = COVID-[address] VACCINE (#1)] Future Scheduled 1983 COVID-19 VACCINE (#1) [facility] 00:00:00 [code = COVID-[address] VACCINE (#1)] Encounters Start End Encounter Admission Attending Care Care Encounter Source Date/Time Date/Time Type Type Clinicians Facility Department ID 2021-11-29 Outpatient Rod [facility] Common 13:54:57 Carmelo 0929 [facility] 2021-11-29 Outpatient [facility] Common 11:31:06 [id number] [facility] 2022-08-23 2022-08-23 Orders Vannessa [facility] [id number] 00:00:00 00:00:[address] [facility] 2022-08-23 2022-08-23 Orders Vannessa [facility] [id number] 00:00:00 00:00:[address] [facility] 2022-08-14 2022-08-14 Emergency [facility] [id number] 02:24:00 08:45:[address] [place] [address] 2022-08-14 2022-08-14 Emergency ER [facility] Emergency [id number] [facility] 02:24:00 08:45:00 7 2022-07-16 2022-07-23 [facility] [id number] 11:25:00 16:37:00 Encounter Abel Gurrola [facility] 2022-07-16 2022-07-23 Hospital ROGER Strickland [facility] [id number] 11:25:00 16:37:00 Encounter Abel [facility] 2022-07-16 2022-07-23 Inpatient ROGER STRICKLAND [facility] Surgery [id number] 11:25:00 16:37:00 ABEL 2022-07-21 2022-07-21 Surgery Marco A [facility] [id number] 08:00:00 09:30:00 [facility] 2022-07-21 2022-07-21 Surgery Marco A [facility] [id number] 08:00:00 09:30:00 [facility] 2022-07-16 2022-07-16 Surgery Marco A [facility] [id number] 13:30:00 18:00:00 [facility] 2022-07-16 2022-07-16 Surgery Marco [facility] [id number] 13:30:00 18:00:00 [facility] 2022-07-16 2022-07-[address] [facility] [id number] [facility] 00:[facility] 00:00:00 [facility] 2022-07-16 2022-07-[address] [facility] [id number] [facility] 00:[facility] 00:00:00 [facility] 2022-07-12 2022-07-12 Outpatient ROGER MARCO A [facility] [id number] [facility] 14:54:23 23:59:00 ABEL 2022-07-12 2022-07-12 [facility] Marco A [facility] [id number] 14:30:00 23:59:00 Encounter [facility] 2022-07-12 2022-07-12 Hospital ROGER Strickland [facility] [id number] 14:30:00 23:59:00 Encounter [facility] 2022-07-12 2022-07-[address] [facility] [id number] [facility] 00:[facility]00 00:00:00 [facility] 2022-07-12 2022-07-[address] [facility] [id number] [facility] 00:[facility] 00:00:00 [facility] 2022-06-22 2022-06-22 Orders Maximilian [facility] [id number] 00:00:00 00:00:00 Only Oliva Knapp [facility] 2022-06-22 2022-06-22 Orders Maximilian [facility] [id number] 00:00[facility]00 00:00:00 Only [facility] 2022-06-18 2022-06-18 Outpatient ROGER STRICKLAND [facility] [id number] [facility] 14:17:59 23:59:00 ABEL 2022-06-18 2022-06-18 [facility] Marco A [facility] [id number] 14:00:00 23:59:00 Encounter [facility] 2022-06-18 2022-06-18 [facility] ROGER Strickland [facility] [id number] 14:00:00 23:59:00 Encounter [facility] 2022-06-18 2022-06-18 Outpatient [facility] [id number] [facility] 14:17:52 14:17:52 2022-06-18 2022-06-[address] [facility] [id number] [facility] 00:[facility]:00 [facility] 2022-06-18 2022-06-[address] [facility] [id number] [facility] 00:[facility]00 00:00:00 [facility] 2022-06-07 2022-06-07 Geeta Parish [facility] [id number] 00:00:00 00:00:00 Only [facility] 2022-06-07 2022-06-07 Geeta Parish [facility] [id number] 00:00:00 00:00:00 Only [facility] 2022-05-11 2022-05-11 Documentat Delos 1.2.840.1 [id number] Methodi 00:00:00 00:00:00 desean Armando, 03859.1.[address] Peggy F. 3.430.2.7 Hosp tamela .3.402744 l .8 2022-05-11 2022-05-11 Documentat Delos 1.2.840.1 [id number] Methodi 00:00:00 00:00:00 desean Armando, 15808.1.[address] Peggy F. 3.430.2.7 Hosp tamela .3.481702 l .8 2022-02-24 2022-03-07 [facility] Alvin Hurtado [facility] [id number] [facility] 02:37:00 15:45:00 Encounter Heva-Paththinige, Surya Kessler, [facility], [facility] Kristal, Nilton Yanez, Amilcaroze Abi 2022-02-24 2022-03-07 [facility] Alvin Hurtado [facility] [id number] 02:37:00 15:45:00 Encounter Heva-Paththinige, Surya Kessler, [facility], [facility], [facility] Kyree, [facility] Paulsera Barrie, Feroze Abid 2022-02-24 2022-03-07 Inpatient ER [facility], [facility] N/A [id number] [facility] 02:37:00 15:45:00 FEROZE 2022-03-05 2022-03-05 Surgery Marco A [facility] [id number] 16:30:00 17:50:00 Abel Gurrola [facility] 2022-03-05 2022-03-05 Surgery Marco A [facility] [id number] 16:30:00 17:50:00 [facility] 2022-03-05 2022-03-05 Anesthesia Jazzmine To [facility] [id number] 16:15:00 16:42:00 Event Artur [facility] 2022-03-05 2022-03-05 Anesthesia Jazzmine To [facility] [id number] [id number] 16:15:00 16:42:00 Event Artur [facility] 2022-02-26 2022-02-26 Anesthesia Celia Hamilton [facility] [id number] [facility] 15:54:00 19:08:00 Event Damir [facility] 2022-02-26 2022-02-26 Anesthesia Celia Hamilton [facility] [id number] [facility] 15:54:00 19:08:00 Event Helder Reichlie [facility] 2022-02-26 2022-02-26 Surgery Marco A [facility] [id number] 16:00:00 18:30:00 [facility] 2022-02-26 2022-02-26 Surgery Marco A [facility] [id number] 16:00:00 18:30:00 [facility] 2022-02-23 2022-02-24 Emergency Henry Jorge [facility] [id number] 22:15:00 02:22:00 [facility] 2022-02-23 2022-02-24 Emergency ER Henry Jorge [facility] [id number] 22:15:00 02:22:00 [facility] 2022-02-23 2022-02-24 Emergency ER HENRY JORGE [facility] Emergency [id number] [facility] 22:15:00 02:22:00 2022-02-23 2022-02-23 Orders [facility] [id number] 00:00:00 00:00:00 [facility] 2022-02-23 2022-02-[address] [facility] [id number] [facility] 00:00:00 00:00:00 [facility] 2022-02-23 2022-02-23 Orders [facility] [id number] 00:00:00 00:00:00 Only [facility] 2022-02-23 2022-02-[address] [facility] [id number] [facility] 00:00:00 00:00:00 [facility] 2022-02-15 2022-02-15 Travel 1.2.840.1 1.2.595.204 [id number] Methodi 00:00:00 00:00:[address] 3.430.2.7 0.2.7.3.698 Ho spita .3.800326 084.8 l .8 2022-02-15 2022-02-15 Travel 1.2.840.1 1.2.814.563 4941 [id number] Methodi 00:00:00 00:00:[address] 3.430.2.7 0.2.7.3.698 Ho spita .3.423678 084.8 l .8 2022-02-05 2022-02-05 Documentat Delos 1.2.840.1 [id number] [id number] Methodi 00:00:00 00:00:00 ion Tr, 82981.1.[address] Peggy F. 3.430.2.7 Hosp tamela .3.898728 l .8 2022-02-05 2022-02-05 Telephone Guicho, 1.2.840.1 [id number] 2 [id number] Methodi 00:00:00 00:00:[address] Berny 3.430.2.7 Hospit a .3.913712 l .8 2022-02-05 2022-02-05 Documentat Delos 1.2.840.1 [id number] Methodi 00:00:00 00:00:00 ion Tr, 73000.1.[address] Peggy F. 3.430.2.7 Hosp tamela .3.771946 l .8 2022-02-05 2022-02-05 Telephone Guicho, 1.2.840.1 [id number] 2 [id number] Methodi 00:00:00 00:00:[address] Berny 3.430.2.7 Hospit a .3.344245 l .8 2021-11-17 2021-11-17 Telephone Asked, No 1.2.840.1 [id number] 21 [id number] Methodi 00:00:00 00:00:[address] 3.430.2.7 Hospit a .3.216014 l .8 2021-11-17 2021-11-17 Telephone Asked, No 1.2.840.1 [id number] 21 [id number] Methodi 00:00:00 00:00:[address] 3.430.2.7 Hospit a .3.057667 l .8 2021-10-04 2021-10-04 Outpatient 3 [facility] [id number] 14:07:00 14:07:00 Kami Blanc l (LUF/LI V/SA) 2021-09-05 2021-10-03 POLYNEUROP [facility] [id number] 06:38:00 23:59:00 [place]THY [place] Kami UNSPECIFIE [place] D [address] jhony GANN (LUF/LI AVE, V/SA) [place] [address] 2021-09-05 2021-09-05 Inpatient [facility] 04e2 f3b2-c [facility] 00:00:[facility] 00:00:00 [place] [id number] [facility], [id number] Memor ia [address] [id number] l [place] (LUF/LI AVE, V/SA) [place] [address] 2021-09-05 2021-09-05 Inpatient [facility] [id number] ffc4-e [facility] 00:00:00 00:00:00 [place] [id number] [facility], [id number] Memor ia [address] [id number] l [place] (LUF/LI AVE, V/[place]) [place] [address] 2021-08-07 2021-09-03 POLYNEUROP [facility] [place] [id number] 13:25:00 23:59:00 [facility] D [address] [place] (LUF/LI AVE, V/[place]) [place] [address] 2021-08-07 2021-08-07 Telephone Asked, No 1.2.840.1 [id number] Methodi 00:00:00 00:00:[address] 3.430.2.7 Hospit a .3.981969 l .8 2021-08-07 2021-08-07 Inpatient [facility] abc6 de9e-f [facility] 00:[facility]:00 00:00:00 [place] y9q-83cm-f [facility], [id number] Memor ia [address] [id number] l [place] (LUF/LI AVE, V/SA) [place] [address] 2021-07-24 2021-08-03 POLYNEUROP [facility] [place] [id number] 16:45:00 23:59:00 [facility] D [address] [place] (LUF/LI AVE, V/SA) [place] [address] 2021-08-01 2021-08-01 Documentat Delos 1.2.840.1 [id number] Methodi 00:00:00 00:00:00 ion Tr, 71229.1.[address] Peggy F. 3.430.2.7 Hosp tamela .3.368353 l .8 2021-07-24 2021-07-24 Inpatient [facility] 8df9 a1ba-[address] 00:00:00 00:00:00 [place] [id number] [facility], [id number] [facility] [address] [id number] l SANJUANITA (BILLIE/LOREE MORRIS, Tony/SA) [place] [address] 2021-07-14 2021-07-21 Hospital [facility] Carmella 1.2.840.1 [id number] Methodi 21:20:00 13:27:00 Encounter Sun-Kin 68756.1.[address] 3.430.2.7 Hospit a .3.908969 l .8 2021-07-20 2021-07-20 Telephone Asked, No 1.2.840.1 [id number] 21 [id number] Methodi 00:00:00 00:00:[address] 3.430.2.7 Hospit a .3.670399 l .8 2021-07-17 2021-07-17 Plan of 1.2.840.1 [id number] Methodi 00:00:00 00:00:[address] Documentat 3.430.2.7 Hos guillaume ion .3.103933 l .8 2021-07-02 2021-07-14 Hospital Venkat Wood 1.2.840.1 [id number] Methodi 11:13:00 21:12:00 Encounter Leana Moyer 65965.1.[address] Chiqui Durbin 3.430.2.7 Hospita .3.645098 l .8 2021-07-12 2021-07-12 Orders Provider, 1.2.840.1 [id number] [id number] Methodi 00:00:00 00:00:00 Only Historical 94217.1.1 970 s t 3.430.2.7 Hospit a .3.092244 l .8 2021-07-07 2021-07-07 Orders Taylor, 1.2.840.1 [id number] Methodi 00:00:00 00:00:00 Only Mark 74554.1.[address] 3.430.2.7 Hospit a .3.954908 l .8 2021-06-19 2021-06-19 [facility], 1.2.840.1 [id number] 21 [id number] Methodi 19:28:02 23:59:00 Encounter Bryant 76939.1.[address] Berny 3.430.2.7 Hospit a .3.916698 l .8 2021-06-19 2021-06-19 Travel 1.2.840.1 1.2.373.776 3650 [id number] Methodi 00:00:00 00:00:[address] 3.430.2.7 0.2.7.3.698 Ho spita .3.720570 084.8 l .8 2021-05-25 2021-05-25 Travel 1.2.840.1 1.2.243.262 1824 [id number] Methodi 00:00:00 00:00:[address] 3.430.2.7 0.2.7.3.698 Ho spita .3.487679 084.8 l .8 2021-05-23 2021-05-23 [facility], 1.2.840.1 [id number] 767 [id number] Methodi 09:27:50 09:42:50 Visit Bryant 06532.1.[address] Berny 3.430.2.7 Hospit a .3.223544 l .8 2021-05-23 2021-05-23 Travel 1.2.840.1 1.2.390.522 4713 [id number] Methodi 00:00:00 00:00:[address] 3.430.2.7 0.2.7.3.698 Ho spita .3.916455 084.8 l .8 2021-05-17 2021-05-17 Documentat Delos 1.2.840.1 [id number] 953 [id number] Methodi 00:00:00 00:00:00 ion Tr, 49853.1.[address] Peggy F. 3.430.2.7 Hosp tamela .3.904990 l .8 2021-05-02 2021-05-02 Office [place], 1.2.840.1 [id number] 5048 Methodi 09:29:09 10:15:09 Visit Fidencio 98709.1.[address] 3.430.2.7 Hospit a .3.475037 l .8 2021-05-02 2021-05-02 Travel 1.2.840.1 1.2.740.320 9359 [id number] Methodi 00:00:00 00:00:[address] 3.430.2.7 0.2.7.3.698 Ho spita .3.857610 084.8 l .8 2021-04-26 2021-04-26 [facility], 1.2.840.1 [id number] 21 [id number] Methodi 05:16:00 09:59:00 Encounter Bryant 30553.1.[address] Berny 3.430.2.7 Hospit a .3.216501 l .8 2021-04-26 2021-04-26 Surgery [facility], 1.2.840.1 [id number] 218 [id number] Methodi 07:30:00 08:30:[address] Berny 3.430.2.7 Hospit a .3.870617 l .8 2021-04-25 2021-04-25 [facility], 1.2.840.1 [id number] 105 [id number] Methodi 09:02:37 09:07:[address] Berny 3.430.2.7 Hospit a .3.377534 l .8 2021-04-25 2021-04-25 Office [facility], 1.2.840.1 [id number] 359 [id number] Methodi 08:11:15 08:41:15 Visit Bryant 07671.1.[address] Berny 3.430.2.7 Hospit a .3.742288 l .8 2021-04-25 2021-04-25 Travel 1.2.840.1 1.2.441.896 9328 [id number] Methodi 00:00:00 00:00:[address] 3.430.2.7 0.2.7.3.698 Ho spita .3.725746 084.8 l .8 2021-04-10 2021-04-10 Telephone Erin, 1.2.840.1 [id number] 2099 [id number] Methodi 00:00:00 00:00:[address] 3.430.2.7 Hospit a .3.178210 l .8 2021-03-14 2021-03-14 Office [place], 1.2.840.1 [id number] 7462 Methodi 08:57:19 09:44:52 Visit Fidencio 05713.1.[address] 3.430.2.7 Hospit a .3.829328 l .8 2021-03-14 2021-03-14 Travel 1.2.840.1 1.2.281.320 9378 545757 Methodi 00:00:00 00:00:[address] 3.430.2.7 0.2.7.3.698 Ho spita .3.983032 084.8 l .8 2021-03-07 2021-03-07 Travel 1.2.840.1 1.2.663.425 8237 [id number] Methodi 00:00:00 00:00:[address] 3.430.2.7 0.2.7.3.698 Ho spita .3.659278 084.8 l .8 2021-03-07 2021-03-07 Outpatient [facility] [id number] [address] [place] [address] 00:00:00 00:00:[address] 2021-03-07 2021-03-07 Outpatient [facility] 2022228 [address] [place] [address] 00:00:00 00:00:[address] 2021-02-21 2021-02-21 Office [place], 1.2.840.1 [id number] 9245 Methodi 10:48:13 12:00:38 Visit Fidencio 06893.1.[address] 3.430.2.7 Hospit a .3.137126 l .8 2021-02-21 2021-02-21 Travel 1.2.840.1 1.2.528.745 3591 144146 Methodi 00:00:00 00:00:[address] 3.430.2.7 0.2.7.3.698 Ho spita .3.736482 084.8 l .8 2021-02-08 2021-02-08 Travel 1.2.840.1 1.2.259.782 6862 036567 Methodi 00:00:00 00:00:[address] 3.430.2.7 0.2.7.3.698 Ho spita .3.562735 084.8 l .8 2021-01-20 2021-01-20 Travel 1.2.840.1 1.2.799.274 8444 344460 Methodi 00:00:00 00:00:[address] 3.430.2.7 0.2.7.3.698 Ho spita .3.032982 084.8 l .8 2020-10-27 2020-10-27 OTHER 1 [facility] [id number] 07:18:00 20:15:00 SPECIFIED [place] Luke s CARDIAC [place] ARRHYTHMIA [address] G[address] (LUF/LI AVE, V/SA) [place] [address] 2020-10-27 2020-10-27 Inpatient [facility] 223d aebf-[address] 00:00:00 00:00:00 [place] 1cb-[id number]-8 [facility], [id number] Memor ia [address] [id number] jhony GANN (LUF/LI AVE, V/SA) [place] [address] 2020-10-21 2020-10-21 COVID-19 O FRANKLIN, [facility] [id number] 15:03:00 23:59:00 JEFFREY [facility] [address] [place] (LUF/LI AVE, V/SA) [place] [address] 2020-10-21 2020-10-21 Inpatient [facility] 976f 4830-[address] 00:00:00 00:00:00 [place] [id number]-d [facility], y5d-[id number] Memor ia [address] 337df9 l [place] (LUF/LI AVE, V/[place]) [place] [address] 2020-10-21 2020-10-21 Inpatient [facility] 4028 d078-[address] 00:00:00 00:00:00 [place] [id number] [facility], [id number] [facility] [address] 879cd5 l [place] (LUF/LI AVE, V/[place]) [place] [address] 2020-04-07 2020-04-07 HYPOKALEMI O JUAREZ, [facility] [id number] 07:49:00 23:59:00 A NAVYA [facility] [address] [place] (LUF/LI AVE, V/[place]) [place] [address] 2020-03-21 2020-03-21 Inpatient [facility] [place] [facility] [id number] [facility] St 11:09:00 23:59:00 [facility] [address] [place] (LUF/LI AVE, V/[place]) [place] [address] 2020-03-04 2020-03-04 Inpatient [facility] [place] [id number] 11:31:00 23:59:00 [facility] [address] [place] (LUF/LI AVE, V/[place]) [place] [address] Results Test Description Test Time Test Comments Results Result Comments Source Screen, urine 2022-09-26 04:04:05 Test Item Value Reference Range Interpretation Comme nts Preg Test, Ur (test code = 2112-1) Negative Negative DEJA (test code = DEJA) Cushion Gum Applicator ID - techOperator ID - [id number] Lab Interpretation (test code = Normal 07133-9) [facility] [id number] 04:04:05 Test Item Value Reference Range Interpretation Comments TEST URINE (BEAKER) (test Negative Negative code = 583) Cushion Gum Applicator ID - techOperator ID - [id number] 04:03:44 Test Item Value Reference Range Interpretation Comments Color, UA (test code Marcy = 5778-6) Clarity, UA (test Slightly Cloudy code = 5767-9) Specific Kimper, UA 1.029 1.001-1.035 (test code = 5811-5) pH, UA (test code = 7.0 5.0-8.0 5803-2) Protein, UA (test 100 mg/dL Negative A code = 62227-8) Glucose, UA (test Negative Negative code = 365) Ketones, UA (test 20 mg/dL Negative A code = 2514-8) Bilirubin, UA (test Positive Negative A code = 92432-9) Blood, UA (test code Small Negative A = 90153-0) Nitrite, UA (test Negative Negative code = 5802-4) Leukocytes, UA (test Trace Negative A code = 5799-2) Urobilinogen, UA <1.0 (test code = 48271-3) RBC, UA (test code = 4 See_Comment [Autom ated 70396-7) message] The system which generated this result transmitted reference range : /HPF. The reference range was not used to interpret this result as normal/abnormal . WBC, UA (test code = 11 See_Comment [Autom ated 5821-4) message] The system which generated this result transmitted reference range : /HPF. The reference range was not used to interpret this result as normal/abnormal . Bacteria, UA (test Moderate code = 85474-8) Mucus (test code = Many 8247-9) Squam Epithel, UA 8 See_Comment [Automate d (test code = message] The 33865-4) system which generated this result transmitted reference range : /HPF. The reference range was not used to interpret this result as normal/abnormal . Specimen Source (test code = 2795) DEJA (test code = Cushion Gum Applicator ID - DEJA) techOperator ID - [id number] Lab Interpretation Abnormal (test code = 24331-3) [facility] [id number] 04:03:44 Test Item Value Reference Range Interpretation Comments COLOR (BEAKER) (test code = Marcy 470) CLARITY (BEAKER) (test code = Slightly Cloudy 469) SPECIFIC GRAVITY UA (BEAKER) 1.029 1.001-1.035 (test code = 468) PH UA (BEAKER) (test code = 7.0 5.0-8.0 467) PROTEIN UA (BEAKER) (test 100 mg/dL Negative A code = 464) GLUCOSE UA (BEAKER) (test Negative Negative code = 365) KETONES UA (BEAKER) (test 20 mg/dL Negative A code = 371) BILIRUBIN UA (BEAKER) (test Positive Negative A code = 462) BLOOD UA (BEAKER) (test code Small Negative A = 461) NITRITE UA (BEAKER) (test Negative Negative code = 465) LEUKOCYTE ESTERASE UA Trace Negative A (BEAKER) (test code = 466) UROBILINOGEN UA (BEAKER) < (test code = 463) RBC UA (BEAKER) (test code = 4 /HPF 519) WBC UA (BEAKER) (test code = 11 /HPF 520) BACTERIA (BEAKER) (test code Moderate = 517) MUCUS (BEAKER) (test code = Many 1574) SQUAMOUS EPITHELIAL (BEAKER) 8 /HPF (test code = 516) SOURCE(BEAKER) (test code = 2795) Cushion Gum Applicator ID - techOperator ID - [id number] W/PLT COUNT & AUTO DIFFERENTIAL 2022-09-26 04:01:07 Test Item Value Reference Range Interpretation Comments WHITE BLOOD CELL COUNT (BEAKER) 9.0 K/ L 4.0-10.0 (test code = 775) RED BLOOD CELL COUNT (BEAKER) 4.76 M/ L 4.00-5.00 (test code = 761) HEMOGLOBIN (BEAKER) (test code = 12.3 GM/DL 12.0-15.5 410) HEMATOCRIT (BEAKER) (test code = 39.8 % 36.0-46.0 411) MEAN CORPUSCULAR VOLUME (BEAKER) 84 fL 82-99 (test code = 753) MEAN CORPUSCULAR HEMOGLOBIN 25.8 pg 27.0-33.0 L (BEAKER) (test code = 751) MEAN CORPUSCULAR HEMOGLOBIN CONC 30.9 GM/DL 32.0-36.0 L (BEAKER) (test code = 752) RED CELL DISTRIBUTION WIDTH 18.2 % 12.0-15.0 H (BEAKER) (test code = 412) PLATELET COUNT (BEAKER) (test 371 K/CU MM 150-430 code = 756) MEAN PLATELET VOLUME (BEAKER) 10.4 fL 6.0-11.5 (test code = 754) NUCLEATED RED BLOOD CELLS 0 /100 WBC 0-0 (BEAKER) (test code = 413) NEUTROPHILS RELATIVE PERCENT 74 % (BEAKER) (test code = 429) LYMPHOCYTES RELATIVE PERCENT 21 % (BEAKER) (test code = 430) MONOCYTES RELATIVE PERCENT 5 % (BEAKER) (test code = 431) EOSINOPHILS RELATIVE PERCENT 0 % (BEAKER) (test code = 432) BASOPHILS RELATIVE PERCENT 0 % (BEAKER) (test code = 437) NEUTROPHILS ABSOLUTE COUNT 6.68 K/ L 1.80-8.00 (BEAKER) (test code = 670) LYMPHOCYTES ABSOLUTE COUNT 1.87 K/ L 1.48-4.50 (BEAKER) (test code = 414) MONOCYTES ABSOLUTE COUNT (BEAKER) 0.41 K/ L 0.00-1.30 (test code = 415) EOSINOPHILS ABSOLUTE COUNT 0.03 K/ L 0.00-0.50 (BEAKER) (test code = 416) BASOPHILS ABSOLUTE COUNT (BEAKER) 0.02 K/ L 0.00-0.20 (test code = 417) IMMATURE GRANULOCYTES-RELATIVE 0.30 % 0.00-0.00 H PERCENT (BEAKER) (test code = 2801) HEPATIC FUNCTION [id number] 03:56:54 Test Item Value Reference Range Interpretation Comments TOTAL PROTEIN (BEAKER) 9.9 gm/dL 6.0-8.5 H Speci men markedly (test code = 770) hemolyzed ALBUMIN (BEAKER) (test 4.5 g/dL 3.5-5.0 Speci men markedly code = 1145) hemolyzed BILIRUBIN TOTAL 2.3 mg/dL 0.1-1.3 H Specimen liudmila avitia (BEAKER) (test code = hemoly zed 377) BILIRUBIN DIRECT 0.4 mg/dL 0.0-0.5 Specimen lenore landers (BEAKER) (test code = hemoly zed 706) ALKALINE PHOSPHATASE 171 U/L 30-115 H (BEAKER) (test code = 346) AST (SGOT) (BEAKER) 86 U/L 5-40 H Specimen markedly (test code = 353) hemolyzed ALT (SGPT) (BEAKER) 36 U/L 6-50 Specimen markedly (test code = 347) hemolyzed BASIC METABOLIC [id number] 03:53:49 Test Item Value Reference Range Interpretation Comments SODIUM (BEAKER) 140 meq/L 135-148 (test code = 381) POTASSIUM 3.7 meq/L 3.5-5.5 (BEAKER) (test code = 379) CHLORIDE (BEAKER) 106 meq/L 98-106 (test code = 382) CO2 (BEAKER) 26 meq/L 20-31 (test code = 355) BLOOD UREA 15 mg/dL 10-26 NITROGEN (BEAKER) (test code = 354) CREATININE 1.06 mg/dL 0.50-1.20 (BEAKER) (test code = 358) GLUCOSE RANDOM 125 mg/dL 70-110 H (BEAKER) (test code = 652) CALCIUM (BEAKER) 9.1 mg/dL 8.5-10.5 (test code = 697) EGFR (BEAKER) 69 Interpretatio n of eGFR (test code = [...] not appl icable for dialysis patien ts [employer] Applicator ID - [id number] ID - [id number] 03:53:48 Test Item Value Reference Range Interpretation Comments LIPASE (CHRISTIN) (test code = 749) 26 U/L 8-78 [employer] Applicator ID - [id number], [id number] 07:17:00 [facility] : 1985 Sex: FFINAL REPORT EXAM: CT abdomen and pelvis COMPARISON: [...] FINDINGS: The lung bases are clear. There isno evidence of pleural effusion. The cardiac size [...] [place] MDReport Verified Date/Time: 08/14/2022 07:17:30 POC-Glucose [id number] 15:23:35 Test Item Value Reference Range Interpretation Comments POC-Glucose Meter (test 103 mg/dL 70-110 : TE STED AT [facility] code = 1538) [id number] [facility] [address]: [employer] Gum Applicator/Techni tomas ID = [id number] for Jude Toth Kira mathew Lab Interpretation (test Normal code = 19094-2) [facility] [id number] 15:23:35 Test Item Value Reference Range Interpretation Comments POC-Glucose Meter (test 103 mg/dL 70-110 : TE STED AT [facility] code = 1538) [address] [facility] [address]: C[employer] Gum Applicator/Techni tomas ID = [id number] for Jude Toth Kira mathew Lab Interpretation (test Normal code = 96979-3) [facility] [id number] 15:23:35 Test Item Value Reference Range Interpretation Comments POC-GLUCOSE METER 103 mg/dL 70-110 : TESTED A T [facility] [id number] (BEAKER) (test code [facility], = 1538) [place] [address]: [employer] Applicator/Techni tomas ID = [id number] for R Carmelita Cheng la POCT-GLUCOSE [id number] 11:24:54 Test Item Value Reference Range Interpretation Comments POC-GLUCOSE METER 112 mg/dL 70-110 H : TESTED A T [facility] [address] (BEAKER) (test code [facility], = 1538) [place] [address]: [employer] Gum Applicator/Techni tomas ID = [id number] for R Carmelita Cheng la POCT-GLUCOSE [id number] 06:34:07 Test Item Value Reference Range Interpretation Comments POC-GLUCOSE METER 110 mg/dL 70-110 : TESTED A T [facility] [address] (BEAKER) (test code [facility], = 1538) [place] [address]: [employer]um Applicator/Techni tomas ID = [id number] for Charley Nichole Mindy BASIC METABOLIC [id number] 04:42:11 Test Item Value Reference Range Interpretation [...] not appl icable for dialysis patien ts [employer] Applicator ID - [id number] W/PLT COUNT & AUTO [id number] 04:20:09 Test Item Value Reference Range Interpretation [...] PERCENT (BEAKER) (test code = 2801) POCT-GLUCOSE [id number] 23:43:16 Test Item Value Reference Range Interpretation Comments POC-GLUCOSE METER 94 mg/dL 70-110 : TESTED A T [facility] [address] (BEAKER) (test code = [address], 153) [place] [address]: [employer] Gum Applicator/Techni tomas ID = [id number] for L alosis, Charley Mindy POCT-GLUCOSE [id number] 20:34:03 Test Item Value Reference Range Interpretation Comments POC-GLUCOSE METER 89 mg/dL 70-110 : TESTED A T [facility] [address] (BEAKER) (test code = [facility] [address], 1538) [place] [address]: C[employer] Gum Applicator/Techni tomas ID = [id number] for L alosis, Charley Mindy POCT-GLUCOSE [id number] 16:51:00 Test Item Value Reference Range Interpretation Comments POC-GLUCOSE METER 98 mg/dL 70-110 : TESTED A T [facility] 40647 (BEAKER) (test code = [address], 1538) [place] [address] 384: Cushion Gum Applicator/Techni tomas ID = [id number] for Delmy Padilla POCT-GLUCOSE [id number] 11:43:37 Test Item Value Reference Range Interpretation Comments POC-GLUCOSE METER 150 mg/dL 70-110 H : TESTED A T [facility] 39120 (BEAKER) (test code [address], = 1538) [place] [address] 384: Cushion Gum Applicator/Techni tomas ID = [id number] for Jamey Padillaa POCT-GLUCOSE [id number] 06:24:45 Test Item Value Reference Range Interpretation Comments POC-GLUCOSE METER 149 mg/dL 70-110 H : TESTED A T [facility] 58012 (BEAKER) (test code [address], = 1538) [place] [address] 384: Cushion Gum Applicator/Techni tomas ID = [id number] for Ermelinda Melendez POCT-GLUCOSE [id number] 20:15:08 Test Item Value Reference Range Interpretation Comments POC-GLUCOSE METER 151 mg/dL 70-110 H : TESTED A T [facility] 26153 (BEAKER) (test code [facility] [address], = 1538) [place] [address] 384: Cushion Gum Applicator/Techni tomas ID = [id number] for Ermelinda Melendez POCT-GLUCOSE [id number] 17:08:38 Test Item Value Reference Range Interpretation Comments POC-GLUCOSE METER 199 mg/dL 70-110 H : TESTED A T [facility] 50928 (BEAKER) (test code [facility] [address], = 1538) [place] [address] 384: Cushion Gum Applicator/Techni tomas ID = [id number] for Trina Ortiz POCT-GLUCOSE [id number] 15:40:33 Test Item Value Reference Range Interpretation Comments POC-GLUCOSE METER 230 mg/dL 70-110 H : TESTED A T [facility] 38490 (BEAKER) (test code [facility] [address], = 1538) [place] [address] 384: Cushion Gum Applicator/Techni tomas ID = [id number] for Trina Ortiz POCT-GLUCOSE [id number] 10:57:35 Test Item Value Reference Range Interpretation Comments POC-GLUCOSE METER 124 mg/dL 70-110 H : TESTED A T [facility] 43919 (BEAKER) (test code [facility] [address], = 1538) [place] [address] 384: Cushion Gum Applicator/Techni tomas ID = [id number] for Trina Ortiz POCT-GLUCOSE [id number] 06:33:18 Test Item Value Reference Range Interpretation Comments POC-GLUCOSE METER 115 mg/dL 70-110 H : TESTED A T [facility] 94156 (BEAKER) (test code [address], = 1538) [place] [address] 384: Cushion Gum Applicator/Techni tomas ID = [id number] for Ermelinda Melendez BASIC METABOLIC [id number] 05:01:01 Test Item Value Reference Range Interpretation [...] not appl icable for dialysis patien ts Cushion Gum Applicator ID - [id number] W/PLT COUNT & AUTO [id number] 04:30:50 Test Item Value Reference Range Interpretation [...] PERCENT (BEAKER) (test code = 2801) Screen, [id number] 01:37:11 Test Item Value Reference Range Interpretation Comments Preg Test, Ur (test code = 2112-1) Negative Negative Lab Interpretation (test code = Normal 59232-0) [facility] [id number] 01:37:11 Test Item Value Reference Range Interpretation Comments TEST URINE (BEAKER) (test Negative Negative code = 583) POCT-GLUCOSE [id number] 20:57:48 Test Item Value Reference Range Interpretation Comments POC-GLUCOSE METER 130 mg/dL 70-110 H : TESTED A T [facility] 19349 (BEAKER) (test code [facility], = 1538) [place] [address] 384: Cushion Gum Applicator/Techni tomas ID = [id number] for Ermelinda Melendez POCT-GLUCOSE [id number] 15:39:55 Test Item Value Reference Range Interpretation Comments POC-GLUCOSE METER 123 mg/dL 70-110 H : TESTED A T [facility] 44283 (BEAKER) (test code [facility], = 1538) [place] [address] 384: Cushion Gum Applicator/Techni tomas ID = [id number] for Trina Ortiz Tissue [id number] 13:43:27 Test Item Value Reference Range Interpretation Comments Case Report (test code Surgical Pathology = 104) Report Case: [id number] Authorizing Provider: Abel Strickland MD Collected: 07/16/2022 02:50 PM Ordering Location: [facility] - Perioperative Received: 07/18/2022 08:21 AM Services Pathologist: Izzy Moffett MD Specimens: A) - Colostomy, COLOSTOMY B) - colon, COLON DIAGNOSIS (test code = l0alnKAgEJIje0duTTAxrJY 3220) uZzEwMzNcZnRuYmpcdWMxIH tccnRmMVxlcGljOTYwMlxhb wCbJZSigFBpF7QjmpgaTWae IH4jSH3cyFdobWYciEEmPHP aAvBnk6bhu667zKVre6azSI KWwxgbjEt6pQclT91gx0N2B zuaW80eyGGsQLP1IWQePZPm jJXxRYBpEXQ8WNXxaJLuT1x dSVTxIH3akhkjYYuvZVgjMP SxfGP8YYKghJAgZ8HyZGPuG OtjFITaxso6ZfOhHk0laPCz eTcyMFxwYXJkXHBsYWluXGJ xKhXcPVBIOmWSQOXQJ1WHVE nzDJCJVM5FDNj2ZRVqffd4M WZxBDGNJV2IJ19xGJuVD5YR Y66LYCnFIHkbMOoVUK6AP8b YS9ZJENarRpzZBqfOGDAQJL zBXEOTM2CCSCYQYLjfGBJyd GIsIISpEEEOFFSYYYGyM5fK OoxiCUEjrQFeRZYjJZMVT31 SRaYxW3SoJ70GT18iKMRDN6 VDVElPTjpccGFyXHRhYiAtI ArXR3HMAF7LTKRFKCwOZOFN QUJMRSwgQkVOSUdOIExBUkd GTTJDV3VYKOoUZQpoYXnKHK FHCUINC1VGPBWbhkn3BGVxO HLTJCAFL2KGZPYKMQFAHK1E W0ngTXJstBEiED0jXs1gRZA CTIpCZP5ELUYEWZKBVJQjfg igPXM5n7jetKNoCMFcmJMgB DAwMFxhbnNpXGRlZmxhbmcx JLDkMLU2pnXzIXPwXHbrKFE fRZvpTs2uwBFtvNgmWdCzCM Zrq2bcxqRNploegDf2o4uoD RXrAqH4pQFeSMukQ1onkaTj mVNpGIPbHKt5dF23QBJvhV2 lbPDySKyupqHyAeJ0REetPI CpGcF6VDWoqUViOHQvC7iyF WQwXGdyZWVuMFxibHVlMCA7 cOkkc9F8gGZfcFRxuRwuYlX jEuNkIrLGd3ZgYUz2oLzzK3 HdBKIjYlA4aVOiGZYgWZlrR TGfXWPsohA0zP83LKlvomO3 oYFbm8Cue10ha334vH0mdCL yVZB2RDIoKJGfpJRdNVPoQB K0KSJblFLzO3wyFAOyXF7yg focPNneCYxpJDKvbCD4ZGBv pWKhH2DtQRUuXMkeCYTkccs 4AkFmXm1isENimRptULocz5 hta1ecxANiWta8ZFXmBtUhF slqPXxch3Ocw6ztPTJyja9y JTN9tOFkcEulz4Z3pQJjJMU nlJJnIREjNG6heAPdBCJqaM 5ucmxjXHBnYnJkcmhlYWRcc FxmaaJqWc9stTmrPMI6UIcd P8xajU9uDzU8VBhkG4anqB5 aYYs9VZpkEHKowTM5yrX4JX TetHTmD3MpkB3jNEUvTK0xj xy5p2peUYD0OIjjZSLvSpZ5 heT4LPZieQSnHDIlxHbzPFv jl228MXP7JiKbSNUmm5HiJ1 QsrWlsF25ynYviL78bFYHdm TnkrC3nuRphbB6yAkAnEyIx HUksqVisHI0fOWTmH6umtJV oRVBkTPWaM4fuAnGeyV1soI xyCKizvkLnOWAyKnq9NPXin ALaKLUbYww2LUNvYCMjM43z yozmBMU6pH6hv6qcc6LjLIj lHEB5QHMny18bWBtuzsW4AX hdSl3bEwXdUqM7YEseULP7c Q== CPT Code(s) (test code e8oniZGgWGJkeGT3AaRyMCJ = 3357) um6dwi5VamANjeJLiCPxtrW ElhpCasy62yJR9aL40MO1uV PDvItB5NIZuvjP6Lje9RPVk EITttGUhR755f6hnz3achzH nnTZ5aJwuDVQfwzrmVrT3XT dgMTGdhbhmOIg3GFvqMHTbn WG7YPHxbMPzT5XoLGEpQN5z zed7WVY1VPtqTRKmLbU4YYZ wbLJrSCZueCxfHXgyq964AQ G9VhSmOXYdrbHnlTajeL9rO pWkFJB7EBLyCLjpCDfiOPtt cGFyfQ== CLINICAL HISTORY (test j8xojXCgEEDmoPW5OuJhHZY code = 3356) mn7tcu3XhoXYgsEJoZTvunC PlrhYvsj39nXD0lS83VF9dK FVnAgF8CXUysvS9Rru7XWAu RVZdqVMuB670j8ndp1octaU eiQL6yPagCWPtyvhzOoY9ZW imEVWgwaxuOSs6FLkqYCNja TU8LTDwmMEuK4UxJRWmKD6b zxj3RYQ1QYmeRKNlAvD9DKS cnYIdYUHvcDetYLotp089XM N7MpBrVHUxdsZqtGouhK7vM nTbDEJELLQzi0ScqMjnj7Bf kLRvZLmkKMWiAne1MZzst0D bksbri0UlcSHzdJSqcRTkzD 1aexykuCRhZ33cy02cgaKxi RicrK1mZAMlA2e7BGUmfR7l PHIlj0TywXggopGliaHpdBe lx1C0x887EqE8ZJdjMZVqc5 9cr9TzlIbfl6A8b893RGFyH OAbUMSnIAL0i89sj6spLX4h PCnpVMFcHBKvHUUxAJ3dffY no4IlR47oi59leNMxuN== GROSS DESCRIPTION m9vcgOPtKZKqrFM5DxExONX (test code = ph5kvg3JexFTfbWSyWHzeoO [id number]) XtilPagq44uTL0aK69LS8gC WGbNiS9FPPmeqI0Mgb7GSKh IRUkrRRjL727c9axv7axsrE ehQY7ZZPjQTYtQ6BjSD7zVG WqhURhA74trYFyWIC5BLZcE UHpjUAfGYPdGQT8QBAszDVc W3tnRYYmQC2zwkreJNkbLGx tXEFqsWK3QESixIVuR9ZxHG OlEYvoEPHkqzi7DgCtTe7hj GVfcNmfUEurAYHrb9hiOIWu dVFtNCC1DYdwzFXfQUPbZRU xEFq8IYWhREdlfVYePM4zsC tsCngekWxlm1NdoRFrYOghL BWuTIUnKIvkBQVpH7PLXAVl Jkp1XQisPUCwSAg1FCduY0M MBXUkVTIzRVx3LdZkZhR7VA t4UQEGAh5cTsTfOvw2QKJ1L RH0RJV6XKxlnCKaPKyvEvkv IIifTPFfzFRlQUpkkwE7LJE tBPnkSPWqIuAfGL9nV84rl9 Y8z554NdinNUNiLkAeHMNSE HLtjOWlHJLrtgVwj9MeHXbo biBsYWJlbGVkIHdpdGggdGh pAVRrqMxztrBfszCjJJ1gAS AgKLFtU0PvWXFeJ08jFMZzd A5uLYDbQA5yTPBsf1moa0Fg bDehBAGqv0UkmDB1cI2qPtY ug6dfm8MzvAdbXLMctdBvg3 TvAR6uNIVzy6RzkBZzuDOfI dKlj3aazKLaWHJnoC4lYCBb IHRvIHdoYXQgYXBwZWFycyB 9efCiIBItFGCkbA2cy4PqPm UxOOU8hRLvYVHaIdTuQ3hzU gJcwVSns6QrWMB5zfHiO8Zb JUJiTNGpSNosHH94SQ0rYDL qh8ZmSK8tEWN6rlXcFOSlMB NtIGFuZCBoYXMgYSAyLjggY 20gYXZlcmFnZSBkaWFtZXRl it7rMAkuTJ0xhwaoncXgqvX zdGFwbGVkLiBPdmVyYWxsIH BcHXJxoTJrwA5nyhFvTXIra JLjhtVpMOU3ZQAcBTC3VPKo C96xQSFqQPFfp1eqgEZnhqI oaPDjZTUiuI4ia5fvldX0yD Gmwy7jrXJmZWF7V7GqMQJqs IVpYvXiZb6mY1Bmx1AybLKk cyBpcyBzZWVuLlxwYXJccGF tTYXuENMiv7ZjbAVaNKVflO 5tWTPqh2UtbUwaJhHdTLXyK N2zXKTtWGBso3yigGN3eqQa k5ihZBW0txYoM7E0ZVB0AEJ kFDyeJT52ZG9bQZHim7CnCs gqDTQ7HXSaaNRiGDJ6CS6pA OWlyeyvYSEdAZEsVPH6OBdv nP83wZBlJXJzYUSppCPfzYg vWejiuMwrw5VuvSHrQGzsRV RuXOPoCGejCJAmQ8RXRNWiT wv2BImbAQUqYXl4XFbmR0ED NBLcTCEmFXt1Efr6ByY9PUc 6DEPHEn8aXyQsChp3FUzmNR T7IPW8RSatwTGpTHtxEisdL RpjARDfoXRzOCwfnqP4POWt ZrWoSm6lN32nu01nSUPviml mczIwXGNmMSBSZWNlaXZlZC HfmjYrh4CyYPvpsmCvZMYom GVkIHdpdGggdGhlIHBhdGll slIntcKhHQ1uDNMfKNNlB1T mZDBkA21cJLWmdB2xNTIpZJ 6fKHPnc2wlwlftNLIgV5Jmo UPia077URJqeS9sWxYey49l hBJ5hzCyTpCxfsQ4kw7mkHO bjUKzGESsQ49yntApz7RsQd 41XOirrYQlg9GrjK6tRRCoF 34usF1saBSaA0CnBDjakNfu JFKlNgZtG28yXVpwqEJ8NPO lWDSanSyig9EaN9phNUdyyO VbI2sceyZxjgOnh8OusPydQ U4jTRugdfYnmLZoDPikjvUh z07gHDHnuAWlAC19YVZibnr og6yhetroRQQxtQUhd7LedR lnp3KiPS7yYPY1hnlnOkC7F IbrRa96TTplCz89TRCzWhHI tBXorX0cZPJoOSTkf7fkwUL yAOJbNVyhDYImHKWulP6scp M0rnDdINMrzRsjNDAft9x6c EHueb00bs60YE3epOF1MPOg VDuhtTJmb6YiaM2sKPKaEOB 7BDSxXON7VILsDNOwtF9sX8 XiuMswipUbEGQpLCO2Ir6nr INdFXKfdySka4yit0ylGtQP WMlge38ySRX9zmqcD2IiNO6 nzcihjmtjDrIhTK2yiQ8qtA XsOFM8frilN0CbOB9jaxblh kvrMdNwCVLkY5Ghe33un2Qb Bl68WMq1RFM6IFOszZ5qekR nCCWzozQxyuHqIqIPCn3ke7 wrGVMmK9IvL1KcjnL6y1zme Wvij9YiiNErMD4ztGKbfM== MICROSCOPIC x6lxtAQhUPTgoJE8BvWpOWX DESCRIPTION (test code ms6fms4FelAHjmKGfVHxtiM = 3371) FvuzTgcs79rGC2tB74VR6qL JVsVyB7PDHdznO4Mdy8UVNb WZBjrVVkY731f0aej0hangB nvCH9YCYfIPKlY1TePH5bOP SzvWErZ71bbLDnFJP4ZVAbB ADdrFXuGARbQLZ2UIXesGBk C8nnOOIfGY0kifbrGEinEGr cJEKerTK7UISegKIuC3ZkRV DmHDceDMXichd8MnGkHa9ov GVyeTcyMFxwYXJkXHBsYWlu EJRvTvAdT6UxOJ2fR1Umy7N qtEfwYIT1EW2jpiU6rX4zKD G0cCMggzGhYDXwJFNglQRqv l6wiSNdEVPtmjaqZCNjZOBn MFxwYXJ9 Gross assessment was [facility] performed at ([facility], code = 2777) Department of Pathology, [address] [place] [address], Technical component [facility] was performed at ([facility], code = 2778) Department of Pathology, [address] [place] [address], Professional component [facility] was performed at ([facility], code = 2779) Department of Pathology, [address] [place] [id number], [facility] [id number] 13:43:27 Test Item Value Reference Range Interpretation Comments Case Report (test code Surgical Pathology = 104) Report Case: [id number] Authorizing Provider: Abel Strickland MD Collected: 07/16/2022 02:50 PM Ordering Location: [facility] - Perioperative Received: 07/18/2022 08:21 AM Services Pathologist: Izzy Moffett MD Specimens: A) - Colostomy, COLOSTOMY B) - colon, COLON DIAGNOSIS (test code = h6oyrIKuVWHfi2skFXDvwZQ 3220) uZzEwMzNcZnRuYmpcdWMxIH tccnRmMVxlcGljOTYwMlxhb uGaLJDqqHKpX2PcyjchSSxp YK9hXC0zqHqreAQpyZFvDMD lQbXiq1tso126zXWpg3baTD ODgrmsdVc9qZwzS83fv8B6H wucZ78uwZEmQRX6QGUjSILz fLScZOPaCPT3FTDcfNIiS9w oGBKlMJ4xbryxHNcaLRcwJP YlxYL6YCSouEJtR0EvZQMwQ SigOXOwftt3OgRdVe8bpHRh eTcyMFxwYXJkXHBsYWluXGJ rBiBlARWICkASXQCOG5LZIW jmDHDMNN1AZZo0IUDkdwg5G RIdCXBRKT3LW40xVYfWX3WP M90JBMxBTQdhCXzOEI0SW6n WJ6TMTQvzMraPNpsVAYDTRY vEATZIM1IVBZYWQUwbLGVmv JErKZXxWIIABCZLYGHnZ3eD QeeoAKWtxOGcQWHeODFTQ98 TJxXoD1CcW07MA02eUYVKK6 VDVElPTjpccGFyXHRhYiAtI NsSB6NITN2YGZSYNGsQFFCV QUJMRSwgQkVOSUdOIExBUkd WFVSFZ8AGRMlGNQavOLjFDX UWYEYOT8BTURZuykf8YBYiA VUJRLZPL2RDHWTZHORJRF7U S7mcAZSrsOZlVS6iCr3rKWR UCVsVWZ8JMZZDLXASOIWcoe tkLZS9i6xnlENeJNIxoDBoU DAwMFxhbnNpXGRlZmxhbmcx EWLcMHW3ndMvUDHpDIbxUBC kEMopHo8hyVGmdEypFgIzIW Fgs2xoozJCrllocEt2j9vwE KPeWuT0dJJlOHpxA6xvwnZi tMIaEGPmOMm8pH41RPZljM7 ylIDwKJzoukHsWgP1SHcySS BdAeG5BJBjwWQiXLZlE5jiA WQwXGdyZWVuMFxibHVlMCA7 kPobc7G7sQIlmYDdiNbmBaI vPrBdClJLa7JfBQx5dKcmX9 ZcJGHwEnN0xUHfUEHeSEngT DIbONEufqZ2cT04XZgpqlU6 jCFcx2Rgj68ie010cC7niNM wFRC7YRHoQKRwrCEpOYZzJL G9XGSrxQIqU3feORTsHY5jq iwzRSzqNNtkZYNrbFZ5MNYs vLEnQ6BkZYUiMNsiRRBpspo 2VoJuOb5mkUQgqLohOHyws8 sae0uqgEWcSjd5AFNtIdIxP dgjOUzba4Dft2gzNJUzck2n QKL1fMVpyDfex6R7oZBjJRW iuPSaKUVpMP6xuWZlKSWifY 5ucmxjXHBnYnJkcmhlYWRcc JvvcvBcNs1svAxzXLF4LUwo C0tjxD0fHpN1WAvoG2rneZ2 dXAe7VDkpKQZqyNQ1ntI2DI SlaLUmH9IguA0gUHUmZD7ig dm3a6jxANC5CVxuMEHrDuS0 oqG4PUPcwLDvRMCxcRbkCZr du909PRT5GgWyIZOgt2AqM5 ZcjSswG94jwKnqV49eAFBxa UnxzA1plJzzqE6oBwSwKkHp CQzmyQfhET4iAVVlQ4jczXG aJIWwSIMwD8xlUbCgxA5wuB ezRCbvvmPnXRTpEap9PXNrs SIxIIKpGjn2UMEcFPLhA32l yomrBHG9bW4ay9nfb0AxYKc uMKN8SXRwz27gVGithqZ2ND xlWe7jTdCsZiO9XHpcDOC0s Q== CPT Code(s) (test code k1kyaYIaSKZjvHV6RfYrBXQ = 3357) af6kaz8XcoTMxrQEtWYboeA HxppVurr13xSM9fX91OM7zI DVpYhD7NYYcxeN4Nhn8GSXk BWXqoYJlZ099x0lml4ozytR toFW6zLcgQJQysbobGdT8YY nwYFKuabqjGHb1LLszBUOwv LE1KHDllAXgX4UsBQJcEB4l nzm0SYA7RVdeFDLuBlF8DUZ mxUTiGHNulNeeKIvnb753EO P6NsPcLPYhsgGmnQyjeW5eI aTvDZG1LLUlXFivFDjdDCjm cGFyfQ== CLINICAL HISTORY (test n6vrjFOcDMCiqFP7OeSrTKA code = 3356) by0nes4SrgJLgzDMwTDackG FlveDcrf66rQT4hK50WH9zQ SYeGmZ8MHJjbkW0Mah6EYWj BZSxvEVfS189b9uxv1psweX fbRP2dTdwEIGlmmfuQlE4EP nvCSIptwvjHDd1ESyjHCKey NO0FEVhpRUfV1CkUCUfBU8s hdw1OBB8ZQeePAXvAuY1TSC cpGBxKQCkhMdlTAmph147UH U9AwWwIZSavdWquXektZ5pU kEmZWRQZVVny7SshCdlw9Op xPMeSSqvVXAlZhs6QRvmb4Q xcxzpr1ZbyFGfoQIefGNopT 9thwqktYXcU04jn88zelMet AkyhZ1wUQXlQ1a0YRSlvJ9k NWTai2KysQjdtpJyxoZqmHp ot5B4a239KwW9DNaiUPBud0 4ka5DgwBipo8Y4v022XTEuT XRjFCJlCCV5e56lr6bvIV6f TBahHWAiYOMlDCPtYO8umfB gk5JwG40sr50aeNWsjA== GROSS DESCRIPTION b4oxdNRuRXDadJC8AbBhBFO (test code = zx1xjf6KvcGPpvKGkJBbjuA [id number]) OvaxHhsh48dGO1vA62FO6tD MSiNoL4NLPhfeZ2Klz1ZLDz CMJsoXOwP384m9wue6yyloC mzQD0SJQhFMVjI5EnAW8tSL XitQEyU05jcMDmTWA7NBSeV ZGwmWKbAWYvPHC0NJQwcMUh O1ceXXZzTD7muufzNRvyEXh tEYBchMH1ZEGdsYRnC7XbUV XvUXsdQXMlqvg4RbFcYk7ij CSugRfyJVinWCCkq1svIVVn cOBmWIV1HHbcfSVyNPClUBD mTQy5LVFrUNstsQPeKG6kgZ ilLrsnaYkfm9YwkMBpCTajL KEiQTJzMSejAKNjY5BHMEWr Ucg0VYaiNYSiYGm0CHimB7C ZHELvSAFxFFo9RhIyTeN5EV w5OAGTPo0qIaJvYnf5DOQ9X PG2XDU8AKgxxBHgWQcbIjfl KFqpWUEeiDDlWFjxtyP1MGQ wCCbdYHUqWwCpST7tI54ny9 T0h717YtefWVMpYhQoBAQPT UPtlHVvLYPkpmKrp0MzRRvh biBsYWJlbGVkIHdpdGggdGh lSPYrpXwzsrQemgXbAU0sKA JdKFYnQ6FfESVaN38ePDChf U8mWBSvXV2lEXZqi7zxj7Km mBbgNKAii0EpmRM4zR8cTiW ha5iph4NqdJvnVACxzpHge2 OiIO2rBLIfx3IekIBccHBkL pSxk1ervWMeCLZjvX9dTISc IHRvIHdoYXQgYXBwZWFycyB 4vjHrNHVuHTDgyI0wz8GfCd GcEWZ6uUOkSZBpMgSwO9bzT lCvpOPol5OyLFR1weEhW8Jy VLVvYSXgAHakFT93RP7cTLW ho2HwAL3wXTB6dkUyJPIbYU NtIGFuZCBoYXMgYSAyLjggY 20gYXZlcmFnZSBkaWFtZXRl cg6sWRziQX3xubzjczPmroF zdGFwbGVkLiBPdmVyYWxsIH VwQZWnxYWezO4znjPiAVOjq YSzigIsMFU5XLTyWBV0YUYw M47iVLOgBEBdd4alhJIdatB ljYOoHNVmuR9ge3iwelR7cN Uauc2urRJwUQP2E6BaGSOyg ICuEwRlRe6bD3Dxe2EryAQw cyBpcyBzZWVuLlxwYXJccGF iZRFiYDZfb5LznHXuVGRjpH 4nTSEjj2UquVdgJjEjCKLyM R3aZAFjISExy4jluVP0glPl b3loRBZ9ufKsM9F2NOR5CBA zWSjqDG54MU4iDSSeq0AhDc snSHW9OWWeyQDlCKX9LI3hA PYcrpilCCLnBYTtAVV1KMxv lD60aGGuXNIjCYPgqCMqdDx wFslrmHwvg7IfnLUrZQmjOO JpHFCqDUftNWScQ2MMNSGwP uc9XYccHJJgWGt3DFfvT0HZ HESkTHWpYFb3Ngh2FoT6OCa 5GQPCUw5aJiCwRxy5UBniMP C7AVL2XEokpOAiVXjqPbuwP HdoNJMvbRVqHLqjvxC0SKKq MvDiVj3aC88dt54gAEMmhup mczIwXGNmMSBSZWNlaXZlZC WjvqRrk7JpNNsbmuTbGJWpa GVkIHdpdGggdGhlIHBhdGll crSfyoRlOA3xFYIqQMJjY7Y oTBHoN64oJOTupG6gAXSxQM 0wOPViu0qvwxdjZCZrG2Gpr JTfl328VQUnfT4iIhNgx79m xCS7tnJaLsHlqiY5nq5ulHA gcRFzLGKfG85nddYkk1YlWp 13JYlcsPKen9TrrO7vZIToC 62eyK8bjPMyL3CbTJybqUov FBGsPtEhQ33mAFrxkCV5HSN hWQPskRuwb1BeU2zoJNjuyW LsM1tahqKkkzGup4YqnHnhR L7aYTqhpfMwhDCiJIghnjEt i10sICNivLUzAU95QDVmnpu bw4oxuusvOFHbuLWto5FehN hmy3PtMA0jEAB9xrmhHkN9A LmgAw62SSauIf77WQVyQnRD jRBvfC9dDQYqRUYai2qqtAQ sJCGoTAocUEDyBCRthU6dlz E1duLlXNNkbTxlASJgs2q1c ALczb84ae68AI7gfXZ8CQYb QXqdlFMjs7HpoA6zIAHoWVG 9PHPqKGM8RCHqAMHuhB1zG0 ImfSnfbpRcDXLnCXA1Xc3wc IFxAYKipmCpi2lmz5heZgTX BHtpa32qRCT6liquG6ThKX4 dorkfblvgCaVxVY3weB3ctL ZcCRQ2tlhoQ2IuGD8rwledp zdtXlUdGFMtG9Wpu25eu4Gq Ip21XWp2CLW2GZRlsW9qsqT eJITqvrDjgnDeDcOGUf7rm4 lpPSKwL3HoP5GxcxE5j6nce Eovs9EigJEnLZ9nnBFrkN== MICROSCOPIC k0gqtBLrQIDggGT6ZgKuBGK DESCRIPTION (test code gj0ldz2YxoZXcpCRcJHrjrA = 3371) YsmcVanw23bSX8cE36AV8kG VPkZoG3THDplkR2Uec4FTSb EVMaiCNiH078j9fsr0hohpC fdTL7VRAoMGAbQ4GrVT7iHW JogGSyN00blZQmQDM6RWUkF GGyaKIlTJTjSMW0QOZmaHRf F0asSNWyHP4jczzbHZjyFHg lLQOpkDT0JSYleARyO6BtXB HvFCsyCJQxukn8JdItHw5bs GVyeTcyMFxwYXJkXHBsYWlu IMRvJlLwP6GdPO0xT1Woe2K lwPhtJPE1ZQ9iogS9vC6uAJ R3nWEcovXyIHNwCJHvsRUwc n2swPBtAEVyzekmHGNoIWVm MFxwYXJ9 [address] [facility] performed at ([facility], code = 2777) Department of Pathology, [address] [place] [address], Technical component [facility] was performed at ([facility], code = 2778) Department of Pathology, [address] [place] [address], Professional component [facility] was performed at ([facility], code = 2779) Department of Pathology, [address] [place] [address], [facility] [id number] 13:43:27Surgical Pathology Report Case: [id number] Authorizing Provider: Abel Strickland MD Collected: 07/16/2022 02:50 PM Ordering Location: [facility] - Perioperative Received: 07/18/2022 08:21 AM Services Pathologist: Izzy Moffett MD Specimens: A) - Colostomy, COLOSTOMY B) - colon, COLON A. ILEOSTOMY, REMOVAL: - BENIGN ILEOSTOMY WITH HISTOLOGICALLY VIABLE SMALL BOWEL AND ATTACHED SKINB. 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 Colostomy.Received in formalin labeled with the patient's name, medical record number and "colostomy, description: colostomy" consists of a segment of bowel leading up to what appears to be a skin surface with [...] segment of bowel.B. colon.Received in formalin labeled withthe patient's name, medical record number and "colon, [...] B4, luminal contents. ES/ewMicroscopic examination supports the diagnosis.[facility], Department of Pathology, [address] [facility] [place] [place] [address], [facility], Department of [facility]ology, [address] [place] [address], [facility], Department of Pathology, [address] [facility] [place] [address], FIQA-GLUCOSE [id number] 11:29:13 Test Item Value Reference Range Interpretation Comments POC-GLUCOSE METER 101 mg/dL 70-110 : TESTED A T [facility] 72460 (BEAKER) (test code [facility], = 1538) [place] [address] 384: Cushion Gum Applicator/Techni tomas ID = [id number] for A Trina landon POCT-GLUCOSE [id number] 06:07:10 Test Item Value Reference Range Interpretation Comments POC-GLUCOSE METER 110 mg/dL 70-110 : TESTED A T [facility] 56383 (BEAKER) (test code [facility], = 1538) [place] [address] 384: Cushion Gum Applicator/Techni tomas ID = [id number] for L alosis, Charley Mena POCT-GLUCOSE [id number] 20:34:01 Test Item Value Reference Range Interpretation Comments POC-GLUCOSE METER 118 mg/dL 70-110 H : TESTED A T [facility] 59996 (BEAKER) (test code [facility], = 1538) [place] [address] 384: Cushion Gum Applicator/Techni tomas ID = [id number] for L alosis, Charley Mindy POCT-GLUCOSE [id number] 15:37:49 Test Item Value Reference Range Interpretation Comments POC-GLUCOSE METER 92 mg/dL 70-110 : TESTED A T [facility] [address]258 (BEAKER) (test code = [facility] [address] [facility], 1538) [place] [address] 384: Cushion Gum Applicator/Techni tomas ID = [id number] for M Ava raymond POCT-GLUCOSE [id number] 11:40:27 Test Item Value Reference Range Interpretation Comments POC-GLUCOSE METER 128 mg/dL 70-110 H : TESTED A T [facility] [address]324 (BEAKER) (test code [facility], = 1538) [place] [address] 384: Cushion Gum Applicator/Techni tomas ID = [id number] for Ava Reyes BASIC METABOLIC [id number] 06:12:03 Test Item Value Reference Range Interpretation [...] not appl icable for dialysis patien ts Cushion Gum Applicator ID - [id number] 05:58:48 Test Item Value Reference Range Interpretation Comments POC-GLUCOSE METER 97 mg/dL 70-110 : TESTED A T [facility] 34582 (BEAKER) (test code = [facility] [address] [facility], 1538) [place] [address] 384: Cushion Gum Applicator/Techni tomas ID = [id number] for Marcia bolañosSunitha agee CBC W/PLT COUNT & AUTO [id number] 05:44:48 Test Item Value Reference Range Interpretation [...] PERCENT (BEAKER) (test code = 2801) POCT-GLUCOSE [id number] 20:23:16 Test Item Value Reference Range Interpretation Comments POC-GLUCOSE METER 85 mg/dL 70-110 : TESTED A T [facility] 37134 (BEAKER) (test code = [facility], 1538) [place] [address] 384: Cushion Gum Applicator/Techni tomas ID = [id number] for Sunitha Waters POCT-GLUCOSE [id number] 16:06:11 Test Item Value Reference Range Interpretation Comments POC-GLUCOSE METER 103 mg/dL 70-110 : TESTED A T [facility] 14168 (BEAKER) (test code [facility], = 1538) [place] [address] 384: Cushion Gum Applicator/Techni tomas ID = [id number] for Trina Ortiz U/S, RENAL, [id number] 14:08:00Reason for exam:->[facility] 1985 Sex: FFINAL [...] Normal sonographic evaluation of the kidneys.Signed: [facility] Verified Date/Time: 07/18/2022 14:08:28 Reading Location: [facility] Radiology Reading Room Urinalysis w/Microscopic 2022-07-18 12:57:54 Test Item Value Reference Range Interpretation Comments Color, UA (test code Yellow = 5778-6) Clarity, UA (test Slightly Cloudy code = 5767-9) Specific Kimper, UA 1.013 1.001-1.035 (test code = 5811-5) pH, UA (test code = 6.0 5.0-8.0 5803-2) Protein, UA (test 100 mg/dL Negative A code = 19560-3) Glucose, UA (test Negative Negative code = 365) Ketones, UA (test Negative Negative code = 2514-8) Bilirubin, UA (test Negative Negative code = 72474-7) Blood, UA (test code Moderate Negative A = 46692-0) Nitrite, UA (test Negative Negative code = 5802-4) Leukocytes, UA (test Moderate Negative A code = 5799-2) Urobilinogen, UA <1.0 0.2-1.0 (test code = 63165-4) RBC, UA (test code = 17 See_Comment [Autom ated 41810-9) message] The system which generated this result [...] . Bacteria, UA (test Rare code = 63493-1) Mucus (test code = Many 8247-9) Squam Epithel, UA 1 See_Comment [Automate d (test code = 54789-8) messag e] The system which generated this result transmit thais reference range : /HPF. The reference range was not used to interpret this result as normal/abnormal . Specimen Source (test code = 2795) DEJA (test code = DEJA) Cushion Gum Applicator ID - [auto]Cushion Gum Applicator ID - tech Lab Interpretation Abnormal (test code = 46647-6) [facility]/ [id number] 12:57:54 Test Item Value Reference Range Interpretation [...] = 516) SOURCE(BEAKER) (test code = 2795) Cushion Gum Applicator ID - [auto]Cushion Gum Applicator ID - techPOCT-GLUCOSE [id number] 11:12:20 Test Item Value Reference Range Interpretation Comments POC-GLUCOSE METER 119 mg/dL 70-110 H : TESTED A T [facility] 70766 (BEAKER) (test code [facility], = 1538) [place] [address] 384: Cushion Gum Applicator/Techni tomas ID = [id number] for A dipesh Trina POCT-GLUCOSE [id number] 06:23:12 Test Item Value Reference Range Interpretation Comments POC-GLUCOSE METER 133 mg/dL 70-110 H : TESTED A T [facility] 88220 (BEAKER) (test code [facility], = 1538) [place] [address] 384: Cushion Gum Applicator/Techni tomas ID = [id number] for Ankita Ibrahim BASIC METABOLIC [id number] 04:22:16 Test Item Value Reference Range Interpretation [...] (test code = 697) EGFR (BEAKER) 113 Interpretati on of eGFR (test code = mL/min/1.73 values [...] not appl icable for dialysis patien ts Cushion Gum Applicator ID - [id number] W/PLT COUNT & AUTO [id number] 03:51:14 Test Item Value Reference Range Interpretation [...] PERCENT (BEAKER) (test code = 2801) POCT-GLUCOSE [id number] 20:25:39 Test Item Value Reference Range Interpretation Comments POC-GLUCOSE METER 115 mg/dL 70-110 H : TESTED A T [facility] [address] (BEAKER) (test code [facility] [address] THE, = 1538) [place] [address] 384: Cushion Gum Applicator/Techni tomas ID = [id number] for Ankita Ibrahim POCT-GLUCOSE [id number] 16:15:44 Test Item Value Reference Range Interpretation Comments POC-GLUCOSE METER 137 mg/dL 70-110 H : TESTED A T [facility] [address] (BEAKER) (test code [address] THE, = 1538) [place] [address] 384: Cushion Gum Applicator/Techni tomas ID = [id number] for A Trina landon POCT-GLUCOSE [id number] 11:26:39 Test Item Value Reference Range Interpretation Comments POC-GLUCOSE METER 145 mg/dL 70-110 H : TESTED A T [facility] [address] (BEAKER) (test code [address] THE, = 1538) [place] [address] 384: Cushion Gum Applicator/Techni tomas ID = [id number] for A Trina landon POCT-GLUCOSE [id number] 08:08:57 Test Item Value Reference Range Interpretation Comments POC-GLUCOSE METER 167 mg/dL 70-110 H : TESTED A T [facility] [address] (BEAKER) (test code [address], = 1538) [place] [address] 384: Cushion Gum Applicator/Techni tomas ID = [id number] for Mc Hooks BASIC METABOLIC [id number] 05:25:15 Test Item Value Reference Range Interpretation [...] is not appl icable for dialysis patien marquez Cushion Gum Applicator ID - [id number] W/PLT COUNT & AUTO [id number] 05:08:57 Test Item Value Reference Range Interpretation [...] H PERCENT (BEAKER) (test code = 2801) [id number] 12:23:44 Test Item Value Reference Range Interpretation Comments GLUCOSE RANDOM (BEAKER) (test code 149 mg/dL 70-110 H = 652) Cushion Gum Applicator ID - [id number] 12:23:43 Test Item Value Reference Range Interpretation Comments POTASSIUM (BEAKER) (test code = 4.0 meq/L 3.5-5.5 379) Cushion Gum Applicator ID - [id number] , [id number] 12:05:00 Test Item Value Reference Range Interpretation Comments Test Urine, POC (test Negative code = 7573976) Control line present?, POC (test Yes code = 9218987) Background clear?, POC (test code Yes = 6597904) UPT Cassette Lot #, POC (test code 412444 = 6537730) UPT Cassette Expiration Date, POC 09/04/2022 (test code = 3761505) Lab Interpretation (test code = Normal 71784-2) [facility] [id number] 12:05:00 Test Item Value Reference Range Interpretation Comments Test Urine, POC (test Negative code = 1785937) Control line present?, POC (test Yes code = 5279650) Background clear?, POC (test code Yes = 9895444) UPT Cassette Lot #, POC (test code 543486 = 7809256) UPT Cassette Expiration Date, POC 09/04/2022 (test code = 7436980) Lab Interpretation (test code = Normal 68859-3) [facility] [id number] 16:32:04 Test Item Value Reference Range Interpretation [...] not appl icable for dialysis patien ts Cushion Gum Applicator ID - ZMINECOVID [id number] 16:24:33 Test Item Value Reference Range Interpretation Comments SARS COVID ANTIGEN Negative Negative (test code = 06217-9) DEJA (test code = DEJA) The QuickVue SARS Antigen test does not differentiate between SARS-CoV and SARS-CoV-2. The test has been authorized by the FDA under an EUA for use by authorized laboratories. Lab Interpretation Normal (test code = 88548-0) [facility] [id number] 16:24:33 Test Item Value Reference Range Interpretation Comments SARS COVID ANTIGEN Negative Negative (test code = 23697-1) DEJA (test code = DEJA) The QuickVue SARS Antigen test does not differentiate between SARS-CoV and SARS-CoV-2. The test has been authorized by the FDA under an EUA for use by authorized laboratories. Lab Interpretation Normal (test code = 61837-9) [facility] [id number] 16:24:33 Test Item Value Reference Range Interpretation Comments SARS COVID ANTIGEN (test code = Negative Negative 36266637) The QuickVue SARS Antigen test does not differentiate between SARS-CoV and SARS-CoV-2.The test has been authorized by the FDA under an EUA for use by authorized laboratories.CBC W/PLT COUNT & AUTO [id number] 16:03:43 Test Item Value Reference Range Interpretation [...] PERCENT (BEAKER) (test code = 2801) COVID [id number] 18:22:50 Test Item Value Reference Range Interpretation Comments SARS COVID ANTIGEN (test code = Negative Negative 56803383) The QuickVue SARS Antigen test does not differentiate between SARS-CoV and SARS-CoV-2.The test has been authorized by the FDA under an EUA for use by authorized laboratories.BASIC METABOLIC [id number] 15:31:53 Test Item Value Reference Range Interpretation [...] eGF R is based on the CKD-EPI 2021 equation that d oes not use a race coefficientEsti mated GFR is not as accur ate as Creatinine Suzette emilia in predicting glom erular filtration rate . Estimated GFR is not appl icable for dialysis patien ts Cushion Gum Applicator ID - [id number] W/PLT COUNT & AUTO [id number] 14:58:59 Test Item Value Reference Range Interpretation [...] PERCENT (BEAKER) (test code = 2801) POCT-GLUCOSE [id number] 12:05:35 Test Item Value Reference Range Interpretation Comments POC-GLUCOSE METER 197 mg/dL 70-110 H : TESTED A T [facility] [address] (BEAKER) (test code [facility] THE, = 1538) [facility] [address] 384: Cushion Gum Applicator/Techni tomas ID = [id number] for Bre Cervantes BASIC METABOLIC [id number] 12:04:04 Test Item Value Reference Range Interpretation [...] S NOT APPLICABLE FOR DIALYSIS PATIEN TS. Cushion Gum Applicator ID - [id number] W/PLT COUNT & AUTO [id number] 11:54:32 Test Item Value Reference Range Interpretation [...] (BEAKER) (test code = 2801) VANCOMYCIN LEVEL, [id number] 09:36:56 Test Item Value Reference Range Interpretation Comments VANCOMYCIN TROUGH (BEAKER) (test 24.6 ug/mL 10.0-20.0 H code = 522) Cushion Gum Applicator ID - JBALLOALLOPOCT-GLUCOSE [id number] 05:53:06 Test Item Value Reference Range Interpretation Comments POC-GLUCOSE METER 180 mg/dL 70-110 H : TESTED A T [facility] [address] (BEAKER) (test code [address], = 1538) [place] [address] 384: Cushion Gum Applicator/Techni tomas ID = [id number] for Martine Wills POCT-GLUCOSE [id number] 20:47:50 Test Item Value Reference Range Interpretation Comments POC-GLUCOSE METER 176 mg/dL 70-110 H : TESTED A T [facility] [address] (BEAKER) (test code [address] THE, = 1538) [place] [address] 384: Cushion Gum Applicator/Techni tomas ID = [id number] for Martine Wills POCT-GLUCOSE [id number] 16:46:35 Test Item Value Reference Range Interpretation Comments POC-GLUCOSE METER 139 mg/dL 70-110 H : TESTED A T [facility] [address] (BEAKER) (test code [address] THE, = 1538) [place] [address] 384: Cushion Gum Applicator/Techni tomas ID = [id number] for Elvie Duffy POCT-GLUCOSE [id number] 11:36:33 Test Item Value Reference Range Interpretation Comments POC-GLUCOSE METER 232 mg/dL 70-110 H : TESTED A T [facility] [address] (BEAKER) (test code [address] THE, = 1538) [place] [address] 384: Cushion Gum Applicator/Techni tomas ID = [id number] for Elvie Duffy POCT-GLUCOSE [id number] 05:56:06 Test Item Value Reference Range Interpretation Comments POC-GLUCOSE METER 152 mg/dL 70-110 H : TESTED A T [facility] [address] (BEAKER) (test code [address], = 1538) [place] [address] 384: Cushion Gum Applicator/Techni tomas ID = [id number] for Martine Wills BASIC METABOLIC [id number] 05:44:54 Test Item Value Reference Range Interpretation [...] S NOT APPLICABLE FOR DIALYSIS PATIEN TS. Cushion Gum Applicator ID - [id number] W/PLT COUNT & AUTO [id number] 05:30:33 Test Item Value Reference Range Interpretation [...] PERCENT (BEAKER) (test code = 2801) POCT-GLUCOSE [id number] 20:54:20 Test Item Value Reference Range Interpretation Comments POC-GLUCOSE METER 207 mg/dL 70-110 H : TESTED A T [facility] [address] (BEAKER) (test code [facility], = 1538) [place] [address] 384: Cushion Gum Applicator/Techni tomas ID = [id number] for F Martine eddy POCT-GLUCOSE [id number] 15:19:46 Test Item Value Reference Range Interpretation Comments POC-GLUCOSE METER 137 mg/dL 70-110 H : Notified RN/MD: TESTED (BEAKER) (test code AT [facility] [address] [facility] = 1538) [facility] [address]: Cushion Gum Applicator/Techni tomas ID = [id number] for S oriano, Alpha POCT-GLUCOSE [id number] 11:05:49 Test Item Value Reference Range Interpretation Comments POC-GLUCOSE METER 150 mg/dL 70-110 H : TESTED A T [facility] [address] (BEAKER) (test code [facility], = 1538) [place] [address] 384: Cushion Gum Applicator/Techni tomas ID = [id number] for T Justin Fonseca SCREEN, [id number] 10:35:58 Test Item Value Reference Range Interpretation Comments TEST URINE (BEAKER) (test Negative code = 583) SARS-CoV2/RT-PCR (Asymptomatic ONLY)2022-03-05 10:35:23 Test Item Value Reference Interpretation Comments Range SARS-COV2/RT-PCR Negative Negative The SARS-Co V-2 (test code = target nucleic 37071-6) acids are not detected in thi s [...] rapid, real-ashu e RT-PCR test intended for th e qualitative detection of nucleic acid fr om SARS-CoV-2 in a nasopharyngeal swab specimen collec thais from individual s suspected of COVID-19 [...] revoked sooner. Fact Sheet for Healthcare Providers: https://www.[employer]/Documents/Xp ert%20Xpress%20SAR S%20CoV-2/Fact%20S heets/3023802%20S ARS-COV-2%20HEALTH CARE%20PROVIDERS%2 0FACT%20SHEET.pdf Fact Sheet for Healthcare Patients: https://www.[employer]/Documents/Xp ert%20Xpress%20SAR S%20CoV-2/Fact%20S heets/3023801%20S ARS-COV-2%20PATIEN T%20FACT%20SHEET.p df Lab Interpretation Normal (test code = 55031-1) [facility]2022-03-05 10:35:23 Test Item Value Reference Interpretation Comments Range SARS-COV2/RT-PCR Negative Negative The SARS-Co V-2 (test code = target nucleic 50503-1) acids are not detected in thi s [...] rapid, real-ashu e RT-PCR test intended for th e qualitative detection of nucleic acid fr om SARS-CoV-2 in a nasopharyngeal swab specimen collec thais from individual s suspected of COVID-19 [...] revoked sooner. Fact Sheet for Healthcare Providers: https://www.[employer]/Documents/Xp ert%20Xpress%20SAR S%20CoV-2/Fact%20S heets/302-3802%20S ARS-COV-2%20HEALTH CARE%20PROVIDERS%2 0FACT%20SHEET.pdf Fact Sheet for Healthcare Patients: https://www.[employer]/Documents/Xp ert%20Xpress%20SAR S%20CoV-2/Fact%20S heets/302-3801%20S ARS-COV-2%20PATIEN T%20FACT%20SHEET.p df Lab Interpretation Normal (test code = 75987-1) [facility])2022-03-05 10:35:23 Test Item Value Reference Range Interpretation Comments SARS-COV2/RT-PCR Negative Negative The SARS-Co V-2 target (test code = nucleic acids a re not 7566448) detected in thi s specimen. Negative result [...] revoked sooner. Fact Sheet for Healthcare Providers: https://www.[employer] m/Documents/Xpert%20Xpress%20SARS%20CoV-2/Fact%20Sheets/3023802%19QNZV-MKD-5%20 HEALTHCARE%20PROVIDERS%20FACT%20SHEET.pdf Fact Sheet for Healthcare Patients: https://www.[employer]/Documents/Xpert%20Xp ress%20SARS%20CoV-2/Fact%20Sheets/3023801%79PRYC-SPF-8%20PATIENT%20FACT%20SHEET .pdfPOCT-GLUCOSE [id number] 08:05:06 Test Item Value Reference Range Interpretation Comments POC-GLUCOSE METER 151 mg/dL 70-110 H : TESTED A Marcia [facility] [address] (BEAKER) (test code [address], = 1538) [place] [address] 384: Cushion Gum Applicator/Techni tomas ID = [id number] for Cathy Varela [id number] 05:30:10 Test Item Value Reference Range Interpretation Comments MAGNESIUM (BEAKER) (test code = 1.3 mg/dL 1.5-3.0 L 627) Cushion Gum Applicator ID - [id number] 05:30:10 Test Item Value Reference Range Interpretation Comments POTASSIUM (BEAKER) (test code = 4.2 meq/L 3.5-5.5 379) Cushion Gum Applicator ID - [id number] W/PLT COUNT & AUTO [id number] 05:16:23 Test Item Value Reference Range Interpretation [...] H (BEAKER) (test code = 413) POCT-GLUCOSE [id number] 21:02:16 Test Item Value Reference Range Interpretation Comments POC-GLUCOSE METER 218 mg/dL 70-110 H : TESTED A T [facility] [address] (BEAKER) (test code [facility], = 1538) [facility] 77 384: Cushion Gum Applicator/Techni tomas ID = [id number] for Makeda Murray POCT-GLUCOSE [id number] 16:31:05 Test Item Value Reference Range Interpretation Comments POC-GLUCOSE METER 194 mg/dL 70-110 H : TESTED A T [facility] [address] (BEAKER) (test code [address], = 1538) [place] [address] 384: Cushion Gum Applicator/Techni tomas ID = [id number] for K alu, Lisette POCT-GLUCOSE [id number] 11:57:32 Test Item Value Reference Range Interpretation Comments POC-GLUCOSE METER 192 mg/dL 70-110 H : TESTED A T [facility] [address] (BEAKER) (test code [address], = 1538) [place] [address] 384: Cushion Gum Applicator/Techni tomas ID = [id number] for K alu, Lisette POCT-GLUCOSE [id number] 06:41:35 Test Item Value Reference Range Interpretation Comments POC-GLUCOSE METER 224 mg/dL 70-110 H : TESTED A T [facility] [address] (BEAKER) (test code [address], = 1538) [place] [address] 384: Cushion Gum Applicator/Techni tomas ID = [id number] for Carlos Avendano BASIC METABOLIC [id number] 04:38:29 Test Item Value Reference Range Interpretation [...] S NOT APPLICABLE FOR DIALYSIS PATIEN TS. Cushion Gum Applicator ID - [id number](MANUAL DIFFERENTIAL)2022-03-04 04:33:39 Test Item Value Reference Range [...] = 762) CBC W/PLT COUNT & AUTO [id number] 04:33:38 Test Item Value Reference Range Interpretation [...] H (BEAKER) (test code = 413) POCT-GLUCOSE [id number] 20:47:36 Test Item Value Reference Range Interpretation Comments POC-GLUCOSE METER 219 mg/dL 70-110 H : TESTED A T [facility] [address] (BEAKER) (test code [facility], = 1538) [place] [address] 384: Cushion Gum Applicator/Techni tomas ID = [id number] for Carlos Avendano POCT-GLUCOSE [id number] 16:47:49 Test Item Value Reference Range Interpretation Comments POC-GLUCOSE METER 185 mg/dL 70-110 H : TESTED A T [facility] [address] (BEAKER) (test code [facility], = 1538) [place] [address] 384: Cushion Gum Applicator/Techni tomas ID = [id number] for Charley Keyes POCT-GLUCOSE [id number] 11:43:05 Test Item Value Reference Range Interpretation Comments POC-GLUCOSE METER 171 mg/dL 70-110 H : TESTED A T [facility] [address] (BEAKER) (test code [facility] [address] THE, = 1538) [facility] 77 384: Cushion Gum Applicator/Techni tomas ID = [id number] for Charley Keyes BASIC METABOLIC [id number] 09:35:27 Test Item Value Reference Range Interpretation [...] S NOT APPLICABLE FOR DIALYSIS PATIEN TS. Cushion Gum Applicator ID - [id number](MANUAL DIFFERENTIAL)2022-03-03 09:25:38 Test Item [...] = 762) CBC W/PLT COUNT & AUTO [id number] 09:12:52 Test Item Value Reference Range Interpretation [...] H (BEAKER) (test code = 413) POCT-GLUCOSE [id number] 05:27:57 Test Item Value Reference Range Interpretation Comments POC-GLUCOSE METER 190 mg/dL 70-110 H : TESTED A T [facility] [address] (BEAKER) (test code [address], = 1538) [place] [address] 384: Cushion Gum Applicator/Techni tomas ID = [id number] for Daily Blackwell BLOOD [id number] 22:01:02 Test Item Value Reference Range Interpretation Comments CULTURE (BEAKER) (test No growth in 5 days code = 1095) POCT-GLUCOSE [id number] 21:18:28 Test Item Value Reference Range Interpretation Comments POC-GLUCOSE METER 237 mg/dL 70-110 H : TESTED A T [facility] [address] (BEAKER) (test code [address], = 1538) [place] [address] 384: Cushion Gum Applicator/Techni tomas ID = [id number] for Thalia Modi POCT-GLUCOSE [id number] 16:46:10 Test Item Value Reference Range Interpretation Comments POC-GLUCOSE METER 247 mg/dL 70-110 H : TESTED A T [facility] [address] (BEAKER) (test code [address], = 1538) [place] [address] 384: Cushion Gum Applicator/Techni tomas ID = [id number] for RosettaFlacoCharley POCT-GLUCOSE [id number] 12:22:02 Test Item Value Reference Range Interpretation Comments POC-GLUCOSE METER 168 mg/dL 70-110 H : TESTED A T [facility] [address] (BEAKER) (test code [facility] [address], = 1538) [place] [address] 384: Cushion Gum Applicator/Techni tomas ID = [id number] for Garcia-FlacoCharley TISSUE [id number] 07:50:48Surgical Pathology Report Case: [id number] Authorizing Provider: Abel Strickland MD Collected: 02/26/2022 05:40 PM Ordering Location: [facility] - Perioperative Received: 02/27/2022 02:15 PM Services Pathologist: Elzbieta Torres MD Specimen: Large Intestine, Colon - Right/Ascending, Right colon A. RIGHT COLON, RIGHT HEMICOLECTOMY:- SUB SEROSAL FIBROSIS AND CHRONIC INFLAMMATION- FOCAL MELANOSIS, SEE COMMENT- APPENDIX WITH FIBROUS OBLITERATION OF THE DISTAL TIP- NEGATIVE FOR ACTIVE INFLAMMATION, I SCHEMIC CHANGES, DYSPLASIA OR MALIGNANCY- ONE BENIGN REACTIVE LYMPH NODE- MARGINS HISTOLOGICALLY VIABLE Signing Pathologist Direct Phone Line: [phone] signed by Elzbieta Torres MD on 03/02/2022 at 7:50 AMFocal aggregates of pigmented histiocytes is noted in the mucosa, which may be related to a prior procedure. Clinical correlation is recommended. 88728Fzdbk colectomy right.A.Large Intestine, Colon - Right/Ascending.Received in formalin labeled as "right colon" is a segment of cecum and ascending colon, which measures 18 [...] mucosal surface is grossly unremarkable. No masses, polypsor ulcers are noted. The wall of the bowel measures approximately 0.3 cm in thickness. The bowel appears viable grossly. Sectioning the appendix reveals no discrete mass or fecalith. Sectioning revealsno discrete mass.Code of sections: A1, proximal margin; A2, distal margin; A3, mesenteric margin; A4, appendix; A5, A6, adhesions on pericolic fat and serosa; A7, ileocecal valve; A8, mucosa from smallbowel; A9, A10, random sections of large bowel.The instrument, paperwork, container, and cassettes all read [id number].Received in formalin labeled with the patient's name [...] few 966) CBC W/PLT COUNT & AUTO [id number] 06:15:38 Test Item Value Reference Range Interpretation [...] 0-0 (BEAKER) (test code = 413) POCT-GLUCOSE [id number] 06:08:50 Test Item Value Reference Range Interpretation Comments POC-GLUCOSE METER 146 mg/dL 70-110 H : TESTED A T [facility] [address] (BEAKER) (test code [facility], = 1538) [place] [address] 384: Cushion Gum Applicator/Techni tomas ID = [id number] for Thalia Modi COMPREHENSIVE METABOLIC [id number] 05:58:00 Test Item Value Reference Range Interpretation [...] S NOT APPLICABLE FOR DIALYSIS PATIEN TS. Cushion Gum Applicator ID - [id number] 20:56:31 Test Item Value Reference Range Interpretation Comments POC-GLUCOSE METER 151 mg/dL 70-110 H : TESTED A T [facility] [address] (BEAKER) (test code [facility] [address] [facility], = 1538) [place] [address] 384: Cushion Gum Applicator/Techni tomas ID = [id number] for Thalia Modi POCT-GLUCOSE [id number] 16:33:57 Test Item Value Reference Range Interpretation Comments POC-GLUCOSE METER 152 mg/dL 70-110 H : TESTED A T [facility] [address] (BEAKER) (test code [address] [facility], = 1538) [place] [address] 384: Cushion Gum Applicator/Techni tomas ID = [id number] for Melissa Mackey [id number] 14:23:16 Test Item Value Reference Range Interpretation Comments PHOSPHORUS (BEAKER) (test code = 2.1 mg/dL 2.5-4.5 L 604) Cushion Gum Applicator ID - [id number] 14:23:16 Test Item Value Reference Range Interpretation Comments TRIGLYCERIDES (BEAKER) (test code = 414 mg/dL 540) TRIGLYCERIDE REFERENCE RANGELow Risk <150Borderline Risk 150-199High Risk 200-499Very High Risk >=500Operator ID - [id number] 14:23:15 Test Item Value Reference Range Interpretation Comments MAGNESIUM (BEAKER) (test code = 1.7 mg/dL 1.5-3.0 627) Cushion Gum Applicator ID - [id number] 11:12:30 Test Item Value Reference Range Interpretation Comments POC-GLUCOSE METER 150 mg/dL 70-110 H : TESTED A T [facility] [address] (BEAKER) (test code [facility] [address] [facility], = 1538) [place] [address] 384: Cushion Gum Applicator/Techni tomas ID = [id number] for Melissa Mackey RAD, ABDOMEN/KUB, 1 VIEW [id number] 09:37:00Reason for exam:->[facility] : 1985 Sex: FFINAL REPORT KUB History provided: Ileus Paramidline skin clips in the abdomen and pelvis from recent laparotomy. NG tip in the stomach. No dilated small or large bowel loops are evident. No obstructive signs or localizing abnormalities. Signed: Robinson Rodriguez MDReport Verified Date/Time: 03/01/2022 09:37:07 Reading Location: [facility] Radiology Reading Room POCT-GLUCOSE [id number] 06:16:53 Test Item Value Reference Range Interpretation Comments POC-GLUCOSE METER 157 mg/dL 70-110 H : [place] [address] (BEAKER) (test code [facility], = 1538) [place] [address] 384: Cushion Gum Applicator/Techni tomas ID = [id number] for Elizabeth Gold (MANUAL DIFFERENTIAL)2022-03-01 05:59:31 Test [...] = 762) CBC W/PLT COUNT & AUTO [id number] 05:58:52 Test Item Value Reference Range Interpretation [...] (BEAKER) (test code = 413) COMPREHENSIVE METABOLIC [id number] 05:57:53 Test Item Value Reference Range Interpretation [...] S NOT APPLICABLE FOR DIALYSIS PATIEN TS. Cushion Gum Applicator ID - ZCHRISPOCT-GLUCOSE [id number] 22:05:01 Test Item Value Reference Range Interpretation Comments POC-GLUCOSE METER 117 mg/dL 70-110 H : TESTED A T [facility] [address] (BEAKER) (test code [facility] THE, = 1538) [place] [address] 384: Cushion Gum Applicator/Techni tomas ID = [id number] for C Elizabeth hackett POCT-GLUCOSE [id number] 16:28:52 Test Item Value Reference Range Interpretation Comments POC-GLUCOSE METER 161 mg/dL 70-110 H : TESTED A T [facility] [address] (BEAKER) (test code [facility] WAY THE, = 1538) [place] [address] 384: Cushion Gum Applicator/Techni tomas ID = [id number] for Trina Ortiz BILIRUBIN, [id number] 13:26:42 Test Item Value Reference Range Interpretation Comments BILIRUBIN DIRECT (BEAKER) (test 1.3 mg/dL 0.0-0.5 H code = 706) Cushion Gum Applicator ID - [id number] ANTIBODY (LUPE)2022-02-28 12:42:57 Test Item Value Reference Range Interpretation Comments ANTI-NUCLEAR ANTIBODY (LUPE) (BEAKER) Negative Negative (test code = 418) Test performed by IFA method.Test performed by IFA method.CARDIOLIPIN ANTIBODIES, IGG AND [id number] 12:28:23 Test Item Value Reference Range Interpretation Comments ANTICARDIOLIPIN IGG ANTIBODY (BEAKER) < GPL <20.0 (test code = 712) ANTICARDIOLIPIN IGM ANTIBODY (BEAKER) 1.5 MPL <20.0 (test code = 713) Anticardiolipin IgG Result Interpretation: <20.0 GPL Normal>/= 20.0 GPL PositiveAnticardiolipin IgM Result Interpretation: <20.0 MPL Normal>/= 20.0 MPL PositivePOCT-GLUCOSE [id number] 11:31:22 Test Item Value Reference Range Interpretation Comments POC-GLUCOSE METER 147 mg/dL 70-110 H : TESTED A T [facility] [address] (BEAKER) (test code [facility] [address] THE, = 1538) [place] [address] 384: Cushion Gum Applicator/Techni tomas ID = [id number] for Trina Ortiz PROTEIN C [id number] 10:21:12 Test Item Value Reference Range Interpretation Comments PROTEIN C ACTIVITY (BEAKER) (test code 68.0 % 70.0-130.0 L = 582) See Protein C Antigen.POCT-GLUCOSE [id number] 08:14:26 Test Item Value Reference Range Interpretation Comments POC-GLUCOSE METER 141 mg/dL 70-110 H : TESTED A T [facility] [address] (BEAKER) (test code [facility] [address], = 1538) [place] [id number] 384: Cushion Gum Applicator/Techni tomas ID = [id number] for C Emily branch [id number] 04:17:49 Test Item Value Reference Range Interpretation Comments PHOSPHORUS (BEAKER) (test code = 2.5 mg/dL 2.5-4.5 604) C[employer] G[employer] Applicator ID - [id number] METABOLIC [id number] 04:17:48 Test Item Value Reference Range Interpretation [...] S NOT APPLICABLE FOR DIALYSIS PATIEN TS. Cushion Gum Applicator ID - [id number] 04:17:48 Test Item Value Reference Range Interpretation Comments MAGNESIUM (BEAKER) (test code = 2.2 mg/dL 1.5-3.0 627) Cushion Gum Applicator ID - [id number] W/PLT COUNT & AUTO [id number] 03:56:12 Test Item Value Reference Range Interpretation [...] PERCENT (BEAKER) (test code = 2801) POCT-GLUCOSE [id number] 01:26:12 Test Item Value Reference Range Interpretation Comments POC-GLUCOSE METER 164 mg/dL 70-110 H : TESTED A T [facility] [address] (BEAKER) (test code [facility], = 1538) [facility] 77 384: Cushion Gum Applicator/Techni tomas ID = [id number] for Lj Meade [id number] 22:08:19 Test Item Value Reference Range Interpretation Comments POTASSIUM (BEAKER) (test code = 3.5 meq/L 3.5-5.5 379) Cushion Gum Applicator ID - [id number] 22:08:18 Test Item Value Reference Range Interpretation Comments MAGNESIUM (BEAKER) (test code = 2.0 mg/dL 1.5-3.0 627) Cushion Gum Applicator ID - [id number] 22:08:18 Test Item Value Reference Range Interpretation Comments PHOSPHORUS (BEAKER) (test code = 2.1 mg/dL 2.5-4.5 L 604) Cushion Gum Applicator ID - [id number] [id number] 18:01:43 Test Item Value Reference Range Interpretation Comments POC-GLUCOSE METER 161 mg/dL 70-110 H : Notified RN/MD: TESTED (BEAKER) (test code AT [facility] [address] [facility] = 1538) WAY [facility] [address]: Cushion Gum Applicator/Techni tomas ID = [id number] for P martha, Stellamaris POCT-GLUCOSE [id number] 13:52:01 Test Item Value Reference Range Interpretation Comments POC-GLUCOSE METER 177 mg/dL 70-110 H : Notified RN/MD: TESTED (BEAKER) (test code AT [facility] [address] [facility] = 1538) [facility] [address]: Cushion Gum Applicator/Techni tomas ID = [id number] for P martha, Stellamaris POCT-GLUCOSE [id number] 13:26:28 Test Item Value Reference Range Interpretation Comments POC-GLUCOSE METER 157 mg/dL 70-110 H : Notified RN/MD: TESTED (BEAKER) (test code AT [facility] [address] [facility] = 1538) [place] [address]: Cushion Gum Applicator/Techni tomas ID = [id number] for P martha, Stellamaris [id number] 13:09:30 Test Item Value Reference Range Interpretation Comments POTASSIUM (BEAKER) (test code = 3.4 meq/L 3.5-5.5 L 379) Cushion Gum Applicator ID - [id number] 13:08:48 Test Item Value Reference Range Interpretation Comments MAGNESIUM (BEAKER) (test code = 2.0 mg/dL 1.5-3.0 627) Cushion Gum Applicator ID - [id number] ACID, [id number] 13:03:48 Test Item Value Reference Range Interpretation Comments LACTATE BLOOD VENOUS (2) (BEAKER) 0.65 mmol/L 0.50-2.20 (test code = 2872) Cushion Gum Applicator ID - [id number] 09:22:52 Test Item Value Reference Range Interpretation Comments Result (test code = 6463-4) No [facility] isolated [facility] [id number] 09:22:52 Test Item Value Reference Range Interpretation Comments Result (test code = 6463-4) No MRSA isolated [facility] [id number] 09:22:52 Test Item Value Reference Range Interpretation Comments CULTURE (BEAKER) (test code No MRSA isolated = 1095) LACTIC ACID, [id number] 04:46:02 Test Item Value Reference Range Interpretation Comments LACTATE BLOOD VENOUS (2) (BEAKER) 0.97 mmol/L 0.50-2.20 (test code = 2872) Cushion Gum Applicator ID - [id number] METABOLIC [id number] 04:45:02 Test Item Value Reference Range Interpretation [...] S NOT APPLICABLE FOR DIALYSIS PATIEN TS. Cushion Gum Applicator ID - [id number] W/PLT COUNT & AUTO [id number] 04:20:52 Test Item Value Reference Range Interpretation [...] (BEAKER) (test code = 2801) LACTIC ACID, [id number] 01:00:58 Test Item Value Reference Range Interpretation Comments LACTATE BLOOD VENOUS (2) (BEAKER) 0.79 mmol/L 0.50-2.20 (test code = 2872) Cushion Gum Applicator ID - [id number] 00:55:54 Test Item Value Reference Range Interpretation Comments POTASSIUM (BEAKER) (test code = 3.8 meq/L 3.5-5.5 379) Cushion Gum Applicator ID - [id number] [id number] 23:44:08 Test Item Value Reference Range Interpretation Comments POC-GLUCOSE METER 192 mg/dL 70-110 H : TESTED A T [facility] [address] (BEAKER) (test code [facility], = 1538) [facility] 77 384: Cushion Gum Applicator/Techni tomas ID = [id number] for S angelaminnieChancea (MANUAL DIFFERENTIAL)2022-02-26 21:24:01 Test Item Value Reference [...] few 961) CBC W/PLT COUNT & AUTO [id number] 21:12:32 Test Item Value Reference Range Interpretation [...] /100 WBC 0-0 (test code = 413) [id number] 21:01:21 Test Item Value Reference Range Interpretation Comments FIBRINOGEN LEVEL (BEAKER) (test 495 mg/dl 206-468 H code = 658) PROTHROMBIN [id number] 21:00:59 Test Item Value Reference Range Interpretation Comments PROTIME (BEAKER) (test code = 16.2 seconds 11.8-14.4 H 759) INR (BEAKER) (test code = 370) 1.37 1.20-1.50 RECOMMENDED COUMADIN/WARFARIN INR THERAPY RANGESSTANDARD DOSE: 2.0 - 3.0 Includes: PROPHYLAXIS for venous thrombosis, systemic embolization; TREATMENT for venous thrombosis and/or pulmonary embolus.HIGH RISK: Target INR is 2.5-3.5 for patients with mechanical heart valves.BASIC METABOLIC [id number] 20:58:56 Test Item Value Reference Range Interpretation [...] S NOT APPLICABLE FOR DIALYSIS PATIEN TS. Cushion Gum Applicator ID - [id number] 20:58:45 Test Item Value Reference Range Interpretation Comments MAGNESIUM (BEAKER) (test code = 1.7 mg/dL 1.5-3.0 627) Cushion Gum Applicator ID - MARIA LUISAINELACTIC ACID, [id number] 20:51:42 Test Item Value Reference Range Interpretation Comments LACTATE BLOOD VENOUS (2) (BEAKER) 0.92 mmol/L 0.50-2.20 (test code = 2872) Cushion Gum Applicator ID - [id number] 19:36:27 Test Item Value Reference Range Interpretation Comments MAGNESIUM (BEAKER) (test code = 1.7 mg/dL 1.5-3.0 627) Cushion Gum Applicator ID - ZMINEPrepare Leuko-Red [id number] 19:05:00 Test Item Value Reference Range Interpretation Comments CROSSMATCH (test code = 2264) COMPATIBLE Unit ABO (test code = A Pos [id number]) UNIT NUMBER (test code = [id number] 934-0) Status (test code = 6658891) READY Blood Bank Product (test code RED BLOOD CELLS = 2263) PRODUCT CODE (test code = [id number] 933-2) [facility] Hospital[facility]uko-Red [id number] 19:05:00 Test Item Value Reference Range Interpretation Comments CROSSMATCH (test code = 2264) COMPATIBLE Unit ABO (test code = A Pos 4861899) UNIT NUMBER (test code = [id number] 934-0) Status (test code = 2874310) READY Blood Bank Product (test code RED BLOOD CELLS = 2263) PRODUCT CODE (test code = [id number] 933-2) [facility] HospitalHemoglobin and [id number] 18:13:05 Test Item Value Reference Range Interpretation Comments Hemoglobin (test code = 7.3 See_Comment L [Au tomated message] 786-4) The system [employer] generated this result transmitted ref erence range: 12.0 - 1 5.5 GM/DL. The refe rence range was not u sed to interpret this result as normal/abnor mal. Hematocrit (test code = 23.5 % 36.0-46.0 L 4544-3) Lab Interpretation (test Abnormal code = 69741-2) [facility] HospitalHemoglobin and [id number] 18:13:05 Test Item Value Reference Range Interpretation Comments Hemoglobin (test code = 7.3 See_Comment L [Au tomated message] 786-4) The system [employer] generated this result transmitted ref erence range: 12.0 - 1 5.5 GM/DL. The refe rence range was not u sed to interpret this result as normal/abnor mal. Hematocrit (test code = 23.5 % 36.0-46.0 L 4544-3) Lab Interpretation (test Abnormal code = 99509-3) [facility] HospitalHEMOGLOBIN AND [id number] 18:13:05 Test Item Value Reference Range Interpretation Comments HEMOGLOBIN (BEAKER) (test code = 7.3 GM/DL 12.0-15.5 L 410) HEMATOCRIT (BEAKER) (test code = 23.5 % 36.0-46.0 L 411) COMPREHENSIVE METABOLIC [id number] 18:11:36 Test Item Value Reference Range Interpretation [...] S NOT APPLICABLE FOR DIALYSIS PATIEN TS. Cushion Gum Applicator ID - ZMINEBlood gas, taoeyoqr8111-60-20 18:00:13 Test Item Value Reference Range Interpretation Comments pH, Arterial (test code 7.40 7.35-7.45 = 2744-1) pCO2, Arterial (test 35 See_Comment [Autom ated code = 2018-) message] The system which generated this result [...] 75 Lab Interpretation Abnormal (test code = 92767-1) [facility] HospitalBlood gas, [id number] 18:00:13 Test Item Value Reference Range Interpretation [...] 75 Lab Interpretation Abnormal (test code = 05118-5) [facility], [id number] 18:00:13 Test Item Value Reference Range Interpretation [...] 1819) 75.0 CBC W/PLT COUNT & AUTO [id number] 17:39:08 Test Item Value Reference Range Interpretation [...] on 02/26/22.Previous manual diff within 24 hours.PROTHROMBIN TIME/[id number] 17:17:14 Test Item Value Reference Range Interpretation [...] valves.PERIPHERAL BLOOD SMEAR - PATH REVIEW LAB [id number] 15:45:12 Test Item Value Reference Range Interpretation Comments PERIPHERAL SMR REVIEW Pancytopenia confirmed (BEAKER) (test code = on smear review. WBC 2640) and platelet morphology unremarkable. No schistocytes or blast forms seen. [id number] Moshe Tomas M.D. (BEAKER) (test code = (electronic signature) 4993) (MANUAL DIFFERENTIAL)2022-02-26 15:44:31 Test Item Value Reference [...] Platelets greatly decreased/rm.RHEUMATOID FACTOR AB, REFLEX TO [id number] 13:48:27 Test Item Value Reference Range Interpretation Comments RHEUMATOID FACTOR (BEAKER) (test Negative Negative code = 573) Protein, 24 hour [id number] 11:29:43 Test Item Value Reference Range Interpretation [...] = 2888-6) DEJA (test code = DEJA) Cushion Gum Applicator ID - [id number] Lab Interpretation Abnormal (test code = 08458-4) [facility] HospitalProtein, 24 hour [id number] 11:29:43 Test Item Value Reference Range Interpretation [...] = 2888-6) DEJA (test code = DEJA) Cushion Gum Applicator ID - [id number] Lab Interpretation Abnormal (test code = 67274-0) [facility] HospitalPROTEIN, 24 HOUR [id number] 11:29:43 Test Item Value Reference Range Interpretation Comments PROTEIN, 24HR URINE (BEAKER) 530 mg/24hr 0-300 H (test code = 1570) VOLUME, TOTAL (BEAKER) (test code 2525 ml = 1457) PROTEIN, URINE (BEAKER) (test 21 mg/dL 0-14 H code = 1569) Cushion Gum Applicator ID - [id number] W/PLT COUNT & AUTO [id number] 10:36:56 Test Item Value Reference Range Interpretation [...] WBC 0-0 (test code = 413) BLOOD [id number] 09:15:28 Test Item Value Reference Range Interpretation Comments CULTURE A From Aerobic An d (BEAKER) (test Anaerobic Bot tles Same code = 1095) organism has be en isolated from cultures(s) of the same body site and collection date . Repeat identifi cation and susceptibil ity testing perform ed only after consultat ion with the clinic al microbiology laboratory.Refe r to previous cultur e ofEscherichia c vianney GRAM STAIN From anaerobic RESULT (BEAKER) bottle only: gram (test code = negative rods 1123) GRAM STAIN From aerobic RESULT (BEAKER) bottle only: gram (test code = negative rods 888262) BLOOD [id number] 09:13:51 Test Item Value Reference Range Interpretation [...] anaerobic 1123) bottles: gram negative rods POCT-GLUCOSE [id number] 06:11:15 Test Item Value Reference Range Interpretation Comments POC-GLUCOSE METER 115 mg/dL 70-110 H : TESTED A T [facility] [address] (BEAKER) (test code [facility] [address] THE, = 1538) [place] [address] 384: Cushion Gum Applicator/Techni tomas ID = [id number] for Kimberli Huston [id number] 17:34:15 Test Item Value Reference Range Interpretation Comments MAGNESIUM (BEAKER) (test code = 2.6 mg/dL 1.5-3.0 627) Cushion Gum Applicator ID - ZMINEBASIC METABOLIC [id number] 16:42:33 Test Item Value Reference Range Interpretation [...] S NOT APPLICABLE FOR DIALYSIS PATIEN TS. Cushion Gum Applicator ID - ZMINECALCIUM, [id number] 16:10:22 Test Item Value Reference Range Interpretation Comments CALCIUM IONIZED (BEAKER) (test 1.04 mmol/L 1.12-1.27 L code = 698) PH, BLOOD (BEAKER) (test code = 7.49 1810) HEMOGLOBIN AND [id number] 15:59:46 Test Item Value Reference Range Interpretation Comments HEMOGLOBIN (BEAKER) (test code = 7.7 GM/DL 12.0-15.5 L 410) HEMATOCRIT (BEAKER) (test code = 23.5 % 36.0-46.0 L 411) LACTIC ACID, [id number] 10:25:58 Test Item Value Reference Range Interpretation Comments LACTATE BLOOD VENOUS (2) (BEAKER) 3.37 mmol/L 0.50-2.20 H (test code = 2872) Cushion Gum Applicator ID - [id number] 10:25:42 Test Item Value Reference Range Interpretation Comments PHOSPHORUS (BEAKER) (test code = 2.2 mg/dL 2.5-4.5 L 604) Cushion Gum Applicator ID - [id number] METABOLIC [id number] 10:25:41 Test Item Value Reference Range Interpretation [...] S NOT APPLICABLE FOR DIALYSIS PATIEN TS. Cushion Gum Applicator ID - [id number] AND [id number] 10:10:40 Test Item Value Reference Range Interpretation Comments HEMOGLOBIN (BEAKER) (test code = 7.6 GM/DL 12.0-15.5 L 410) HEMATOCRIT (BEAKER) (test code = 23.5 % 36.0-46.0 L 411) CALCIUM, [id number] 10:03:39 Test Item Value Reference Range Interpretation Comments CALCIUM IONIZED (BEAKER) (test 0.94 mmol/L 1.12-1.27 L code = 698) PH, BLOOD (BEAKER) (test code = 7.44 1810) CT, [id number] 08:56:00Unlisted Reason for Exam - Click Yes and Enter Reason Below->NoIs this for enterography?->NoWill this procedure require oral contrast?->Yes [facility] Y[facility]ANA : 1985 Sex: FFINAL REPORT CT abdomen [...] MDReport Verified Date/Time: 02/25/2022 08:56:27 Reading Location: [address] Consult Reading Room [id number] 07:49:15 Test Item Value Reference Range Interpretation Comments MAGNESIUM (BEAKER) (test code = 1.5 mg/dL 1.5-3.0 627) Cushion Gum Applicator ID - [id number] METABOLIC [id number] 04:44:51 Test Item Value Reference Range Interpretation [...] S NOT APPLICABLE FOR DIALYSIS PATIEN TS. Cushion Gum Applicator ID - [id number] KINASE (CK)2022-02-25 04:43:03 Test Item Value Reference Range Interpretation Comments CREATINE KINASE TOTAL (BEAKER) (test 429 U/L 29-168 H code = 380) Cushion Gum Applicator ID - [id number] ACID, [id number] 04:41:52 Test Item Value Reference Range Interpretation Comments LACTATE BLOOD VENOUS (2) (BEAKER) 3.84 mmol/L 0.50-2.20 H (test code = 2872) Cushion Gum Applicator ID - [id number] AND [id number] 04:30:04 Test Item Value Reference Range Interpretation Comments HEMOGLOBIN (BEAKER) (test code = 8.0 GM/DL 12.0-15.5 L 410) HEMATOCRIT (BEAKER) (test code = 24.8 % 36.0-46.0 L 411) TSH/FREE T4 IF [id number] 01:25:32 Test Item Value Reference Range Interpretation Comments THYROID STIMULATING HORMONE 1.950 uIU/mL 0.350-5.500 (BEAKER) (test code = 772) Cushion Gum Applicator ID - [id number] ACID, [id number] 01:15:41 Test Item Value Reference Range Interpretation Comments LACTATE BLOOD VENOUS (2) (BEAKER) 5.27 mmol/L 0.50-2.20 HH (test code = 2872) Cushion Gum Applicator ID - [id number] KINASE (CK)2022-02-25 01:14:31 Test Item Value Reference Range Interpretation Comments CREATINE KINASE TOTAL (BEAKER) (test 472 U/L 29-168 H code = 380) Cushion Gum Applicator ID - [id number] AND [id number] 00:51:46 Test Item Value Reference Range Interpretation Comments HEMOGLOBIN (BEAKER) (test code = 8.1 GM/DL 12.0-15.5 L 410) HEMATOCRIT (BEAKER) (test code = 25.2 % 36.0-46.0 L 411) BASIC METABOLIC [id number] 22:01:57 Test Item Value Reference Range Interpretation [...] S NOT APPLICABLE FOR DIALYSIS PATIEN TS. Cushion Gum Applicator ID - [id number] ACID, [id number] 20:42:07 Test Item Value Reference Range Interpretation Comments LACTATE BLOOD VENOUS (2) (BEAKER) 5.31 mmol/L 0.50-2.20 HH (test code = 2872) Cushion Gum Applicator ID - ZMINEVITAMIN D, [id number] 20:37:49 Test Item Value Reference Range Interpretation Comments VITAMIN D 25-OH (BEAKER) (test code 8.6 ng/mL 6.6-49.9 = 2764) Effective 08/14/2017: Reference Range ChangeNew: 6.6-49.9 ng/mL Previous: 13.0- 47.8 ng/mLRecommendedVitamin D Target Range: 30.0-40.0 ng/mLOperator ID - DB HEMOGLOBIN AND [id number] 20:16:02 Test Item Value Reference Range Interpretation Comments HEMOGLOBIN (BEAKER) (test code = 8.8 GM/DL 12.0-15.5 L 410) HEMATOCRIT (BEAKER) (test code = 26.9 % 36.0-46.0 L 411) CALCIUM, [id number] 20:15:52 Test Item Value Reference Range Interpretation Comments CALCIUM IONIZED (BEAKER) (test 0.91 mmol/L 1.12-1.27 L code = 698) PH, BLOOD (BEAKER) (test code = 7.44 1810) [id number] 19:21:38 Test Item Value Reference Range Interpretation Comments AMMONIA (BEAKER) (test code = 348) 22 mol/L 12-72 Cushion Gum Applicator ID - ZMINEBLOOD GAS, [id number] 19:17:04 Test Item Value Reference Range Interpretation [...] FIO2 (BEAKER) (test code = 1819) 21.0 [id number] 18:23:52 Test Item Value Reference Range Interpretation Comments MAGNESIUM (BEAKER) (test code = 1.8 mg/dL 1.5-3.0 627) Cushion Gum Applicator ID - ZMINECREATINE KINASE (CK)2022-02-24 17:31:32 Test Item Value Reference Range Interpretation Comments CREATINE KINASE TOTAL (BEAKER) (test 485 U/L 29-168 H code = 380) Cushion Gum Applicator ID - ZMINEBASIC METABOLIC [id number] 17:31:27 Test Item Value Reference Range Interpretation [...] S NOT APPLICABLE FOR DIALYSIS PATIEN TS. Cushion Gum Applicator ID - ZMINELACTIC ACID, [id number] 17:24:51 Test Item Value Reference Range Interpretation Comments LACTATE BLOOD VENOUS (2) (BEAKER) 4.38 mmol/L 0.50-2.20 HH (test code = 2872) Cushion Gum Applicator ID - ZMINEHEMOGLOBIN AND [id number] 17:13:49 Test Item Value Reference Range Interpretation Comments HEMOGLOBIN (BEAKER) (test code = 8.5 GM/DL 12.0-15.5 L 410) HEMATOCRIT (BEAKER) (test code = 26.2 % 36.0-46.0 L 411) POCT-GLUCOSE [id number] 16:51:30 Test Item Value Reference Range Interpretation Comments POC-GLUCOSE METER 165 mg/dL 70-110 H : TESTED A T [facility] [address] (BEAKER) (test code [facility], = 1538) [facility] 77 384: Cushion Gum Applicator/Techni tomas ID = [id number] for Emily Olson Strep pneumoniae [id number] 14:54:36 Test Item Value Reference Range Interpretation Comments Strep pneumoniae Presumptive negative Presumptive Antigen (test code = [place] [address]-3) pneumonia - see pneumococcal comment pneumonia - [...] test. Lab Interpretation Normal (test code = 61384-5) [facility] icwrsak1235-11-28 14:54:36 Test Item Value Reference Range Interpretation Comments Strep pneumoniae Presumptive negative Presumptive Antigen (test code = [place] [address]-6) pneumonia - see pneumococcal comment pneumonia - [...] test. Lab Interpretation Normal (test code = 97496-1) [facility] CenterTREP PNEUMONIAE [id number] 14:54:36 Test Item Value Reference Range Interpretation [...] detection limit of the test. Legionella antigen, [id number] 14:54:13 Test Item Value Reference Range Interpretation Comments Legionella Urine Negative - see Negative for L. Antigen (test code comment pneumophi la = 92750-9) serogroup 1 ant igen, suggesting no r ecent or current infe ction with this serog roup. Legionellosis c annot be ruled out si nce other serogroup s and species may cau se disease. [facility] HospitalLegionella antigen, [id number] 14:54:13 Test Item Value Reference Range Interpretation Comments Legionella Urine Negative - see Negative for L. Antigen (test code comment pneumophi la = 14604-3) serogroup 1 ant igen, suggesting no r ecent or current infe ction with this serog roup. Legionellosis c annot be ruled out si nce other serogroup s and species may cau se disease. [facility] HospitalLEGIONELLA ANTIGEN, [id number] 14:54:13 Test Item Value Reference Range Interpretation [...] may cau se disease. VITAMIN B12 AND [id number] 12:43:34 Test Item Value Reference Range Interpretation Comments VITAMIN B12 (BEAKER) 385 pg/mL 211-911 (test code = 774) FOLATE (AKER) 5.80 ng/mL See_Comment [Automated message] (test code = 362) The system which generated this result transmitted ref erence range: >=5.40. The reference range was not used to interpr et this result as normal/abnormal . Cushion Gum Applicator ID - HVER31Lcqdjvng ID - GCUB76OTP/FREE T4 IF [id number] 12:08:50 Test Item Value Reference Range Interpretation Comments THYROID STIMULATING HORMONE 1.060 uIU/mL 0.350-5.500 (BEAKER) (test code = 772) Cushion Gum Applicator ID - [id number] drug screen, [id number] 11:43:08 Test Item Value Reference Range Interpretation Comments Barbiturate Screen Negative Negative (test code = 79723-2) Benzodiazepine Screen Negative Negative (test code = 40264-4) Cocaine (Metab.) Negative Negative Screen (test code = 3397-7) Methadone Screen (test Negative Negative code = 30748-1) Opiate Screen (test Negative Negative code = 23609-4) Cannabinoid Screen Negative Negative (test code = 37399-6) Amph/Methamph Screen Negative Negative (test code = 37652-6) Phencyclidine Screen Negative Negative (test code = 30381-9) pH, UA (test code = 5.0 5.0-8.0 5803-2) DEJA (test code = DEJA) DRUG CUTOFF CONC.Cocaine 300 ng/mL Cannabinoid 50 ng/mLBenzodiazepine 200 ng/mLBarbiturate 200 ng/mLPhencyclidine 25 ng/mLOpiate 300 ng/mLMethadone 300 ng/mLAmphetamine/ 1000 ng/mL Methamphetamine This assay provides an unconfirmed qualitative test result for the clinical management of patients in emergency situations. Chain of custody not maintained. Some hpnp-qlo-lxbqyeh medications, as well as adulterants, may cause inaccurate results. Clinical correlation should be applied. A more comprehensive drug screen or confirmation of a detected drug may be performed upon request.Cushion Gum Applicator ID - [id number] Lab Interpretation Normal (test code = 31998-1) [facility] HospitalRapid drug screen, [id number] 11:43:08 Test Item Value Reference Range Interpretation Comments Barbiturate Screen Negative Negative (test code = 84075-0) Benzodiazepine Screen Negative Negative (test code = 31056-4) Cocaine (Metab.) Negative Negative Screen (test code = 3397-7) Methadone Screen (test Negative Negative code = 99210-9) Opiate Screen (test Negative Negative code = 42191-0) Cannabinoid Screen Negative Negative (test code = 24567-7) Amph/Methamph Screen Negative Negative (test code = 46147-4) Phencyclidine Screen Negative Negative (test code = 42385-7) pH, UA (test code = 5.0 5.0-8.0 5803-2) DEJA (test code = DEJA) DRUG CUTOFF CONC.Cocaine 300 ng/mL Cannabinoid 50 ng/mLBenzodiazepine 200 ng/mLBarbiturate 200 ng/mLPhencyclidine 25 ng/mLOpiate 300 ng/mLMethadone 300 ng/mLAmphetamine/ 1000 ng/mL Methamphetamine This assay provides an unconfirmed qualitative test result for the clinical management of patients in emergency situations. Chain of custody not maintained. Some yzjs-xit-rdyvltj medications, as well as adulterants, may cause inaccurate results. Clinical correlation should be applied. A more comprehensive drug screen or confirmation of a detected drug may be performed upon request.Cushion Gum Applicator ID - [id number] Lab Interpretation Normal (test code = 89320-6) [facility] HospitalRAPID DRUG SCREEN, [id number] 11:43:08 Test Item Value Reference Range Interpretation [...] ng/mLOpiate 300 ng/mLMethadone 300 ng/mLAmphetamine/ 1000 ng/mL MethamphetamineThis assay provides an unconfirmed qualitative test result for the clinical management of patients in emergency situations. Chain of custody not maintained. Some yfma-msq-mfcqion medications, as well as adulterants, may cause inaccurate results. Clinical correlation should be applied. A more comprehensive drug screen or confirmation of a detected drug may be performed upon request.Cushion Gum Applicator ID - [id number] ACID, [id number] 11:36:06 Test Item Value Reference Range Interpretation Comments LACTATE BLOOD VENOUS 4.70 mmol/L 0.50-2.20 HH Specime n slightly (2) (BEAKER) (test hemolyzed code = 9844) Cushion Gum Applicator ID - [id number] KINASE (CK)2022-02-24 11:33:58 Test Item Value Reference Range Interpretation Comments CREATINE KINASE TOTAL (BEAKER) (test 583 U/L 29-168 H code = 380) Cushion Gum Applicator ID - [id number] AND [id number] 11:20:57 Test Item Value Reference Range Interpretation Comments HEMOGLOBIN (BEAKER) (test code = 9.1 GM/DL 12.0-15.5 L 410) HEMATOCRIT (BEAKER) (test code = 27.7 % 36.0-46.0 L 411) [id number] 11:11:56 Test Item Value Reference Range Interpretation Comments MAGNESIUM (BEAKER) (test code = 1.2 mg/dL 1.5-3.0 L 627) Cushion Gum Applicator ID - [id number] ACID, [id number] 08:15:59 Test Item Value Reference Range Interpretation Comments LACTATE BLOOD VENOUS (2) (BEAKER) 6.45 mmol/L 0.50-2.20 HH (test code = 2872) Cushion Gum Applicator ID - [id number] KINASE (CK)2022-02-24 08:15:27 Test Item Value Reference Range Interpretation Comments CREATINE KINASE TOTAL (BEAKER) (test 625 U/L 29-168 H code = 380) Cushion Gum Applicator ID - [id number] METABOLIC [id number] 08:15:21 Test Item Value Reference Range Interpretation [...] S NOT APPLICABLE FOR DIALYSIS PATIEN TS. Cushion Gum Applicator ID - [id number] AND [id number] 08:00:55 Test Item Value Reference Range Interpretation Comments HEMOGLOBIN (BEAKER) (test code = 9.0 GM/DL 12.0-15.5 L 410) HEMATOCRIT (BEAKER) (test code = 27.2 % 36.0-46.0 L 411) CT, [id number] 06:01:00Unlisted Reason for Exam - Click Yes and Enter Reason Below->NoIs this for enterography?->NoPlease specify:->RenalWill this procedure require oral contrast?->No [facility] 1985 Sex: FFINAL [...] Hopkins MDReport Verified Date/Time: 02/24/2022 06:01:09 HEMOGLOBIN [id number] 05:31:39 Test Item Value Reference Range Interpretation Comments HEMOGLOBIN A1C (BEAKER) (test code = 7.4 % 4.3-6.1 H 368) Cushion Gum Applicator ID - [id number] 05:02:27 Test Item Value Reference Range Interpretation Comments MAGNESIUM (BEAKER) (test code = 0.8 mg/dL 1.5-3.0 LL 627) Cushion Gum Applicator ID - [id number], [id number] 05:01:59 Test Item Value Reference Range Interpretation Comments CALCIUM IONIZED (BEAKER) (test 0.74 mmol/L 1.12-1.27 LL code = 698) PH, BLOOD (BEAKER) (test code = 7.43 1810) [id number] 04:38:52 Test Item Value Reference Range Interpretation Comments PHOSPHORUS (BEAKER) (test code = 4.1 mg/dL 2.5-4.5 604) Cush[employer] G[employer] Applicator ID - [id number] FUNCTION [id number] 04:38:52 Test Item Value Reference Range Interpretation [...] code = 67 U/L 6-50 H 347) C[employer] G[employer] Applicator ID - [id number], ABDOMINAL, [id number] 04:29:00Abdomen limited area? Add comment if clarification is needed.->Right upper quadrant Reason for exam:->r/o diaz Should this be performed at the bedside?->No [facility] : 1985 Sex: FFINAL [...] hepatomegaly. 2. Cholelithiasis without cholecystitis. Signed: Chiqui Bunchort Verified Date/Time: 02/24/2022 04:29:26 CBC W/PLT COUNT & AUTO [id number] 03:47:10 Test Item Value Reference Range Interpretation [...] 612 U/L 29-168 H code = 380) Cushion Gum Applicator ID - [id number] METABOLIC [id number] 03:43:09 Test Item Value Reference Range Interpretation [...] S NOT APPLICABLE FOR DIALYSIS PATIEN TS. Cushion Gum Applicator ID - [id number] ACID, [id number] 03:42:15 Test Item Value Reference Range Interpretation Comments LACTATE BLOOD VENOUS (2) (BEAKER) 9.04 mmol/L 0.50-2.20 HH (test code = 2872) Cushion Gum Applicator ID - [id number] 03:18:32 Test Item Value Reference Range Interpretation Comments FIBRINOGEN LEVEL (BEAKER) (test 789 mg/dl 206-468 H code = 658) PROTHROMBIN TIME/[id number] 03:18:31 Test Item Value Reference Range Interpretation Comments PROTIME (BEAKER) (test code = 17.4 seconds 11.8-14.4 H 759) INR (BEAKER) (test code = 370) 1.50 1.20-1.50 RECOMMENDED COUMADIN/WARFARIN INR THERAPY RANGESSTANDARD DOSE: 2.0 - 3.0 Includes: PROPHYLAXIS for venous thrombosis, systemic embolization; TREATMENT for venous thrombosis and/or pulmonary embolus.HIGH RISK: Target INR is 2.5-3.5 for patients with mechanical heart valves.BLOOD GAS, [id number] 03:14:14 Test Item Value Reference Range Interpretation [...] (BEAKER) (test code = 1819) 21.0 POCT-GLUCOSE [id number] 03:02:56 Test Item Value Reference Range Interpretation Comments POC-GLUCOSE METER 197 mg/dL 70-110 H : TESTED A T [facility] [address] (BEAKER) (test code [facility], = 1538) [facility] 77 384: Cushion Gum Applicator/Techni tomas ID = [id number] for B unda, [place] RAD, CHEST, PA OR AP, 1 [id number] 23:34:00Reason for exam:->FLANK PAIN Reason for exam:->HYPERGLYCEMIA Reason for exam:->SHORTNESS OFBREATH [facility] : 1985 Sex: FFINAL REPORT INDICATION: FLANK PAINHYPERGLYCEMIASHORTNESS OF BREATH COMPARISON: None TECHNIQUE: Single frontal view of the chest. IMPRESSION: Lungs and pleura: Right basilar streakyopacities suggestive of subsegmental atelectasis. No focal airspace consolidation.. No effusion. Heart and mediastinum: Normal heart size. Unremarkable mediastinal contours. Osseous structures: No acute abnormality. Other: None. Signed: Chiqui Bunch MDRepleonor Verified Date/Time: 02/23/2022 23:34:40 PREGNANCY SCREEN, [id number] 23:31:24 Test Item Value Reference Range Interpretation Comments TEST URINE (BEAKER) (test Negative code = 583) Urinalysis w/Microscopic + Reflex to [id number] 23:30:50 Test Item Value Reference Range Interpretation Comments Color, UA (test code = Yellow 5778-6) Clarity, UA (test code Clear = 5767-9) Specific Kimper, UA >=1.030 1.001-1.035 (test code = 5811-5) pH, UA (test code = 5.0 5.0-8.0 5803-2) Protein, UA (test code >=300 mg/dL Negative A = 97602-0) Glucose, UA (test code Negative Negative = 365) Ketones, UA (test code 15 mg/dL Negative A = 2514-8) Bilirubin, UA (test Positive Negative A code = 14754-9) Blood, UA (test code = Large Negative A 02514-9) Nitrite, UA (test code Negative Negative = 5802-4) Leukocytes, UA (test Moderate Negative A code = 5799-2) Urobilinogen, UA (test 2.0 mg/dL 0.2-1.0 H code = 33075-9) Bacteria, UA (test code Moderate = 97858-8) RBC, UA (test code = 10-20 See_Comment [Autom ated 799-7) message] The sy stem which generated this result transmitted reference range : /HPF. The refer ence range was not u sed to interpret th is result as normal/abnormal . WBC, UA (test code = 10-20 See_Comment [Autom ated 58582-9) message] The sy stem which generated this result transmitted reference range : /HPF. The refer ence range was not u sed to interpret th is result as normal/abnormal . SQUAMOUS EPITHELIAL 5-10 See_Comment [Automa thais (test code = 87812-5) messag e] The system which generated this result transmitted reference range : /HPF. The refer ence range was not u sed to interpret th is result as normal/abnormal . Specimen Source (test code = 2795) Lab Interpretation Abnormal (test code = 62203-6) [facility] Reflex to Culture 2022-02-23 23:30:50 Test Item Value Reference Range Interpretation Comments Color, UA (test code = Yellow 5778-6) Clarity, UA (test code Clear = 5767-9) Specific Kimper, UA >=1.030 1.001-1.035 (test code = 5811-5) pH, UA (test code = 5.0 5.0-8.0 5803-2) Protein, UA (test code >=300 mg/dL Negative A = 12025-5) Glucose, UA (test code Negative Negative = 365) Ketones, UA (test code 15 mg/dL Negative A = 2514-8) Bilirubin, UA (test Positive Negative A code = 67432-5) Blood, UA (test code = Large Negative A 96992-2) Nitrite, UA (test code Negative Negative = 5802-4) Leukocytes, UA (test Moderate Negative A code = 5799-2) Urobilinogen, UA (test 2.0 mg/dL 0.2-1.0 H code = 87906-2) Bacteria, UA (test code Moderate = 73416-9) RBC, UA (test code = 10-20 See_Comment [Autom ated 799-7) message] The sy stem which generated this result transmitted reference range : /HPF. The refer ence range was not u sed to interpret th is result as normal/abnormal . WBC, UA (test code = 10-20 See_Comment [Autom ated 52317-7) message] The sy stem which generated this result transmitted reference range : /HPF. The refer ence range was not u sed to interpret th is result as normal/abnormal . SQUAMOUS EPITHELIAL 5-10 See_Comment [Automa thais (test code = 28452-9) messag e] The system which generated this result transmitted reference range : /HPF. The refer ence range was not u sed to interpret th is result as normal/abnormal . Specimen Source (test code = 2795) Lab Interpretation Abnormal (test code = 18837-7) [facility] REFLEX URINE [id number] 23:30:50 Test Item Value Reference Range Interpretation [...] code = 1663) SOURCE(BEAKER) (test code = 2795) COMPREHENSIVE METABOLIC [id number] 23:18:36 Test Item Value Reference Range Interpretation [...] T O CALCULATE ESTIM ATED GFR. SARS-COV2/RT-PCR ([facility])2022-02-23 23:04:03 Test Item Value Reference Range Interpretation Comments SARS-COV2/RT-PCR Negative Negative The SARS-Co V-2 target (test code = nucleic acids a re not 0933524) detected in thi s specimen. Negative result [...] revoked sooner. Fact Sheet for Healthcare Providers: https://www.[employer] m/Documents/Xpert%20Xpress%20SARS%20CoV-2/Fact%20Sheets/3023802%22PJKE-EZT-3%20 HEALTHCARE%20PROVIDERS%20FACT%20SHEET.pdf Fact Sheet for Healthcare Patients: https://www.[employer]/Documents/Xpert%20Xp ress%20SARS%20CoV-2/Fact%20Sheets/3023801%10EJUG-TMG-1%20PATIENT%20FACT%20SHEET .pdfLACTIC ACID, [id number] 22:42:32 Test Item Value Reference Range Interpretation Comments LACTATE BLOOD VENOUS (2) 11.20 mmol/L 0.50-2.20 HH (BEAKER) (test code = 2872) CREATINE KINASE (CK)2022-02-23 22:40:51 Test Item Value [...] = 762) CBC W/PLT COUNT & AUTO [id number] 22:40:19 Test Item Value Reference Range Interpretation [...] 0-0 (BEAKER) (test code = 413) POC [id number] 16:08:58 Test Item Value Reference Range Interpretation Comments POC glucose (test code 158 mg/dL 65-99 H Opera tor Name: Linnea = 02009-2) TeresaDevice ID : [id number] able: [facility] Notified head bucker Interpretation Abnormal (test code = 12823-0) [facility] wvikyms3158-09-28 06:25:17 Test Item Value Reference Range Interpretation Comments Urine culture (test SEE COMMENT Bacteriu joy screen code = 9990470) negative. [facility] HoustonFlow cytometry [id number] 14:26:13 Test Item Value Reference Range Interpretation Comments Case number (test code = [id number]) Flow cytometry evaluation See link below for (test code = 8694759) PDF Lab Report [facility] HoustonDirect Roberto' (JOSE)2021-07-08 08:59:00 Test Item Value Reference Range Interpretation Comments Ytku-GhI-R7j Polyspecific (test code = NEG 2585) [facility] and [id number] 02:11:00 Test Item Value Reference Range Interpretation Comments ABO grouping (test code = 883-9) A Rh type (test code = 29697-5) POS Antibody screen (gel) (test code = NEG 890-4) [facility]Cyt[facility] (non-gynecological) [id number] 21:57:13 Test Item Value Reference Range Interpretation Comments Case number (test code = [id number]) Cytology See link below for (non-gynecological) PDF Lab Report report (test code = 1178) Result status (test code This is Final Report = [id number]) for [id number] [facility] 12 [id number] 19:54:30 Test Item Value Reference Range Interpretation Comments Ventricular rate (test code = 253) Atrial rate (test code = 255) VA interval (test code = 266) QRSD interval [...] wave abnormality, improved in Anterolateral leads- Rudi Sparrow-CoV-2 (COVID-19) RNA [Presence] in Respiratory specimen by JUAN with probe [id number] 16:58:05 Test Item Value Reference Range Interpretation Comments SARS-CoV-2 (COVID-19) RNA Not detected Not-Detected [Presence] in Respiratory specimen by JUAN with probe detection (test code = 90563-1) Whether patient is employed in a healthcare setting (test code = 53433-1) Whether the patient has symptoms related to condition of interest (test code = 21921-6) Patient was hospitalized because of this condition (test code = 27237-7) Whether the patient was admitted to intensive care unit (ICU) for condition of interest (test code = 18103-3) Whether patient resides in a congregate care setting (test code = 75168-3) RENATA GONZALESRS-CoV-2 (COVID-19) RNA [Presence] in Respiratory specimen by JUAN with probe [id number] 17:35:11 Test Item Value Reference Range Interpretation Comments SARS-CoV-2 (COVID-19) RNA Not detected Not-Detected [Presence] in Respiratory specimen by JUAN with probe detection (test code = 09947-8) Whether patient is employed in a healthcare setting (test code = 56103-8) Whether the patient has symptoms related to condition of interest (test code = 66113-8) Patient was hospitalized because of this condition (test code = 23350-0) Whether the patient was admitted to intensive care unit (ICU) for condition of interest (test code = 74346-5) Whether patient resides in a congregate care setting (test code = 13425-1) RENATA FROST BRANDONJARADMinnie RENIN [id number] 16:06:00 Test Item Value Reference Range Interpretation Comments RENIN ACTIVITY, 0.287 ng/mL/hr 0.167-5.380 N This test was developed PLASMA (test and its perform ance code = 833292) characteristi cs determined by [facility]. It [...] 7 by IF on 01/18/2021 1 5:[address] [facility]-L[facility]kinCULTURE, [id number] 08:32:00Specimen: Urine SpecimensCollected: 10/26/2020 20:51 Status: Final Last Updated: 10/29/2020 08:32 CULTURE (Final) (Final) No Growth After [address] [facility]-LufkinCORONAVIRUS 2019 (IN [place])(3HR)2020-10-27 19:07:00 Test Item Value Reference Range Interpretation Comments FT (test code = Negative (qualifier Negative N The r eleased value COVID) value) Negative was canceled by [id number] on 10/27/2020 19:0 7 PUI (test code = CANCELED PUI) Mejia Regalado verified this was the wrong patient swabbed, correct patient swabbed see [id number] [facility]-LufkinTROPONIN-I Quantitative 2020-10-27 12:34:00 Test Item Value Reference Range Interpretation Comments Troponin-I (test 0.016 ng/ml 0.000-0.045 The 99th Pe rcentile URL code = TROP) is 0.045 ng/mL for the Siemens Argyle T roponin I. The Joint [facility] amy Society of Cardiology/Amer [facility]n College of Card iology (ESC/ACC) and marcia anand [facility] Clinical [facility] terrie Standards of [place] boratory [...] 24 hours after the clini yoli event. [facility]-[id number] 12:34:00 Test Item Value Reference Range Interpretation [...] ( 4 - SerumAlbumin)] EGFR if >60 Canadian (test code mL/min/1.73m\\ = EGFRAA) S\\2 EGFR if Non- >60 Estimate d Glomerular Canadian (test code mL/min/1.73m\\ Filtrat ion Rate (eGFR) [...] and management of c hronic kidney failure. [facility] HospitalYzhjud-[id number] 12:34:00 Test Item Value Reference Range Interpretation Comments Magnesium (test code = MG) 1.6 mg/dl 1.6-2.[address] [facility]-fkinCORONARY [id number] 12:34:00 Test Item Value Reference Range Interpretation [...] (test code = 23 mg/dl 20-40 VLDL) [facility] HospitalkinGLYCOSALATED [id number] 12:26:00 Test Item Value Reference Range Interpretation Comments Hemoglobin A1C (test 5.8 % 4.2-6.3 A code = GLYCO) Mean Plasma Glucose 129 mg/dl 90-180 WHEN MARIA DEL ROSARIO T RESULTS FOR (test code = MPG) A1C EXCEED 14.0, THE LINEAR LIMIT OF THE INSTRUMENT, THE CALCULATED RESU LT FOR THE MEAN GLUCOS E IS NOT RELIABLE. [facility] HospitalkinM[facility] WITH AUTO [id number] 12:00:00 Test Item Value Reference Range Interpretation [...] (test code = 0.3 % 0.0-0.4 IG%) [facility] [place][Note 2]TS (Ultra Sensitive)2020-10-27 04:58:00 Test Item Value Reference Range Interpretation Comments TSH (test code = TSH) 1.11 mIU/L 0.35-3.74 [facility] [place][Note 2]FREE [id number] 04:51:00 Test Item Value Reference Range Interpretation Comments Free T4 (test code = FT4) 0.99 ng/dl 0.76-1.46 [facility] [place][Note 2]CORONAVIRUS 2019 ([facility]3HR)2020-10-27 03:28:00 Test Item Value Reference Range Interpretation [...] contact the [facility] at [phone]. [facility] [place][Note 2]DRUG SCREEN [id number] 03:24:00 Test Item Value Reference Range Interpretation [...] D rugs of Abuse ran on Siemens Argyle analyzer listed there in: Amphe tamines < [...] Cannabinoids, THC (test NEG code = THC) [facility]-LufkinCT ANGIO CHEST W/ [id number] 02:15:2020 g Cathlon Above the Antecubital or higher required tachycardia sob r/o PE [facility]Name: YAIR MORA : [id number] Sex: FPROCEDURE INFORMATION:Exam: CT Angiography Chest With ContrastExam date and time: 10/27/20201:16 AMAge: 35 years oldClinical indication: Cough and dyspnea and shortness of breath and other:Tachycardia; Patient HX: Covid positive 3 days agoTECHNIQUE:Imaging protocol: Computed tomographic angiography of the chest withintravenous contrast.3D rendering (Not supervised by radiologist): MIP and/or3D reconstructedimages were created by the technologist.Radiation optimization: All CT scans at [facility] use at least one of thesedose [...] CDT.Dictated By: NKECHI SZYMANSKIDate: 10/27/2020 02:15[facility] [id number] 02:00:00 Test Item Value Reference Range Interpretation Comments B-Peptide (test code = BNP) 65 pg/ml 0-[address] [facility] [place] HospitalkinSTAT LAB [id number] 01:59:00 Test Item Value Reference Range Interpretation Comments Troponin-I (test 0.01 ng/ml 0.00-0.08 The 99th Pe rcentile URL is code = TROP) 0.08 ng/mL for the [place] iStat Troponin I. The Joint Society of Cardiology/Amer ican College of Card iology (ESC/ACC) and marcia National Academy of Clin ical Biochemistry St [...] 24 hours after the clini yoli event. [facility]-LufkinURINALYSIS WITH [id number] 00:09:00 Test Item Value Reference Range Interpretation Comments Color (test code = UCOLR) Yellow Clarity (test code = Clear UCLAR) Glucose (test code = NEGATIVE NEGATIVE N UGLUC) Bilirubin (test code = NEGATIVE NEGATIVE N UBILI) Ketones (test code = NEGATIVE NEGATIVE N UKET) Specific Kimper (test >=1.030 1.005-1.030 A code = USPGR) [...] None Seen A UR CAST) Granular Casts [facility]-LufkinXR CHEST AP/PA 1 [id number] 22:07:35 [facility] ([facility])Name: YAIR MORA : [id number] Sex: FPROCEDURE INFORMATION:Exam: XR Chest, 1 ViewExam [...] CDT.Dictated By: NKECHI SZYMANSKIDate: 10/26/2020 22:07[facility] TEST, Serum [id number] 21:56:00 Test Item Value Reference Range Interpretation Comments (Serum) (test code = Negative PREGS) [facility] HospitalkinSOH[facility]HE[facility] CHEM [id number] 21:45:00 Test Item Value Reference Range Interpretation [...] (test code = CREA) 0.8 mg/dl 0.6-1.3 [facility] CBC WITH AUTO [id number] 21:43:00 Test Item Value Reference Range Interpretation [...] (test code = IG%) 0.3 % 0.0-0.4 [facility] [place] ([place]3HR)2020-10-21 23:30:00 Test Item Value Reference Range Interpretation Comments FT (test code Positive Negative A The BioGX SARS -CoV-2 = COVID) (qualifier value) Reagents f or BD MAX System, the Bio Fire Covid-19, and t he Cepheid Covid-1 9 is for in vitro us e under FDA Emergency U se Authorization o nly. For questions regarding your test results, please contact the Coronavirus [facility] at [phone]. [facility]-LufkinALDOSTERONE, LC/MS/MS, [id number] 11:46:00 Test Item Value Reference Range Interpretation Comments ALDOSTERONE (test <1.0 ng/dL 0.0-30.0 N This test was developed code = 930952) and its perfo rmance characteristics determined by [facility]. It has not been cleared or approved by the Food and Drug Administration. PERFORMED AT: [address] [id number] MECHANICAL MANAGER: Deanne Izquierdo MD PHONE: [phone] St[facility] METANEPHRINES, FRAC. LC/MS/MS, 24 HR [id number] 06:55:00 Test Item Value Reference Range Interpretation Comments NORMETANEPHRINE, 854 ug/L Undefined N This test w as developed UR (test code = and its perf ormance 434486) characteristics determined by [facility]. It has not been cl eared or approved by the Food and Drug Administra tion. NORMETANEPHR.,U, 598 ug/24 hr 131-612 N Please n ote reference 24H (test code = interval ch reinaldo 708538) METANEPHRINE, UR 136 ug/L Undefined N This test w as developed (test code = and its perform ance 054389) characteristics determined by [facility]. It has not been cl eared or approved by the Food and Drug Administra tion. METANEPHRINE, 95 ug/24 hr 36-209 N Please note reference U,24HR (test interval change code = 149208) TOTAL VOLUME 0700 mL (test code = TOTVOL) PERFORMED AT: [facility] [id number] MECHANICAL MANAGER: Deanne Izquierdo MD PHONE: [phone] [address] DEXAMETHASONE, [id number] 08:21:00 Test Item Value Reference Range Interpretation Comments DEXAMETHASONE, 405 ng/dL This test was developed and SERUM (test code its perform ance = 338211) characteristics determined by [facility]. It has not been cleared or appr stan by the Food and Drug Administration. Reference Range: Adults b aseline: <30 8:00 AM followi ng 1 mg dexamethasone p revious evenin - 295 8:00 AM following 8 mg dexamethasone ( 4 x 2 mg doses) previous day: 1600 - [address] [facility]-fkinVITAMIN [id number] 09:39:00 Test Item Value Reference Range Interpretation Comments Vitamin D (test code = 20.44 VITAM IN D NORMAL RANGES: TVITD) Deficient <20 I nsufficient 20-<30 Sufficie nt 30-100 Potential Toxic ity >[address] [facility] [facility]-FlakitofkinCORTISOL, [id number] 09:39:00 Test Item Value Reference Range Interpretation Comments Cortisol, Random 1.7 ug/dl No establis hed normal (test code = values for this test CORTISOL) method. [facility]-[id number] 09:29:00 Test Item Value Reference Range Interpretation Comments aPTT (test code = PTT) 26.1 seconds 23.9-30.[address] [facility]-WhitesvilleHEPATIC FUNCTION PANEL (LIVER)2020-04-07 09:16:00 Test Item Value [...] (test code = 0.6 mg/dl 0.0-1.1 IBIL) [facility]-[id number] 09:16:00 Test Item Value Reference Range Interpretation [...] 0.5-1.3 code = CREA) EGFR if >60 Canadian (test code mL/min/1.73m\\ = EGFRAA) S\\2 EGFR if Non- >60 Estimate d Glomerular Canadian (test code mL/min/1.73m\\ Filtrat ion Rate (eGFR) [...] and management of c hronic kidney failure. [facility]-LufkinCBC (HEMOGRAM ONLY)2020-04-07 09:00:00 Test Item Value [...] WILL BE NOTED ON THE RE PORT. [facility]-LufkinPLASMA RENIN [id number] 13:40:00 Test Item Value Reference Range Interpretation Comments RENIN ACTIVITY, 2.254 ng/mL/hr 0.167-5.380 N This test was developed PLASMA (test and its perform ance code = 632885) characteristi cs determined by [employer] [employer]. It has not been cleared or approved by the Food and Drug Admini stration. [facility]kinCORTISOL, [id number] 06:35:00 Test Item Value Reference Range Interpretation Comments SALIVARY CORTISOL, MS 0.032 ug/dL Refere nce Range: (test code = 134099) Childre n and Adults: 8:00a.m.: 0.025 - 0.600 Noon: <0. 010 - 0.330 4:00p.m.: 0.010 - 0.200 Midnigh t: <0.010 - 0.[address] [facility]-LufkinALDOSTERONE, 24 HR (U)2019-11-20 06:35:00 Test Item Value Reference Range Interpretation Comments ALDOSTERONE <2.50 ug/L Not Estab. N This test was U,RANDOM (test code develope d and its = 095842) performance characteristics determined by [facility]. It has not been cleared or appr stan by the Food and Dr ug Administration. ALDOSTERONE,U, <3.13 ug/24 0.00-19.00 N Adult Ranges Low TIMED (test code = hr Sodium In take 20.00 - 810871) 80.00 Normal S odium Intake 0.00 - 1 9.00 High Sodium Int ike 0.00 - 12.00 TOTAL VOLUME (test 1250 mL code = TOTVOL) PERFORMED AT: [address] [id number] MECHANICAL MANAGER: Deanne Izquierdo MD PHONE: [phone] [facility] [place][Note 2] METANEPHRINES, FRAC. LC/MS/MS, 24 HR [id number] 07:52:00 Test Item Value Reference Range Interpretation Comments NORMETANEPHRINE, 1594 ug/L Undefined N This test w as developed UR (test code = and its perf ormance 028605) characteristics determined by [facility]. It has not been cleared or approved by the Food and Drug Admini stration. NORMETANEPHR.,U, 1993 ug/24 hr 82-500 H (Hyperten sive) >17 24H (test code = years 11 mo [facility]: 110 - 351406) 1050 METANEPHRINE, UR 148 ug/L Undefined N This test w as developed (test code = and its perform ance 102369) characteristics determined by [facility]. It has not been cleared or approved by the Food and Drug Admini stration. METANEPHRINE, 185 ug/24 hr 45-290 N (Hypertensive ) >17 U,24HR (test years 11 months : 35 - code = 733473) 460 TOTAL VOLUME 1250 mL (test code = TOTVOL) PERFORMED AT: [address] [id number] MECHANICAL MANAGER: Deanne Izquierdo MD PHONE: [phone] County General Hospital[facility] [place][Note 2] CORTISOL, FREE, 24 HR [id number] 09:15:00 Test Item Value Reference Range Interpretation Comments CORTISOL,F,UG/L,U 10 ug/L Undefined N This test was developed (test code = and its perform ance 732620) characteristics determined by [facility]. It has not been cl eared or approved by the Food and Drug Administra tion. CORTISOL,F,UG/24H 13 ug/24 hr 6-42 N R,U (test code = 190137) TOTAL VOLUME 1250 mL (test code = TOTVOL) PERFORMED AT: [facility] [address] [id number] MECHANICAL MANAGER: Deanne Izquierdo MD PHONE: [phone] County General Hospital[facility] [place][Note 2] MRI LSJENNIFER WO/W [id number] 13:35:12Headaches; Lower Extremity weakness Procedure: MRI LSJENNIFER WO/W CONTOrder Date: 11/11/2019 8:02 AMOrdering Provider: RO MELVINlinical Indication: [id number]: Idiopathic transverse myelitisComparison: September 19, 2019Technique: Multiplanar [...] electronically signed by Dr Rowdy Haskins MD 11/11/20191:28 PMDictated By: ROWDY HASKINSDate:11/11/2019 13:28[facility] TSPINE WO/W CONT 2019-11-11 13:30:46Headaches; Lower Extremity weaknessProcedure: MRI TSPINE WO/W CONTOrder Date: 11/11/2019 8:02 AMOrdering Provider: RO MELVINlinical Indication: [id number]: Idiopathic transverse myelitisComparison: September 19, 2019Technique: Multiplanar [...] The conus is ofnormal signal and contour and terminates at the L1 level. There is no paraspinalmass. There is no prevertebral fluid collection.Impression:1. No signal abnormality in the thoracic spinal cord.2. No abnormal contrast enhancement within the thoracic spine, thoracic spinalcanal, or thoracic spinal cord.3. No disc herniation or significant spinal stenosis.4. Mild multilevel degenerative disc disease.5. No other significant findings.This final report was electronically signed by Dr Rowdy Haskins MD 11/11/20191:24 PMDictated By: ROWDY HASKINS.Date: 11/11/2019 13:24[facility] WO/W [id number] 13:20:45Headaches; Lower Extremity weaknessProcedure: MRI GERI WO/W CONTOrder Date: 11/11/2019 8:01 AMOrdering Provider: [facility]OSPITALlinical Indication: [id number]: Idiopathic transverse myelitisComparison: NoneTechnique: Multiplanar MRI of the cervical spine was obtained before and afterintravenous administration of contrast medium.Findings:Thereis normal signal within the marrow of the cervical and proximal thoracicvertebral bodies.There is nomarrow signal abnormality to suggest fracture or neoplasm.The [...] electronically signed by Dr Rowdy Haskins MD :14 PMDictated By: ROWDY HASKINSDate: 11/11/2019 13:14[facility] BRAIN WO/W [id number] 13:15:20 Headaches; Lower Extremity weakness; GFR>60Procedure: MRI BRAIN WO/W CONTOrder Date: 11/11/2019 8:00 AMOrdering Provider: RO LYClinical Indication: [id number]: Idiopathic transverse myelitisComparison: September 19, 2019Technique: Multiplanar [...] ctronically signed by Dr Rowdy Haskins MD :08 PMDictated By: ROWDY HASKINSDate: 11/11/2019 13:08[facility] WITH AUTO [id number] 10:22:00 Test Item Value Reference Range Interpretation [...] (test code = 0.4 % 0.0-0.4 IG%) [facility]-[id number] 08:47:00 Test Item Value Reference Range Interpretation [...] 0.5-1.3 code = CREA) EGFR if >60 Canadian (test code mL/min/1.73m\\ = EGFRAA) S\\2 EGFR if Non- >60 Estimate d Glomerular Canadian (test code mL/min/1.73m\\ Filtrat ion Rate (eGFR) [...] and management of c hronic kidney failure. [facility]-Xiaxxx27NX CREATININE [id number] 08:47:00 Test Item Value Reference Range Interpretation Comments Creatinine (test 0.6 mg/dl The value 9 6.6 code = CREA) originally rele ased by [id number] on 11/11/2019 00:5 8 was changed to 0.6 by [id number] on 11/11/2019 06:2 9 Total Volume (24-hr) 1250 ml 800-1900 (test code = TVOL) Creatinine, Aliquot 96.6 mg/dl (test code = QCR) Creatinine Clear, 139.610316 75.0-115.0 N The value 96.6 24hr (test code = ml/min originally released CRC24) by [id number] on 11/11/2019 06:2 9 was changed to 139.240251 by [id number] on 11/11/2019 08:[address] [facility] HospitalWzhnjj-CqxlxuUHWD4758-79-07 12:28:00 Test Item Value Reference Range Interpretation Comments CKMB (test code = CKMB) 1.50 ng/ml 0.50-3.60 [facility] [id number] 12:23:00 Test Item Value Reference Range Interpretation Comments CPK (test code = CPK) 77 U/L 26-[address] [facility]-LufkinTROPONIN-I [id number] 12:23:00 Test Item Value Reference Range Interpretation Comments Troponin-I (test <0.015 ng/ml 0.000-0.045 N The 99th Pe rcentile URL code = TROP) is 0.045 ng/mL for the Siemens Argyle T roponin I. The Joint Europ amy Society of Cardiology/Amer [facility] College of Card iology (ESC/ACC) and t he [facility] of Clinical Bioche terrie Standards of [...] 24 hours after the clini yoli event. [facility]-[id number] 04:43:00 Test Item Value Reference Range Interpretation [...] 0.5-1.3 code = CREA) EGFR if >60 Canadian (test code mL/min/1.73m\\ = EGFRAA) S\\2 EGFR if Non- >60 Estimate d Glomerular Canadian (test code mL/min/1.73m\\ Filtrat ion Rate (eGFR) [...] and management of c hronic kidney failure. [facility] WITH AUTO [id number] 04:27:00 Test Item Value Reference Range Interpretation [...] code = 0.5 % 0.0-0.4 H IG%) [facility] [place][Note 2]DRUG SCREEN [id number] 21:09:00 Test Item Value Reference Range Interpretation [...] the D rugs of Abuse ran on e Siemens Argyle analyzer listed there in: Amphe tamines < [...] Cannabinoids, THC (test NEG code = THC) [facility] , [id number] 20:27:00 Test Item Value Reference Range Interpretation Comments (Urine) (test code = Negative PREGU) [facility] URINALYSIS WITHOUT [id number] 20:26:00 Test Item Value Reference Range Interpretation Comments Color (test code = UCOLR) Light yellow Lt. Yellow A Clarity (test code = UCLAR) Clear Glucose (test code = UGLUC) Negative Negative N Bilirubin (test code = UBILI) Negative Negative N Ketones (test code = UKET) 40 Negative A Specific Kimper (test code = 1.020 1.005-1.030 A USPGR) Blood (test code = UBLD) Negative Negative N PH (test code = UPH) 7.0 4.5-8.0 A Protein (test code = UPROT) Negative Negative N Urobilinogen (test code = U 0.2 >0.2 N UROB) Nitrite (test code = UNITR) Negative Negative N Leukocyte Esterase (test code = Negative Negative N ULEUK) [facility] CT HEAD W/O [id number] 16:18:51 Procedure: TIC CT HEAD W/O CONTRASTOrder Date: 11/09/2019 3:00 PMOrdering Provider: REGAN Benjamininical Indication: [id number]: [id number]: Hypertensive disorderComparison: May 27, 2010Technique: Using a [...] 11/09/20194:12 PMDictated By: ROWDY HASKINSDate: 11/09/2019 16:12 [facility] CBC WITH AUTO [id number] 16:09:00 Test Item Value Reference Range Interpretation [...] entered by [id number] on 11/09/2019 16:[address] [facility] HospitalLzujny-[id number] 15:05:00 Test Item Value Reference Range Interpretation Comments Magnesium (test code = MG) 2.1 mg/dl 1.6-2.6 [facility] [place][Note 2]TS (Ultra Sensitive)2019-11-09 15:05:00 Test Item Value Reference Range Interpretation Comments TSH (test code = TSH) 2.29 mIU/L 0.35-3.[address] [facility]-fkinXR CHEST AP/PA 1 [id number] 14:48:07Procedure: XR CHEST AP/PA 1 VIEWOrder Date: 11/09/2019 2:10 PMOrdering Provider: REGAN Benjamininical Indication: [id number]: Chest painComparison: October 08, 2014Findings:Cardiac size is magnified by technique.Pulmonary vasculature is normal.Mediastinal contour is normal.Aortic contour is normal.There is no consolidation or effusion.There is no evidence of active tuberculosis.There is no mass or pneumothorax.There is no skeletal abnormality.Impression: Negative AP portable chest x-ray.This finalreport was electronically signed by Dr Rowdy Haskins MD 11/09/20192:41 PMDictated By: ROWDY HASKINSDate: 11/09/2019 14:41 [id number] 14:47:00 Test Item Value Reference Range Interpretation Comments Protime (test code 10.3 seconds 9.5-12.1 = PT) INR (test code = 1.0 0.9-1.1 INR results are INR) intended ONLY t o monitor Oral Anticoagulant t herapy in stablized pa tients. The INR Therape utic Range is 2.0 - 3.0 Patients with a mechanical hear t, the INR Range is 2. 5 - 3.5 [facility] [id number] 14:46:00 Test Item Value Reference Range Interpretation Comments Troponin-I (test 0.00 ng/ml 0.00-0.08 The 99th Pe rcentile URL is code = TROP) 0.08 ng/mL for the [place] iStat Troponin I. The Joint Society of Cardiology/Amer ican College of Card iology (ESC/ACC) and t kika National Academy of Clin ical Biochemistry [facility] of Laboratory Prac tices (NACB) recommen [...] 24 hours after the clini yoli event. [facility] CHEM [id number] 14:42:00 Test Item Value Reference Range Interpretation [...] (test code = CREA) 0.6 mg/dl 0.6-1.3 [facility] [place][Note 2]OLIGOCLONAL BANDS, [id number] 11:19:00 Test Item Value Reference Range Interpretation Comments OLIGOCLONAL BANDS Comment Zero (0) o ligoclonal (test code = 905617) bands w ere observed in the CSF. Interp retation: Criteria for Po sitivity: Four (4) or mor e oligoclonal ban ds observed only i n the CSF have been shown to be most consistent with MS using our metho d. [Ang , Sa giovanni EL, Zhane ORTEGA, and Lisandro CUMMINS: Cerebrospinal F luid Oligoclonal Ban ds in [...] (IEF) and immun oblotting methodology. PERFORMED AT: [email or web address] [id number] MECHANICAL MANAGER: Deanne Izquierdo MD PHONE: [phone] [address] IMMUNOGLOBIN PROFILE [id number] 19:48:00 Test Item Value Reference Range Interpretation Comments IGG, QUANT, CSF (test code = 1.2 mg/dL 0.0-8.6 N 026704) IMMUNOGLOBULIN A, QUANT, CSF (test 0.21 mg/dL 0.00-0.64 N code = 769308) IMMUNOGLOBULIN M, QUANT, CSF (test 0.05 mg/dL 0.00-0.26 N code = 887466) PERFORMED AT: [employer] [id number] MECHANICAL MANAGER: Deanne Izquierdo MD PHONE: [phone] [place][Note 2] DRUG SCREEN 10, URINE, [id number] 12:25:00 Test Item Value Reference Range Interpretation Comments CREATININE, URINE 37.6 mg/dL 20.0-300.0 N (test code = 162762) pH, URINE (test code 7.7 4.5-8.9 N = 361741) PLEASE NOTE (test Comment This assay provides a code = 007094) preliminary unconfirmed analytical test result that may [...] th an expected outcom e. (email-saritha mercado [email or web address] or call toll-free [phone]) AMPHETAMINE (test Negative ng/mL Jylyyi=3201 N code = 534850) BARBITURATE (test Negative ng/mL Htofha=083 N code = 605291) BENZODIAZEPINE (test Negative ng/mL Zzyzuk=233 N code = 320893) CANNABINOID (test Negative ng/mL Cutoff=20 N code = 190381) COCAINE (test code = Negative ng/mL Mkrsze=247 N 541361) OPIATE (test code = Positive ng/mL Ygfhaw=078 A Opiate test includes 824134) Codeine, Morphi ne, Hydromorphone, Hydrocodone. PHENCYCLIDINE (test Negative ng/mL Cutoff=25 N code = 655063) METHADONE (test code Negative ng/mL Imecqv=335 N = 308993) PROPOXYPHENE (test Negative ng/mL Kluysi=316 N code = 389185) [facility] [place] HospitalkinGLUCOSE, [id number] 11:32:00 Test Item Value Reference Range Interpretation Comments Glucose, CSF (test code = GLUCSF) 80 mg/dl 40-70 H [facility] [place][Note 2]PROTEIN, TOTAL (CSF)2019-09-22 11:31:00 Test Item Value Reference Range Interpretation Comments T Protein (CSF) (test code = TPCSF) 24 mg/dl 12-60 [facility] SPINAL TAP [id number] 11:21:18 Procedure: SP SPINAL TAP DIAGNOSTICOrder Date: 09/22/2019 9:36 AMOrdering Provider: DR FLORIAN Reading Hospitalical Indication: [id number]: ParesthesiaFluoroscopy time: 1.0 minutesTechnique: The procedure was discussed with the patient and informed consentobtained. The patient was transferred to the fluoroscopy suite and placed onthe table in the prone position. The lower back was prepped and draped in theusualsterile fashion. Lidocaine 1% was administered to the skin andsubcutaneous tissues overlying the puncture site. A 22-gauge spinal needle wasthen advanced into the thecal sac at the L3-4 level. Opening pressure of 30 cmH2O was obtained. Approximately 14 cc of clear CSF was obtained for laboratorypurposes. The needle was removed without incident. The puncture site wasdressed with a sterile bandage. Thepatient tolerated the procedure well.Impression:1. Successful fluoroscopic guided lumbar puncture.2.Opening pressure of 30 cm H2O.3. 14 cc of clear CSF was removed for laboratory purposes.This final report was electronically signed by Dr Rowdy Haskins MD 09/22/201911:14 AMDictated By: ROWDY HASKINS.Date: 09/22/2019 11:14[facility] CENTERCELL COUNT/DIFF (BF/CSF)2019-09-22 10:59:00 Test Item Value Reference Range Interpretation Comments Color (test code = COLFL) Colorless Clarity (test code = CLARFL) Clear RBC (test code = RBCFL) 0 /CUMM 0-1 WBC (test code = WBCFL) 0 /CUMM 0-5 must select CSF fluidas specimen [facility] HospitalkinBMP 2019-09-22 06:35:00 Test Item Value Reference Range [...] 0.5-1.3 code = CREA) EGFR if >60 Canadian (test code mL/min/1.73m\\ = EGFRAA) S\\2 EGFR if Non- >60 Estimate d Glomerular Canadian (test code mL/min/1.73m\\ Filtrat ion Rate (eGFR) [...] and management of c hronic kidney failure. [facility] HospitalIgfjeu-[id number] 16:48:00 Test Item Value Reference Range Interpretation Comments Potassium (test code = K) 4.1 mmol/l 3.5-5.1 [facility] [place][Note 2]CB WITH AUTO [id number] 08:05:00 Test Item Value Reference Range Interpretation [...] THE RBC HISTOGRAM. IN THIS CASE, A LENORE LAFLEUR REVIEW OF THE S LIDE WILL BE [...] value of Macroc ytic was entered by [id number] on 09/21 08:05 CBC AUTO [facility]-[id number] 07:34:00 Test Item Value Reference Range Interpretation [...] ( 4 - SerumAlbumin)] EGFR if >60 Canadian (test code mL/min/1.73m\\ = EGFRAA) S\\2 EGFR if Non- >60 Estimate d Glomerular Canadian (test code mL/min/1.73m\\ Filtrat ion Rate (eGFR) = EGFRNA) S\\2 Reference Inter vals Decision Points for 18 years and older and average body ma ss: >= 60 Does not exc lude kidney disease. 30 - 59 Suggests mo derate chronic kidney disease and indicates t he need for further investigation including asses sment of proteinuria and cardiovascular factors. < 30 U sually indicates a nee d for referral for assessment and management of c hronic kidney failure. [facility] HospitalXrsmny-[id number] 07:34:00 Test Item Value Reference Range Interpretation Comments Magnesium (test code = MG) 2.0 mg/dl 1.6-2.6 [facility]Kqefbh-[id number] 00:04:00 Test Item Value Reference Range Interpretation Comments Potassium (test code = K) 3.4 mmol/l 3.5-5.[address] [facility] HospitalOdxcyt-[id number] 18:45:00 Test Item Value Reference Range Interpretation Comments Potassium (test code = K) 3.3 mmol/l 3.5-5.[address] [facility] HospitalkinCORTISOL, [id number] 12:35:00 Test Item Value Reference Range Interpretation Comments Cortisol, Random 12.8 ug/dl No establis hed normal (test code = values for this test CORTISOL) method. [facility]-[id number] 05:50:00 Test Item Value Reference Range Interpretation [...] 0.5-1.3 code = CREA) EGFR if >60 Canadian (test code mL/min/1.73m\\ = EGFRAA) S\\2 EGFR if Non- >60 Estimate d Glomerular Canadian (test code mL/min/1.73m\\ Filtrat ion Rate (eGFR) [...] Critical values were called to Tiffany by [id number] on 09/20/19 05:50 [facility]. Results were not read back.[facility] HospitalSnhnqp-[id number] 05:50:00 Test Item Value Reference Range Interpretation Comments Magnesium (test code = MG) 1.8 mg/dl 1.6-2.6 [facility]alkinM[facility]DL[facility] WITH AUTO [id number] 05:44:00 Test Item Value Reference Range Interpretation [...] entered by [id number] on 09/20/2019 05:[address] [facility]-L[facility]kinURINALYSIS WITH [id number] 05:07:00 Test Item Value Reference Range Interpretation Comments Color (test code = UCOLR) YELLOW Clarity (test code = UCLAR) CLEAR Glucose (test code = UGLUC) NEGATIVE NEGATIVE N Bilirubin (test code = UBILI) NEGATIVE NEGATIVE N Ketones (test code = UKET) NEGATIVE NEGATIVE N Specific Kimper (test code = <=1.005 1.005-1.030 A USPGR) [...] code = UBACT) 3+ None Seen,Trace A [facility]kinMRI CSPINE WO/W [id number] 00:03:30If patient is claustrophobic, contact ordering physician for additional instructions. Procedures: MRI TSPINE WO/W CONT, MRI LSPINE WO/W CONT, MRI CSPINE WO/W CONTExam Date: 09/19/2019 2:13 PMOrdering Physician: DR FLORIAN Reading Hospitalical Indication: [id number]: ParesthesiaComparison: CT of the cervical, thoracic, and [...] PMDictated By: CHIQUI FAITHDate: 09/19/2019 23:57[facility] LSPINE WO/W [id number] 00:03:27Pt has a cochlear implant w no info on it. Waiting on Radiologists call.Procedures: MRI TSPINE WO/W CONT, MRI LSPINE WO/W CONT, MRI CSPINE WO/W CONTExam Date: 09/19/2019 2:13 PMOrdering Physician: DR FLORIAN MOPSharon Regional Medical Centerical Indication: [id number]: ParesthesiaComparison: CT of the cervical, thoracic, and [...] PMDictated By: CHIQUI FAITHDate: 09/19/2019 23:57[facility] TSPINE WO/W [id number] 00:03:20If patient is claustrophobic, contact ordering physician for additional instructions.Procedures: MRI TSPINE WO/W CONT, MRI LSPINE WO/W CONT, MRI CSPINE WO/W CONTExam Date: 09/19/2019 2:13 PMOrdering Physician: DR FLORIAN MOPSharon Regional Medical Centerical Indication: [id number]: ParesthesiaComparison: CT of the cervical, thoracic, and [...] PMDictated By: CHIQUI FAITHDate: 09/19/2019 23:57[facility] BRAIN WO/W [id number] 23:34:42If patient is claustrophobic, contact ordering physician for additional instructions.Procedures: MRI BRAIN WO/W CONTExam Date: 09/19/2019 2:25 PMOrdering Physician: DR FLORIAN MOPURClinical Indication: [id number]: ParesthesiaComparison: Brain MRI, 09/19/07Technique: Multiplanar multisequence imaging [...] PMDictated By: CHIQUI FAITHDate: 09/19/2019 23:28[facility] (Ultra Sensitive)2019-09-19 16:49:00 Test Item Value Reference Range Interpretation Comments TSH (test code = TSH) 1.41 mIU/L 0.35-3.[address] [facility] [place]-[id number] 16:49:00 Test Item Value Reference Range Interpretation Comments Folic Acid (test code = FOLIC) 1.20 ng/ml 3.10-17.[address] [facility]– CudahyYkoeej-[id number] 16:10:00 Test Item Value Reference Range Interpretation Comments Magnesium (test code = MG) 1.8 mg/dl 1.6-2.6 [facility] [place][Note 2]TIC CT C-SPINE W/O [id number] 12:52:58 PROCEDURES: TIC CT L SPINE W/O CONTRAST, TIC CT T SPINE W/O CONTRAST, TIC CTC- SPINE W/O CONTRASTEXAMDATE: 09/19/2019 10:29 AMORDERING PHYSICIAN: LISANDRO MATACLINICAL INDICATION: [id number]: ParesthesiaCOMPARISON: MRI thoracic and lumbar spine, 07/25/09TECHNIQUE: [...] PMDictated By: CHIQUI FAITHDate: 09/19/2019 12:46[facility] T SPINE [facility]/O CONTRAST 2019-09-19 12:52:46PROCEDURES: TIC CT L SPINE W/O CONTRAST, TIC CT T SPINE W/O CONTRAST, TIC CTC-SPINE W/O CONTRASTEXAMDATE: 09/19/2019 10:29 AMORDERING PHYSICIAN: LISANDRO MATACLINICAL INDICATION: [id number]: Par esthesiaCOMPARISON: MRI thoracic and lumbar spine, [...] 12:46 PMDictated By: CHIQUI FAITHDate: 12:46[facility] ALICE CT L SPINE W/O [id number] 12:52:39 PROCEDURES: TIC CT L SPINE W/O CONTRAST, TIC CT T SPINE W/O CONTRAST, TIC CTC- SPINE W/O CONTRASTEXAMDATE: 09/19/2019 10:29 AMORDERING PHYSICIAN: LISANDRO WATKINSINICAL INDICATION: [id number]: ParesthesiaCOMPARISON: MRI thoracic and lumbar spine, 07/25/09TECHNIQUE: [...] MD09/19/2019 12:46 PMDictated By: CHIQUI FAITHDate: 09/19/2019 12:46[facility] [place] [address], [id number] 11:48:00 Test Item Value Reference Range Interpretation Comments B12 (test code = B12) 705 pg/ml 193-986 [facility] CHEM [id number] 11:06:00 Test Item Value Reference Range Interpretation Comments Sodium (test code = 131 mmol/l 138-146 L NA) Potassium (test code = 2.3 mmol/l 3.5-4.9 LL R&RB lisandro ruchi K) legal support analyst @1104 Chloride (test code = 83 mmol/l 98-109 L CL) IONIZED CALCIUM (test 0.86 1.12-1.32 A code = ICA) CO2 (test code = CO2) 39 mmol/l 24-29 H Glucose (test code = 135 mg/dl 70-105 H GLU) BUN (test code = BUN) 5 mg/dl 6-17 L Creatinine (test code 0.5 mg/dl 0.6-1.3 L = CREA) [facility] CBC WITH AUTO [id number] 11:02:00 Test Item Value Reference Range Interpretation [...] (test code = IG%) 0.3 % 0.0-0.4 [facility] [place][Note 2]
[2022-09-28] MEDS ORDERED: MORPHINE 4 MG/ML SYR ONE ×2 (06:54→10:53)
[2022-09-28] MEDS ORDERED: FAMOTIDINE 20 MG/2 ML VIAL IV ONE (06:54)
[2022-09-28] MEDS ORDERED: ONDANSETRON 4 MG/2 ML VIAL ONE ×2 (06:54→09:54)
[2022-09-28] MEDS ORDERED: NA CHLORIDE 0.9% 1,000 ML ONE ×3 (06:54→10:24)
[2022-09-28 07:32] LABS: Absolute Lymphocytes (CBC) 0.8 K/uL (0.7-4.9); Hematocrit 37.5 % (36.0-45.0); Lymphocytes % 5.6 % (15.3-44.8); MCV 83.6 fL (80-100); MPV 7.6 fL (7.6-11.3); RBC Red Blood Cell Count 4.49 M/uL (3.86-4.86)
[2022-09-28] MEDS ORDERED: Meropenem 1000 MG/VIAL IV ONE (07:51)
[2022-09-28] MEDS ORDERED: NA CHLORIDE 0.9% 100 ML IV ONE (07:51)
[2022-09-28 08:00] LABS: SARS-COV-2 RT PCR NEGATIVE (NEGATIVE)
[2022-09-28 08:47] LABS: Anisocytosis 1+; Blood Morphology Comment NOTED (NOT SEEN); Macrocytosis 1+; Platelet Estimate ADEQ; White Blood Cell Scan OK (OK)
[2022-09-28 08:49] LABS: Albumin 4.2 g/dL (3.4-5.0); Potassium 4.1 mmol/L (3.5-5.1); Protein, Total 8.8 g/dL (6.4-8.2)
--- NOTE | 2022-09-28 09:17 | ER ---
Nurse's Notes [facility] Name: Estevan Peters Age: 37 yrs Sex: Female : 1985 Arrival Date: 09/28/2022 Time: 06:33 Bed 20 Private MD: Diagnosis: Epigastric abdominal tenderness;Vomiting;Biliary acute pancreatitis;Essential (primary) hypertension;Other cholelithiasis with obstruction;Hypo-osmolality and hyponatremia;UTI/ Urinary tract infection, site not specified Presentation: 09/28 06:45 Chief complaint: Patient states: "I have been vomiting for 24 hours now and I have tw5 abdominal pain. ". Coronavirus screen: Vaccine status: Patient reports receiving the 2nd dose of the covid vaccine. Moderna. Ebola Screen: Patient negative for fever greater than or equal to 101.5 degrees Fahrenheit, and additional compatible Ebola Virus Disease symptoms Patient denies exposure to infectious person. Patient denies travel to an Ebola-affected area in the 21 days before illness onset. Initial Sepsis Screen: Does the patient meet any 2 criteria? No. Patient's initial sepsis screen is negative. Does the patient have a suspected source of infection? No. Patient's initial sepsis screen is negative. Risk Assessment: Do you want to hurt yourself or someone else? Patient reports no desire to harm self or others. Onset of symptoms was September 27, 2022 at 08:00. 06:45 Method Of Arrival: Ambulatory tw5 06:45 Acuity: MARYAN 3 tw5 Triage Assessment: 06:48 General: Appears uncomfortable, Behavior is calm, cooperative, appropriate for age. tw5 Pain: Pain currently is 9 out of 10 on a pain scale. GI: Reports vomiting. 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 - Social history:: Smoking status: . Screenin:00 Abuse screen: Denies threats or abuse. Denies injuries from another. Nutritional ko1 screening: No deficits noted. Tuberculosis screening: No symptoms or risk factors identified. Fall Risk None identified. Assessment: 08:00 Reassessment: No changes from previously documented assessment. GI: Pt is actively ko1 vomiting clear fluid. Vital Signs: 06:45 BP 164 / 124; Pulse 138; Resp 20; Temp 98.4; Pulse Ox 96% ; Weight 81.65 kg; Height 5 tw5 ft. 6 in. (167.64 cm); Pain 9/10; 09:08 BP 171 / 127; Pulse 130; Resp 22; Pulse Ox 98% on R/A; ko1 09:23 BP 176 / 110; ko1 09:55 BP 152 / 101; Pulse 128; ko1 10:50 BP 144 / 91; Pulse 125; ko1 06:45 Body Mass Index 29.05 (81.65 kg, 167.64 cm) tw5 ED Course: 06:33 Patient arrived in ED. ja2 06:48 Triage completed. tw5 06:48 Arm band placed on. tw5 06:59 EKG done, by ED staff. mb4 07:00 Missed attempt(s): 22 gauge in right antecubital area. Bleeding controlled, band aid mw2 applied, catheter tip intact. 07:09 Sd Aguilera MD is Attending Physician. heriberto 07:25 Ophelia Lyon RN is Primary Nurse. ko1 07:26 CBC with Diff Sent. ko1 07:26 CMP Sent. ko1 07:26 Lipase Sent. ko1 08:00 Patient has correct armband on for positive identification. Placed in gown. Bed in low ko1 position. Call light in reach. Side rails up X 1. Client placed on continuous cardiac and pulse oximetry monitoring. NIBP monitoring applied. site monitor on. 08:00 No provider procedures requiring assistance completed. ko1 08:03 Inserted saline lock: 22 gauge in left antecubital area, using aseptic technique. ss ,using aseptic technique. Insertion VIA ultrasound guided. Blood collected. 09:49 CT Abd/Pelvis - Without Contrast In Process Unspecified. EDMS 10:59 Report given to GRACIELA Avitia at [facility]. ko1 10:59 Patient transferred, IV remains in place. ko1 Administered Medications: 07:17 CANCELLED (Duplicate Order): NS 0.9% 1000 ml IV at 1 bolus Per protocol; 1000 mL bolus heriberto 08:06 Drug: NS 0.9% 1000 ml Route: IV; Rate: 1 bolus; Site: left antecubital; ko1 09:43 Follow up: Response: No adverse reaction; IV Status: Completed infusion; IV Intake: ko1 1000ml 08:06 Drug: Pepcid (famotidine) 20 mg Route: IVP; Site: left antecubital; ko1 09:45 Follow up: Response: No adverse reaction; No change in condition ko1 08:06 Drug: Zofran (Ondansetron) 4 mg Route: IVP; Site: left antecubital; ko1 09:46 Follow up: Response: No adverse reaction; No change in condition; Nausea unchanged ko1 08:15 Drug: morphine 4 mg Route: IVP; Infused Over: 4 mins; Site: left antecubital; ko1 09:45 Follow up: Response: No adverse reaction; Pain is decreased ko1 08:50 Drug: Meropenem 1 grams Route: IV; Rate: per protocol; Site: left antecubital; ko1 09:44 Follow up: Response: No adverse reaction; IV Status: Completed infusion; IV Intake: ko1 100ml 09:09 Drug: NS 0.9% 1000 ml Route: IV; Rate: 1 bolus; Site: left antecubital; ko1 09:34 Drug: hydrALAZINE 10 mg Route: IVP; Site: left antecubital; ko1 10:00 Drug: Zofran (Ondansetron) 4 mg Route: IVP; Site: left antecubital; ko1 10:11 Drug: NS 0.9% 1000 ml Route: IV; Rate: 125 ml/hr; Site: left antecubital; ko1 10:59 Drug: morphine 4 mg Route: IVP; Infused Over: 4 mins; Site: left antecubital; ko1 Medication: 10:42 VIS not applicable for this client. ko1 Intake: 09:43 IV: 1000ml; Total: 1000ml. ko1 09:44 IV: 100ml; Total: 1100ml. ko1 Outcome: 09:16 ER care complete, transfer ordered by MD. louis 10:59 Transferred by ground EMS [facility]. to [facility], Transfer ko1 form completed. X-rays sent w/ patient. 10:59 Condition: stable 10:59 Discharge instructions given to patient, EMS, Instructed on the need for transfer, Demonstrated understanding of instructions. 11:46 Patient left the ED. ko1 Signatures: Dispatcher [employer] EDMS Sd Aguilera MD MD cha Smirch, Shelby, RN RN Ivory Soto 2 Dolly Avila 4 Naz Stringer Tiffany tw5 Ophelia Lyon RN RN ko1 Corrections: (The following items were deleted from the chart) 06:50 06:48 Home Meds: None; 5
--- NOTE | 2022-09-28 09:17 | EDPHYS ---
Physician Documentation [facility] Name: Estevan Peters Age: 37 yrs Sex: Female : 1985 Arrival Date: 09/28/2022 Time: 06:33 Bed 20 Private MD: MELINDA Physician Sd Aguilera HPI: 09/28 07:41 This 37 yrs old Female presents to ER via Ambulatory with complaints of heriberto Vomiting, Chest Pain. 07:41 The patient presents to the emergency department with nausea, vomiting, abdominal pain, heriberto of the epigastric area, right upper quadrant and left upper quadrant. Onset: The symptoms/episode began/occurred 1 day(s) ago. Possible causes: unknown. The symptoms are aggravated by pressure, food , The symptoms are alleviated by nothing. Associated signs and symptoms: Pertinent positives: abdominal pain, nausea, vomiting. Severity of symptoms: At their worst the symptoms were moderate in the emergency department the symptoms are unchanged. The patient has experienced similar episodes in the past, several times. 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 - Social history:: Smoking status: . ROS: 07:42 Constitutional: Negative for fever, chills, and weight loss, Eyes: Negative for injury, heriberto pain, redness, and discharge, ENT: Negative for injury, pain, and discharge, Neck: Negative for injury, pain, and swelling, Respiratory: Negative for shortness of breath, cough, wheezing, and pleuritic chest pain, Back: Negative for injury and pain, : Negative for injury, bleeding, discharge, and swelling, MS/Extremity: Negative for injury and deformity, Skin: Negative for injury, rash, and discoloration, Neuro: Negative for headache, weakness, numbness, tingling, and seizure, Psych: Negative for depression, anxiety, suicide ideation, homicidal ideation, and hallucinations, Allergy/Immunology: Negative for hives, rash, and allergies, Endocrine: Negative for neck swelling, polydipsia, polyuria, polyphagia, and marked weight changes, Hematologic/Lymphatic: Negative for swollen nodes, abnormal bleeding, and unusual bruising. 07:42 Cardiovascular: Positive for chest pain. 07:42 Abdomen/GI: Positive for abdominal pain, nausea and vomiting, abdominal cramps, abdominal distension, of the epigastric area, right upper quadrant and left upper quadrant. Exam: 07:42 Constitutional: This is a well developed, well nourished patient who is awake, alert, heriberto and in no acute distress. Head/Face: Normocephalic, atraumatic. Eyes: Pupils equal round and reactive to light, extra-ocular motions intact. Lids and lashes normal. Conjunctiva and sclera are non-icteric and not injected. Cornea within normal limits. Periorbital areas with no swelling, redness, or edema. ENT: Nares patent. No nasal discharge, no septal abnormalities noted. Tympanic membranes are normal and external auditory canals are clear. Oropharynx with no redness, swelling, or masses, exudates, or evidence of obstruction, uvula midline. Mucous membranes moist. Neck: Trachea midline, no thyromegaly or masses palpated, and no cervical lymphadenopathy. Supple, full range of motion without nuchal rigidity, or vertebral point tenderness. No Meningismus. Chest/axilla: Normal chest wall appearance and motion. Nontender with no deformity. No lesions are appreciated. Respiratory: Lungs have equal breath sounds bilaterally, clear to auscultation and percussion. No rales, rhonchi or wheezes noted. No increased work of breathing, no retractions or nasal flaring. Back: No spinal tenderness. No costovertebral tenderness. Full range of motion. Female : Normal external genitalia. Skin: Warm, dry with normal turgor. Normal color with no rashes, no lesions, and no evidence of cellulitis. MS/ Extremity: Pulses equal, no cyanosis. Neurovascular intact. Full, normal range of motion. Neuro: Awake and alert, GCS 15, oriented to person, place, time, and situation. Cranial nerves II-XII grossly intact. Motor strength 5/5 in all extremities. Sensory grossly intact. Cerebellar exam normal. Normal gait. Psych: Awake, alert, with orientation to person, place and time. Behavior, mood, and affect are within normal limits. 07:42 ECG was reviewed by the Attending Physician. Vital Signs: 06:45 BP 164 / 124; Pulse 138; Resp 20; Temp 98.4; Pulse Ox 96% ; Weight 81.65 kg; Height 5 tw5 ft. 6 in. (167.64 cm); Pain 9/10; 09:08 BP 171 / 127; Pulse 130; Resp 22; Pulse Ox 98% on R/A; ko1 09:23 BP 176 / 110; ko1 09:55 BP 152 / 101; Pulse 128; ko1 10:50 BP 144 / 91; Pulse 125; ko1 06:45 Body Mass Index 29.05 (81.65 kg, 167.64 cm) tw5 MDM: 06:42 Patient medically screened. rn 07:13 Patient medically screened. heriberto 07:44 Differential diagnosis: gastritis, cholecystitis, pancreatitis, appendicitis, heriberto diverticulitis, viral gastroenteritis, gastroenteritis. HEART Score: History: Slightly Suspicious (0), ECG: Non specific repolarization disturbance / LBTB / PM (1), Age: < or = 45 years (0), Risk Factors: > or = 3 Risk factors for atherosclerotic disease (2), [Hypertension] [DM] [+ Family HX] [Obesity]. The patient's deep vein thrombosis risk score was calculated as follows: Total Score: 0. This patient was found to be at low risk for a deep vein thrombosis by using the Well's assessment criteria. The patient's pulmonary embolism risk score was calculated as follows: the patients heart rate is greater than 100 beats per minute (1.5 Pts) Total Score: 0-2 points. This patient was found to be at low risk for a pulmonary embolism by using the Well's assessment criteria. VERONICA Risk Score: 1 - Three or more CAD risk factors, TOTAL SCORE = 1. Data reviewed: vital signs, nurses notes, lab test result(s), EKG, radiologic studies, CT scan. Data interpreted: vehicle monitor technician: rate is 133 beats/min, rhythm is regular, Pulse oximetry: on room air is 96 %. Test interpretation: by ED physician or midlevel provider: ECG. Counseling: I had a detailed discussion with the patient and/or guardian regarding: the historical points, exam findings, and any diagnostic results supporting the discharge/admit diagnosis, the presence of at least one elevated blood pressure reading (>120/80) during this emergency department visit, lab results, radiology results, the need for further work-up and treatment in the hospital. 09/28 06:49 Order name: CBC with Diff; Complete Time: 08:48 rn 09/28 06:49 Order name: CMP; Complete Time: 08:58 rn 09/28 06:49 Order name: Lipase; Complete Time: 08:58 rn 09/28 06:49 Order name: COVID-19/FLU A+B; Complete Time: 08:11 rn 09/28 06:56 Order name: Troponin High Sensitivity; Complete Time: 08:11 rn 09/28 07:47 Order name: Test, Serum; Complete Time: 08:48 ehriberto 09/28 06:49 Order name: CT Abd/Pelvis - Without Contrast; Complete Time: 11:05 rn 09/28 08:14 Order name: Glucose, Ancillary Testing; Complete Time: 08:19 EDMS 09/28 08:39 Order name: Amylase; Complete Time: 08:58 EDMS 09/28 08:47 Order name: CBC Smear Scan; Complete Time: 08:48 EDMS 09/28 10:59 Order name: Urine Dipstick-Ancillary; Complete Time: 11:05 EDKS 09/28 11:02 Order name: Urine --Ancillary (enter results); Complete Time: 04:09 em1 09/28 06:49 Order name: IV Saline Lock; Complete Time: 07:25 rn 09/28 06:49 Order name: Labs collected and sent; Complete Time: 07:25 rn 09/28 06:49 Order name: Urine Dipstick-Ancillary (obtain specimen); Complete Time: 08:06 rn 09/28 06:49 Order name: EKG; Complete Time: 06:49 rn 09/28 06:49 Order name: Urine Test (obtain specimen); Complete Time: 08:06 rn 09/28 06:49 Order name: EKG - Nurse/Tech; Complete Time: 06:59 rn 09/28 06:49 Order name: Cardiac monitoring; Complete Time: 08:49 rn 09/28 06:49 Order name: Glucose Level; Complete Time: 08:49 rn 09/28 07:39 Order name: Labs - recollect needed: recollect green top please-hemolyzed; Complete em1 Time: 08:49 09/28 09:01 Order name: Vital Signs; Complete Time: 09:06 [facility] EC:42 Rate is 133 beats/min. Rhythm is regular. QRS [place] is Normal. CA interval is normal. heriberto QRS interval is normal. QT interval is normal. No Q waves. T waves are Normal. No ST changes noted. Clinical impression: Abnormal EKG without significant change and Sinus tachycardia. Interpreted by me. Reviewed by me. Administered Medications: 07:17 CANCELLED (Duplicate Order): NS 0.9% 1000 ml IV at 1 bolus Per protocol; 1000 mL bolus heriberto 08:06 Drug: NS 0.9% 1000 ml Route: IV; Rate: 1 bolus; Site: left antecubital; ko1 09:43 Follow up: Response: No adverse reaction; IV Status: Completed infusion; IV Intake: ko1 1000ml 08:06 Drug: Pepcid (famotidine) 20 mg Route: IVP; Site: left antecubital; ko1 09:45 Follow up: Response: No adverse reaction; No change in condition ko1 08:06 Drug: Zofran (Ondansetron) 4 mg Route: IVP; Site: left antecubital; ko1 09:46 Follow up: Response: No adverse reaction; No change in condition; Nausea unchanged ko1 08:15 Drug: morphine 4 mg Route: IVP; Infused Over: 4 mins; Site: left antecubital; ko1 09:45 Follow up: Response: No adverse reaction; Pain is decreased ko1 08:50 Drug: Meropenem 1 grams Route: IV; Rate: per protocol; Site: left antecubital; ko1 09:44 Follow up: Response: No adverse reaction; IV Status: Completed infusion; IV Intake: ko1 100ml 09:09 Drug: NS 0.9% 1000 ml Route: IV; Rate: 1 bolus; Site: left antecubital; ko1 09:34 Drug: hydrALAZINE 10 mg Route: IVP; Site: left antecubital; ko1 10:00 Drug: Zofran (Ondansetron) 4 mg Route: IVP; Site: left antecubital; ko1 10:11 Drug: NS 0.9% 1000 ml Route: IV; Rate: 125 ml/hr; Site: left antecubital; ko1 10:59 Drug: morphine 4 mg Route: IVP; Infused Over: 4 mins; Site: left antecubital; ko1 Disposition Summary: 11/25/22 09:16 Transfer Ordered Transfer Location: [facility] heriberto Reason: Higher level of care heriberto Condition: Fair heriberto Problem: new heriberto Symptoms: have worsened heriberto Accepting Physician: [facility](09/28/22 11:46) ko1 Diagnosis - Epigastric abdominal tenderness heriberto - Vomiting heriberto - Biliary acute pancreatitis heriberto - Essential (primary) hypertension heriberto - Other cholelithiasis with obstruction heriberto - Hypo-osmolality and hyponatremia heriberto - UTI/ Urinary tract infection, site not specified heriberto Forms: - Medication Reconciliation Form heriberto - SBAR form heriberto Signatures: Dispatcher [employer] EDMS Sd Aguilera MD MD cha Nieto, Roman, MD MD rn Martinez, Tino em1 Hermila Norton tw5 Ophelia Lyon RN RN ko1 Corrections: (The following items were deleted from the chart) 06:50 06:48 Home Meds: None; tw5 tw5 07:17 07:17 NS 0.9% 1000 ml IV at 1 bolus Per protocol; 1000 mL bolus ordered. heriberto heriberto 08:39 08:13 AMYLASE, SERUM+C.LAB.BRZ ordered. EDMS EDMS 09:20 09:16 [facility] heriberto heriberto 10:12 09:20 [facility] heriberto heriberto 11:06 10:12 [facility] heriberto heriberto 11:46 11:06 [facility] heriberto ko1
[2022-09-28] MEDS ORDERED: HYDRALAZINE HCL 20 MG/ML VIAL ONE (09:34)
--- NOTE | 2022-09-28 10:19 | RAD REPORT ---
EXAM DESCRIPTION: CT - Abdomen Pelvis Wo Contrast - 09/28/2022 9:47 am CLINICAL HISTORY: Abdominal pain COMPARISON: September 10, 2022 TECHNIQUE: Computed axial tomography of the abdomen and pelvis was obtained. IV contrast not request ed. Oral contrast given All CT scans are performed using dose optimization technique as appropriate and may include automated exposure control or mA/KV adjustment according to patient size. FINDINGS: The evaluation of solid organs, and vessels is limited secondary to the lack of contrast administration. Hepatomegaly. Marked fatty infiltration. Mild stranding within the peripancreatic fat. No pseudocyst. Pancreas is normal size. The spleen, pancreas, adrenals and kidneys appear grossly normal. Cholelithiasis. Gallbladder wall is not thickened. Right miracle colectomy. No bowel obstruction. 6.3 centimeter left ovarian cystic mass without significant free-fluid. Right fallopian clip IMPRESSION: Hepatomegaly with marked fatty infiltration Mild pancreatitis Cholelithiasis 6.3 centimeter left ovarian cystic mass. Followup ultrasound in a couple months recommended for re-ev aluation
[2022-09-28 10:59] LABS: Urine Blood Negative (Negative); Urine Glucose Negative (Negative); Urine Protein 2+ (Negative); Urine Specific Gravity 1.015 (1.005-1.030); Urine pH 8.5 (5.0-7.0)
[2022-09-28 11:07] LABS: Urine Specific Gravity/Preg 1.015 (1.005-1.030)
[2022-09-28 12:04] VITALS: TEMP 98.4
[2022-09-28 12:09] VITALS: O2SAT 98
[2022-09-28 12:12] VITALS: BP 144/91
--- NOTE | 2022-10-01 12:58 | EKG ---
Test Date: 2022-09-28 Test Time: 06:54:48 Patcher Wood Welder: BORIS MEASUREMENT RESULTS: Intervals: Rate: 133 ME: 138 QRSD: 74 QT: 268 QTc: 398 [place]: P: 56 ME: 138 QRS: 50 T: 237 INTERPRETIVE STATEMENTS: Sinus tachycardia Cannot rule out Anterior infarct, age undetermined ST & T wave abnormality, consider inferolateral ischemia Abnormal ECG Compared to ECG 09/10/2022 18:48:57 Myocardial infarct finding now present ST (T wave) deviation now present Sinus rhythm no longer present T-wave abnormality no longer present Possible ischemia still present Electronically Signed On 10-01-22 12:52:13 SONG WRITER by Jeff Julio
== END 2022-09-28 11:46 | disposition short-term general hospital (02) ==
LOC: ER 06:30
DX: K80.81 Other cholelithiasis with obstruction (principal); K85.10 Biliary acute pancreatitis without necrosis or infection; N39.0 Urinary tract infection, site not specified; E87.1 Hypo-osmolality and hyponatremia; R10.816 Epigastric abdominal tenderness; I10 Essential (primary) hypertension; Z91.048 Other nonmedicinal substance allergy status; Z20.822 Contact with and (suspected) exposure to COVID-19
CPT/HCPCS: 96365; 96361; 93005; 85025; 36415; 82150; 84703; 81025; 82947; 81003; 84484; 83690; 80053; 0240U; 74176; 96375; 99285; J0360; J2185; J7030 ×3; J2405 ×2